=== PATIENT | male | born 1945 | race Caucasian/White ===

== ENCOUNTER 2018-05-31 06:07 | Emergency (ER) | payer OTHER ==
--- OUTSIDE RECORDS SUMMARY | 2018-05-31 06:10 | XMS REPORT | Clinical Summary ---
:1945 Author Organization [facility] Address [address] [place] [phone] Phone Care Team Providers Name Role Phone Unavailable Primary Care Provider Unavailable Allergies Active Allergy Reactions Severity Noted Date Comments Penicillins Shortness Of Breath High 11/04/2017 Current Medications Prescription Sig. Disp. Refills Start Date End Date Status tamsulosin (FLOMAX) Take 0.8 mg by Active 0.4 mg Cp24 24 hr mouth nightly. capsule clindamycin Take 2 capsules 30 capsule 0 11/08/2017 11/13/2017 (CLEOCIN) 300 MG (600 mg total) capsule by mouth every 8 (eight) hours for 5 days. traZODone (DESYREL) Take 1 tablet 30 tablet 0 11/08/2017 12/08/2017 50 MG tablet (50 mg total) by mouth every night as needed for Sleep for up to 30 days. Active Problems Problem Noted Date Syncope, unspecified syncope type 11/04/2017 Severe sepsis (HCC) 11/04/2017 Aspiration pneumonia (HCC) 11/04/2017 Acute respiratory failure with hypoxemia ([facility]) 11/04/2017 Encounters Date Type Specialty Care Team Description 11/04/2017 - Hospital Cardiology Francisco Javier Jefferson Syncope, 11/08/2017 Encounter MD Lindsay unspecified syncope Baudilio Santoro type (Primary MD Kenneth Dx);Unresponsive;Ac Jeffry Wolf respiratory MD Darion failure with hypoxemia ([facility]);Severe sepsis ([facility]);Encephalopath y, toxic;Aspiration pneumonia due to gastric secretions, unspecified laterality, unspecified part of lung (HCC) 11/04/2017 Orders Only General Internal Medicine after 05/30/2017 Social History Tobacco Use Types Packs/Day Years Used Date Former Smoker Comments: quit age 23 yo Alcohol Use Drinks/Week oz/Week Comments No Sex Assigned at Date Recorded Not on file Last Filed Vital Signs Vital Sign Reading Time Taken Blood Pressure 133/71 11/08/2017 11:51 AM CLEATER Pulse 74 11/08/2017 11:51 AM CLEATER Temperature 36.8 C (98.3 F) 11/08/2017 11:51 AM CLEATER Respiratory Rate 20 11/08/2017 11:51 AM CLEATER Oxygen Saturation 96% 11/08/2017 11:51 AM CLEATER Inhaled Oxygen Concentration - - Weight 104.4 kg (230 lb 3.2 oz) 11/08/2017 7:00 AM CLEATER Height 170.2 cm (5' 7") 11/06/2017 3:30 AM CLEATER Body Mass Index 36.05 11/08/2017 7:00 AM CLEATER Plan of Treatment Not on file Procedures Procedure Name Priority Date/Time Associated Diagnosis Comments CRITICAL CARE Routine 11/04/2017 6:37 PM Results for this CLEATER procedure are in the results section. after 05/30/2017 Results RHYTHM STRIP - SCAN (11/09/2017 1:10 PM)CBC with platelet count + automated diff (11/08/2017 5:50 AM)Only the most recent of5 resultswithin the time period is included. Component Value Ref Range WBC 6.7 3.5 - 10.5 K/L RBC 3.81 (L) 4.63 - 6.08 M/L Hemoglobin 12.1 (L) 13.7 - 17.5 GM/DL Hematocrit 36.7 (L) 40.1 - 51.0 % MCV 96.3 (H) 79.0 - 92.2 fL MCH 31.8 25.7 - 32.2 pg MCHC 33.0 32.3 - 36.5 GM/DL RDW 13.1 11.6 - 14.4 % Platelets 226 150 - 450 K/CU MM MPV 11.5 9.4 - 12.4 fL nRBC 0 0 - 0 /100 WBC % Neutros 52 % % Lymphs 33 % % Monos 10 % % Eos 4 % % Baso 1 % # Neutros 3.49 1.78 - 5.38 K/L # Lymphs 2.17 1.32 - 3.57 K/L # Monos 0.68 0.30 - 0.82 K/L # Eos 0.25 0.04 - 0.54 K/L # Baso 0.04 0.01 - 0.08 K/L Immature Granulocytes-Relative 1 0 - 1 % Specimen Performing Laboratory Blood - Arm, [address] [address] CBC with platelet count + automated diff (11/08/2017 5:50 AM)Only the most recent of5 resultswithin the time period is included. Specimen Performing Laboratory Blood Narrative The following orders were created for panel order CBC with platelet count + automated diff. Procedure Abnormality Status --------- ------ CBC with platelet count ...[[id number]]AbnormalFinal result Please view results for these tests on the individual orders. Basic Metabolic Panel (11/08/2017 5:50 AM)Only the most recent of4 resultswithin the time period is included. Component Value Ref Range Sodium 145 136 - 145 meq/L Potassium 4.3 3.5 - 5.1 meq/L Chloride 111 (H) 98 - 107 meq/L CO2 27 22 - 29 meq/L BUN 17 7 - 21 mg/dL Creatinine 0.98 0.57 - 1.25 mg/dL Glucose 87 70 - 105 mg/dL Calcium 9.1 8.4 - 10.2 mg/dL EGFR 75Comment: ESTIMATED GFR IS NOT ACCURATE mL/min/1.73 sq m CREATININE CLEARANCE IN PREDICTING GLOMERULAR FILTRATION RATE. ESTIMATED GFR IS NOT APPLICABLE FOR DIALYSIS PATIENTS. Specimen Performing Laboratory Blood - Arm, [address] [address] Rapid drug screen, urine (11/07/2017 12:59 PM) Component Value Ref Range Barbiturate Screen Negative Negative Benzodiazepine Screen Negative Negative Cocaine (Metab.) Screen Negative Negative Methadone Screen Negative Negative Opiate Screen Negative Negative Cannabinoid Screen Negative Negative Amph/Methamph Screen Negative Negative Phencyclidine Screen Negative Negative Oxycodone Screen Negative Negative Specimen Performing Laboratory Urine - Urine, Voided [address] [address] Narrative DRUGCUTOFF CONC. Cocaine 300 ng/mL Rumoazsroih13 ng/mL Wiudqcdeyjrrqf283 ng/mL Barbiturate 200 ng/mL Lhmjfepfwultv75 ng/mL Jotrwr610 ng/mL Methadone 300 ng/mL Amphetamine/ 1000 ng/mL Methamphetamine Oxycodone 300 ng/mL This assay provides an unconfirmed qualitative test result for the clinical management of patients in emergency situations. Chain of custody not maintained. Some tbsm-mox-ppffzsi medications, as well as adulterants, may cause inaccurate results. Clinical correlation should be applied. A more comprehensive drug screen or confirmation of a detected drug may be performed upon request. EEG AWAKE/ASLEEP (11/07/2017 9:21 AM) Specimen Performing Laboratory GE RIS Narrative EEG REPORT: Nino Mohamud [facility] , DATE: EEG#: ICD Code: #: G93.40 Encephalopathy-unspecified CPT Code: #: 67545: 01. EEG awake and drowsy; 20-40 min PROCEDURE: EEG CONDITIONS OF RECORDING: This is a digital EEG performed using disc electrodes placed according to the International 10-20 system of electrode placement.Scalp to scalp and scalp to ear montages were used.No sedation was given. DESCRIPTION OF RECORD: In the best awake state, a Posterior Dominant Rhythm (PDR) was present at 605-7 cycles/ second. Excessive amounts of bilateral 5-6 cycles/second theta activity was present intermixed with the background rhythm. There was no focal asymmetry in the background. No epileptiform discharges were noted. No clinical or electrographic seizures were noted. Sleep stages were not seen. Hyperventilation was not performed. Photic stimulation was not performed. The heart rate was 72/ min. IMPRESSION: The EEG was abnormal due to mild diffuse slowing of the background rhythm. No seizures or epileptiform discharges were seen. COMMENT: Mild diffuse slowing is a nonspecific finding indicative of mild global cerebral dysfunction of metabolic, toxic, drug-induced or other etiology. Please correlate clinically. Clinical Fellow: Valeri Andrew Neurophysiologist: Nohemy Chang Procedure Note Interface, External Ris In - 11/07/2017 11:31 AM CLEATER EEG REPORT: Nino Mohamud [facility] , DATE: EEG #: ICD Code: #: G93.40 Encephalopathy-unspecified CPT Code: #: 02037: 01. EEG awake and drowsy; 20-40 min PROCEDURE: EEG CONDITIONS OF RECORDING: This is a digital EEG performed using disc electrodes placed according to the International 10-20 system of electrode placement. Scalp to scalp and scalp to ear montages were used. No sedation was given. DESCRIPTION OF RECORD: In the best awake state, a Posterior Dominant Rhythm (PDR) was present at 605-7 cycles/ second. Excessive amounts of bilateral 5-6 cycles/second theta activity was present intermixed with the background rhythm. There was no focal asymmetry in the background. No epileptiform discharges were noted. No clinical or electrographic seizures were noted. Sleep stages were not seen. Hyperventilation was not performed. Photic stimulation was not performed. The heart rate was 72/ min. IMPRESSION: The EEG was abnormal due to mild diffuse slowing of the background rhythm. No seizures or epileptiform discharges were seen. COMMENT: Mild diffuse slowing is a nonspecific finding indicative of mild global cerebral dysfunction of metabolic, toxic, drug-induced or other etiology. Please correlate clinically. Clinical Fellow: Valeri Andrew Neurophysiologist: Nohemy Chang brain without IV contrast (11/06/2017 10:27 PM) Specimen Performing Laboratory Speed Dating by Chantilly Lace Narrative FINAL REPORT EXAMINATIONNONCONTRAST HEAD CT SCAN CLINICAL HISTORY:Altered level of consciousness, confusion and delirium COMPARISON CT: 11/04/2017 TECHNIQUE: Axial tomographic images were obtained through the brain from the vertex to the skull base without intravenous contrast. The exam was performed according to our departmental dose optimization program which includes automated exposure control, adjustment of the mA and/or kV according to patient's size and/or use of iterative reconstructive technique. FINDINGS: Generalized volume loss and mild deep white matter changes are again noted. No evidence of acute intracranial hemorrhage, mass effect, cerebral edema, midline shift, hydrocephalus or abnormal extra-axial fluid collection. The orbits are unremarkable. The visualized paranasal sinuses are associated with mild mucosal thickening without significant fluid. The tympanic and mastoid air cells are well pneumatized. No evidence of an acute skull fracture. IMPRESSION: No specific evidence of an acute intracranial process. If there is persistent clinical concern, consider brain MRI. Signed: Tre Eckert MD Report Verified Date/Time:11/06/2017 23:34:56 Reading Location: [address] Transitional Reading Room Procedure Note Interface, External Ris In - 11/06/2017 11:37 PM CLEATER FINAL REPORT EXAMINATION NONCONTRAST HEAD CT SCAN CLINICAL HISTORY:Altered level of consciousness, confusion and delirium COMPARISON CT: 11/04/2017 TECHNIQUE: Axial tomographic images were obtained through the brain from the vertex to the skull base without intravenous contrast. The exam was performed according to our departmental dose optimization program which includes automated exposure control, adjustment of the mA and/or kV according to patient's size and/or use of iterative reconstructive technique. FINDINGS: Generalized volume loss and mild deep white matter changes are again noted. No evidence of acute intracranial hemorrhage, mass effect, cerebral edema, midline shift, hydrocephalus or abnormal extra-axial fluid collection. The orbits are unremarkable. The visualized paranasal sinuses are associated with mild mucosal thickening without significant fluid. The tympanic and mastoid air cells are well pneumatized. No evidence of an acute skull fracture. IMPRESSION: No specific evidence of an acute intracranial process. If there is persistent clinical concern, consider brain MRI. Signed: Tre Eckert MD Report Verified Date/Time: 11/06/2017 23:34:56 Reading Location: [address] Transitional Reading Room Ammonia (11/06/2017 7:13 PM) Component Value Ref Range Ammonia 35Comment: Specimen moderately hemolyzed 18 - 72 mol/L Specimen Performing Laboratory Blood [address] [address] TSH/Free T4 If Indicated (11/05/2017 6:24 PM) Component Value Ref Range TSH 1.87 0.35 - 4.94 uIU/mL Specimen Performing Laboratory Blood [address] [address] Hemoglobin A1c (11/05/2017 6:24 PM) Component Value Ref Range Hemoglobin A1C 5.4 4.3 - 6.1 % Specimen Performing Laboratory Blood [facility] [address] [address] ECHOCARDIOGRAM REPORT - SCAN (11/05/2017 11:20 AM)2D Echo W/Doppler (Sepsis Protocol) (11/05/2017 7:22 AM) Component Value Ref Range Ejection Fraction Specimen Performing Laboratory [facility] ECHO HEARTLAB MKCKESSON CPACS Narrative Transthoracic Echocardiography Report (TTE) Demographics Patient NINO Lozano Date of Study11/05/2017 GLORIA Male Visit [id number] Unknown Room [id number] Number Date of 4Referring Jeffry Cat MD Age 72 year(s)[employer] [facility] Medical Referral Coordinator Shankar Madison Interpreting Lance Herr MD Physician Procedure Type of Study TTE procedure:2DECHO W DOPPLER(CW/PW/COLOR) (CIARA) Indications:Sepsis protocol. Clinical History BHP HGB 14.3 HCT 43.0 % Contrast Medium: Definity. Amount - 3 ml Height: 67 inches Weight: 99.79 kg (220 lbs) BSA: 2.11 m^2 BMI: 34.46 kg/m^2 HR: 83 bpm BP: 113/76 mmHg Summary LV endocardium is adequately visualized with IV ultrasound enhancing agent. No evidence of LV hypertrophy. All of the LV segments contract normally . Estimated LVEF by qualitative assessment is normal (55-60%) . Grade 1 diastolic dysfunction (impaired relaxation and low-normal LA pressure). Normal right ventricle structure and function. Estimated peak systolic PA pressure is 25-30 mmHg . No evidence of pericardial effusion. Signature Findings Left Ventricle LV endocardium is adequately visualized with IV ultrasound enhancing agent. No evidence of LV hypertrophy. All of the LV segments contract normally . Estimated LVEF by qualitative assessment is normal (55-60%) . Grade 1 diastolic dysfunction (impaired relaxation and low- normal LA pressure). Left AtriumLA size is normal . Right VentricleNormal right ventricle structure and function. Right Atrium Normal right atrium. Aortic Valve Mild AoV cusp thickening. Mitral Valve Mild MV leaflet thickening. Tricuspid ValveA trace of tricuspid regurgitation. Estimated peak systolic PA pressure is 25-30 mmHg . Pulmonic Valve Normal PV structure and function by limited views and Doppler. AortaAortic root size (SInus of Valsalva diameter) is normal . PericardiumNo evidence of pericardial effusion. IVC/SVC/PA/PV/PleuralThe estimated RA pressure by IVC dynamics 5-10mmHg . Chambers/Structures Left Atrium LA Dimension: 3.45 cm Left Ventricle LVIDd: 4.6 cm LV Septum Diastolic: 0.83 cm LV PW Diastolic: 0.95 cm Aorta Ao Root S of Consuelo.: 2.62 cm Doppler/Quantitative Measurements LVOT Peak Velocity: 1.14 m/s Peak Gradient: 5.23 mmHg Mean Velocity: 0.64 m/s Mean Gradient: 2.12 mmHg LVOT VTI: 17.96 cm Procedure Note Interface, External Ris In - 11/05/2017 10:55 AM CLEATER Transthoracic Echocardiography Report (TTE) Demographics Patient Name NINO MOHAMUD Date of Study 11/05/2017 GLORIA Gender Male Visit Number [id number] Race Unknown Room Number 7401 Number Date of 1945 Referring Jeffry Figueroaough Physician MD Luciano Age 72 year(s) [employer] [facility] Medical Referral Coordinator Shankar Madison Interpreting Lance Herr MD Physician Procedure Type of Study TTE procedure:2DECHO W DOPPLER(CW/PW/COLOR) ([facility]) Indications:Sepsis protocol. Clinical History BHP HGB 14.3 HCT 43.0 % Contrast Medium: Definity. Amount - 3 ml Height: 67 inches Weight: 99.79 kg (220 lbs) BSA: 2.11 m^2 BMI: 34.46 kg/m^2 HR: 83 bpm BP: 113/76 mmHg Summary LV endocardium is adequately visualized with IV ultrasound enhancing agent. No evidence of LV hypertrophy. All of the LV segments contract normally . Estimated LVEF by qualitative assessment is normal (55-60%) . Grade 1 diastolic dysfunction (impaired relaxation and low-normal LA pressure). Normal right ventricle structure and function. Estimated peak systolic PA pressure is 25-30 mmHg . No evidence of pericardial effusion. Signature Findings Left Ventricle LV endocardium is adequately visualized with IV ultrasound enhancing agent. No evidence of LV hypertrophy. All of the LV segments contract normally . Estimated LVEF by qualitative assessment is normal (55-60%) . Grade 1 diastolic dysfunction (impaired relaxation and low-normal LA pressure). Left Atrium LA size is normal . Right Ventricle Normal right ventricle structure and function. Right Atrium Normal right atrium. Aortic Valve Mild AoV cusp thickening. Mitral Valve Mild MV leaflet thickening. Tricuspid Valve A trace of tricuspid regurgitation. Estimated peak systolic PA pressure is 25-30 mmHg . Pulmonic Valve Normal PV structure and function by limited views and Doppler. Aorta Aortic root size (SInus of Valsalva diameter) is normal . Pericardium No evidence of pericardial effusion. IVC/SVC/PA/PV/Pleural The estimated RA pressure by IVC dynamics 5-10mmHg . Chambers/Structures Left Atrium LA Dimension: 3.45 cm Left Ventricle LVIDd: 4.6 cm LV Septum Diastolic: 0.83 cm LV PW Diastolic: 0.95 cm Aorta Ao Root S of Consuelo.: 2.62 cm Doppler/Quantitative Measurements LVOT Peak Velocity: 1.14 m/s Peak Gradient: 5.23 mmHg Mean Velocity: 0.64 m/s Mean Gradient: 2.12 mmHg LVOT VTI: 17.96 cm Manual Differential (11/05/2017 3:19 AM) Component Value Ref Range % Neutros (manual) 86 % % Lymphs (manual) 4 % % Monos (manual) 3 % % Eos (manual) 0 % % Baso (manual) 0 % % Bands (manual) 7 0 - 10 % # Neutros (manual) 19.69 (H) 1.80 - 8.00 K/L # Lymphs (manual) 0.92 (L) 1.48 - 4.50 K/L # Monos (manual) 0.69 0.00 - 1.30 K/L # Eos (manual) 0.00 0.00 - 0.50 K/L # Baso (manual) 0.00 0.00 - 0.20 K/L # Bands (manual) 1.6 (H) 0.0 - 0.8 K/L Total Counted 100 Bands plus Segmented Neutrophils 21.30 WBC Morphology Normal Platelet Morphology Normal RBC Morphology Normal Specimen Performing Laboratory Blood [address] [address] Lactic acid, venous, whole blood (11/05/2017 3:19 AM)Only the most recent of2 resultswithin the time period is included. Component Value Ref Range Lactate, Venous 2.2 0.5 - 2.2 mmol/L Specimen Performing Laboratory Blood [address] [address] Narrative Effective 03/01/2016: Units/Reference Range Change New: 0.5-2.2 mmol/LPrevious: 5-20 mg/dL Magnesium (11/05/2017 3:19 AM)Only the most recent of2 resultswithin the time period is included. Component Value Ref Range Magnesium 2.1 1.6 - 2.6 mg/dL Specimen Performing Laboratory Blood [address] [address] Influenza A H1N1 PCR (11/04/2017 8:44 PM) Component Value Ref Range Influenza A RNA Not Detected Not Detected, Inconclusive Novel H1N1 RNA Not Detected Not Detected, Inconclusive Specimen Performing Laboratory Nasal - Nasopharyngeal Swab [place] [id number] Narrative These assays were performed by real-time RT-PCR (wheel braider-PCR) utilizing fluorogenic hydrolysis probe technology for the detection of human Influenza A viruses and the differential detection of novel H1N1 Influenza virus in respiratory specimens. The test is composed of (1) an RNA extraction from patient specimen, and (2) wheel braider- PCR amplification and detection with human Influenza A and novel [id number] primers and probes. A well-conserved region of the Influenza A matrix gene is targeted in one set of reactions to identify both seasonal Influenza A and novel H1N1 Influenza virus in the specimen.In addition, a specific region of the hemagglutinin gene is targeted to differentiate the novel H1N1 virus from the seasonal human influenza. An internal control is used to confirm PCR amplification.Genetic variation and other factors can affect the accuracy of nucleic acid testing; therefore, the results should be interpreted in light of clinical data. This test was developed and its performance characteristics determined by the [facility] Pathology Department, Section of Molecular Pathology.It has not been cleared or approved by the U.S. Food and Drug Administration (FDA).Since FDA approval is not required for clinical use of the test, validation was done as required by The Clinical Laboratory Amendments of 1988. These assays were performed by real-time RT-PCR (wheel braider-PCR) utilizing fluorogenic hydrolysis probe technology for the detection of human Influenza A viruses and the differential detection of novel H1N1 Influenza virus in respiratory specimens. The test is composed of (1) an RNA extraction from patient specimen, and (2) wheel braider- PCR amplification and detection with human Influenza A and novel [id number] primers and probes. A well-conserved region of the Influenza A matrix gene is targeted in one set of reactions to identify both seasonal Influenza A and novel H1N1 Influenza virus in the specimen.In addition, a specific region of the hemagglutinin gene is targeted to differentiate the novel H1N1 virus from the seasonal human influenza. An internal control is used to confirm PCR amplification.Genetic variation and other factors can affect the accuracy of nucleic acid testing; therefore, the results should be interpreted in light of clinical data. This test was developed and its performance characteristics determined by the [facility] Pathology Department, Section of Molecular Pathology.It has not been cleared or approved by the U.S. Food and Drug Administration (FDA).Since FDA approval is not required for clinical use of the test, validation was done as required by The Clinical Laboratory Amendments of 1988. Oxygen saturation, measured (11/04/2017 8:44 PM) Component Value Ref Range O2 Saturation (Measured) 41.4 % Specimen Performing Laboratory Blood - Arm, Right [address] [address] Narrative If patient has internal jugular ( IJ) or subclavian central line or PICC line. Draw from distal port. Label as central venous oxygen. Prothrombin time/INR (11/04/2017 8:44 PM) Component Value Ref Range Protime 15.3 (H) 11.7 - 14.7 seconds INR 1.2 <=5.9 Specimen Performing Laboratory Blood - Arm, Right [address] [address] Narrative RECOMMENDED COUMADIN/WARFARIN INR THERAPY RANGES STANDARD DOSE: 2.0 - 3.0 Includes: PROPHYLAXIS for venous thrombosis, systemic embolization; TREATMENT for venous thrombosis and/or pulmonary embolus. HIGH RISK: Target INR is 2.5-3.5 for patients with mechanical heart valves. Rapid influenza A&B screen (11/04/2017 8:44 PM) Component Value Ref Range Rapid Influenza A Antigen Negative Negative, Inconclusive Rapid influenza B Antigen Negative Negative, Inconclusive Specimen Performing Laboratory Nasal - Nasopharyngeal Swab [address] [address] [address] chest for pulmonary embolus (11/04/2017 7:46 PM) Specimen Performing Laboratory Speed Dating by Chantilly Lace Narrative FINAL REPORT CLINICAL HISTORY: Chest pain. FINDINGS: Multiple axial images of the chest were performed after the uncomplicated administration of IV contrast, utilizing a pulmonary embolism protocol. Post-processing coronal reformats were created and interpreted. This exam was performed according to our departmental dose-optimization program, which includes automated exposure control, adjustment of the mA and/or kV according to patient size and/or use of the iterative reconstruction technique. Study quality:Adequate. Comparison:None. Pulmonary arteries: No pulmonary embolism. Lung parenchyma: Peripheral opacity in the dependent right upper lobe and left lower lobe, probably atelectasis Pleural effusion: None. Pneumothorax: None. Tracheobronchial tree: Endotracheal tube in good position above the niki Pulmonary vasculature: No significant findings. Cardiac contours and great vessels: No significant findings. Specifically, the aorta is normal without dissection, aneurysm or periaortic hematoma. Mediastinum: Small hiatal hernia Lymph Nodes: No adenopathy in the mediastinum or jae. Skeleton: No acute abnormality. Limited images of upper abdomen: No significant findings. IMPRESSION: No pulmonary embolus. The aorta is unremarkable. Bilateral atelectasis versus pneumonitis. Small hiatal hernia. Endotracheal tube in appropriate position. Signed: Chance Nowak MD Report Verified Date/Time:11/04/2017 19:53:50 Reading Location: [address] Reading Room Procedure Note Interface, External Ris In - 11/04/2017 7:55 PM CLEATER FINAL REPORT CLINICAL HISTORY: Chest pain. FINDINGS: Multiple axial images of the chest were performed after the uncomplicated administration of IV contrast, utilizing a pulmonary embolism protocol. Post-processing coronal reformats were created and interpreted. This exam was performed according to our departmental dose-optimization program, which includes automated exposure control, adjustment of the mA and/or kV according to patient size and/or use of the iterative reconstruction technique. Study quality:Adequate. Comparison:None. Pulmonary arteries: No pulmonary embolism. Lung parenchyma: Peripheral opacity in the dependent right upper lobe and left lower lobe, probably atelectasis Pleural effusion: None. Pneumothorax: None. Tracheobronchial tree: Endotracheal tube in good position above the niki Pulmonary vasculature: No significant findings. Cardiac contours and great vessels: No significant findings. Specifically, the aorta is normal without dissection, aneurysm or periaortic hematoma. Mediastinum: Small hiatal hernia Lymph Nodes: No adenopathy in the mediastinum or jae. Skeleton: No acute abnormality. Limited images of upper abdomen: No significant findings. IMPRESSION: No pulmonary embolus. The aorta is unremarkable. Bilateral atelectasis versus pneumonitis. Small hiatal hernia. Endotracheal tube in appropriate position. Signed: Chance Nowak MD Report Verified Date/Time: 11/04/2017 19:53:50 Reading Location: [address] Reading Room Blood gas, arterial (11/04/2017 6:53 PM) Component Value Ref Range pH, Arterial 7.31 (L) 7.35 - 7.45 pCO2, Arterial 40 35 - 45 mmHg pO2, Arterial 220 (H) 80 - 90 mmHg O2 Sat, Arterial 99.4 (H) 96.0 - 97.0 % HCO3, Arterial 20 (L) 21 - 29 mmol/L Base Excess, Arterial -6.2 (L) -2.0 - 3.0 mmol/L Patient Temperature 37.0 C FIO2 60.0 % Specimen Performing Laboratory Blood, Arterial - Arm, [place] [address] ED ECG Interpretation (11/04/2017 6:37 PM) Francisco Javier Khan MD 11/04/20176:37 PM ECG/EKG Interpretation Date/Time: 11/04/2017 5:52 PM Performed by: FRANCISCO JAVIER JEFFERSON Authorized by: FRANCISCO JAVIER JEFFERSON The ECG was interpreted by ED physician. This ECG was not compared with previous ECG(s).The ECG is interpreted as sinus rhythm. Rate is normal rate. Heart rate is 92 BPM. Conduction: conduction normal. ST segments normal. Clinical Impression: non-specific ECGECG reviewed and does not meet STEMI criteria. Patient tolerance: Patient tolerated the procedure well with no immediate complications Critical Care (11/04/2017 6:37 PM) Narrative Francisco Javier Jefferson MD 11/04/20176:37 PM Critical Care Performed by: FRANCISCO JAVIER JEFFERSON Authorized by: FRANCISCO JAVIER JEFFERSON Total critical care time: 45 minutes Critical care time was exclusive of separately billable procedures and treating other patients. Critical care was necessary to treat or prevent imminent or life-threatening deterioration of the following conditions: WATER PUMPER failure or compromise. Critical care was time spent personally by me on the following activities: blood draw for specimens, development of treatment plan with patient or surrogate, discussions with consultants, interpretation of cardiac output measurements, evaluation of patient's response to treatment, examination of patient, obtaining history from patient or surrogate, ordering and performing treatments and interventions, ordering and review of laboratory studies, ordering and review of radiographic studies, pulse oximetry and re-evaluation of patient's condition. XR chest 1 view portable / bedside (11/04/2017 6:31 PM) Specimen Performing Laboratory GE RIS Narrative FINAL REPORT History: Shortness of breath. Comparison: None. Findings: A single view of the chest is submitted. The tip of an endotracheal tube is above the niki at the level of the inferior clavicular heads. Tubing overlying the chest appears reflect a nasogastric tube external to the patient. Please correlate. The cardiomediastinal contours are unremarkable. The lung volumes are low. Curvilinear opacity in the right mid and bilateral lower lung suggests atelectasis or scarring. There is no pneumothorax, large pleural effusion or acute bony abnormality. Signed: Chance Nowak MD Report Verified Date/Time:11/04/2017 19:12:37 Reading Location: [address] Reading Room Procedure Note Interface, External Ris In - 11/04/2017 7:14 PM CLEATER FINAL REPORT History: Shortness of breath. Comparison: None. Findings: A single view of the chest is submitted. The tip of an endotracheal tube is above the niki at the level of the inferior clavicular heads. Tubing overlying the chest appears reflect a nasogastric tube external to the patient. Please correlate. The cardiomediastinal contours are unremarkable. The lung volumes are low. Curvilinear opacity in the right mid and bilateral lower lung suggests atelectasis or scarring. There is no pneumothorax, large pleural effusion or acute bony abnormality. Signed: Chance Nowak MD Report Verified Date/Time: 11/04/2017 19:12:37 Reading Location: [address] Reading Room Blood culture #2 (11/04/2017 6:29 PM)Only the most recent of2 resultswithin the time period is included. Component Value Ref Range Result No growth in 5 days Specimen Performing Laboratory Blood - Arm, Right [address] [address] Urinalysis w/Microscopic (11/04/2017 6:13 PM) Component Value Ref Range Color, UA Yellow Clarity, UA Clear Specific [place], UA 1.016 1.001 - 1.035 pH, UA 5.5 5.0 - 8.0 Protein, UA Negative Negative Glucose, UA 50 mg/dL (A) Negative Ketones, UA Negative Negative Bilirubin, UA Negative Negative Blood, UA Negative Negative Nitrite, UA Negative Negative Leukocytes, UA Negative Negative Urobilinogen, UA 0.2 0.2 - 1.0 mg/dL RBC, UA <1 /HPF WBC, UA 1 /HPF Hyaline Casts, UA 9 /LPF Granular Casts, UA 3 /LPF Specimen Source Urine, [place] Specimen Performing Laboratory Urine - Urine, [address] [address] Urine culture (11/04/2017 6:13 PM) Component Value Ref Range Result No growth Specimen Performing Laboratory Urine - Urine, [address] [address] POC-Lactic Acid, Venous (11/04/2017 6:05 PM) Component Value Ref Range POC-Lactic Acid, Venous 3.1 (H)Comment: TESTED AT [address] 0.9 - 1.7 mmol/L [facility] [address] Specimen Performing Laboratory Blood [address] [address] ECG 12 lead (11/04/2017 5:52 PM) Specimen Performing Laboratory GE MUSE Narrative Ventricular Rate 92 BPM Atrial Rate 92 BPM P-R Interval 158 ms QRS Duration 80 ms Q-T Interval 396 ms QTC Calculation(Bazett) 489 ms P Clay 61 degrees R Clay 8 degrees T Clay 63 degrees Normal sinus rhythm Nonspecific ST and T wave abnormality Prolonged QT Abnormal ECG No previous ECGs available Confirmed by MD NICOLE YOCHAI ([id number]) on 11/06/2017 7:38:32 AM Procedure Note Interface, External Ris In - 11/06/2017 7:38 AM CLEATER Ventricular Rate 92 BPM Atrial Rate 92 BPM P-R Interval 158 ms QRS Duration 80 ms Q-T Interval 396 ms QTC Calculation(Bazett) 489 ms P Clay 61 degrees R Clay 8 degrees T Clay 63 degrees Normal sinus rhythm Nonspecific ST and T wave abnormality Prolonged QT Abnormal ECG No previous ECGs available Confirmed by MD NICOLE YOCHAI ([id number]) on 11/06/2017 7:38:32 AM PT/aPTT (11/04/2017 5:47 PM) Component Value Ref Range Protime 15.1 (H) 11.7 - 14.7 seconds INR 1.2 <=5.9 PTT 25.7 22.5 - 36.0 seconds Specimen Performing Laboratory Blood [address] [address] Narrative RECOMMENDED COUMADIN/WARFARIN INR THERAPY RANGES STANDARD DOSE: 2.0 - 3.0 Includes: PROPHYLAXIS for venous thrombosis, systemic embolization; TREATMENT for venous thrombosis and/or pulmonary embolus. HIGH RISK: Target INR is 2.5-3.5 for patients with mechanical heart valves. Troponin I (11/04/2017 5:47 PM) Component Value Ref Range Troponin I 0.03 0.00 - 0.03 ng/mL Specimen Performing Laboratory Blood [address] [address] Narrative Troponin I (TnI) levels must be interpreted in the context of the presenting symptoms and the clinical findings. Elevated TnI levels indicate myocardial damage, but are not specific for ischemic heart disease. Elevated TnI levels are seen in patients with other cardiac conditions (including myocarditis and congestive heart failure), and slight TnI elevations occur in patients with other conditions, including sepsis, renal failure, acidosis, acute neurological disease, and persistent tachyarrhythmia. Creatine Kinase (CK), Total and MB (11/04/2017 5:47 PM) Component Value Ref Range Total CK 93 29 - 200 U/L CK-MB 1.0 0.0 - 6.6 ng/mL MB Relative Index 1.1 % Specimen Performing Laboratory Blood [address] [address] Narrative CK-MB Reference Range: <6.7Normal 6.7-10.0Borderline >10.0 Abnormal Hepatic function panel (11/04/2017 5:47 PM) Component Value Ref Range Protein, Total 5.9 (L)Comment: Specimen slightly hemolyzed 6.0 - 8.3 gm/dL Albumin 3.1 (L)Comment: Specimen slightly hemolyzed 3.5 - 5.0 g/dL Total Bilirubin 0.5Comment: Specimen slightly hemolyzed 0.2 - 1.2 mg/dL Bilirubin, Direct 0.2Comment: Specimen slightly hemolyzed 0.1 - 0.5 mg/dL Alkaline Phosphatase 74 40 - 150 U/L AST 22Comment: Specimen slightly hemolyzed 5 - 34 U/L ALT 16Comment: Specimen slightly hemolyzed 6 - 55 U/L Specimen Performing Laboratory Blood [address] [address] Comprehensive metabolic panel (11/04/2017 5:47 PM) Component Value Ref Range Protein, Total 6.0Comment: Specimen slightly hemolyzed 6.0 - 8.3 gm/dL Albumin 3.1 (L)Comment: Specimen slightly hemolyzed 3.5 - 5.0 g/dL Alkaline Phosphatase 76 40 - 150 U/L Total Bilirubin 0.5Comment: Specimen slightly hemolyzed 0.2 - 1.2 mg/dL Sodium 140 136 - 145 meq/L Potassium 3.8Comment: Specimen slightly hemolyzed 3.5 - 5.1 meq/L Chloride 109 (H) 98 - 107 meq/L CO2 20 (L) 22 - 29 meq/L BUN 26 (H) 7 - 21 mg/dL Creatinine 1.19Comment: Specimen slightly hemolyzed 0.57 - 1.25 mg/dL Glucose 173 (H) 70 - 105 mg/dL Calcium 8.1 (L) 8.4 - 10.2 mg/dL AST 21Comment: Specimen slightly hemolyzed 5 - 34 U/L ALT 16Comment: Specimen slightly hemolyzed 6 - 55 U/L EGFR Comment: INSUFFICIENT CLINICAL DATA TO mL/min/1.73 sq m CALCULATE ESTIMATED GFR. Specimen Performing Laboratory Blood [address] [address] CTA carotid (11/04/2017 5:32 PM) Specimen Performing Laboratory GE RIS Narrative FINAL REPORT CLINICAL HISTORY: Stroke TECHNIQUE: Contiguous contrast-enhanced axial images through the neck followed by axial images through the head with coronal and sagittal reformations to assess the arterial circulation. 3-D reconstructions to be performed using a volume rendered technique separately on a workstation. This exam was performed according to the departmental dose optimization program which includes automated exposure control, adjustment of the mA and/or kV according to the patient size, and/or use of an iterative reconstruction technique. COMPARISON: Noncontrast head CT 11/04/2017 FINDINGS: The CT angiogram images of the head reveal no evidence of intracranial aneurysm, focal stenosis, or proximal branch vessel occlusion. The major intradural venous sinuses are patent. The carotid arteries in the neck are patent including their bifurcations without focal hemodynamically significant stenosis by NASCET criteria. The vertebral arteries in the neck are patent including their origins. There are dorsal spondylitic changes in the cervical spine. There are scattered subcentimeter lymph nodes in the neck. There is an ETT above the niki. There is consolidation of the visualized right upper and lower lung. IMPRESSION: No evidence of intracranial aneurysm, focal stenosis, or proximal branch vessel occlusion. No evidence of hemodynamically significant stenosis in the cervical carotid or vertebral arteries by NASCET criteria. Signed: John Vick MD Report Verified Date/Time:11/04/2017 17:57:59 Reading Location: [address] Neuro Reading Room Procedure Note Interface, External Ris In - 11/04/2017 6:00 PM CLEATER FINAL REPORT CLINICAL HISTORY: Stroke TECHNIQUE: Contiguous contrast-enhanced axial images through the neck followed by axial images through the head with coronal and sagittal reformations to assess the arterial circulation. 3-D reconstructions to be performed using a volume rendered technique separately on a workstation. This exam was performed according to the departmental dose optimization program which includes automated exposure control, adjustment of the mA and/or kV according to the patient size, and/or use of an iterative reconstruction technique. COMPARISON: Noncontrast head CT 11/04/2017 FINDINGS: The CT angiogram images of the head reveal no evidence of intracranial aneurysm, focal stenosis, or proximal branch vessel occlusion. The major intradural venous sinuses are patent. The carotid arteries in the neck are patent including their bifurcations without focal hemodynamically significant stenosis by NASCET criteria. The vertebral arteries in the neck are patent including their origins. There are dorsal spondylitic changes in the cervical spine. There are scattered subcentimeter lymph nodes in the neck. There is an ETT above the niki. There is consolidation of the visualized right upper and lower lung. IMPRESSION: No evidence of intracranial aneurysm, focal stenosis, or proximal branch vessel occlusion. No evidence of hemodynamically significant stenosis in the cervical carotid or vertebral arteries by NASCET criteria. Signed: John Vick MD Report Verified Date/Time: 11/04/2017 17:57:59 Reading Location: [address] Neuro Reading Room brain (11/04/2017 5:32 PM) Specimen Performing Laboratory GE RIS Narrative FINAL REPORT CLINICAL HISTORY: Stroke TECHNIQUE: Contiguous contrast-enhanced axial images through the neck followed by axial images through the head with coronal and sagittal reformations to assess the arterial circulation. 3-D reconstructions to be performed using a volume rendered technique separately on a workstation. This exam was performed according to the departmental dose optimization program which includes automated exposure control, adjustment of the mA and/or kV according to the patient size, and/or use of an iterative reconstruction technique. COMPARISON: Noncontrast head CT 11/04/2017 FINDINGS: The CT angiogram images of the head reveal no evidence of intracranial aneurysm, focal stenosis, or proximal branch vessel occlusion. The major intradural venous sinuses are patent. The carotid arteries in the neck are patent including their bifurcations without focal hemodynamically significant stenosis by NASCET criteria. The vertebral arteries in the neck are patent including their origins. There are dorsal spondylitic changes in the cervical spine. There are scattered subcentimeter lymph nodes in the neck. There is an ETT above the niki. There is consolidation of the visualized right upper and lower lung. IMPRESSION: No evidence of intracranial aneurysm, focal stenosis, or proximal branch vessel occlusion. No evidence of hemodynamically significant stenosis in the cervical carotid or vertebral arteries by NASCET criteria. Signed: John Vick MD Report Verified Date/Time:11/04/2017 17:57:59 Reading Location: [address] Neuro Reading Room Procedure Note Interface, External Ris In - 11/04/2017 6:00 PM CLEATER FINAL REPORT CLINICAL HISTORY: Stroke TECHNIQUE: Contiguous contrast-enhanced axial images through the neck followed by axial images through the head with coronal and sagittal reformations to assess the arterial circulation. 3-D reconstructions to be performed using a volume rendered technique separately on a workstation. This exam was performed according to the departmental dose optimization program which includes automated exposure control, adjustment of the mA and/or kV according to the patient size, and/or use of an iterative reconstruction technique. COMPARISON: Noncontrast head CT 11/04/2017 FINDINGS: The CT angiogram images of the head reveal no evidence of intracranial aneurysm, focal stenosis, or proximal branch vessel occlusion. The major intradural venous sinuses are patent. The carotid arteries in the neck are patent including their bifurcations without focal hemodynamically significant stenosis by NASCET criteria. The vertebral arteries in the neck are patent including their origins. There are dorsal spondylitic changes in the cervical spine. There are scattered subcentimeter lymph nodes in the neck. There is an ETT above the niki. There is consolidation of the visualized right upper and lower lung. IMPRESSION: No evidence of intracranial aneurysm, focal stenosis, or proximal branch vessel occlusion. No evidence of hemodynamically significant stenosis in the cervical carotid or vertebral arteries by NASCET criteria. Signed: John Vick MD Report Verified Date/Time: 11/04/2017 17:57:59 Reading Location: [address] Neuro Reading Room brain/stroke protocol (11/04/2017 5:04 PM) Specimen Performing Laboratory RIS Narrative FINAL REPORT CT Head without contrast CLINICAL HISTORY: Neuro deficit(s), subacute altered mental status TECHNIQUE: Contiguous axial images through the head without contrast. This exam was performed according to the departmental dose optimization program which includes automated exposure control, adjustment of the mA and/or kV according to the patient size, and/or use of an iterative reconstruction technique. COMPARISON: None FINDINGS: There is no definitive CT evidence of acute infarct. There is no intracranial hemorrhage. There is generalized parenchymal volume loss without hydrocephalus, midline shift, or apparent mass effect. There are no extra-axial fluid collections. The skull is intact. The paranasal sinuses are well-aerated. IMPRESSION: There is no definitive CT evidence of acute infarct. There is no intracranial hemorrhage. The findings were discussed with the stroke neurologist at 5:08 PM. Signed: John Vick MD Report Verified Date/Time:11/04/2017 17:09:06 Reading Location: [address] Neuro Reading Room Procedure Note Interface, External Ris In - 11/04/2017 5:11 PM CLEATER FINAL REPORT CT Head without contrast CLINICAL HISTORY: Neuro deficit(s), subacute altered mental status TECHNIQUE: Contiguous axial images through the head without contrast. This exam was performed according to the departmental dose optimization program which includes automated exposure control, adjustment of the mA and/or kV according to the patient size, and/or use of an iterative reconstruction technique. COMPARISON: None FINDINGS: There is no definitive CT evidence of acute infarct. There is no intracranial hemorrhage. There is generalized parenchymal volume loss without hydrocephalus, midline shift, or apparent mass effect. There are no extra-axial fluid collections. The skull is intact. The paranasal sinuses are well-aerated. IMPRESSION: There is no definitive CT evidence of acute infarct. There is no intracranial hemorrhage. The findings were discussed with the stroke neurologist at 5:08 PM. Signed: John Vick MD Report Verified Date/Time: 11/04/2017 17:09:06 Reading Location: [facility] B1 [id number] Neuro Reading Room after 05/30/2017
--- OUTSIDE RECORDS SUMMARY | 2018-05-31 06:11 | XMS REPORT ---
:1945 Author Organization [facility] Address [address] [place] [address] [address] [place] [address] Care Team Providers Name Role Phone OSMEL DAVALOSMATILDA BAUER Unavailable Unavailable Problems This patient has no known problems. Allergies, Adverse Reactions, Alerts This patient has no known allergies or adverse reactions. Medications This patient has no known medications. Results Test Description Test Time Test Comments Text Results Atomic Results Result Comments BLOOD CULTURE 2017-11-09 23:00:00 Test Item Value Reference Range Comments CULTURE (BEAKER) (test qqtd=6149) No growth in 5 days BLOOD [id number] 23:00:00 Test Item Value Reference Range Comments CULTURE (BEAKER) (test qwht=2582) No growth in 5 days BASIC METABOLIC [id number] 08:26:00 Test Item Value Reference Range Comments SODIUM (BEAKER) (test 145 meq/L 136-145 flsh=230) POTASSIUM (BEAKER) (test 4.3 meq/L 3.5-5.1 bxxo=587) CHLORIDE (BEAKER) (test 111 meq/L 98-107 pinr=273) CO2 (BEAKER) (test 27 meq/L 22-29 gnbk=736) BLOOD UREA NITROGEN 17 mg/dL 7-21 (BEAKER) (test chcg=207) CREATININE (BEAKER) (test 0.98 mg/dL 0.57-1.25 jmmj=130) GLUCOSE RANDOM (BEAKER) 87 mg/dL 70-105 (test byph=040) CALCIUM (BEAKER) (test 9.1 mg/dL 8.4-10.2 kqmt=510) EGFR (BEAKER) (test 75 mL/min/1.73 sq m ESTIMATED GFR IS NOT lbid=4005) ACCURATE CREATININE CLEARANCE IN PREDICTING GLOMERULAR FILTRATION RATE. ESTIMATED GFR IS NOT APPLICABLE FOR DIALYSIS PATIENTS. CBC W/PLT COUNT & AUTO [id number] 06:33:00 Test Item Value Reference Range Comments WHITE BLOOD CELL COUNT (BEAKER) (test sbws=224) 6.7 K/ L 3.5-10.5 RED BLOOD CELL COUNT (BEAKER) (test uzgu=751) 3.81 M/ L 4.63-6.08 HEMOGLOBIN (BEAKER) (test wokg=635) 12.1 GM/DL 13.7-17.5 HEMATOCRIT (BEAKER) (test wflg=959) 36.7 % 40.1-51.0 MEAN CORPUSCULAR VOLUME (BEAKER) (test ryqt=574) 96.3 fL 79.0-92.2 MEAN CORPUSCULAR HEMOGLOBIN (BEAKER) (test 31.8 pg 25.7-32.2 xufh=784) MEAN CORPUSCULAR HEMOGLOBIN CONC (BEAKER) (test 33.0 GM/DL 32.3-36.5 xdsl=312) RED CELL DISTRIBUTION WIDTH (BEAKER) (test 13.1 % 11.6-14.4 npsi=207) PLATELET COUNT (BEAKER) (test yqna=844) 226 K/CU MM 150-450 MEAN PLATELET VOLUME (BEAKER) (test xomf=596) 11.5 fL 9.4-12.4 NUCLEATED RED BLOOD CELLS (BEAKER) (test 0 /100 WBC 0-0 ggvt=276) NEUTROPHILS RELATIVE PERCENT (BEAKER) (test 52 % bzos=582) LYMPHOCYTES RELATIVE PERCENT (BEAKER) (test 33 % ktgc=970) MONOCYTES RELATIVE PERCENT (BEAKER) (test 10 % xwgu=436) EOSINOPHILS RELATIVE PERCENT (BEAKER) (test 4 % nnuy=583) BASOPHILS RELATIVE PERCENT (BEAKER) (test 1 % gasn=380) NEUTROPHILS ABSOLUTE COUNT (BEAKER) (test 3.49 K/ L 1.78-5.38 ltfz=508) LYMPHOCYTES ABSOLUTE COUNT (BEAKER) (test 2.17 K/ L 1.32-3.57 ulkt=610) MONOCYTES ABSOLUTE COUNT (BEAKER) (test 0.68 K/ L 0.30-0.82 aavw=748) EOSINOPHILS ABSOLUTE COUNT (BEAKER) (test 0.25 K/ L 0.04-0.54 uadj=800) BASOPHILS ABSOLUTE COUNT (BEAKER) (test 0.04 K/ L 0.01-0.08 iixp=657) IMMATURE GRANULOCYTES-RELATIVE PERCENT (BEAKER) 1 % 0-1 (test wsyp=7804) RAPID DRUG SCREEN, [id number] 14:01:00 Test Item Value Reference Range Comments BARBITURATE URINE (BEAKER) (test zjly=697) Negative Negative BENZODIAZEPINE SCREEN URINE (BEAKER) (test Negative Negative xglp=210) COCAINE (METAB.) SCREEN (BEAKER) (test scwf=9257) Negative Negative METHADONE SCREEN (BEAKER) (test lutn=4056) Negative Negative OPIATE SCREEN URINE (BEAKER) (test rggj=916) Negative Negative CANNABINOID SCREEN URINE (BEAKER) (test kbuf=115) Negative Negative AMPH/METHAMPH SCREEN (BEAKER) (test mwgm=3931) Negative Negative PHENCYCLIDINE SCREEN URINE (BEAKER) (test bill=751) Negative Negative OXYCODONE SCREEN URINE (BEAKER) (test plst=9453) Negative Negative DRUG CUTOFF CONC.Cocaine 300 ng/mL Cannabinoid 50 ng/mL Benzodiazepine 200 ng/mLBarbiturate 200 ng/ mLPhencyclidine 25 ng/mLOpiate 300 ng/mLMethadone 300 ng/mLAmphetamine/ 1000 ng/mL MethamphetamineOxycodone 300 ng/mLThis assay provides an unconfirmed qualitative test result for the clinical management of patients in emergency situations. Chain of custody not maintained. Some tnlx-fjy-batyxdo medications, as well as adulterants, may cause inaccurate results. Clinical correlation should be applied. A more comprehensive drug screen or confirmation of a detected drug may be performed upon request.EEG AWAKE/ASLEEP AND [id number] 11:31:00Reason for exam:-> encephalopathyEEG REPORT: Aylin Mohamud [facility] , DATE: EEG #: 18-ICD Code: #: G93.40 Encephalopathy-unspecifiedCPT Code: #: 20336: 01. EEG awake and drowsy ; 20-40 minPROCEDURE: EEG CONDITIONS OF RECORDING: This is a digital EEG performed using disc electrodes placed according to the International 10-20 system of electrode placement. Scalp to scalp and scalp to ear montages were used. No sedation was given.DESCRIPTION OF RECORD: In the best awake state, a Posterior Dominant Rhythm (PDR) was present at 605-7 cycles/ second. Excessive amounts of bilateral 5-6 cycles/second theta activity was present intermixed with the background rhythm. There was no focal asymmetry in the background. No epileptiform discharges were noted. No clinical orelectrographic seizures were noted. Sleep stages were not seen. Hyperventilation was not performed. Photic stimulation was not performed. The heart rate was 72/ min.IMPRESSION: The EEG was abnormal dueto mild diffuse slowing of the background rhythm. No seizures or epileptiform discharges were seen. COMMENT: Mild diffuse slowing is a nonspecific finding indicative of mild global cerebral dysfunctionof metabolic, toxic, drug-induced or other etiology. Please correlate clinically.Clinical Fellow: Valeri Catalanurophysiologist: Nohemy Barlow URINE [id number] 09:34:00 Test Item Value Reference Range Comments CULTURE (BEAKER) (test mkfr=3963) No growth CBC W/PLT COUNT & AUTO [id number] 07:03:00 Test Item Value Reference Range Comments WHITE BLOOD CELL COUNT 7.7 K/ L 3.5-10.5 (BEAKER) (test nukk=931) RED BLOOD CELL COUNT (BEAKER) 3.81 M/ L 4.63-6.08 (test tozt=935) HEMOGLOBIN (BEAKER) (test 12.3 GM/DL 13.7-17.5 vswc=721) HEMATOCRIT (BEAKER) (test 36.4 % 40.1-51.0 kgqi=722) MEAN CORPUSCULAR VOLUME 95.5 fL 79.0-92.2 Discordant from previous (BEAKER) (test smdj=075) results. Clinical correlation suggested. MEAN CORPUSCULAR HEMOGLOBIN 32.3 pg 25.7-32.2 (BEAKER) (test jhcl=099) MEAN CORPUSCULAR HEMOGLOBIN 33.8 GM/DL 32.3-36.5 CONC (BEAKER) (test lywp=147) RED CELL DISTRIBUTION WIDTH 12.9 % 11.6-14.4 (BEAKER) (test kyhn=583) PLATELET COUNT (BEAKER) (test 219 K/CU MM 150-450 kuex=741) MEAN PLATELET VOLUME (BEAKER) 11.8 fL 9.4-12.4 (test nskl=750) NUCLEATED RED BLOOD CELLS 0 /100 WBC 0-0 (BEAKER) (test qfzd=986) NEUTROPHILS RELATIVE PERCENT 62 % (BEAKER) (test eeso=648) LYMPHOCYTES RELATIVE PERCENT 23 % (BEAKER) (test eauq=298) MONOCYTES RELATIVE PERCENT 10 % (BEAKER) (test wlwi=901) EOSINOPHILS RELATIVE PERCENT 4 % (BEAKER) (test yaap=836) BASOPHILS RELATIVE PERCENT 1 % (BEAKER) (test irdk=511) NEUTROPHILS ABSOLUTE COUNT 4.80 K/ L 1.78-5.38 (BEAKER) (test xrjh=071) LYMPHOCYTES ABSOLUTE COUNT 1.74 K/ L 1.32-3.57 (BEAKER) (test idbm=727) MONOCYTES ABSOLUTE COUNT 0.77 K/ L 0.30-0.82 (BEAKER) (test zrht=781) EOSINOPHILS ABSOLUTE COUNT 0.29 K/ L 0.04-0.54 (BEAKER) (test izvd=613) BASOPHILS ABSOLUTE COUNT 0.04 K/ L 0.01-0.08 (BEAKER) (test fsjo=952) IMMATURE 1 % 0-1 GRANULOCYTES-RELATIVE PERCENT (BEAKER) (test izkk=8886) BASIC METABOLIC [id number] 07:00:00 Test Item Value Reference Range Comments SODIUM (BEAKER) (test 141 meq/L 136-145 tpcu=243) POTASSIUM (BEAKER) (test 4.0 meq/L 3.5-5.1 bovu=647) CHLORIDE (BEAKER) (test 109 meq/L 98-107 erhm=987) CO2 (BEAKER) (test 22 meq/L 22-29 ufgn=104) BLOOD UREA NITROGEN 21 mg/dL 7-21 (BEAKER) (test nnjb=193) CREATININE (BEAKER) (test 0.80 mg/dL 0.57-1.25 cnda=560) GLUCOSE RANDOM (BEAKER) 82 mg/dL 70-105 (test ggrc=139) CALCIUM (BEAKER) (test 8.8 mg/dL 8.4-10.2 djlq=506) EGFR (BEAKER) (test 95 mL/min/1.73 sq m ESTIMATED GFR IS NOT wguw=4526) ACCURATE CREATININE CLEARANCE IN PREDICTING GLOMERULAR FILTRATION RATE. ESTIMATED GFR IS NOT APPLICABLE FOR DIALYSIS PATIENTS. CT, BRAIN, WITHOUT [id number] 23:34:00FINAL REPORT EXAMINATION NONCONTRAST HEAD CT SCAN CLINICAL [...] clinical concern, consider brain MRI. Signed: [facility] Verified Date/Time: 11/06/2017 23:34:56 Reading Location: [address] Transitional Reading Room 11 :34 [id number] 19:41:00 Test Item Value Reference Range Comments AMMONIA (BEAKER) (test 35 mol/L 18-72 Specimen moderately hemolyzed axah=489) HEMOGLOBIN [id number] 10:32:00 Test Item Value Reference Range Comments HEMOGLOBIN A1C (BEAKER) (test uxpx=305) 5.4 % 4.3-6.1 CBC W/PLT COUNT & AUTO [id number] 07:01:00 Test Item Value Reference Range Comments WHITE BLOOD CELL COUNT (BEAKER) (test qafp=060) 12.6 K/ L 3.5-10.5 RED BLOOD CELL COUNT (BEAKER) (test ikya=121) 4.02 M/ L 4.63-6.08 HEMOGLOBIN (BEAKER) (test paft=576) 12.7 GM/DL 13.7-17.5 HEMATOCRIT (BEAKER) (test ifhp=764) 40.0 % 40.1-51.0 MEAN CORPUSCULAR VOLUME (BEAKER) (test jfhk=795) 99.5 fL 79.0-92.2 MEAN CORPUSCULAR HEMOGLOBIN (BEAKER) (test 31.6 pg 25.7-32.2 hxsm=734) MEAN CORPUSCULAR HEMOGLOBIN CONC (BEAKER) (test 31.8 GM/DL 32.3-36.5 nsfe=893) RED CELL DISTRIBUTION WIDTH (BEAKER) (test 13.0 % 11.6-14.4 olcm=008) PLATELET COUNT (BEAKER) (test xewj=177) 187 K/CU MM 150-450 MEAN PLATELET VOLUME (BEAKER) (test snwi=705) 11.9 fL 9.4-12.4 NUCLEATED RED BLOOD CELLS (BEAKER) (test 0 /100 WBC 0-0 ytbs=898) NEUTROPHILS RELATIVE PERCENT (BEAKER) (test 74 % sgmh=503) LYMPHOCYTES RELATIVE PERCENT (BEAKER) (test 14 % ykhk=831) MONOCYTES RELATIVE PERCENT (BEAKER) (test 7 % wmlx=963) EOSINOPHILS RELATIVE PERCENT (BEAKER) (test 3 % wswd=330) BASOPHILS RELATIVE PERCENT (BEAKER) (test 0 % lwhi=550) NEUTROPHILS ABSOLUTE COUNT (BEAKER) (test 9.39 K/ L 1.78-5.38 kvwj=870) LYMPHOCYTES ABSOLUTE COUNT (BEAKER) (test 1.75 K/ L 1.32-3.57 grnb=591) MONOCYTES ABSOLUTE COUNT (BEAKER) (test 0.91 K/ L 0.30-0.82 rzkk=027) EOSINOPHILS ABSOLUTE COUNT (BEAKER) (test 0.41 K/ L 0.04-0.54 rwuf=631) BASOPHILS ABSOLUTE COUNT (BEAKER) (test 0.04 K/ L 0.01-0.08 ypyn=664) IMMATURE GRANULOCYTES-RELATIVE PERCENT (BEAKER) 1 % 0-1 (test rcwl=5094) BASIC METABOLIC [id number] 06:47:00 Test Item Value Reference Range Comments SODIUM (BEAKER) (test 139 meq/L 136-145 moku=415) POTASSIUM (BEAKER) (test 4.6 meq/L 3.5-5.1 Specimen slightly ahpj=889) hemolyzed CHLORIDE (BEAKER) (test 112 meq/L 98-107 tnhw=135) CO2 (BEAKER) (test 18 meq/L 22-29 lwmp=322) BLOOD UREA NITROGEN 25 mg/dL 7-21 (BEAKER) (test gidl=583) CREATININE (BEAKER) (test 0.91 mg/dL 0.57-1.25 Specimen slightly uuna=798) hemolyzed GLUCOSE RANDOM (BEAKER) 81 mg/dL 70-105 (test zcma=187) CALCIUM (BEAKER) (test 8.6 mg/dL 8.4-10.2 bjsj=639) EGFR (BEAKER) (test 82 mL/min/1.73 sq m ESTIMATED GFR IS NOT ocie=3727) ACCURATE CREATININE CLEARANCE IN PREDICTING GLOMERULAR FILTRATION RATE. ESTIMATED GFR IS NOT APPLICABLE FOR DIALYSIS PATIENTS. INFLUENZA A H1N1 [id number] 21:27:00 Test Item Value Reference Range Comments INFLUENZA A RNA (BEAKER) (test Not Detected Not Detected, Inconclusive dnxd=5718) NOVEL H1N1 RNA (BEAKER) (test Not Detected Not Detected, Inconclusive dduc=5205) These assays were performed by real-time RT-PCR (highway traffic control technician-PCR) utilizing fluorogenic hydrolysis probe technology for the detection of human Influenza A viruses and the differential detection of novel H1N1 Influenza virus in respiratory specimens. The test is composed of (1) an RNA extraction from patient specimen, and (2) highway traffic control technician-PCR amplification and detection with human Influenza A and novel G5E1-hepmlzus primers and probes. A well-conserved region of the Influenza A matrix gene is targeted in one set of reactions to identify both seasonal Influenza A and novel H1N1 Influenza virus in the specimen. In addition, a specific region of the hemagglutinin gene is targeted to differentiate the novel H1N1 virusfrom the seasonal human influenza. An internal control is used to confirm PCR amplification. Genetic variation and other factors can affect the accuracy of nucleic acid testing; therefore, the resultsshould be interpreted in light of clinical data. This test was developed and its performance characteristics determined by the [facility] Pathology Department, Section of Molecular Pathology. It has not been cleared or approved by the U.S. Food and Drug Administration (FDA). SinceFDA approval is not required for clinical use of the test, validation was done as required by The Clinical Laboratory Amendments of 1988.These assays were performed by real-time RT-PCR (highway traffic control technician-PCR) utilizing fluorogenic hydrolysis probe technology for the detection of human Influenza A viruses and the differential detection of novel H1N1 Influenza virus in respiratory specimens. The test is composed of (1) an RNA extraction from patient specimen, and (2) highway traffic control technician-PCR amplification and detection with human Influenza A and novel T4I8-rhooifgz primers and probes. A well-conserved region of the Influenza A matrix gene is targeted in one set of reactions to identify both seasonal Influenza A and novel H1N1 Influenza virus in the specimen. In addition, a specific region of the hemagglutinin gene is targeted to differentiate the novel H1N1 virus from the seasonal human influenza. An internal control is used to confirm PCR amplification. Genetic variation and other factors can affect the accuracy of nucleic acid testing; therefore, the results should be interpreted in light of clinical data. This test was developed and its performance characteristics determined by the [facility] Pathology Department, Section of Molecular Pathology. It has not been cleared or approved by the U.S. Food and Drug Administration ( FDA). Since FDA approval is not required for clinical use of the test, validation was done as required by The Clinical Laboratory Amendments of 1988.TSH/FREE T4 IF [id number] 19:25:00 Test Item Value Reference Range Comments THYROID STIMULATING HORMONE (BEAKER) (test 1.87 uIU/mL 0.35-4.94 sboc=240) CBC W/PLT COUNT & AUTO [id number] 06:46:00 Test Item Value Reference Range Comments WHITE BLOOD CELL COUNT (BEAKER) (test oztr=235) 22.9 K/ L 3.5-10.5 RED BLOOD CELL COUNT (BEAKER) (test mqza=964) 4.47 M/ L 4.63-6.08 HEMOGLOBIN (BEAKER) (test fkdk=927) 14.3 GM/DL 13.7-17.5 HEMATOCRIT (BEAKER) (test ikow=346) 43.0 % 40.1-51.0 MEAN CORPUSCULAR VOLUME (BEAKER) (test gqke=320) 96.2 fL 79.0-92.2 MEAN CORPUSCULAR HEMOGLOBIN (BEAKER) (test 32.0 pg 25.7-32.2 tjie=180) MEAN CORPUSCULAR HEMOGLOBIN CONC (BEAKER) (test 33.3 GM/DL 32.3-36.5 rjyd=161) RED CELL DISTRIBUTION WIDTH (BEAKER) (test 12.7 % 11.6-14.4 cqeb=457) PLATELET COUNT (BEAKER) (test obzc=849) 258 K/CU MM 150-450 MEAN PLATELET VOLUME (BEAKER) (test dgoi=322) 11.0 fL 9.4-12.4 NUCLEATED RED BLOOD CELLS (BEAKER) (test 0 /100 WBC 0-0 cuea=585) IMMATURE GRANULOCYTES-RELATIVE PERCENT (BEAKER) 1 % 0-1 (test kvbb=7632) (MANUAL DIFFERENTIAL)2017-11-05 06:46:00 Test Item Value Reference Range Comments NEUTROPHILS - REL (DIFF) (BEAKER) (test 86 % dbka=9674) LYMPHOCYTES - REL (DIFF) (BEAKER) (test 4 % mnwf=4394) MONOCYTES - REL (DIFF) (BEAKER) (test kpax=7171) 3 % EOSINOPHILS - REL (DIFF) (BEAKER) (test 0 % lkjc=7451) BASOPHILS - REL (DIFF) (BEAKER) (test gmlw=5300) 0 % BANDS - REL (DIFF) (BEAKER) (test vtnm=1855) 7 % 0-10 NEUTROPHILS - ABS (DIFF) (BEAKER) (test 19.69 K/ L 1.80-8.00 btbv=5206) LYMPHOCYTES - ABS (DIFF) (BEAKER) (test 0.92 K/ L 1.48-4.50 uvbv=6498) MONOCYTES - ABS (DIFF) (BEAKER) (test eloa=1833) 0.69 K/ L 0.00-1.30 EOSINOPHILS - ABS (DIFF) (BEAKER) (test 0.00 K/ L 0.00-0.50 ccvb=2767) BASOPHILS - ABS (DIFF) (BEAKER) (test fweu=7430) 0.00 K/ L 0.00-0.20 BANDS-ABS (DIFF) (BEAKER) (test lumu=0277) 1.6 K/ L 0.0-0.8 TOTAL COUNTED (BEAKER) (test twsa=5458) 100 BANDS + SEGMENTED NEUTROPHILS (BEAKER) (test 21.30 awmk=1095) WBC MORPHOLOGY (BEAKER) (test rfvu=772) Normal PLT MORPHOLOGY (BEAKER) (test smvx=892) Normal RBC MORPHOLOGY (BEAKER) (test nlmn=122) Normal [id number] 03:48:00 Test Item Value Reference Range Comments MAGNESIUM (BEAKER) (test tbjd=039) 2.1 mg/dL 1.6-2.6 BASIC METABOLIC [id number] 03:48:00 Test Item Value Reference Range Comments SODIUM (BEAKER) (test 139 meq/L 136-145 hslt=944) POTASSIUM (BEAKER) (test 4.7 meq/L 3.5-5.1 pwpy=988) CHLORIDE (BEAKER) (test 109 meq/L 98-107 zruz=140) CO2 (BEAKER) (test 22 meq/L 22-29 eqna=248) BLOOD UREA NITROGEN 25 mg/dL 7-21 (BEAKER) (test oqtv=291) CREATININE (BEAKER) (test 1.05 mg/dL 0.57-1.25 ghcc=882) GLUCOSE RANDOM (BEAKER) 160 mg/dL 70-105 (test wwum=620) CALCIUM (BEAKER) (test 8.7 mg/dL 8.4-10.2 cfkj=608) EGFR (BEAKER) (test 69 mL/min/1.73 sq m ESTIMATED GFR IS NOT kqbi=5370) ACCURATE CREATININE CLEARANCE IN PREDICTING GLOMERULAR FILTRATION RATE. ESTIMATED GFR IS NOT APPLICABLE FOR DIALYSIS PATIENTS. LACTIC ACID, VENOUS, WHOLE [id number] 03:44:00 Test Item Value Reference Range Comments LACTATE BLOOD VENOUS (2) (BEAKER) (test 2.2 mmol/L 0.5-2.2 azba=0259) Effective 03/01/2016: Units/Reference Range ChangeNew: 0.5-2.2 mmol/L Previous: 5 -20 mg/dLLACTIC ACID, VENOUS, WHOLE [id number] 23:42:00 Test Item Value Reference Range Comments LACTATE BLOOD VENOUS (2) (BEAKER) (test 1.9 mmol/L 0.5-2.2 anwt=1388) Effective 03/01/2016: Units/Reference Range ChangeNew: 0.5-2.2 mmol/L Previous: 5 -20 mg/dLRAPID INFLUENZA A&B [id number] 21:51:00 Test Item Value Reference Range Comments RAPID INFLUENZA A AG (BEAKER) (test Negative Negative, Inconclusive rmbo=8087) RAPID INFLUENZA B AG (BEAKER) (test Negative Negative, Inconclusive rmrv=7720) PROTHROMBIN [id number] 21:02:00 Test Item Value Reference Range Comments PROTIME (BEAKER) (test hqcx=341) 15.3 seconds 11.7-14.7 INR (BEAKER) (test claw=498) 1.2 <=5.9 RECOMMENDED COUMADIN/WARFARIN INR THERAPY RANGESSTANDARD DOSE: 2.0 - 3.0 Includes: PROPHYLAXIS forvenous thrombosis, systemic embolization; TREATMENT for venous thrombosis and/or pulmonary embolus.HIGH RISK: Target INR is 2.5-3.5 for patients with mechanical heart valves.OXYGEN SATURATION, [id number] 21:00:00 Test Item Value Reference Range Comments O2 SATURATION (MEASURED) (BEAKER) (test xkeo=3585) 41.4 % If patient has internal jugular ( IJ) or subclavian central line or PICC line. Draw from distal port. Label as central venous oxygen.URINALYSIS W/ [id number] 20:05:00 Test Item Value Reference Range Comments COLOR (BEAKER) (test kuvb=182) Yellow CLARITY (BEAKER) (test vlnc=478) Clear SPECIFIC GRAVITY UA (BEAKER) (test tnaq=948) 1.016 1.001-1.035 PH UA (BEAKER) (test kryj=481) 5.5 5.0-8.0 PROTEIN UA (BEAKER) (test oudo=063) Negative Negative GLUCOSE UA (BEAKER) (test mjgu=354) 50 mg/dL Negative KETONES UA (BEAKER) (test sstt=319) Negative Negative BILIRUBIN UA (BEAKER) (test yfvr=599) Negative Negative BLOOD UA (BEAKER) (test ssgf=821) Negative Negative NITRITE UA (BEAKER) (test bphe=515) Negative Negative LEUKOCYTE ESTERASE UA (BEAKER) (test talq=833) Negative Negative UROBILINOGEN UA (BEAKER) (test akzs=251) 0.2 mg/dL 0.2-1.0 RBC UA (BEAKER) (test znpb=506) < /HPF WBC UA (BEAKER) (test szch=227) 1 /HPF HYALINE CASTS (BEAKER) (test xyng=619) 9 /LPF GRANULAR CASTS (BEAKER) (test hnbx=623) 3 /LPF SOURCE(BEAKER) (test uynk=0715) Urine, [place] CT, CHEST WITH IV CONTRAST- PE TEST [id number] 19:53:00FINAL REPORT CLINICAL HISTORY: Chest pain. FINDINGS: Multiple axial images of the chest were performed after the uncomplicated administration of IV contrast, utilizing a pulmonary embolism protocol. Post-processing coronal reformats were created and interpreted. This exam wasperformed according to our departmental dose-optimization program, which includes automated exposurecontrol, adjustment of the mA and/or kV according to patient size and/ or use of the iterative reconstruction technique. Study quality:Adequate. Comparison:None. Pulmonary arteries: No pulmonary embolism. Lung parenchyma: Peripheral opacity in the dependent right upper lobe and left lower lobe, probably atelectasis Pleural effusion: None. Pneumothorax: None. Tracheobronchial tree: Endotracheal tube ingood position above the niki Pulmonary vasculature: No [...] hernia. Endotracheal tube in appropriate position. Signed: David Harveyeport Verified Date/Time: 2017 19:53:50 Reading Location: [address] Reading Room [id number] 19:41:00 Test Item Value Reference Range Comments MAGNESIUM (BEAKER) (test 1.4 mg/dL 1.6-2.6 Specimen slightly hemolyzed gdbt=745) HEPATIC FUNCTION [id number] 19:41:00 Test Item Value Reference Range Comments TOTAL PROTEIN (BEAKER) (test 5.9 gm/dL 6.0-8.3 Specimen slightly hemolyzed xzuu=958) ALBUMIN (BEAKER) (test 3.1 g/dL 3.5-5.0 Specimen slightly hemolyzed svnv=0634) BILIRUBIN TOTAL (BEAKER) (test 0.5 mg/dL 0.2-1.2 Specimen slightly hemolyzed ayib=072) BILIRUBIN DIRECT (BEAKER) (test 0.2 mg/dL 0.1-0.5 Specimen slightly hemolyzed nkng=250) ALKALINE PHOSPHATASE (BEAKER) 74 U/L 40-150 (test ugnj=180) AST (SGOT) (BEAKER) (test 22 U/L 5-34 Specimen slightly hemolyzed ephw=119) ALT (SGPT) (BEAKER) (test 16 U/L 6-55 Specimen slightly hemolyzed qqrs=007) TROPONIN [id number] 19:27:00 Test Item Value Reference Range Comments TROPONIN I (BEAKER) (test nqkj=487) 0.03 ng/mL 0.00-0.03 Troponin I (TnI) levels must be interpreted [...] failure, acidosis, acute neurological disease, and persistent tachyarrhythmia.RAD, CHEST, 1 VIEW, NON [id number] 19:12:00Reason for exam:->sobShould this be performed at the bedside?-> NoFINAL REPORT History: Shortness of breath. Comparison : None. Findings: A single view of the [...] pleural effusion or acute bony abnormality. Signed: David Harvey MDReport Verified Date/Time: 11/04/2017 19:12:37 Reading Location: [address] Reading Room BLOOD GAS, [id number] 19:03:00 Test Item Value Reference Range Comments PH ARTERIAL (BEAKER) (test wawf=511) 7.31 7.35-7.45 PCO2 ARTERIAL (BEAKER) (test nkvh=033) 40 mmHg 35-45 PO2 ARTERIAL (BEAKER) (test tvvo=349) 220 mmHg 80-90 O2 SATURATION ARTERIAL (BEAKER) (test soee=754) 99.4 % 96.0-97.0 HCO3 ARTERIAL (BEAKER) (test qbkx=411) 20 mmol/L 21-29 BASE EXCESS ARTERIAL (BEAKER) (test zntu=544) -6.2 mmol/L -2.0-3.0 PATIENT TEMPERATURE (BEAKER) (test vsef=3597) 37.0 C FIO2 (BEAKER) (test duwd=3969) 60.0 % COMPREHENSIVE METABOLIC [id number] 18:25:00 Test Item Value Reference Range Comments TOTAL PROTEIN (BEAKER) 6.0 gm/dL 6.0-8.3 Specimen slightly (test imcf=476) hemolyzed ALBUMIN (BEAKER) (test 3.1 g/dL 3.5-5.0 Specimen slightly ljyu=8119) hemolyzed ALKALINE PHOSPHATASE 76 U/L 40-150 (BEAKER) (test wkco=060) BILIRUBIN TOTAL (BEAKER) 0.5 mg/dL 0.2-1.2 Specimen slightly (test nuvl=619) hemolyzed SODIUM (BEAKER) (test 140 meq/L 136-145 moqg=141) POTASSIUM (BEAKER) (test 3.8 meq/L 3.5-5.1 Specimen slightly ssjd=101) hemolyzed CHLORIDE (BEAKER) (test 109 meq/L 98-107 xxpd=727) CO2 (BEAKER) (test 20 meq/L 22-29 wfpn=699) BLOOD UREA NITROGEN 26 mg/dL 7-21 (BEAKER) (test kqyq=425) CREATININE (BEAKER) (test 1.19 mg/dL 0.57-1.25 Specimen slightly hdhe=448) hemolyzed GLUCOSE RANDOM (BEAKER) 173 mg/dL 70-105 (test ruzw=485) CALCIUM (BEAKER) (test 8.1 mg/dL 8.4-10.2 mfth=779) AST (SGOT) (BEAKER) (test 21 U/L 5-34 Specimen slightly nubp=383) hemolyzed ALT (SGPT) (BEAKER) (test 16 U/L 6-55 Specimen slightly bdlh=556) hemolyzed EGFR (BEAKER) (test mL/min/1.73 sq m INSUFFICIENT CLINICAL DATA dtgz=8811) TO CALCULATE ESTIMATED GFR. CREATINE KINASE (CK), TOTAL AND [id number] 18:25:00 Test Item Value Reference Range Comments CREATINE KINASE TOTAL (BEAKER) (test haea=147) 93 U/L 29-200 CREATINE KINASE-MB (BEAKER) (test jqua=310) 1.0 ng/mL 0.0-6.6 CREATINE KINASE-MB INDEX (BEAKER) (test nquh=937) 1.1 % CK-MB Reference Range:<6.7 Normal6.7-10.0 Borderline>10.0 AbnormalPOCT-LACTIC ACID, [id number] 18:17:00 Test Item Value Reference Range Comments POC-LACTIC ACID, VENOUS 3.1 mmol/L 0.9-1.7 TESTED AT [facility] [address] [facility] (BEAKER) (test rmaq=2973) [facility] [address] CBC W/PLT COUNT & AUTO [id number] 18:14:00 Test Item Value Reference Range Comments WHITE BLOOD CELL COUNT (BEAKER) (test ozsx=456) 16.4 K/ L 3.5-10.5 RED BLOOD CELL COUNT (BEAKER) (test ytch=841) 4.49 M/ L 4.63-6.08 HEMOGLOBIN (BEAKER) (test hjnp=565) 14.3 GM/DL 13.7-17.5 HEMATOCRIT (BEAKER) (test bxvp=580) 43.6 % 40.1-51.0 MEAN CORPUSCULAR VOLUME (BEAKER) (test ofdu=144) 97.1 fL 79.0-92.2 MEAN CORPUSCULAR HEMOGLOBIN (BEAKER) (test 31.8 pg 25.7-32.2 azne=031) MEAN CORPUSCULAR HEMOGLOBIN CONC (BEAKER) (test 32.8 GM/DL 32.3-36.5 gbsb=052) RED CELL DISTRIBUTION WIDTH (BEAKER) (test 12.7 % 11.6-14.4 fcoh=325) PLATELET COUNT (BEAKER) (test vmqp=482) 254 K/CU MM 150-450 MEAN PLATELET VOLUME (BEAKER) (test jzfr=735) 11.8 fL 9.4-12.4 NUCLEATED RED BLOOD CELLS (BEAKER) (test 0 /100 WBC 0-0 ulia=245) NEUTROPHILS RELATIVE PERCENT (BEAKER) (test 88 % jjbh=144) LYMPHOCYTES RELATIVE PERCENT (BEAKER) (test 8 % gklx=079) MONOCYTES RELATIVE PERCENT (BEAKER) (test 3 % cwzq=415) EOSINOPHILS RELATIVE PERCENT (BEAKER) (test 0 % gxsg=484) BASOPHILS RELATIVE PERCENT (BEAKER) (test 0 % scmg=325) NEUTROPHILS ABSOLUTE COUNT (BEAKER) (test 14.43 K/ L 1.78-5.38 ytmi=596) LYMPHOCYTES ABSOLUTE COUNT (BEAKER) (test 1.35 K/ L 1.32-3.57 fmrz=648) MONOCYTES ABSOLUTE COUNT (BEAKER) (test 0.44 K/ L 0.30-0.82 pqib=932) EOSINOPHILS ABSOLUTE COUNT (BEAKER) (test 0.05 K/ L 0.04-0.54 rkpz=691) BASOPHILS ABSOLUTE COUNT (BEAKER) (test 0.01 K/ L 0.01-0.08 jpxd=639) IMMATURE GRANULOCYTES-RELATIVE PERCENT (BEAKER) 1 % 0-1 (test nilf=4853) [id number] 18:05:00 Test Item Value Reference Range Comments PROTIME (BEAKER) (test yxio=532) 15.1 seconds 11.7-14.7 INR (BEAKER) (test jrpw=987) 1.2 <=5.9 PARTIAL THROMBOPLASTIN TIME (BEAKER) (test 25.7 seconds 22.5-36.0 fami=617) RECOMMENDED COUMADIN/WARFARIN INR THERAPY RANGESSTANDARD DOSE: 2.0 - 3.0 Includes: PROPHYLAXIS forvenous thrombosis, systemic embolization; TREATMENT for venous thrombosis and/or pulmonary embolus.HIGH RISK: Target INR is 2.5-3.5 for patients with mechanical heart valves.CT, [facility] [id number] 17:57: 00FINAL REPORT CLINICAL HISTORY: Stroke TECHNIQUE: Contiguous contrast-enhancedaxial images through the neck followed by axial [...] of the head reveal no evidence of intracranialaneurysm, focal stenosis, or proximal branch vessel occlusion. [...] vertebral arteries by NASCET criteria. Signed: John Chavarria MDReport Verified Date/Time: 11/04/2017 17:57:59 Reading Location: [address] Neuro Reading Room CT, CAROTID, [id number] 17:57:00FINAL REPORT CLINICAL HISTORY: Stroke TECHNIQUE: Contiguous contrast- enhancedaxial images through the neck followed by axial [...] of the head reveal no evidence of intracranialaneurysm, focal stenosis, or proximal branch vessel occlusion. [...] vertebral arteries by NASCET criteria. Signed: John Chavarria Verified Date/Time: 11/04/2017 17:57: 59 Reading Location: [address] Neuro Reading Room CT, BRAIN/STROKE [id number] 17:09:00Reason for exam:->altered mental statusWhat is the patient's sedation requirement?->No SedationFINAL REPORT CT Head without contrast CLINICAL HISTORY: Neuro deficit(s), subacutealtered mental status TECHNIQUE: Contiguous axial images through the head without contrast. Thisexam was performed according to the departmental dose [...] stroke neurologist at 5:08 PM. Signed: John Chavarria Verified Date/Time: 11/04/2017 17:09:06 Reading Location : [address] Neuro Reading Room
--- NOTE | 2018-05-31 07:51 | RAD REPORT ---
EXAM DESCRIPTION: CT - Head Brain Wo Cont - 05/31/2018 7:35 am CLINICAL HISTORY: Confusion COMPARISON: None. TECHNIQUE: Computed axial tomography of the head was obtained. IV contrast was not requested. All CT scans are performed using dose optimization technique as appropriate and may include automated exposure control or mA/KV adjustment according to patient size. FINDINGS: An intracranial bleed is not seen . The ventricles are normal in caliber. No extra-axial fluid collection is noted. Mild mucoperiosteal thickening involves the ethmoid sinuses. Fluid within the mastoids is not seen IMPRESSION: No acute intracranial abnormality is seen. If patient's symptoms persist MRI of the bra in would be recommended.
[2018-05-31 07:58] LABS: Absolute Lymphocytes (CBC) 1.3 K/uL (0.7-4.9); Absolute Monocytes 0.7 K/uL (0.1-1.3); Absolute Neutrophil 5.5 K/uL (1.8-8.0); Basophils % 0.5 % (0-1.3); Eosinophils % 1.1 % (0-4.4); Hematocrit 41.7 % (39.6-49.0); Lymphocytes % 17.4 % (15.3-44.8); MCH 32.2 pg (27.0-35.0); MCV 94.4 fL (80-100); MPV 9.9 fL (7.6-11.3); Monocytes % 9.3 % (3.3-12.3); RBC Red Blood Cell Count 4.42 M/uL (4.33-5.43)
[2018-05-31 08:27] LABS: Protime INR 1.06
[2018-05-31 08:43] LABS: Albumin 3.3 g/dL (3.4-5.0); Bilirubin Direct 0.2 mg/dL (0-0.2); Bilirubin Total 0.6 mg/dL (0.2-1.0); Magnesium 2.2 mg/dL (1.8-2.4); Potassium 4.3 mmol/L (3.5-5.1); Protein, Total 6.4 g/dL (6.4-8.2)
[2018-05-31 08:52] LABS: Urine Blood NEGATIVE (NEG); Urine Glucose NEGATIVE (NEG); Urine Protein NEGATIVE (NEG)
[2018-05-31 09:02] LABS: Urine Bacteria NONE SEEN /HPF (NONE SEEN); Urine Culture Reflex Order REFLEXED; Urine Mucus LIGHT /HPF (NONE SEEN); Urine RBC <5 /HPF (NONE SEEN)
--- NOTE | 2018-05-31 09:30 | RAD REPORT ---
EXAM DESCRIPTION: Alonso Single View05/31/2018 7:43 am CLINICAL HISTORY: Chest pain COMPARISON: none FINDINGS: The lungs appear clear of acute infiltrate. The heart is normal size IMPRESSION: No acute abnormalities displayed
--- NOTE | 2018-05-31 09:42 | ER ---
Nurse's Notes [facility] Name: Edgardo Marie Age: 73 yrs Sex: Male : 1945 Arrival Date: 05/31/2018 Time: 06:13 Bed 7 Private MD: Diagnosis: Confusion, agitation, altered mental status Presentation: 05/31 06:24 Presenting complaint: states: pt started acting very different last night, got in bb his car and left was aggressive towards her she said pt was paranoid and this is very unusual for him. Transition of care: patient was not received from another setting of care. Onset of symptoms was May 30, 2018. Risk Assessment: Do you want to hurt yourself or someone else? Patient reports no desire to harm self or others. Initial Sepsis Screen: Does the patient meet any 2 criteria? No. Patient's initial sepsis screen is negative. Does the patient have a suspected source of infection? No. Patient's initial sepsis screen is negative. Care prior to arrival: None. 06:24 Method Of Arrival: Ambulatory bb 06:24 Acuity: JEFF 2 bb Historical: - Allergies: 06:30 PENICILLINS; bb 06:30 Nexium; bb - Home Meds: 06:30 finasteride oral oral [Active]; bb - PMHx: 06:30 BPH; bb - PSHx: 06:30 Left shoulder; Right heel; back surgery; bb - Immunization history:: Adult Immunizations unknown. - Social history:: Smoking status: Patient/guardian denies using tobacco, Patient uses alcohol, occasionally. Patient/guardian denies using street drugs. - Ebola Screening: : No symptoms or risks identified at this time. Screenin:31 Fall Risk None identified. bb 06:32 The patient has not been NPO before screening. The patient is alert, able to follow bb commands. The patient does not exhibit slurred or garbled speech The patient is not exhibiting difficulty speaking. The patient does not exhibit difficulty understanding words. The patient is able to swallow own secretions with no drooling or need for suction. Patient tolerated one teaspoon of water. No drooling, immediate coughing, gurgling, or clearing of the throat was noted. The patient tolerated 90mL of water. No drooling, immediate coughing, gurgling, or clearing of the throat was noted. The patient passed the bedside swallow screening. Oral medications may be given as ordered. Contact Physician for further diet orders. 08:00 Abuse screen: Denies threats or abuse. Denies injuries from another. Nutritional jl7 screening: No deficits noted. Tuberculosis screening: No symptoms or risk factors identified. Assessment: 07:00 General: Appears in no apparent distress. comfortable, Behavior is calm, cooperative, jl7 appropriate for age. Pain: Denies pain. Neuro: Level of Consciousness is awake, alert, obeys commands, Oriented to person, place, time, situation, Worm Raiser are equal bilaterally Moves all extremities. Speech is normal, Facial symmetry appears normal. Cardiovascular: Patient's skin is warm and dry. Respiratory: Airway is patent Respiratory effort is even, unlabored, Respiratory pattern is regular, symmetrical. GI: No signs and/or symptoms were reported involving the gastrointestinal system. : No signs and/or symptoms were reported regarding the genitourinary system. EENT: No signs and/or symptoms were reported regarding the EENT system. Derm: Skin is pink, warm \T\ dry. Musculoskeletal: No signs and/or symptoms reported regarding the musculoskeletal system. 08:00 Reassessment: Patient and/or family updated on plan of care and expected duration. Pain jl7 level reassessed. Patient is alert, oriented x 3, equal unlabored respirations, skin warm/dry/pink. 09:00 Reassessment: No changes from previously documented assessment. Patient and/or family jl7 updated on plan of care and expected duration. Pain level reassessed. Patient is alert, oriented x 3, equal unlabored respirations, skin warm/dry/pink. Vital Signs: 06:30 BP 144 / 81; Pulse 67; Resp 14 S; Temp 98.0(O); Pulse Ox 97% on R/A; Weight 94.35 kg bb (R); Height 5 ft. 8 in. (172.72 cm) (R); Pain 0/10; 07:00 BP 134 / 66; Pulse 64; Resp 16 S; Pulse Ox 100% on R/A; Pain 0/10; jl7 08:00 BP 134 / 62; Pulse 61; Resp 16 S; Pulse Ox 100% on R/A; Pain 0/10; jl7 09:00 BP 131 / 71; Pulse 70; Resp 16; Pulse Ox 100% on R/A; jl7 09:58 BP 122 / 81; Pulse 65; Resp 16; Pulse Ox 100% ; Pain 0/10; jl7 06:30 Body Mass Index 31.63 (94.35 kg, 172.72 cm) bb NIH Stroke Scale Scores: 06:31 NIHSS Score: 0 bb ED Course: 06:13 Patient arrived in ED. es 06:17 Riki Pitt MD is Attending Physician. kdr 06:27 Triage completed. bb 06:28 EKG done, by ED staff, reviewed by Riki Pitt MD. bb 06:29 Inserted saline lock: 20 gauge in right antecubital area, using aseptic technique. tl2 Blood collected. 06:30 Arm band placed on Patient placed in an exam room, on a stretcher, on pulse oximetry. bb Family accompanied patient. 06:31 Patient has correct armband on for positive identification. Bed in low position. Call bb light in reach. Side rails up X2. Adult w/ patient. Pulse ox on. NIBP on. 07:00 Antonietta Sneed RN is Primary Nurse. jl7 07:25 X-ray completed. Portable x-ray completed in exam room. Patient tolerated procedure jb2 well. 07:[address] via stretcher. em2 07:31 XRAY Chest (1 view) In Process Unspecified. EDMS 07:35 CT Head Brain wo Cont In Process Unspecified. EDMS 07:35 CT completed. Patient tolerated procedure well. Patient moved back from CT. em2 09:58 No provider procedures requiring assistance completed. IV discontinued, intact, jl7 bleeding controlled, No redness/swelling at site. Pressure dressing applied. Administered Medications: No medications were administered Outcome: 09:42 Discharge ordered by . kdr 09:58 Discharged to home ambulatory, with family. jl7 09:58 Condition: stable 09:58 Discharge instructions given to patient, family, Instructed on discharge instructions, follow up and referral plans. Demonstrated understanding of instructions, follow-up care. 09:59 Patient left the ED. jl7 NIH Stroke Scale - NIH Stroke Score Date: 05/31/2018 Time: 06:31 Total Score = 0 1a. Level of Consciousness (LOC) - 0(Alert) 1b. Level of Consciousness (LOC) (Year \T\ Age) - 0(Both) 1c. LOC Commands (Open \T\ Closes Eyes/Art Instructor) - 0(Both) 2. Best Gaze (Lateral Gaze Paresis) - 0(Normal) 3. Visual Field Loss - 0(No visual loss) 4. Facial Palsy - 0(Normal) 5a. Left Arm: Motor (10-second hold) - 0(No drift) 5b. Right Arm: Motor (10-second hold) - 0(No drift) 6a. Left Leg: Motor (5-second hold - always test supine) - 0(No drift) 6b. Right Leg: Motor (5-second hold - always test supine) - 0(No drift) 7. Limb Ataxia (finger/nose \T\ heel/denise - test with eyes open) - 0(Absent) 8. Sensory Loss (pinprick arms/legs/face) - 0(Normal) 9. Best Language: Aphasia (description/naming/reading) - 0(No aphasia) 10. Dysarthria (speech clarity - read or repeat words) - 0(Normal) 11. Extinction and Inattention (visual/tactile/auditory/spatial/personal) - 0(No abnormality) Initials: bb Signatures: Dispatcher [employer] EDRiki Manning MD MD kdr Salyer, Edna es Buechter, Jesse jb2 Candie Masters RN RN Clemente Chappell Taylor, RN RN tl2 Antonietta Sneed, LALA RN jl7 Corrections: (The following items were deleted from the chart) 08:11 08:10 Antonietta Sneed RN is Primary Nurse. jl7 jl7
--- NOTE | 2018-05-31 09:42 | EDPHYS ---
Physician Documentation [facility] Name: Edgardo Marie Age: 73 yrs Sex: Male : 1945 Arrival Date: 05/31/2018 Time: 06:13 Bed 7 Private MD: ED Physician Riik Pitt HPI: 05/31 07:19 This 73 yrs old Male presents to ER via Ambulatory with complaints of Check kdr for stroke. 07:19 The patient presents with agitation, confusion, disorientation. Onset: The kdr symptoms/episode began/occurred gradually. Possible causes: CVA or TIA, unknown. Associated signs and symptoms: The patient has no apparent associated signs or symptoms. Current symptoms: In the emergency department the patient's symptoms have improved, markedly. Patient's baseline: Neuro: alert and fully oriented, Motor: no deficits, Ambulation: walks without assistance, Speech: normal, normal for age, The patient has a previous history of Medication reactions and confusion. The patient has experienced similar episodes in the past, a few times. The patient has not recently seen a physician. Since the first of the year, the patient has had various health issues ranging from acute anaphylaxis to paranoia. He has not had any auditory or visual hallucinations but has been paranoid from time to time and as recently as this morning. The pattern seems to be that when he is stressed in terms of exhaustion or some other upset to his routine, he becomes confused, disoriented and at times, mildly agitated and combative. He has not been violent or threatening with his though he has been forceful and very assertive with her on occasion from a sexual perspective. He has been at times paranoid that his is not the same person and that she has been tasked with watching or monitoring him. He is concerned that she may have been replaced by another person. In describing his concerns about his , he has the perception that his thoughts do not generally make sense however, he can not escape his internal beliefs and paranoid perceptions. Historical: - Allergies: 06:30 PENICILLINS; bb 06:30 Nexium; bb - Home Meds: 06:30 finasteride oral oral [Active]; bb - PMHx: 06:30 BPH; bb - PSHx: 06:30 Left shoulder; Right heel; back surgery; bb - Immunization history:: Adult Immunizations unknown. - Social history:: Smoking status: Patient/guardian denies using tobacco, Patient uses alcohol, occasionally. Patient/guardian denies using street drugs. - Ebola Screening: : No symptoms or risks identified at this time. ROS: 07:19 Constitutional: Negative for fever, chills, and weight loss, Eyes: Negative for injury, kdr pain, redness, and discharge, ENT: Negative for injury, pain, and discharge, Neck: Negative for injury, pain, and swelling, Cardiovascular: Negative for chest pain, palpitations, and edema, Respiratory: Negative for shortness of breath, cough, wheezing, and pleuritic chest pain, Abdomen/GI: Negative for abdominal pain, nausea, vomiting, diarrhea, and constipation, Back: Negative for injury and pain, : Negative for injury, bleeding, discharge, and swelling, MS/Extremity: Negative for injury and deformity, Skin: Negative for injury, rash, and discoloration, Neuro: Negative for headache, weakness, numbness, tingling, and seizure activity. Allergy/Immunology: Negative for hives, rash, and allergies, Endocrine: Negative for neck swelling, polydipsia, polyuria, polyphagia, and marked weight changes, Hematologic/Lymphatic: Negative for swollen nodes, abnormal bleeding, and unusual bruising. 07:19 Psych: Positive for Negative for anxiety, depression, drug dependence, alcohol dependence, auditory hallucinations, visual hallucinations, homicidal ideation, insomnia, suicide gesture, suicidal ideation. Exam: 07:19 Constitutional: This is a well developed, well nourished patient who is awake, alert, kdr and in no acute distress. Head/Face: Normocephalic, atraumatic. Eyes: Pupils equal round and reactive to light, extra-ocular motions intact. Lids and lashes normal. Conjunctiva and sclera are non-icteric and not injected. Cornea within normal limits. Periorbital areas with no swelling, redness, or edema. Neck: Trachea midline, no thyromegaly or masses palpated, and no cervical lymphadenopathy. Supple, full range of motion without nuchal rigidity, or vertebral point tenderness. No Meningismus. Chest/axilla: Normal chest wall appearance and motion. Nontender with no deformity. No lesions are appreciated. Cardiovascular: Regular rate and rhythm with a normal S1 and S2. No gallops, murmurs, or rubs. Normal PMI, no JVD. No pulse deficits. Respiratory: Lungs have equal breath sounds bilaterally, clear to auscultation and percussion. No rales, rhonchi or wheezes noted. No increased work of breathing, no retractions or nasal flaring. Abdomen/GI: Soft, non-tender, with normal bowel sounds. No distension or tympany. No guarding or rebound. No evidence of tenderness throughout. Back: No spinal tenderness. No costovertebral tenderness. Full range of motion. Skin: Warm, dry with normal turgor. Normal color with no rashes, no lesions, and no evidence of cellulitis. MS/ Extremity: Pulses equal, no cyanosis. Neurovascular intact. Full, normal range of motion. Neuro: Awake and alert, GCS 15, oriented to person, place, time, and situation. Cranial nerves II-XII grossly intact. Motor strength 5/5 in all extremities. Sensory grossly intact. Cerebellar exam normal. Normal gait. 07:19 Psych: Behavior/mood is pleasant, cooperative, Affect is calm, Oriented to person, place, time, Patient has no thoughts/intents to harm self or others. Judgement / Insight is normal. Delusions/hallucinations are not present. Vital Signs: 06:30 BP 144 / 81; Pulse 67; Resp 14 S; Temp 98.0(O); Pulse Ox 97% on R/A; Weight 94.35 kg bb (R); Height 5 ft. 8 in. (172.72 cm) (R); Pain 0/10; 07:00 BP 134 / 66; Pulse 64; Resp 16 S; Pulse Ox 100% on R/A; Pain 0/10; jl7 08:00 BP 134 / 62; Pulse 61; Resp 16 S; Pulse Ox 100% on R/A; Pain 0/10; jl7 09:00 BP 131 / 71; Pulse 70; Resp 16; Pulse Ox 100% on R/A; jl7 09:58 BP 122 / 81; Pulse 65; Resp 16; Pulse Ox 100% ; Pain 0/10; jl7 06:30 Body Mass Index 31.63 (94.35 kg, 172.72 cm) bb NIH Stroke Scale Scores: 06:31 NIHSS Score: 0 bb MDM: 07:19 Data reviewed: vital signs, nurses notes. kdr 09:42 Patient medically screened. kdr 05/31 07:14 Order name: Basic Metabolic Panel; Complete Time: 08:52 kdr 05/31 07:14 Order name: CBC with Diff; Complete Time: 08:22 kdr 08 07:14 Order name: LFT's; Complete Time: 08:52 kdr 08 07:14 Order name: Magnesium; Complete Time: 08:52 kdr 08 07:14 Order name: NT PRO-BNP; Complete Time: 08:52 kdr 05/31 07:14 Order name: PT-INR; Complete Time: 08:52 kdr 05/31 07:14 Order name: Ptt, Activated; Complete Time: 08:52 kdr 08 07:14 Order name: Troponin (emerg Dept Use Only); Complete Time: 08:22 kdr 05/31 07:14 Order name: XRAY Chest (1 view) kdr 05/31 07:14 Order name: EKG; Complete Time: 07:14 kdr 08 07:14 Order name: CT Head Brain wo Cont; Complete Time: 08:22 kdr 05/31 08:25 Order name: Urine Microscopic Only iw 05/31 08:43 Order name: Urine Dipstick--Ancillary (enter results) ag 05/31 09:03 Order name: Urine Culture EDMS 05/31 07:14 Order name: Cardiac monitoring; Complete Time: 07:46 kdr 05/31 07:14 Order name: EKG - Nurse/Tech; Complete Time: 07:46 kdr 05/31 07:14 Order name: IV Saline Lock; Complete Time: 07:46 kdr 05/31 07:14 Order name: Labs collected and sent; Complete Time: 07:46 kdr 05/31 07:14 Order name: O2 Per Protocol; Complete Time: 07:46 kdr 05/31 07:14 Order name: O2 Sat Monitoring; Complete Time: 07:46 kdr 08 07:14 Order name: Urine Dipstick-Ancillary (obtain specimen); Complete Time: 09:06 kdr Administered Medications: No medications were administered Disposition: 05/31/18 09:42 Discharged to Home. Impression: Confusion, agitation, altered mental status. - Condition is Stable. - Discharge Instructions: Confusion. - Medication Reconciliation Form, Thank You Letter form. - Follow up: Private Physician; When: 2 - 3 days; Reason: If symptoms return, Further diagnostic work-up, Recheck today's complaints, Continuance of care, Re-evaluation by your physician. - Problem is an ongoing problem. - Symptoms have improved. NIH Stroke Scale - NIH Stroke Score Date: 05/31/2018 Time: 06:31 Total Score = 0 1a. Level of Consciousness (LOC) - 0(Alert) 1b. Level of Consciousness (LOC) (Year \T\ Age) - 0(Both) 1c. LOC Commands (Open \T\ Closes Eyes/Hydro Station Operator) - 0(Both) 2. Best Gaze (Lateral Gaze Paresis) - 0(Normal) 3. Visual Field Loss - 0(No visual loss) 4. Facial Palsy - 0(Normal) 5a. Left Arm: Motor (10-second hold) - 0(No drift) 5b. Right Arm: Motor (10-second hold) - 0(No drift) 6a. Left Leg: Motor (5-second hold - always test supine) - 0(No drift) 6b. Right Leg: Motor (5-second hold - always test supine) - 0(No drift) 7. Limb Ataxia (finger/nose \T\ heel/denise - test with eyes open) - 0(Absent) 8. Sensory Loss (pinprick arms/legs/face) - 0(Normal) 9. Best Language: Aphasia (description/naming/reading) - 0(No aphasia) 10. Dysarthria (speech clarity - read or repeat words) - 0(Normal) 11. Extinction and Inattention (visual/tactile/auditory/spatial/personal) - 0(No abnormality) Initials: bb Signatures: Dispatcher [employer] EDMS Riki Pitt MD MD [facility] Candie Masters RN RN Antonietta Fowler RN RN jl7 Corrections: (The following items were deleted from the chart) 09:59 09:42 05/31/2018 09:42 Discharged to Home. Impression: Confusion, agitation, jl7 altered mental status. Condition is Stable. Forms are Medication Reconciliation Form, Thank You Letter, Antibiotic Education, Prescription Opioid Use. Follow up: Private Physician; When: 2 - 3 days; Reason: If symptoms return, Further diagnostic work-up, Recheck today's complaints, Continuance of care, Re-evaluation by your physician. Problem is an ongoing problem. Symptoms have improved. kdr
--- NOTE | 2018-05-31 11:40 | EKG ---
Test Date: 2018-05-31 Test Time: 06:28:47 Automobile Upholstery Trim Installer: DYAN MEASUREMENT RESULTS: Intervals: Rate: 65 MO: 144 QRSD: 80 QT: 384 QTc: 399 [place]: P: 32 MO: 144 QRS: -7 T: -15 INTERPRETIVE STATEMENTS: Normal sinus rhythm Normal ECG No previous ECG available for comparison Electronically Signed On 05-31-18 11:39:39 CDT by Patrice Bowman
== END 2018-05-31 09:59 | disposition home or self-care (01) ==
LOC: ER 06:07
DX: R41.82 Altered mental status, unspecified (principal); R45.1 Restlessness and agitation; Z88.0 Allergy status to penicillin; Z88.8 Allergy status to other drugs, medicaments and biological substances
CPT/HCPCS: 36415; 70450; 71045; 80048; 80076; 81003; 81015; 83735; 83880; 84484; 85025; 85610; 85730; 87086; 87088; 93005; 99284

== ENCOUNTER 2020-04-11 15:36 | Observation (INO) | payer OTHER, MEDICARE ==
--- OUTSIDE RECORDS SUMMARY | 2020-04-11 15:55 | XMS REPORT | Clinical Summary ---
:1945 Author Organization [facility] Address [address] [place] [id number] Care Team Providers Name Role Phone Asked, Pcp Primary Care Provider Unavailable Allergies Not on File Medications Not on file Active Problems Not on file Social History Tobacco Use Types Packs/Day Years Used Date Never Assessed Sex Assigned at Date Recorded Not on file Job Start Date Occupation Industry Not on file Not on file Not on file Travel History Travel Start Travel End No recent travel history available. 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
--- OUTSIDE RECORDS SUMMARY | 2020-04-11 15:55 | XMS REPORT | Clinical Summary ---
:1945 Author Organization [facility] Address [address] [place] [address] Care Team Providers Name Role Phone Marilyn Vasquez Primary Care Provider Allergies Active Allergy Reactions Severity Noted Date Comments Penicillins Shortness Of Breath High 11/04/2017 Medications Medication Sig Dispensed Refills Start Date End Date Status tamsulosin (FLOMAX) 0.4 Take 0.8 mg by 0 Active mg Cp24 24 hr capsule mouth nightly. Active Problems Problem Noted Date Syncope, unspecified syncope type 11/04/2017 Severe sepsis 11/04/2017 Aspiration pneumonia 11/04/2017 Acute respiratory failure with hypoxemia 11/04/2017 Social History Tobacco Use Types Packs/Day Years [...] Signs Not on file Plan of Treatment Not on file Results Not on fileafter 04/11/2019 Insurance Payer Benefit Plan / Group Subscriber ID Type Phone A ddress MEDICARE MEDICARE A B xxxxxxxxxx Medicare MCR SUPPLEMENT/INDIVIDUAL [employer]/[facility] xxxxxxxxxxx Medigap Advance Directives For more information, please contact:[address] [phone] Code Status Date Activated Date Inactivated Comments Full Code 11/04/2017 6:22 PM 11/08/2017 2:21 PM This code status was determined by: Patient
--- OUTSIDE RECORDS SUMMARY | 2020-04-11 15:56 | XMS REPORT | Continuity of Care Document ---
:1945 Author Organization [facility] t Address [address] [place] [address] Care Team Providers Name Role Phone Asked, Pcp Primary Care Physician Unavailable LIZETTE DAVALOS Attending Clinician Unavailable MARIN RITCHIE Admitting Clinician Unavailable Payers Payer Name Policy Type Policy Number Effective Date Expiration Date S ource Problems Condition Condition Condition Status Onset Resolution Last Treating Co mments Source Name Details Category Date Date Treatment Clinician Date Syncope, Syncope, Disease [facility] Sarah kes - d syncope d syncope 00:00: Medi joanie type type 00 Center Severe Severe Disease Active [facility] Aspiration Aspiration Disease Active [facility] pneumonia pneumonia 11-04 [facility] Acute Acute Disease Active [facility] respirator respirator - Sarah kes - y failure y failure 00:00: Medi joanie with with 00 Center hypoxemia hypoxemia Allergies, Adverse Reactions, Alerts Allergy Allergy Status Severity Reaction(s) Onset Inactive Treating Comm ents Source Name Type Date Date Clinician esomepra DA Active [facility]16 [place] [facility] [place] DA [facility]12 [place] [facility] [place] Propensi Active [facility]ness [facility] to Breath 1-07 [facility] - adverse 00:00: Medical reaction 00 Center s Social History Social Habit Start Date Stop Date Quantity Comments Source Sex Assigned At [facility] Tobacco Comment 2017-11-04 2017-11-04 quit age 23 yo ABELINO gutierrez [facility]00 [facility] Smoking Status Start Date Stop Date Source Former smoker 2017-11-04 00:00:00 2017-11-04 00:00:[address] [facility] Medications Ordered Filled Start Stop Current Ordering Indication Dosage Frequency Signature Comments Components Source Medication Medication Date Date Medication? Clinician (SIG) Name Name tamsulosin Yes .8mg QD Take 0.[address] (FLOMAX) 1-07 mg by [facility] - 0.4 mg Cp24 19:21: mouth Medic al 24 hr 36 nightly. [place] capsule Procedures This patient has no known procedures. Plan of Care Planned Activity Planned Date Details Comments Source Future Scheduled 2020-05-29 INFLUENZA VACCINE [place] 00:00:00 [code = INFLUENZA VACCINE] Future Scheduled 2009 65+ PNEUMOCOCCAL [place] [facility] 00:00:00 VACCINE (1 of 2 - PCV13) [code = 65+ PNEUMOCOCCAL VACCINE (1 of 2 - PCV13)] Future Scheduled 1994 COLONOSCOPY SCREENING [facility] 00:00:00 [code = COLONOSCOPY SCREENING] Future Scheduled 1994 SHINGLES VACCINES (#1) [facility] 00:00:00 [code = SHINGLES VACCINES (#1)] Results Test Description Test Time Test Comments Results Result Sour e Comments SURGICAL 2020-03-23 SPECIMENS 10:27:00 RUN DATE: 03/23/20 [place] [facility] - LAB PAGE 1 RUN TIME: 1028 Specimen Inquiry RUN USER: INTERFACE PATIENT: NINO MOHAMUD LOC: [address] U #: [id number] AGE/SX: 74/M ROOM: [facility] RE03/17/20REG DR: Teodoro Sung MD : 43 BED: 1 DIS: STATUS: ADM IN TLOC: SPEC #: [id number] RECD: 03/16/20 STATUS: [place] RE #: [id number] RODDY: 03/16/[address] [facility] [address]: Teodoro Sung MD ENTERED: 03/16/201292 SP TYPE: SURG OTHR DR: Marleen Vasquez MD, Alvin MDORDERED: PATHGM3, PATH SPEC, DECAL/2, H E STAIN/2 HISTOLOGY: TISSUE ID BLK PCS DA LEV / PROCEDURE DISPOSITION ____ ___ ___ ___ ___ INVERTEBRAL DIS TISSUES: A. INVERTEBRAL DISC - Cervical three-four; cervical four-five; cervical five-six CLINICAL HISTORY Cervical disc disorder with myeloplasty; cervical stenosis. COMMENT Under polarized light, the focus of chondrocalcinosis show rhomboidal crystals compatible with calcium pyrophosphate dihydrate (CPPD) deposition. Clinical correlation is advised. FINAL DIAGNOSIS SPINE, CERVICAL 3-4, CERVICAL 4-5 AND CERVICAL 5-6, LAMINECTOMY: - Fragments of fibroconnective tissue with focal chondrocalcinosis, fatty tissue, muscle, bone and bone marrow elements. - Negative for malignancy. GROSS DESCRIPTION The specimen is received in a formalin-filled container labeled with at least two patient identifiers and "cervical 3-4, 4-5, 5-6, bone and tendon". It consists of multiple irregular pieces of soft tissue, fibroconnective tissue and bone ranging from 0.4 up to 5 cm. No discrete lesions are identified. Jewelry Repairer sections are submitted in a single cassette after decalcification. CRANE RIGGER/th MICROSCOPIC DESCRIPTION Microscopic examination is performed. Signed SIGNATURE ON FILE LionelJeane 03/23/20 1027 END OF REPORT GLUBED 2020-03-22 11:33:00 Test Item Value Reference Range Interpretation Comme nts GLUBED (test code = GLUBED) 102 MG/DL 70-105 N BASIC METABOLIC [id number] 06:52:00 Test Item Value Reference Range Interpretation Comments SODIUM (test code 136 MMOL/L 136-143 N = NA) POTASSIUM (test 4.2 MMOL/L 3.5-5.1 N code = K) CHLORIDE (test 100 MMOL/L 98-107 N code = CL) CARBON DIOXIDE 25 mmol/L 24-31 N (test code = CO2) GLUCOSE (test code 117 mg/dL 70-104 H = GLU) BLOOD UREA 15.6 MG/DL 7.0-21.0 N NITROGEN (test code = BUN) GLOMERULAR >=60 max >60 The estimated FILTRATION RATE estimate glomerular (test code = GFR) filtration rate is computed usingpatient ra ce, age (>18), sex, and serum creatinin e. If anyof the neede d data elements a re missing the Laboratory rosa ot compute an estimation of t he glomerular filtration rate . CREATININE (test 0.6 mg/dL 0.8-1.5 L code = CREAT) CALCIUM (test code 8.3 mg/dL 8.8-10.2 L = CA) [id number] 06:52:00 Test Item Value Reference Range Interpretation Comments MAGNESIUM (test code = MAG) 2.0 mg/dL 1.4-2.6 N CBC W/AUTO [id number] 06:50:00 Test Item Value Reference Range Interpretation Comments WHITE BLOOD CELL (test code = 12.1 x10 3/uL 4.8-10.8 H WBC) RED BLOOD CELL (test code = 4.01 x10 6/uL 4.70-6.10 L RBC) HEMOGLOBIN (test code = HGB) 12.7 g/dL 14.5-20 L HEMATOCRIT (test code = HCT) 38.4 % 42.0-52.0 L MEAN CELL VOLUME (test code = 95.8 fL 80.0-94.0 H MCV) MEAN CELL HGB (test code = MCH) 31.7 pg 27-31 H MEAN CELL HGB CONCENTRATION 33.1 G/DL 33-36.5 N (test code = MCHC) RED CELL DISTRIBUTION WIDTH 12.9 % 12.9-16.9 N (test code = RDW) PLATELET COUNT (test code = 248 150-440 N PLT) MEAN PLATELET VOLUME (test code 11.2 fL 8.9-12.4 N = MPV) NEUTROPHIL % (test code = NT%) 79.4 % 42.2-75.2 H LYMPHOCYTE % (test code = LY%) 10.0 % 20.5-51.1 L MONOCYTE % (test code = MO%) 9.7 % 1.7-9.3 H EOSINOPHIL % (test code = EO%) 0.1 % 0.0-7.0 N BASOPHIL % (test code = BA%) 0.1 % 0-2.5 N NEUTROPHIL # (test code = NT#) 9.65 x10 3/uL 1.80-7.70 H LYMPHOCYTE # (test code = LY#) 1.21 x10 3/uL 1.00-4.80 N MONOCYTE # (test code = MO#) 1.18 x10 3/uL 0.00-0.80 H EOSINOPHIL # (test code = EO#) 0.01 x10 3/uL 0.00-0.45 N BASOPHIL # (test code = BA#) 0.01 x10 3/uL 0.0-0.20 N [id number] 16:27:00 Test Item Value Reference Range Interpretation Comments GLUBED (test code = GLUBED) 107 MG/DL 70-105 H [id number] 12:01:00 Test Item Value Reference Range Interpretation Comments GLUBED (test code = GLUBED) 108 MG/DL 70-105 H BASIC METABOLIC [id number] 07:20:00 Test Item Value Reference Range Interpretation Comments SODIUM (test code 133 MMOL/L 136-143 L = NA) POTASSIUM (test 4.0 MMOL/L 3.5-5.1 N code = K) CHLORIDE (test 96 MMOL/L 98-107 L code = CL) CARBON DIOXIDE 26 mmol/L 24-31 N (test code = CO2) GLUCOSE (test code 125 mg/dL 70-104 H = GLU) BLOOD UREA 14.0 MG/DL 7.0-21.0 N NITROGEN (test code = BUN) GLOMERULAR >=60 max >60 The estimated FILTRATION RATE estimate glomerular (test code = GFR) filtration rate is computed usingpatient ra ce, age (>18), sex, and serum creatinin e. If anyof the neede d data elements a re missing the Laboratory rosa ot compute an estimation of t he glomerular filtration rate . CREATININE (test 0.7 mg/dL 0.8-1.5 L code = CREAT) CALCIUM (test code 9.0 mg/dL 8.8-10.2 N = CA) CBC W/AUTO [id number] 06:38:00 Test Item Value Reference Range Interpretation Comments WHITE BLOOD CELL (test code = 14.1 x10 3/uL 4.8-10.8 H WBC) RED BLOOD CELL (test code = 4.20 x10 6/uL 4.70-6.10 L RBC) HEMOGLOBIN (test code = HGB) 13.7 g/dL 14.5-20 L HEMATOCRIT (test code = HCT) 40.1 % 42.0-52.0 L MEAN CELL VOLUME (test code = 95.5 fL 80.0-94.0 H MCV) MEAN CELL HGB (test code = 32.6 pg 27-31 H MCH) MEAN CELL HGB CONCENTRATION 34.2 G/DL 33-36.5 N (test code = MCHC) RED CELL DISTRIBUTION WIDTH 13.1 % 12.9-16.9 N (test code = RDW) PLATELET COUNT (test code = 243 150-440 N PLT) MEAN PLATELET VOLUME (test 11.1 fL 8.9-12.4 N code = MPV) NEUTROPHIL % (test code = NT%) 82.4 % 42.2-75.2 H LYMPHOCYTE % (test code = LY%) 7.2 % 20.5-51.1 L MONOCYTE % (test code = MO%) 9.7 % 1.7-9.3 H EOSINOPHIL % (test code = EO%) 0.1 % 0.0-7.0 N BASOPHIL % (test code = BA%) 0.1 % 0-2.5 N NEUTROPHIL # (test code = NT#) 11.63 x10 3/uL 1.80-7.70 H LYMPHOCYTE # (test code = LY#) 1.02 x10 3/uL 1.00-4.80 N MONOCYTE # (test code = MO#) 1.37 x10 3/uL 0.00-0.80 H EOSINOPHIL # (test code = EO#) 0.01 x10 3/uL 0.00-0.45 N BASOPHIL # (test code = BA#) 0.02 x10 3/uL 0.0-0.20 N [id number] 06:05:00 Test Item Value Reference Range Interpretation Comments GLUBED (test code = GLUBED) 119 MG/DL 70-105 H [id number] 20:51:00 Test Item Value Reference Range Interpretation Comments GLUBED (test code = GLUBED) 125 MG/DL 70-105 H [id number] 17:40:00 Test Item Value Reference Range Interpretation Comments GLUBED (test code = GLUBED) 87 MG/DL 70-105 N [id number] 17:16:00 Test Item Value Reference Range Interpretation Comments GLUBED (test code = GLUBED) 59 MG/DL 70-105 L [id number] 11:15:00 Test Item Value Reference Range Interpretation Comments GLUBED (test code = GLUBED) 76 MG/DL 70-105 N BASIC METABOLIC [id number] 05:20:00 Test Item Value Reference Range Interpretation Comments SODIUM (test code 137 MMOL/L 136-143 N = NA) POTASSIUM (test 4.2 MMOL/L 3.5-5.1 N code = K) CHLORIDE (test 100 MMOL/L 98-107 N code = CL) CARBON DIOXIDE 25 mmol/L 24-31 N (test code = CO2) GLUCOSE (test code 115 mg/dL 70-104 H = GLU) BLOOD UREA 9.1 MG/DL 7.0-21.0 N NITROGEN (test code = BUN) GLOMERULAR >=60 max >60 The estimated FILTRATION RATE estimate glomerular (test code = GFR) filtration rate is computed usingpatient ra ce, age (>18), sex, and serum creatinin e. If anyof the neede d data elements a re missing the Laboratory rosa ot compute an estimation of t he glomerular filtration rate . CREATININE (test 0.6 mg/dL 0.8-1.5 L code = CREAT) CALCIUM (test code 8.6 mg/dL 8.8-10.2 L = CA) CBC W/AUTO [id number] 05:10:00 Test Item Value Reference Range Interpretation Comments WHITE BLOOD CELL (test code = 14.1 x10 3/uL 4.8-10.8 H WBC) RED BLOOD CELL (test code = 4.31 x10 6/uL 4.70-6.10 L RBC) HEMOGLOBIN (test code = HGB) 13.7 g/dL 14.5-20 L HEMATOCRIT (test code = HCT) 41.2 % 42.0-52.0 L MEAN CELL VOLUME (test code = 95.6 fL 80.0-94.0 H MCV) MEAN CELL HGB (test code = 31.8 pg 27-31 H MCH) MEAN CELL HGB CONCENTRATION 33.3 G/DL 33-36.5 N (test code = MCHC) RED CELL DISTRIBUTION WIDTH 13.0 % 12.9-16.9 N (test code = RDW) PLATELET COUNT (test code = 216 150-440 N PLT) MEAN PLATELET VOLUME (test 10.9 fL 8.9-12.4 N code = MPV) NEUTROPHIL % (test code = NT%) 80.6 % 42.2-75.2 H LYMPHOCYTE % (test code = LY%) 8.9 % 20.5-51.1 L MONOCYTE % (test code = MO%) 9.9 % 1.7-9.3 H EOSINOPHIL % (test code = EO%) 0.1 % 0.0-7.0 N BASOPHIL % (test code = BA%) 0.1 % 0-2.5 N NEUTROPHIL # (test code = NT#) 11.35 x10 3/uL 1.80-7.70 H LYMPHOCYTE # (test code = LY#) 1.26 x10 3/uL 1.00-4.80 N MONOCYTE # (test code = MO#) 1.39 x10 3/uL 0.00-0.80 H EOSINOPHIL # (test code = EO#) 0.01 x10 3/uL 0.00-0.45 N BASOPHIL # (test code = BA#) 0.02 x10 3/uL 0.0-0.20 N [id number] 02:21:00 Test Item Value Reference Range Interpretation Comments GLUBED (test code = GLUBED) 91 MG/DL 70-105 N [id number] 20:34:00 Test Item Value Reference Range Interpretation Comments GLUBED (test code = GLUBED) 100 MG/DL 70-105 N [id number] 12:10:00 Test Item Value Reference Range Interpretation Comments GLUBED (test code = GLUBED) 104 MG/DL 70-105 N [id number] 06:01:00 Test Item Value Reference Range Interpretation Comments GLUBED (test code = GLUBED) 118 MG/DL 70-105 H BASIC METABOLIC [id number] 04:40:00 Test Item Value Reference Range Interpretation Comments SODIUM (test code 136 MMOL/L 136-143 N = NA) POTASSIUM (test 4.5 MMOL/L 3.5-5.1 N code = K) CHLORIDE (test 102 MMOL/L 98-107 N code = CL) CARBON DIOXIDE 23 mmol/L 24-31 L (test code = CO2) GLUCOSE (test code 138 mg/dL 70-104 H = GLU) BLOOD UREA 9.0 MG/DL 7.0-21.0 N NITROGEN (test code = BUN) GLOMERULAR >=60 max >60 The estimated FILTRATION RATE estimate glomerular (test code = GFR) filtration rate is computed usingpatient ra ce, age (>18), sex, and serum creatinin e. If anyof the neede d data elements a re missing the Laboratory rosa ot compute an estimation of t he glomerular filtration rate . CREATININE (test 0.7 mg/dL 0.8-1.5 L code = CREAT) CALCIUM (test code 8.7 mg/dL 8.8-10.2 L = CA) CBC W/AUTO [id number] 04:33:00 Test Item Value Reference Range Interpretation Comments WHITE BLOOD CELL (test code = 14.5 x10 3/uL 4.8-10.8 H WBC) RED BLOOD CELL (test code = 4.09 x10 6/uL 4.70-6.10 L RBC) HEMOGLOBIN (test code = HGB) 13.2 g/dL 14.5-20 L HEMATOCRIT (test code = HCT) 39.1 % 42.0-52.0 L MEAN CELL VOLUME (test code = 95.6 fL 80.0-94.0 H MCV) MEAN CELL HGB (test code = 32.3 pg 27-31 H MCH) MEAN CELL HGB CONCENTRATION 33.8 G/DL 33-36.5 N (test code = MCHC) RED CELL DISTRIBUTION WIDTH 13.0 % 12.9-16.9 N (test code = RDW) PLATELET COUNT (test code = 215 150-440 N PLT) MEAN PLATELET VOLUME (test 10.5 fL 8.9-12.4 N code = MPV) NEUTROPHIL % (test code = NT%) 89.5 % 42.2-75.2 H LYMPHOCYTE % (test code = LY%) 5.2 % 20.5-51.1 L MONOCYTE % (test code = MO%) 4.6 % 1.7-9.3 N EOSINOPHIL % (test code = EO%) 0.0 % 0.0-7.0 N BASOPHIL % (test code = BA%) 0.1 % 0-2.5 N NEUTROPHIL # (test code = NT#) 12.97 x10 3/uL 1.80-7.70 H LYMPHOCYTE # (test code = LY#) 0.76 x10 3/uL 1.00-4.80 L MONOCYTE # (test code = MO#) 0.66 x10 3/uL 0.00-0.80 N EOSINOPHIL # (test code = EO#) 0.00 x10 3/uL 0.00-0.45 N BASOPHIL # (test code = BA#) 0.01 x10 3/uL 0.0-0.20 N [id number] 01:36:00 Test Item Value Reference Range Interpretation Comments GLUBED (test code = GLUBED) 144 MG/DL 70-105 H [id number] 18:25:00 Test Item Value Reference Range Interpretation Comments GLUBED (test code = GLUBED) 136 MG/DL 70-105 H - XR SPINE 1 V SPEC [id number] 14:15:00Patient Name: NINO MOHAMUD Unit No: [id number] EXAMS: CPT CODE: [id number] XR SPINE 1 V SPEC LEVEL [id number] Cervical spine 2 views intraoperative 03/16/2020 2:14 PM CLINICAL HISTORY: Instrument localization COMPARISON: None available LOCATION: W1 IMPRESSION: On the second submitted image, a spinous process clamp projects posterior to C2-3. Confirmation of probe location was not requested by the operating surgeon. at 1415 Reported and signed by: TAIWO PUCKETT M.D. CC: Marleen Vasquez MD; Teodoro Sung MD Technologist: ANGELIA EDOUARD RT(R) Fluoro Time: DAP (Gy m2): Air Kerma (mGy): Trscr Dt/Tm: 03/16/2020 (1417) by:[email or web address] Printed Date/Time: 03/16/2020 (9030) Name: NINO MOHAMUD [facility] Phys: Teodoro Quinones MD [address] : 1945 Age: 74 Sex: [place] [address] Loc: P.0212 1 Exam Date: 03/16/2020 Status: ADM IN PH: FAX: PAGE 1 Signed Report Coronavirus 2019 nCoV [id number] 06:12:00 Test Item Value Reference Range Interpretation Comments Coronavirus 2019 nCoV Bedside (test Negative NEGATIVE code = [id number]) UA RFLX MICR CULT IF [id number] 15:57:00 Test Item Value Reference Range Interpretation Comments UA COLOR (test code = DARK YELLOW DISCRIPT YELLOW A COLU) UA APPEARANCE (test code CLEAR DISCRIPT CLEAR = APPU) UA GLUCOSE DIPSTICK NEGATIVE mg/dL NEGATIVE (test code = DGLUU) UA BILIRUBIN DIPSTICK NEGATIVE NEGATIVE (test code = BILU) UA KETONE DIPSTICK (test NEGATIVE mg/dL NEGATIVE code = KETU) UA SPECIFIC GRAVITY >=1.030 1.005-1.030 (test code = SGU) UA BLOOD DIPSTICK (test NEGATIVE NEGATIVE code = ETTA) UA PH DIPSTICK (test 6.0 5.0-9.0 code = ESTEFANI) UA PROTEIN DIPSTICK NEGATIVE mg/dL NEGATIVE (test code = PROU) UA UROBILINOGEN DIPSTICK 1.0 mg/dL 0.2-1.0 (test code = URO) UA NITRITE DIPSTICK NEGATIVE NEGATIVE (test code = KATHI) UA LEUKOCYTE ESTERASE NEGATIVE NEGATIVE DIPSTICK (test code = LEUU) UA WBC (test code = 0-2 #WBC/HPF 0-2 WBCU) UA RBC (test code = 0-2 #RBC/HPF 0-2 RBCU) UA BACTERIA (test code = OCCASIONAL /HPF NONE-TRACE A BACU) UA SQUAMOUS CELLS (test OCCASIONAL /LPF NONE-TRACE code = SQU) Indication for culture: Dysuria/FrequencyCOMPREHENSIVE METABOLIC PANEL 2020-03-12 15:16:00 Test Item Value Reference Range Interpretation Comments SODIUM (test code = 139 MMOL/L 136-143 N NA) POTASSIUM (test 4.6 MMOL/L 3.5-5.1 N code = K) CHLORIDE (test code 102 MMOL/L 98-107 N = CL) CARBON DIOXIDE 25 mmol/L 24-31 N (test code = CO2) GLUCOSE (test code 94 mg/dL 70-104 N = GLU) BLOOD UREA NITROGEN 18.2 MG/DL 7.0-21.0 N (test code = BUN) GLOMERULAR >=60 max >60 The estimated FILTRATION RATE estimate glomerular (test code = GFR) filtration rate is computed usingpatient ra ce, age (>18), sex, and serum creatinin e. If anyof the ne eded data elements a re missing the Laboratory rosa ot compute an estimation of t he glomerular filtration rate . CREATININE (test 0.9 mg/dL 0.8-1.5 N code = CREAT) TOTAL PROTEIN (test 6.5 g/dL 6.3-8.3 N code = PROT) ALBUMIN (test code 3.9 G/DL 3.5-5.0 N = ALB) CALCIUM (test code 9.2 mg/dL 8.8-10.2 N = CA) BILIRUBIN TOTAL 0.4 mg/dL 0.2-1.0 N (test code = BILT) SGOT/AST (test code 15 IU/L 10-34 N = AST) SGPT/ALT (test code 6 U/L 10-44 L = ALT) ALKALINE 69 U/L 45-120 N PHOSPHATASE (test code = ALKP) LIPID PROFILE (CORONARY RISK)2020-03-12 15:16:00 Test Item Value Reference Range Interpretation Comments TRIGLYCERIDES (test 59 mg/dL 35-160 N code = TRIG) CHOLESTEROL (test code 187 mg/dL 0-200 N = CHOL) HDL CHOLESTEROL (test 60 mg/dL 35-55 H code = HDL) LIPOPROTEIN LDL (test 116 MG/DL 0-99 H INTERP RETATIVE code = LDLC) DATA:LDL Choles terol: Reference RangesOptimal: <100 mg/dLNear Optim al: 100 -129 mg/dLBorde rline High: 130 - 15 9 mg/dLHigh: 160 - 189 mg/dLVery High: = or > 190 mg/dL CORONARY RISK FACTOR 3.12 (test code = RISK) CHOL/HDL RISK MALE: 1/2 AVG 3.43 FEMALE: 1/2 AV G 3.27 AVG 4.97 AVG 4.44 2X AVG 9.55 2X AVG 7.05 3X AVG 23.39 3X AVG 11.04~~~~~~~~~~ ~~~~~~~ ~~~~~~~~~~~~~~~ ~~~~~~~ ~~~~~~~~~~~~~~~ ~~~~~~N [facility] mary Education (OREP ) Guidelines:~~~~ ~~~~~~~ ~~~~~~~~~~~~~~~ ~~~~~~~ ~~~~~~~~~~~~~~~ ~~~~~~~ ~~~~~ HDL Cholesterol<4 0mg/dL: HDL Cholesterol (Major risk factor for CHD)>60mg/dL: H DL Cholesterol (Ne gative risk factor for CHD)40-59mg/dL: Borderline Risk L DL Cholesterol<1 00mg/dL : Desirable LDL -C [id number] 0-159mg /dL: Borderline High Risk LDL-C [id number] 0-189mg /dL: High risk LDL-C concentration H DL-LDL Cholesterol is affected by a n umber of factors such as smoking, age an d sex.~~~~~~~~~~~ ~~~~~~~ ~~~~~~~~~~~~~~~ ~~~~~~~ ~~~~~~~~~~~~~~~ ~~~~~ PROTHROMBIN [id number] 14:46:00 Test Item Value Reference Range Interpretation Comments PROTHROMBIN TIME 11.6 SECONDS 10.3-12.9 N PATIENT (test code = PTP) INTERNATIONAL 1.03 INR UNIT 0.9-1.11 N The INR is us eful only NORMAL RATIO (test for monit oring code = INR) anticoagulant therapy.It may be unreliable in t he initial phase o f antigoagulation and in unstable patien ts. Indication for Anticoagulation Recommend ed INR 1. Prevention o f venous thomboembolism 2.0-3.0in high -risk patients; treat ment of venousthrombosi s and pulmonary embol ism aftera course o f heparin; preven tion of systemicembolis m in a variety of cond itions, including atria l fibrillation an d prothetic tissu e heart valves, 2. Pros thetic mechanical hear t valves; 2.5-3.5recurren t systemic emboli sm. THROMBOPLASTIN TIME [id number] 14:46:00 Test Item Value Reference Range Interpretation Comments THROMBOPLASTIN TIME 31.1 SECONDS 26.0-35.9 N INTERPRE TATIVE PARTIAL (test code = DATA:Th erapeutic PTT) range: Unfractionated heparin:47 - 71 seconds Argatroban:1.5 to 3 times the basel ine PTT UA RFLX MICR CULT IF [id number] 14:40:00 Test Item Value Reference Range Interpretation Comments UA COLOR (test code = DARK YELLOW DISCRIPT YELLOW A COLU) UA APPEARANCE (test code CLEAR DISCRIPT CLEAR = APPU) UA GLUCOSE DIPSTICK (test NEGATIVE mg/dL NEGATIVE code = DGLUU) UA BILIRUBIN DIPSTICK NEGATIVE NEGATIVE (test code = BILU) UA KETONE DIPSTICK (test NEGATIVE mg/dL NEGATIVE code = KETU) UA SPECIFIC GRAVITY (test >=1.030 1.005-1.030 code = SGU) UA BLOOD DIPSTICK (test NEGATIVE NEGATIVE code = ETTA) UA PH DIPSTICK (test code 6.0 5.0-9.0 = ESTEFANI) UA PROTEIN DIPSTICK (test NEGATIVE mg/dL NEGATIVE code = PROU) UA UROBILINOGEN DIPSTICK 1.0 mg/dL 0.2-1.0 (test code = URO) UA NITRITE DIPSTICK (test NEGATIVE NEGATIVE code = KATHI) UA LEUKOCYTE ESTERASE NEGATIVE NEGATIVE DIPSTICK (test code = LEUU) UA WBC (test code = WBCU) #WBC/HPF 0-2 UA RBC (test code = RBCU) #RBC/HPF 0-2 UA BACTERIA (test code = /HPF NONE-TRACE BACU) UA SQUAMOUS CELLS (test /LPF NONE-TRACE code = SQU) Indication for culture: Dysuria/FrequencyCBC W/AUTO [id number] 14:37:00 Test Item Value Reference Range Interpretation Comments WHITE BLOOD CELL (test code = 7.3 x10 3/uL 4.8-10.8 N WBC) RED BLOOD CELL (test code = 4.34 x10 6/uL 4.70-6.10 L RBC) HEMOGLOBIN (test code = HGB) 14.1 g/dL 14.5-20 L HEMATOCRIT (test code = HCT) 41.9 % 42.0-52.0 L MEAN CELL VOLUME (test code = 96.5 fL 80.0-94.0 H MCV) MEAN CELL HGB (test code = MCH) 32.5 pg 27-31 H MEAN CELL HGB CONCENTRATION 33.7 G/DL 33-36.5 N (test code = MCHC) RED CELL DISTRIBUTION WIDTH 13.2 % 12.9-16.9 N (test code = RDW) PLATELET COUNT (test code = 240 150-440 N PLT) MEAN PLATELET VOLUME (test code 10.7 fL 8.9-12.4 N = MPV) NEUTROPHIL % (test code = NT%) 57.8 % 42.2-75.2 N LYMPHOCYTE % (test code = LY%) 30.2 % 20.5-51.1 N MONOCYTE % (test code = MO%) 8.8 % 1.7-9.3 N EOSINOPHIL % (test code = EO%) 2.2 % 0.0-7.0 N BASOPHIL % (test code = BA%) 0.5 % 0-2.5 N NEUTROPHIL # (test code = NT#) 4.20 x10 3/uL 1.80-7.70 N LYMPHOCYTE # (test code = LY#) 2.20 x10 3/uL 1.00-4.80 N MONOCYTE # (test code = MO#) 0.64 x10 3/uL 0.00-0.80 N EOSINOPHIL # (test code = EO#) 0.16 x10 3/uL 0.00-0.45 N BASOPHIL # (test code = BA#) 0.04 x10 3/uL 0.0-0.20 N BLOOD [id number] 23:00:00 Test Item Value Reference Range Interpretation Comments CULTURE (BEAKER) (test No growth in 5 days code = 1095) BLOOD [id number] 23:00:00 Test Item Value Reference Range Interpretation Comments CULTURE (BEAKER) (test No growth in 5 days code = 1095) BASIC METABOLIC [id number] 08:26:00 Test Item Value Reference Range Interpretation Comments SODIUM (BEAKER) 145 meq/L 136-145 (test code = 381) POTASSIUM (BEAKER) 4.3 meq/L 3.5-5.1 (test code = 379) CHLORIDE (BEAKER) 111 meq/L 98-107 H (test code = 382) CO2 (BEAKER) (test 27 meq/L 22-29 code = 355) BLOOD UREA NITROGEN 17 mg/dL 7-21 (BEAKER) (test code = 354) CREATININE (BEAKER) 0.98 mg/dL 0.57-1.25 (test code = 358) GLUCOSE RANDOM 87 mg/dL 70-105 (BEAKER) (test code = 652) CALCIUM (BEAKER) 9.1 mg/dL 8.4-10.2 (test code = 697) EGFR (BEAKER) (test 75 mL/min/1.73 ESTIMA ATTLIA GFR IS code = 1092) sq m NOT ACCURATE CREATININE CLEARANCE IN PREDICTING GLOMERULAR FILTRATION RATE . ESTIMATED GFR I S NOT APPLICABLE FOR DIALYSIS PATIEN TS. CBC W/PLT COUNT & AUTO [id number] 06:33:00 Test Item Value Reference Range Interpretation Comments WHITE BLOOD CELL COUNT (BEAKER) 6.7 K/ L 3.5-10.5 (test code = 775) RED BLOOD CELL COUNT (BEAKER) 3.81 M/ L 4.63-6.08 L (test code = 761) HEMOGLOBIN (BEAKER) (test code = 12.1 GM/DL 13.7-17.5 L 410) HEMATOCRIT (BEAKER) (test code = 36.7 % 40.1-51.0 L 411) MEAN CORPUSCULAR VOLUME (BEAKER) 96.3 fL 79.0-92.2 H (test code = 753) MEAN CORPUSCULAR HEMOGLOBIN 31.8 pg 25.7-32.2 (BEAKER) (test code = 751) MEAN CORPUSCULAR HEMOGLOBIN CONC 33.0 GM/DL 32.3-36.5 (BEAKER) (test code = 752) RED CELL DISTRIBUTION WIDTH 13.1 % 11.6-14.4 (BEAKER) (test code = 412) PLATELET COUNT (BEAKER) (test 226 K/CU MM 150-450 code = 756) MEAN PLATELET VOLUME (BEAKER) 11.5 fL 9.4-12.4 (test code = 754) NUCLEATED RED BLOOD CELLS 0 /100 WBC 0-0 (BEAKER) (test code = 413) NEUTROPHILS RELATIVE PERCENT 52 % (BEAKER) (test code = 429) LYMPHOCYTES RELATIVE PERCENT 33 % (BEAKER) (test code = 430) MONOCYTES RELATIVE PERCENT 10 % (BEAKER) (test code = 431) EOSINOPHILS RELATIVE PERCENT 4 % (BEAKER) (test code = 432) BASOPHILS RELATIVE PERCENT 1 % (BEAKER) (test code = 437) NEUTROPHILS ABSOLUTE COUNT 3.49 K/ L 1.78-5.38 (BEAKER) (test code = 670) LYMPHOCYTES ABSOLUTE COUNT 2.17 K/ L 1.32-3.57 (BEAKER) (test code = 414) MONOCYTES ABSOLUTE COUNT (BEAKER) 0.68 K/ L 0.30-0.82 (test code = 415) EOSINOPHILS ABSOLUTE COUNT 0.25 K/ L 0.04-0.54 (BEAKER) (test code = 416) BASOPHILS ABSOLUTE COUNT (BEAKER) 0.04 K/ L 0.01-0.08 (test code = 417) IMMATURE GRANULOCYTES-RELATIVE 1 % 0-1 PERCENT (BEAKER) (test code = 2801) RAPID DRUG SCREEN, [id number] 14:01:00 Test Item Value Reference Range Interpretation Comments BARBITURATE URINE (BEAKER) (test Negative Negative code = 725) BENZODIAZEPINE SCREEN URINE (BEAKER) Negative Negative (test code = 726) COCAINE (METAB.) SCREEN (BEAKER) Negative Negative (test code = 1164) METHADONE SCREEN (BEAKER) (test code Negative Negative = 1436) OPIATE SCREEN URINE (BEAKER) (test Negative Negative code = 734) CANNABINOID SCREEN URINE (BEAKER) Negative Negative (test code = 727) AMPH/METHAMPH SCREEN (BEAKER) (test Negative Negative code = 1438) PHENCYCLIDINE SCREEN URINE (BEAKER) Negative Negative (test code = 608) OXYCODONE SCREEN URINE (BEAKER) Negative Negative (test code = 2761) DRUG CUTOFF CONC.Cocaine 300 ng/mL Cannabinoid 50 ng/mL Benzodiazepine 200 ng/mLBarbiturate 200 ng/mLPhencyclidine 25 ng/mLOpiate 300 ng/mLMethadone 300 ng/mLAmphetamine/ 1000 ng/mL MethamphetamineOxycodone 300 ng/mLThis assay provides an unconfirmed qualitative test result for the clinical management of patients in emergency situations. Chain of custody not maintained. Some lnto-toc-drjuqpf medications, as well as adulterants, may cause inaccurate results. Clinical correlation should be applied. A more comprehensive drug screen or confirmation of a detected drug may be performed upon request.EEG AWAKE/ASLEEP AND [id number] 11:31:00Reason for exam:->encephalopathyEEG REPORT: [facility] , DATE: #: [id number] Code: #: G93.40 Encephalopathy- unspecifiedCPT Code: #: 38928: 01. EEG awake and drowsy; 20-40 minPROCEDURE: EEG CONDITIONS OF RECORDING: This [...] Please correlate clinically.Clinical Fellow: Valeri Catalanurophysiologist: Nohemy Chang URINE [id number] 09:34:00 Test Item Value Reference Range Interpretation Comments CULTURE (BEAKER) (test code = 1095) No growth CBC W/PLT COUNT & AUTO [id number] 07:03:00 Test Item Value Reference Range Interpretation Comments WHITE BLOOD CELL COUNT 7.7 K/ L 3.5-10.5 (BEAKER) (test code = 775) RED BLOOD CELL COUNT 3.81 M/ L 4.63-6.08 L (BEAKER) (test code = 761) HEMOGLOBIN (BEAKER) 12.3 GM/DL 13.7-17.5 L (test code = 410) HEMATOCRIT (BEAKER) 36.4 % 40.1-51.0 L (test code = 411) MEAN CORPUSCULAR 95.5 fL 79.0-92.2 H Discordant from VOLUME (BEAKER) (test previo us results. code = 753) Clinical correl ation suggested. MEAN CORPUSCULAR 32.3 pg 25.7-32.2 H HEMOGLOBIN (BEAKER) (test code = 751) MEAN CORPUSCULAR 33.8 GM/DL 32.3-36.5 HEMOGLOBIN CONC (BEAKER) (test code = 752) RED CELL DISTRIBUTION 12.9 % 11.6-14.4 WIDTH (BEAKER) (test code = 412) PLATELET COUNT 219 K/CU MM 150-450 (BEAKER) (test code = 756) MEAN PLATELET VOLUME 11.8 fL 9.4-12.4 (BEAKER) (test code = 754) NUCLEATED RED BLOOD 0 /100 WBC 0-0 CELLS (BEAKER) (test code = 413) NEUTROPHILS RELATIVE 62 % PERCENT (BEAKER) (test code = 429) LYMPHOCYTES RELATIVE 23 % PERCENT (BEAKER) (test code = 430) MONOCYTES RELATIVE 10 % PERCENT (BEAKER) (test code = 431) EOSINOPHILS RELATIVE 4 % PERCENT (BEAKER) (test code = 432) BASOPHILS RELATIVE 1 % PERCENT (BEAKER) (test code = 437) NEUTROPHILS ABSOLUTE 4.80 K/ L 1.78-5.38 COUNT (BEAKER) (test code = 670) LYMPHOCYTES ABSOLUTE 1.74 K/ L 1.32-3.57 COUNT (BEAKER) (test code = 414) MONOCYTES ABSOLUTE 0.77 K/ L 0.30-0.82 COUNT (BEAKER) (test code = 415) EOSINOPHILS ABSOLUTE 0.29 K/ L 0.04-0.54 COUNT (BEAKER) (test code = 416) BASOPHILS ABSOLUTE 0.04 K/ L 0.01-0.08 COUNT (BEAKER) (test code = 417) IMMATURE 1 % 0-1 GRANULOCYTES-RELATIVE PERCENT (BEAKER) (test code = 2801) BASIC METABOLIC [id number] 07:00:00 Test Item Value Reference Range Interpretation Comments SODIUM (BEAKER) 141 meq/L 136-145 (test code = 381) POTASSIUM (BEAKER) 4.0 meq/L 3.5-5.1 (test code = 379) CHLORIDE (BEAKER) 109 meq/L 98-107 H (test code = 382) CO2 (BEAKER) (test 22 meq/L 22-29 code = 355) BLOOD UREA NITROGEN 21 mg/dL 7-21 (BEAKER) (test code = 354) CREATININE (BEAKER) 0.80 mg/dL 0.57-1.25 (test code = 358) GLUCOSE RANDOM 82 mg/dL 70-105 (BEAKER) (test code = 652) CALCIUM (BEAKER) 8.8 mg/dL 8.4-10.2 (test code = 697) EGFR (BEAKER) (test 95 mL/min/1.73 ESTIMA ATTILA GFR IS code = 1092) sq m NOT ACCURATE CREATININE CLEARANCE IN PREDICTING GLOMERULAR FILTRATION RATE . ESTIMATED GFR I S NOT APPLICABLE FOR DIALYSIS PATIEN TS. CT, BRAIN, WITHOUT [id number] 23:34:00FINAL REPORT EXAMINATION NONCONTRAST HEAD CT SCAN [...] clinical concern, consider brain MRI. Signed: Tre Eckerteport Verified Date/Time: 11/06/2017 23:34:56 Reading Location: [address] Transitional Reading Room [id number] 19:41:00 Test Item Value Reference Range Interpretation Comments AMMONIA (BEAKER) 35 mol/L 18-72 Specimen mo derately (test code = 348) hemolyzed HEMOGLOBIN [id number] 10:32:00 Test Item Value Reference Range Interpretation Comments HEMOGLOBIN A1C (BEAKER) (test code = 5.4 % 4.3-6.1 368) CBC W/PLT COUNT & AUTO [id number] 07:01:00 Test Item Value Reference Range Interpretation Comments WHITE BLOOD CELL COUNT (BEAKER) 12.6 K/ L 3.5-10.5 H (test code = 775) RED BLOOD CELL COUNT (BEAKER) 4.02 M/ L 4.63-6.08 L (test code = 761) HEMOGLOBIN (BEAKER) (test code = 12.7 GM/DL 13.7-17.5 L 410) HEMATOCRIT (BEAKER) (test code = 40.0 % 40.1-51.0 L 411) MEAN CORPUSCULAR VOLUME (BEAKER) 99.5 fL 79.0-92.2 H (test code = 753) MEAN CORPUSCULAR HEMOGLOBIN 31.6 pg 25.7-32.2 (BEAKER) (test code = 751) MEAN CORPUSCULAR HEMOGLOBIN CONC 31.8 GM/DL 32.3-36.5 L (BEAKER) (test code = 752) RED CELL DISTRIBUTION WIDTH 13.0 % 11.6-14.4 (BEAKER) (test code = 412) PLATELET COUNT (BEAKER) (test 187 K/CU MM 150-450 code = 756) MEAN PLATELET VOLUME (BEAKER) 11.9 fL 9.4-12.4 (test code = 754) NUCLEATED RED BLOOD CELLS 0 /100 WBC 0-0 (BEAKER) (test code = 413) NEUTROPHILS RELATIVE PERCENT 74 % (BEAKER) (test code = 429) LYMPHOCYTES RELATIVE PERCENT 14 % (BEAKER) (test code = 430) MONOCYTES RELATIVE PERCENT 7 % (BEAKER) (test code = 431) EOSINOPHILS RELATIVE PERCENT 3 % (BEAKER) (test code = 432) BASOPHILS RELATIVE PERCENT 0 % (BEAKER) (test code = 437) NEUTROPHILS ABSOLUTE COUNT 9.39 K/ L 1.78-5.38 H (BEAKER) (test code = 670) LYMPHOCYTES ABSOLUTE COUNT 1.75 K/ L 1.32-3.57 (BEAKER) (test code = 414) MONOCYTES ABSOLUTE COUNT (BEAKER) 0.91 K/ L 0.30-0.82 H (test code = 415) EOSINOPHILS ABSOLUTE COUNT 0.41 K/ L 0.04-0.54 (BEAKER) (test code = 416) BASOPHILS ABSOLUTE COUNT (BEAKER) 0.04 K/ L 0.01-0.08 (test code = 417) IMMATURE GRANULOCYTES-RELATIVE 1 % 0-1 PERCENT (BEAKER) (test code = 2801) BASIC METABOLIC [id number] 06:47:00 Test Item Value Reference Range Interpretation Comments SODIUM (BEAKER) 139 meq/L 136-145 (test code = 381) POTASSIUM (BEAKER) 4.6 meq/L 3.5-5.1 Specimen slightly (test code = 379) hemolyzed CHLORIDE (BEAKER) 112 meq/L 98-107 H (test code = 382) CO2 (BEAKER) (test 18 meq/L 22-29 L code = 355) BLOOD UREA NITROGEN 25 mg/dL 7-21 H (BEAKER) (test code = 354) CREATININE (BEAKER) 0.91 mg/dL 0.57-1.25 Specimen slightly (test code = 358) hemolyzed GLUCOSE RANDOM 81 mg/dL 70-105 (BEAKER) (test code = 652) CALCIUM (BEAKER) 8.6 mg/dL 8.4-10.2 (test code = 697) EGFR (BEAKER) (test 82 mL/min/1.73 ESTIMA ATTILA GFR IS code = 1092) sq m NOT ACCURATE CREATININE CLEARANCE IN PREDICTING GLOMERULAR FILTRATION RATE . ESTIMATED GFR I S NOT APPLICABLE FOR DIALYSIS PATIEN TS. INFLUENZA A H1N1 [id number] 21:27:00 Test Item Value Reference Range Interpretation Comments INFLUENZA A RNA Not Detected Not Detected, (BEAKER) (test code = Inconclusive 1545) NOVEL H1N1 RNA (BEAKER) Not Detected Not Detected, (test code = 1546) Inconclusive These assays were performed by real-time RT-PCR (post office manager-PCR) utilizing fluorogenic hydrolysis probe technology for the detection of human Influenza A viruses and the differential detection of novel H1N1 Influenza virus in respiratory specimens. The test is composed of (1) an RNA extraction from patient specimen, and (2) post office manager-PCR amplification and detection with human Influenza A and novel B5J2-mrrntgag primers and probes. A well-conserved region of [...] This test was developed and its performance characte ristics determined by the [facility] Pathology Department, Section of Molecular Pathology. It has not been cleared or approved by the U.S. Food and Drug Administration (FDA). SinceFDA approval is not required for clinical use of the test, validation was done as required by The Clinical Laboratory Amendments of 1988.These assays were performed by real-time RT-PCR (post office manager-PCR) utilizing fluorogenic hydrolysis probe technology for the detection of human Influenza A viruses and the differential detection of novel H1N1 Influenza virus in respiratory specimens. The test is composed of (1) an RNA extraction from patient specimen, and (2) post office manager-PCR amplification and detection with human In fluenza A and novel O9K5-ofkcgjvl primers and probes. A well-conserved region of [...] and its performance characteristics determined by the [facility] Pathology Department, Section of Molecular Pathology. It has not been cleared or approved by the U.S. Food and Drug Administration (FDA). Since FDA approval is not required for clinical use of the test, validation was done as required by The Clinical Laboratory Amendments of 1988.TSH/FREE T4 IF INDICATED 2017-11-05 19:25:00 Test Item Value Reference Range Interpretation Comments THYROID STIMULATING HORMONE 1.87 uIU/mL 0.35-4.94 (BEAKER) (test code = 772) CBC W/PLT COUNT & AUTO [id number] 06:46:00 Test Item Value Reference Range Interpretation Comments WHITE BLOOD CELL COUNT (BEAKER) 22.9 K/ L 3.5-10.5 H (test code = 775) RED BLOOD CELL COUNT (BEAKER) 4.47 M/ L 4.63-6.08 L (test code = 761) HEMOGLOBIN (BEAKER) (test code = 14.3 GM/DL 13.7-17.5 410) HEMATOCRIT (BEAKER) (test code = 43.0 % 40.1-51.0 411) MEAN CORPUSCULAR VOLUME (BEAKER) 96.2 fL 79.0-92.2 H (test code = 753) MEAN CORPUSCULAR HEMOGLOBIN 32.0 pg 25.7-32.2 (BEAKER) (test code = 751) MEAN CORPUSCULAR HEMOGLOBIN CONC 33.3 GM/DL 32.3-36.5 (BEAKER) (test code = 752) RED CELL DISTRIBUTION WIDTH 12.7 % 11.6-14.4 (BEAKER) (test code = 412) PLATELET COUNT (BEAKER) (test 258 K/CU MM 150-450 code = 756) MEAN PLATELET VOLUME (BEAKER) 11.0 fL 9.4-12.4 (test code = 754) NUCLEATED RED BLOOD CELLS 0 /100 WBC 0-0 (BEAKER) (test code = 413) IMMATURE GRANULOCYTES-RELATIVE 1 % 0-1 PERCENT (BEAKER) (test code = 2801) (MANUAL DIFFERENTIAL)2017-11-05 06:46:00 Test Item Value Reference Range Interpretation Comments NEUTROPHILS - REL (DIFF) (BEAKER) 86 % (test code = 1359) LYMPHOCYTES - REL (DIFF) (BEAKER) 4 % (test code = 1360) MONOCYTES - REL (DIFF) (BEAKER) 3 % (test code = 1361) EOSINOPHILS - REL (DIFF) (BEAKER) 0 % (test code = 1362) BASOPHILS - REL (DIFF) (BEAKER) 0 % (test code = 1363) BANDS - REL (DIFF) (BEAKER) (test 7 % 0-10 code = 1348) NEUTROPHILS - ABS (DIFF) (BEAKER) 19.69 K/ L 1.80-8.00 H (test code = 1365) LYMPHOCYTES - ABS (DIFF) (BEAKER) 0.92 K/ L 1.48-4.50 L (test code = 1366) MONOCYTES - ABS (DIFF) (BEAKER) 0.69 K/ L 0.00-1.30 (test code = 1367) EOSINOPHILS - ABS (DIFF) (BEAKER) 0.00 K/ L 0.00-0.50 (test code = 1368) BASOPHILS - ABS (DIFF) (BEAKER) 0.00 K/ L 0.00-0.20 (test code = 1369) BANDS-ABS (DIFF) (BEAKER) (test 1.6 K/ L 0.0-0.8 H code = 1349) TOTAL COUNTED (BEAKER) (test code 100 = 1351) BANDS + SEGMENTED NEUTROPHILS 21.30 (BEAKER) (test code = 1352) WBC MORPHOLOGY (BEAKER) (test code Normal = 487) PLT MORPHOLOGY (BEAKER) (test code Normal = 486) RBC MORPHOLOGY (BEAKER) (test code Normal = 762) [id number] 03:48:00 Test Item Value Reference Range Interpretation Comments MAGNESIUM (BEAKER) (test code = 2.1 mg/dL 1.6-2.6 627) BASIC METABOLIC [id number] 03:48:00 Test Item Value Reference Range Interpretation Comments SODIUM (BEAKER) 139 meq/L 136-145 (test code = 381) POTASSIUM (BEAKER) 4.7 meq/L 3.5-5.1 (test code = 379) CHLORIDE (BEAKER) 109 meq/L 98-107 H (test code = 382) CO2 (BEAKER) (test 22 meq/L 22-29 code = 355) BLOOD UREA NITROGEN 25 mg/dL 7-21 H (BEAKER) (test code = 354) CREATININE (BEAKER) 1.05 mg/dL 0.57-1.25 (test code = 358) GLUCOSE RANDOM 160 mg/dL 70-105 H (BEAKER) (test code = 652) CALCIUM (BEAKER) 8.7 mg/dL 8.4-10.2 (test code = 697) EGFR (BEAKER) (test 69 mL/min/1.73 ESTIMA ATTILA GFR IS code = 1092) sq m NOT ACCURATE CREATININE CLEARANCE IN PREDICTING GLOMERULAR FILTRATION RATE . ESTIMATED GFR I S NOT APPLICABLE FOR DIALYSIS PATIEN TS. LACTIC ACID, VENOUS, WHOLE [id number] 03:44:00 Test Item Value Reference Range Interpretation Comments LACTATE BLOOD VENOUS (2) (BEAKER) 2.2 mmol/L 0.5-2.2 (test code = 2872) Effective 03/01/2016: Units/Reference Range ChangeNew: 0.5-2.2 mmol/L Previous: 5-20 mg/dLLACTIC ACID, VENOUS, WHOLE [id number] 23:42:00 Test Item Value Reference Range Interpretation Comments LACTATE BLOOD VENOUS (2) (BEAKER) 1.9 mmol/L 0.5-2.2 (test code = 2872) Effective 03/01/2016: Units/Reference Range ChangeNew: 0.5-2.2 mmol/L Previous: 5-20 mg/dLRAPID INFLUENZA A&B [id number] 21:51:00 Test Item Value Reference Range Interpretation Comments RAPID INFLUENZA A AG (BEAKER) Negative Negative, Inconclusive (test code = 1622) RAPID INFLUENZA B AG (BEAKER) Negative Negative, Inconclusive (test code = 1623) PROTHROMBIN [id number] 21:02:00 Test Item Value Reference Range Interpretation Comments PROTIME (BEAKER) (test code = 15.3 seconds 11.7-14.7 H 759) INR (BEAKER) (test code = 370) 1.2 <=5.9 RECOMMENDED COUMADIN/WARFARIN INR THERAPY RANGESSTANDARD DOSE: 2.0 - 3.0 Includes: PROPHYLAXIS forvenous thrombosis, systemic embolization; TREATMENT for venous thrombosis and/or pulmonary embolus.HIGH RISK: Target INR is 2.5-3.5 for patients with mechanical heart valves.OXYGEN SATURATION, [id number] 21:00:00 Test Item Value Reference Range Interpretation Comments O2 SATURATION (MEASURED) (BEAKER) 41.4 % (test code = 1455) If patient has internal jugular ( IJ) or subclavian central line or PICC line. Draw from distal port. Label as central venous oxygen.URINALYSIS W/ MICROSCOPIC 2017-11-04 20:05:00 Test Item Value Reference Range Interpretation Comments COLOR (BEAKER) (test code = 470) Yellow CLARITY (BEAKER) (test code = Clear 469) SPECIFIC GRAVITY UA (BEAKER) 1.016 1.001-1.035 (test code = 468) PH UA (BEAKER) (test code = 467) 5.5 5.0-8.0 PROTEIN UA (BEAKER) (test code = Negative Negative 464) GLUCOSE UA (BEAKER) (test code = 50 mg/dL Negative A 365) KETONES UA (BEAKER) (test code = Negative Negative 371) BILIRUBIN UA (BEAKER) (test code Negative Negative = 462) BLOOD UA (BEAKER) (test code = Negative Negative 461) NITRITE UA (BEAKER) (test code = Negative Negative 465) LEUKOCYTE ESTERASE UA (BEAKER) Negative Negative (test code = 466) UROBILINOGEN UA (BEAKER) (test 0.2 mg/dL 0.2-1.0 code = 463) RBC UA (BEAKER) (test code = < /HPF 519) WBC UA (BEAKER) (test code = 1 /HPF 520) HYALINE CASTS (BEAKER) (test 9 /LPF code = 514) GRANULAR CASTS (BEAKER) (test 3 /LPF code = 515) SOURCE(BEAKER) (test code = Urine, [place] 2641) CT, CHEST WITH IV CONTRAST- PE TEST [id number] 19:53:00FINAL REPORT CLINICAL HISTORY: Chest pain. FINDINGS: [...] tube in appropriate position. Signed: Chance Nowak MDReport Ve rified Date/Time: 11/04/2017 19:53:50 Reading Location: [address] Reading Room [id number] 19:41:00 Test Item Value Reference Range Interpretation Comments MAGNESIUM (BEAKER) 1.4 mg/dL 1.6-2.6 L Specimen slightly (test code = 627) hemolyzed HEPATIC FUNCTION [id number] 19:41:00 Test Item Value Reference Range Interpretation Comments TOTAL PROTEIN (BEAKER) 5.9 gm/dL 6.0-8.3 L Speci men slightly (test code = 770) hemolyzed ALBUMIN (BEAKER) (test 3.1 g/dL 3.5-5.0 L Speci men slightly code = 1145) hemolyzed BILIRUBIN TOTAL 0.5 mg/dL 0.2-1.2 Specimen sli ghtly (BEAKER) (test code = hemoly zed 377) BILIRUBIN DIRECT 0.2 mg/dL 0.1-0.5 Specimen sl ightly (BEAKER) (test code = hemoly zed 706) ALKALINE PHOSPHATASE 74 U/L 40-150 (BEAKER) (test code = 346) AST (SGOT) (BEAKER) 22 U/L 5-34 Specimen slightly (test code = 353) hemolyzed ALT (SGPT) (BEAKER) 16 U/L 6-55 Specimen slightly (test code = 347) hemolyzed TROPONIN [id number] 19:27:00 Test Item Value Reference Range Interpretation Comments TROPONIN I (BEAKER) (test code = 0.03 ng/mL 0.00-0.03 397) Troponin I (TnI) levels must be interpreted [...] and persistent tachyarrhythmia.RAD, CHEST, 1 VIEW, NON [id number] 19:12:00Reason for exam:->sobShould this be performed at the bedside?->No FINAL REPORT History: Shortness of breath. Comparison: [...] or acute bony abnormality. Signed: Chance Nowak MDReport Verified Date/Time: 11/04/2017 19:12:37 Reading Location: [address] Reading Room BLOOD GAS, [id number] 19:03:00 Test Item Value Reference Range Interpretation Comments PH ARTERIAL (BEAKER) (test code = 7.31 7.35-7.45 L 383) PCO2 ARTERIAL (BEAKER) (test code 40 mmHg 35-45 = 384) PO2 ARTERIAL (BEAKER) (test code 220 mmHg 80-90 H = 385) O2 SATURATION ARTERIAL (BEAKER) 99.4 % 96.0-97.0 H (test code = 386) HCO3 ARTERIAL (BEAKER) (test code 20 mmol/L 21-29 L = 388) BASE EXCESS ARTERIAL (BEAKER) -6.2 mmol/L -2.0-3.0 L (test code = 387) PATIENT TEMPERATURE (BEAKER) 37.0 C (test code = 1818) FIO2 (BEAKER) (test code = 1819) 60.0 % COMPREHENSIVE METABOLIC [id number] 18:25:00 Test Item Value Reference Range Interpretation Comments TOTAL PROTEIN 6.0 gm/dL 6.0-8.3 Specimen sligh tly (BEAKER) (test code hemolyze d = 770) ALBUMIN (BEAKER) 3.1 g/dL 3.5-5.0 L Specimen sl ightly (test code = 1145) hemolyzed ALKALINE PHOSPHATASE 76 U/L 40-150 (BEAKER) (test code = 346) BILIRUBIN TOTAL 0.5 mg/dL 0.2-1.2 Specimen sli ghtly (BEAKER) (test code hemolyze d = 377) SODIUM (BEAKER) 140 meq/L 136-145 (test code = 381) POTASSIUM (BEAKER) 3.8 meq/L 3.5-5.1 Specimen slightly (test code = 379) hemolyzed CHLORIDE (BEAKER) 109 meq/L 98-107 H (test code = 382) CO2 (BEAKER) (test 20 meq/L 22-29 L code = 355) BLOOD UREA NITROGEN 26 mg/dL 7-21 H (BEAKER) (test code = 354) CREATININE (BEAKER) 1.19 mg/dL 0.57-1.25 Specimen slightly (test code = 358) hemolyzed GLUCOSE RANDOM 173 mg/dL 70-105 H (BEAKER) (test code = 652) CALCIUM (BEAKER) 8.1 mg/dL 8.4-10.2 L (test code = 697) AST (SGOT) (BEAKER) 21 U/L 5-34 Specimen slightly (test code = 353) hemolyzed ALT (SGPT) (BEAKER) 16 U/L 6-55 Specimen slightly (test code = 347) hemolyzed EGFR (BEAKER) (test mL/min/1.73 INSUFFIC IENT code = 1092) sq m CLINICAL DATA T O CALCULATE ESTIM ATED GFR. CREATINE KINASE (CK), TOTAL AND [id number] 18:25:00 Test Item Value Reference Range Interpretation Comments CREATINE KINASE TOTAL (BEAKER) 93 U/L 29-200 (test code = 380) CREATINE KINASE-MB (BEAKER) (test 1.0 ng/mL 0.0-6.6 code = 750) CREATINE KINASE-MB INDEX (BEAKER) 1.1 % (test code = 395) CK-MB Reference Range:<6.7 Normal6.7-10.0 Borderline>10.0 AbnormalPOCT-LACTIC ACID, [id number] 18:17:00 Test Item Value Reference Range Interpretation Comments POC-LACTIC ACID, 3.1 mmol/L 0.9-1.7 H TESTED AT [facility] [address] V[address] (BEAKER) (test [place] code = 2805) [address] CBC W/PLT COUNT & AUTO [id number] 18:14:00 Test Item Value Reference Range Interpretation Comments WHITE BLOOD CELL COUNT (BEAKER) 16.4 K/ L 3.5-10.5 H (test code = 775) RED BLOOD CELL COUNT (BEAKER) 4.49 M/ L 4.63-6.08 L (test code = 761) HEMOGLOBIN (BEAKER) (test code = 14.3 GM/DL 13.7-17.5 410) HEMATOCRIT (BEAKER) (test code = 43.6 % 40.1-51.0 411) MEAN CORPUSCULAR VOLUME (BEAKER) 97.1 fL 79.0-92.2 H (test code = 753) MEAN CORPUSCULAR HEMOGLOBIN 31.8 pg 25.7-32.2 (BEAKER) (test code = 751) MEAN CORPUSCULAR HEMOGLOBIN CONC 32.8 GM/DL 32.3-36.5 (BEAKER) (test code = 752) RED CELL DISTRIBUTION WIDTH 12.7 % 11.6-14.4 (BEAKER) (test code = 412) PLATELET COUNT (BEAKER) (test 254 K/CU MM 150-450 code = 756) MEAN PLATELET VOLUME (BEAKER) 11.8 fL 9.4-12.4 (test code = 754) NUCLEATED RED BLOOD CELLS 0 /100 WBC 0-0 (BEAKER) (test code = 413) NEUTROPHILS RELATIVE PERCENT 88 % (BEAKER) (test code = 429) LYMPHOCYTES RELATIVE PERCENT 8 % (BEAKER) (test code = 430) MONOCYTES RELATIVE PERCENT 3 % (BEAKER) (test code = 431) EOSINOPHILS RELATIVE PERCENT 0 % (BEAKER) (test code = 432) BASOPHILS RELATIVE PERCENT 0 % (BEAKER) (test code = 437) NEUTROPHILS ABSOLUTE COUNT 14.43 K/ L 1.78-5.38 H (BEAKER) (test code = 670) LYMPHOCYTES ABSOLUTE COUNT 1.35 K/ L 1.32-3.57 (BEAKER) (test code = 414) MONOCYTES ABSOLUTE COUNT (BEAKER) 0.44 K/ L 0.30-0.82 (test code = 415) EOSINOPHILS ABSOLUTE COUNT 0.05 K/ L 0.04-0.54 (BEAKER) (test code = 416) BASOPHILS ABSOLUTE COUNT (BEAKER) 0.01 K/ L 0.01-0.08 (test code = 417) IMMATURE GRANULOCYTES-RELATIVE 1 % 0-1 PERCENT (BEAKER) (test code = 2801) [id number] 18:05:00 Test Item Value Reference Range Interpretation Comments PROTIME (BEAKER) (test code = 15.1 seconds 11.7-14.7 H 759) INR (BEAKER) (test code = 370) 1.2 <=5.9 PARTIAL THROMBOPLASTIN TIME 25.7 seconds 22.5-36.0 (BEAKER) (test code = 760) RECOMMENDED COUMADIN/WARFARIN INR THERAPY RANGESSTANDARD DOSE: 2.0 - 3.0 Includes: PROPHYLAXIS forvenous thrombosis, systemic embolization; TREATMENT for venous thrombosis and/or pulmonary embolus.HIGH RISK: Target INR is 2.5-3.5 for patients with mechanical heart valves.CT, [facility] [id number] 17:57:00FINAL REPORT CLINICAL HISTORY: Stroke TECHNIQUE: Contiguous contrast-enhancedaxial [...] arteries by NASCET criteria. Signed: John Vick Verified Date/Time: 11/04/2017 17:57:59 Reading Location: [address] Neuro Reading Room CT, CAROTID, [id number] 17:57:00FINAL REPORT CLINICAL HISTORY: Stroke TECHNIQUE: Contiguous contrast-enhancedaxial [...] arteries by NASCET criteria. Signed: John Vick Verified Date/Time: 11/04/2017 17:57:59 Reading Location: [address] Neuro Reading Room CT, BRAIN/STROKE [id number] 17:09:00 Reason for exam:->altered mental statusWhat is the patient's [...] neurologist at 5:08 PM. Signed: John Vick MDReport Verified Date/Time: 11/04/2017 17:09:06 Reading Location: [facility] B1 C013V Neuro Reading Room
[2020-04-11 16:35] LABS: Urine Blood NEGATIVE (NEG); Urine Glucose NEGATIVE (NEG); Urine Protein NEGATIVE (NEG); Urine pH 5.5 (5.0-7.0)
[2020-04-11 16:59] LABS: Absolute Lymphocytes (CBC) 1.2 K/uL (0.7-4.9); Basophils % 0.5 % (0-1.3); Hematocrit 37.4 % (39.6-49.0); Lymphocytes % 12.7 % (15.3-44.8); MPV 9.2 fL (7.6-11.3)
[2020-04-11 17:03] LABS: Urine Amorphous Sediment TRACE /HPF (NONE SEEN); Urine Bacteria <20 /HPF (NONE SEEN); Urine Culture Reflex Order NOT NEEDED; Urine Mucus 4+ /HPF (NONE SEEN); Urine RBC <5 /HPF (NONE SEEN)
--- NOTE | 2020-04-11 17:13 | RAD REPORT ---
EXAM DESCRIPTION: RAD - Chest Single View - 04/11/2020 4:27 pm CLINICAL HISTORY: ams, shortness of breath COMPARISON: Single-view chest May 2018 TECHNIQUE: AP portable chest image was obtained 04/11/2020 4:27 pm . FINDINGS: Lungs are clear. Heart and vasculature are normal. No measurable pleural effusion and no p neumothorax. No acute bony abnormality seen. No acute aortic findings suspected. IMPRESSION: No acute cardiopulmonary process. No significant change from comparison.
--- NOTE | 2020-04-11 17:13 | RAD REPORT ---
EXAM DESCRIPTION: CT - Head Brain Wo Cont - 04/11/2020 4:34 pm CLINICAL HISTORY: MENTAL STATUS CHANGE COMPARISON: Head Brain Wo Cont dated 05/31/2018 TECHNIQUE: Axial 5 mm thick images of the head were obtained without IV contrast. All CT scans are performed using dose optimization technique as appropriate and may include automated exposure control or mA/KV adjustment according to patient size. FINDINGS: No intracranial hemorrhage, mass, edema or shift of mid-line structures. No acute infarcti on changes seen. No abnormal extra-axial fluid collections. Atrophy and chronic ischemic changes are present. Ventricles are in proportion to volume loss. Intracranial findings are similar to the compar saul study. Mastoid air cells and visualized portions of the paranasal sinuses are clear. No acute bony findings. IMPRESSION: Negative noncontrast CT head examination for acute finding. Atrophy and chronic ischemic changes match the 2018 comparison.
[2020-04-11 17:19] LABS: Protime INR 0.96
[2020-04-11 17:30] LABS: RPR (Rapid Plasma Reagin) NON-REACT (NON-REACT)
[2020-04-11 17:42] LABS: ALT/SGPT 22 U/L (12-78); AST/SGOT 24 U/L (15-37); Albumin 3.1 g/dL (3.4-5.0); Alkaline Phosphatase 61 U/L (45-117); BUN Blood Urea Nitrogen 12 mg/dL (7-18); Bicarbonate 27 mmol/L (21-32); Bilirubin Direct 0.2 mg/dL (0-0.2); Bilirubin Total 0.3 mg/dL (0.2-1.0); Glucose Level 109 mg/dL (74-106); Magnesium 1.8 mg/dL (1.8-2.4); NT PRO-BNP 482 pg/mL (<450); Potassium 3.4 mmol/L (3.5-5.1); Protein, Total 6.4 g/dL (6.4-8.2); Sodium Level 142 mmol/L (136-145); Troponin (Emerg Dept Use Only) < 0.02 ng/mL (0.0-0.045)
--- NOTE | 2020-04-11 17:54 | ER ---
Nurse's Notes [facility] Name: Edgardo Marie Age: 74 yrs Sex: Male : 1945 Arrival Date: 04/11/2020 Time: 15:48 Bed 6 Private MD: Diagnosis: Acute Delirium Presentation: 04/11 15:51 Chief complaint: Patient's son or daughter states: Pt's mentation has been slowly been jl7 declining x 2 years and has moderately worsened in the past 2 weeks, pt has become extremely paranoid and attempted to force himself on his , the got scared and had to physically stop him. Pt c/o right shoulder pain on palpation, pt's family reports he is not safe to return home. Coronavirus screen: Proceed with normal triage. Patient denies a cough. Patient denies shortness of breath or difficulty breathing. Patient denies measured and/or subjective temperature greater than 100.4F prior to today's visit. Patient denies travel on a cruise ship or to a country the [facility] currently lists as an affected area. Patient denies contact with known and/or suspected case of COVID-19. Ebola Screen: No symptoms or risks identified at this time. Initial Sepsis Screen: Does the patient meet any 2 criteria? No. Patient's initial sepsis screen is negative. Does the patient have a suspected source of infection? No. Patient's initial sepsis screen is negative. Risk Assessment: Do you want to hurt yourself or someone else? Patient reports no desire to harm self or others. Onset of symptoms is unknown. Care prior to arrival: None. 15:51 Method Of Arrival: Ambulatory [facility] 15:51 Acuity: JEFF 3 jl7 Triage Assessment: 16:16 General: Appears in no apparent distress. uncomfortable, Behavior is cooperative, jl7 anxious. Pain: Complains of pain in right shoulder. Neuro: Level of Consciousness is awake, alert, obeys commands, confused, Oriented to person, place, time, situation. Cardiovascular: Patient's skin is warm and dry. Respiratory: Airway is patent Respiratory effort is even, unlabored, Respiratory pattern is regular, symmetrical. Derm: Skin is pink, warm \T\ dry. Musculoskeletal: Range of motion: intact in all extremities, Tenderness present in right shoulder. Historical: - Allergies: 16:16 Nexium; jl7 16:16 PENICILLINS; jl7 - Home Meds: 16:16 finasteride Oral [Active]; Aricept Oral [Active]; B-12 DOTS oral oral [Active]; jl7 - PMHx: 16:16 BPH; jl7 - PSHx: 16:16 laminectomy; jl7 - Immunization history:: Adult Immunizations up to date. - Social history:: Smoking status: Patient denies any tobacco usage or history of. Screenin:38 Abuse screen: Denies threats or abuse. Denies injuries from another. Nutritional jl7 screening: No deficits noted. Tuberculosis screening: No symptoms or risk factors identified. Fall Risk IV access (20 points). Total Barrera Fall Scale indicates No Risk (0-24 pts). Assessment: 17:38 Reassessment: Pt denies discomfort, respirations even and unlabored, at bedside, jl7 no signs of distress noted at this time. 17:55 Reassessment: Dr. Lauren at bedside. jl7 19:10 Reassessment: Patient appears in no apparent distress at this time. Patient and/or rr5 family updated on plan of care and expected duration. Pain level reassessed. awake alert breathing spontaneously at room, with C -collar in placed, IV cannula G20 at right AC noted and intact. for transfer to room 232. bed linen and clothes changed. Vital Signs: 15:51 BP 149 / 85; Pulse 70; Resp 17; Pulse Ox 99% ; jl7 17:38 BP 156 / 104; Pulse 73; Resp 16; Pulse Ox 100% ; jl7 18:17 BP 159 / 95; Pulse 79; Resp 15; Temp 98.8; Pulse Ox 100% ; jl7 19:25 BP 141 / 85; Pulse 72; Resp 19; Temp 98.7; Pulse Ox 100% ; rr5 ED Course: 15:48 Patient arrived in ED. iw 15:51 Antonietta Sneed RN is Primary Nurse. jl7 15:52 Holger Peña PA is PHCP. jr8 15:52 Holland Bernard MD is Attending Physician. jr8 16:15 Triage completed. jl7 16:16 Arm band placed on right wrist. jl7 16:21 Patient has correct armband on for positive identification. Bed in low position. Call 5 light in reach. Warm blanket given. Pulse ox on. NIBP on. 16:28 XRAY Chest (1 view) In Process Unspecified. EDMS 16:34 CT Head Brain wo Cont In Process Unspecified. EDMS 16:52 Urine Dipstick--Ancillary (enter results) Sent. [facility] 16:52 B12 Sent. 5 16:53 Urine Microscopic Only Sent. 5 16:53 Rpr Sent. 5 16:53 Basic Metabolic Panel Sent. 5 16:53 CBC with Diff Sent. 5 16:53 LFT's Sent. 5 16:54 Magnesium Sent. 5 16:54 NT PRO-BNP Sent. 5 16:54 PT-INR Sent. [facility] 16:54 Troponin (emerg Dept Use Only) Sent. 5 16:54 Initial lab(s) drawn, by md, sent to lab. Inserted saline lock: 20 gauge in right [facility] antecubital area, using aseptic technique. Blood collected. 17:28 Urine collected: clean catch specimen, clear, EKG done, by ED staff, reviewed by Holger Maggi YAN. 17:51 Shahzad Lauren MD is Hospitalizing Provider. jr8 19:33 No provider procedures requiring assistance completed. Patient admitted, IV remains in rr5 place. intact, No redness/swelling at site. Administered Medications: 18:11 Drug: Potassium Chloride 40 mEq Route: PO; jl7 18:18 Follow up: Response: No adverse reaction jl7 Outcome: 17:53 Decision to Hospitalize by Provider. jr8 19:30 Admitted to Med/surg accompanied by tech, via wheelchair, room 232, with chart, Report rr5 called to jeanmarie 19:30 Condition: stable 19:30 Instructed on the need for admit. 19:46 Patient left the ED. mg2 Signatures: Dispatcher [employer] EDMS Kia Zapata, RN LALA Holger Peña PA PA jr8 Jaymie Fairbanks 5 Antonietta Sneed RN RN jl7 Fabián Fallon RN RN mg2 Francisco Javier Baez, RN RN rr5 Corrections: (The following items were deleted from the chart) 19:33 19:25 BP 141 / 85; Pulse 72bpm; Resp 19bpm; Pulse Ox 100%; rr5 rr5
--- NOTE | 2020-04-11 17:54 | EDPHYS ---
Physician Documentation [facility] Name: Edgardo Marie Age: 74 yrs Sex: Male : 1945 Arrival Date: 04/11/2020 Time: 15:48 Bed 6 Private MD: ED Physician Holland Bernard HPI: 04/11 17:48 This 74 yrs old Male presents to ER via Ambulatory with complaints of jr8 Delusional . 17:48 Onset: The symptoms/episode began/occurred gradually, 2 week(s) ago, and became worse. jr8 Possible causes: unknown. Associated signs and symptoms: The patient has no apparent associated signs or symptoms. Current symptoms: In the emergency department the patient's symptoms are unchanged from the initial presentation. Patient's baseline: Neuro: alert and fully oriented, Motor: no deficits, Ambulation: walks without assistance, Speech: normal. The patient has not experienced similar symptoms in the past. The patient has been recently seen by a physician: with different complaint(s). Family reports that patient had mild anoxic brain injury a couple of years ago. Since then has had some repetitive thoughts and questioning but overall had recovered very well. Is on Aricept daily though. Stated that two weeks ago had neck surgery. Since then has had abrupt decline in mental status. Seeing individuals that are not present and not recognizing . Disoriented at night time and today sexually aggressive to . called son and daughter in law at that time. After diffusing situation brought patient to ED for further evaluation . Historical: - Allergies: 16:16 Nexium; jl7 16:16 PENICILLINS; jl7 - Home Meds: 16:16 finasteride Oral [Active]; Aricept Oral [Active]; B-12 DOTS oral oral [Active]; jl7 - PMHx: 16:16 BPH; jl7 - PSHx: 16:16 laminectomy; jl7 - Immunization history:: Adult Immunizations up to date. - Social history:: Smoking status: Patient denies any tobacco usage or history of. ROS: 17:26 Eyes: Negative for injury, pain, redness, and discharge, ENT: Negative for injury, jr8 pain, and discharge, Neck: Negative for injury, pain, and swelling, Cardiovascular: Negative for chest pain, palpitations, and edema, Respiratory: Negative for shortness of breath, cough, wheezing, and pleuritic chest pain, Abdomen/GI: Negative for abdominal pain, nausea, vomiting, diarrhea, and constipation, Back: Negative for injury and pain, MS/Extremity: Negative for injury and deformity, Skin: Negative for injury, rash, and discoloration, Neuro: Negative for headache, weakness, numbness, tingling, and seizure. 17:26 Psych: Positive for visual hallucinations. Exam: 17:26 Eyes: Pupils equal round and reactive to light, extra-ocular motions intact. Lids and jr8 lashes normal. Conjunctiva and sclera are non-icteric and not injected. Cornea within normal limits. Periorbital areas with no swelling, redness, or edema. ENT: Nares patent. No nasal discharge, no septal abnormalities noted. Tympanic membranes are normal and external auditory canals are clear. Oropharynx with no redness, swelling, or masses, exudates, or evidence of obstruction, uvula midline. Mucous membranes moist. Cardiovascular: Regular rate and rhythm with a normal S1 and S2. No gallops, murmurs, or rubs. Normal PMI, no JVD. No pulse deficits. Respiratory: Lungs have equal breath sounds bilaterally, clear to auscultation and percussion. No rales, rhonchi or wheezes noted. No increased work of breathing, no retractions or nasal flaring. Abdomen/GI: Soft, non-tender, with normal bowel sounds. No distension or tympany. No guarding or rebound. No evidence of tenderness throughout. Back: No spinal tenderness. No costovertebral tenderness. Full range of motion. Skin: Warm, dry with normal turgor. Normal color with no rashes, no lesions, and no evidence of cellulitis. MS/ Extremity: Pulses equal, no cyanosis. Neurovascular intact. Full, normal range of motion. Neuro: Awake and alert, GCS 15, oriented to person, place, time, and situation. Cranial nerves II-XII grossly intact. Motor strength 5/5 in all extremities. Sensory grossly intact. Cerebellar exam normal. 17:26 ECG was reviewed by the Attending Physician. 17:26 Psych: Behavior/mood is cooperative, inappropriate for age, Affect is calm, Oriented to person, place, time, Patient has no thoughts/intents to harm self or others. Judgement / Insight is impaired. Recent memory is impaired. Remote memory is intact. Delusions/hallucinations are present and described as Patient will not understand that his is who she really is. Has been seeing other people that are not truly present . Vital Signs: 15:51 BP 149 / 85; Pulse 70; Resp 17; Pulse Ox 99% ; jl7 17:38 BP 156 / 104; Pulse 73; Resp 16; Pulse Ox 100% ; jl7 18:17 BP 159 / 95; Pulse 79; Resp 15; Temp 98.8; Pulse Ox 100% ; jl7 19:25 BP 141 / 85; Pulse 72; Resp 19; Temp 98.7; Pulse Ox 100% ; rr5 MDM: 15:53 Patient medically screened. liam 17:48 Data reviewed: vital signs, nurses notes, lab test result(s), EKG, radiologic studies, [facility] CT scan, plain films. Data interpreted: Pulse oximetry: on room air is 100 %. Interpretation: normal. Counseling: I had a detailed discussion with the patient and/or guardian regarding: the historical points, exam findings, and any diagnostic results supporting the discharge/admit diagnosis, lab results, radiology results, the need for further work-up and treatment in the hospital. Physician consultation: Shahzad Lauren MD was called at 17:51, was contacted at 17:51, regarding admission, consult, patient's condition, and will see patient in ED. 04/11 16:15 Order name: Basic Metabolic Panel; Complete Time: 17:53 04/11 16:15 Order name: CBC with Diff; Complete Time: 17:21 04/11 16:15 Order name: LFT's; Complete Time: 17:53 04/11 16:15 Order name: Magnesium; Complete Time: 17:53 04/11 16:15 Order name: NT PRO-BNP; Complete Time: 17:53 04/11 16:15 Order name: PT-INR; Complete Time: 17:32 04/11 16:15 Order name: Troponin (emerg Dept Use Only); Complete Time: 17:53 04/11 16:15 Order name: XRAY Chest (1 view); Complete Time: 17:21 04/11 16:15 Order name: CT Head Brain wo Cont; Complete Time: 17:21 04/11 16:15 Order name: Rpr; Complete Time: 17:32 [facility] 04/11 16:16 Order name: Urine Microscopic Only; Complete Time: 17:21 [facility] 04/11 16:16 Order name: B12; Complete Time: 17:53 [facility] 04/11 16:34 Order name: Urine Dipstick--Ancillary (enter results) 04/11 16:35 Order name: Urine Dipstick-Ancillary; Complete Time: 16:36 [facility] 04/11 16:15 Order name: EKG; Complete Time: 16:16 [facility] 04/11 16:15 Order name: Cardiac monitoring; Complete Time: 16:53 [facility] 04/11 16:15 Order name: EKG - Nurse/Tech; Complete Time: 16:53 [facility] 04/11 16:15 Order name: IV Saline Lock; Complete Time: 16:53 [facility] 04/11 16:15 Order name: Labs collected and sent; Complete Time: 16:54 [facility] 04/11 16:15 Order name: O2 Per Protocol; Complete Time: 17:05 [facility] 04/11 16:15 Order name: O2 Sat Monitoring; Complete Time: 17:05 [facility] 04/11 16:16 Order name: Urine Dipstick-Ancillary (obtain specimen); Complete Time: 16:53 jr8 EC:26 Rate is 70 beats/min. Rhythm is regular, Normal Sinus Rhythm. QRS [place] is Normal. DE jr8 interval is normal at 132 msec. QRS interval is normal at 80 msec. QT interval is normal at 427 msec. No Q waves. T waves are Flattened. No ST changes noted. Clinical impression: NSR w/ Non-specific ST/T Changes. Interpreted by me. Reviewed by me. Administered Medications: 18:11 Drug: Potassium Chloride 40 mEq Route: PO; jl7 18:18 Follow up: Response: No adverse reaction jl7 Disposition: 04/12 11:30 Co-signature as Attending Physician, Holland Bernard MD I agree with the assessment and [facility] plan of care. Disposition: 04/11/20 17:53 Hospitalization ordered by Shahzad Lauren for Observation. Preliminary diagnosis is Acute Delirium . - Bed requested for Telemetry/MedSurg (observation). - Status is Observation. mg2 - Condition is Stable. - Problem is new. - Symptoms have improved. Signatures: Dispatcher [employer] Holland Hand MD MD cha Roszak Holger, PA PA jr8 Antonietta Sneed, RN RN jl7 Tita Santamaria Michele, RN RN mg2 Corrections: (The following items were deleted from the chart) 04/11 18:06 17:53 Hospitalization Ordered by Shahzad Lauren MD for Observation. Preliminary diagnosis eb is Acute Delirium . Bed requested for Telemetry/MedSurg (observation). Status is Observation. Condition is Stable. Problem is new. Symptoms have improved. jr8 19:46 18:06 04/11/2020 17:53 Hospitalization Ordered by Shahzad Lauren MD for Observation. mg2 Preliminary diagnosis is Acute Delirium . Bed requested for Telemetry/MedSurg (observation). Status is Observation. Condition is Stable. Problem is new. Symptoms have improved. eb
[2020-04-11] MEDS ORDERED: POTASSIUM CL SA 10 MEQ TAB PO ONE (18:20)
[2020-04-11 19:59] VITALS: BMI 29.7
[2020-04-11] MEDS ORDERED: ONDANSETRON 4 MG/2 ML VIAL IV PRN (20:27)
[2020-04-11] MEDS ORDERED: ACETAMINOPHEN 500 MG TAB PO PRN (20:27)
[2020-04-11] MEDS: NA CHLORIDE 0.9% 1,000 ML IV SCH (21:47)
--- NOTE | 2020-04-11 21:57 | HP ---
Date of Admission: 04/11/2020 Chief Complaint: Hallucination. Code Status: Full. Primary Care Physician: Dr. Burrows. History Of Present Illness: Patient is a 74-year-old male with past medical history of degenerative disk disease of the cervical spine with recent surgery on March [address] 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 Patient has been hallucinating, has had some hypersexuality behavior at the house, has been more agitated and yelling at the . Otherwise, no fevers, chills. No neck stiffness. No photophobia or phonophobia. No change in his concentration or orientation. There was no facial droop, seizure- type activity or syncopal episode. No cough, shortness of breath, chest pain. Patient is followed u p with his neurosurgeon and is still on a neck brace until May, but otherwise denies any headache or neck stiffness. Patient came into the ER due to his acute change in behavior. Patient's vital si gns in the ER were stable. He was afebrile. His workup revealed a potassium of 3.4. Blood glucose level was 109. UA was negative. Chest x-ray was clear. White blood cell count was normal. RPR was negative. Head CT scan did not show any acute findings. Does show some chronic ischemic changes. Patient was then referred for admission. When seen in the ER, he was awake, alert, oriented x3, did get the year wrong, said it was 2019, however, able to answer questions appropriately and was coopera tive during the exam. 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 Allergies: TO NEXIUM CAUSES ANAPHYLAXIS, PENICILLIN. Past Surgical History: Recent cervical laminectomy on 03/16/2020. Social History: Patient denies any tobacco use, alcohol use, or illicit drug use. Lives with his wi fe. Have good social support. Review of Systems: 11-point system reviewed, negative except as per HPI. Family History: Denies any premature coronary artery disease in the family. Physical Examination: Vital Signs: Blood pressure 149/85, pulse 73, respirations 17, O2 of 99% on room air. General: Awake, alert, oriented x3, not in any acute distress, elderly male. HEENT: Normocephalic, atraumatic. PERRLA. EOMI. Moist mucous membranes. Poor dentition. Conjunc tiva is anicteric. Neck: Supple. Neck collar in place which was removed. Trachea midline. CV: S1, S2. Regular rate and rhythm. Peripheral pulses present. Respiratory: Moving air well bilaterally. No wheezing or stridor. No use of accessory muscles. Gastrointestinal: Abdomen is soft, nontender, nondistended. Positive bowel sounds. No guarding or rigidity. Extremities: No clubbing, cyanosis, or edema. No calf tenderness. Skin: Incision site on the posterior neck is clean, dry, intact. No erythema. No drainage. Psych: Mood is okay. Affect is full. Insight and judgment are fair. Laboratory Data: RPR not detected. UA is negative. Sodium 142, potassium 3.4, chloride 109, CO2 of 27, BUN 12, creatinine 0.92, glucose 109, calcium 8.5, magnesium 1.8. Troponin less than 0.02, albu min 3.1, vitamin B12 greater than 2000, INR 0.96, WBC 9.2, H and H of 12.6 and 37.4, platelets 261, n eutrophils 78%. Imaging Studies: Chest x-ray personally reviewed shows no acute cardiopulmonary process. Head CT sc an shows negative noncontrast head CT examination for acute finding atrophy and chronic ischemic bates ges match comparison. Assessment: 74-year-old male with: 1.Acute change in mental status and personality, unclear etiology, may be related to his previous hi story of anoxic brain injury with worsening delirium or dementia. We will need to obtain MRI to rule out cerebrovascular accident. Consider psych versus neuro consultation. RPR is negative. UA is ne gative. No acute source of infection found. Chest x-ray is negative. Head CT scan does not show an y acute bleed or acute infarction. Recent neck surgery incision site is clean, dry, intact. Has fol lowed up with his surgeon previously as well. No signs of meningitis. We will need close observatio n overnight. We will place on fall precautions and avoid benzodiazepines. May use Haldol if agitati on is not amenable to redirection. 2.Hypokalemia. We will replace and monitor. 3.Benign prostatic hyperplasia. We will continue finasteride. 4.Recent cervical laminectomy. No signs of incision site infection. This is secondary to his chron ic degenerative disk disease. Patient does report some burning pain in his shoulders since the surge ry. 5.Deep vein thrombosis prophylaxis with Lovenox. Plan: Admit patient to Med-Surg, place as observation. May be discharged in a.m. if MRI is negative and back to baseline. /MODL Voice ID: [id number]
[2020-04-12 04:12] LABS: Absolute Lymphocytes (CBC) 2.2 K/uL (0.7-4.9); Basophils % 0.4 % (0-1.3); Hematocrit 34.3 % (39.6-49.0); Lymphocytes % 30.4 % (15.3-44.8); MPV 9.2 fL (7.6-11.3); RBC Red Blood Cell Count 3.58 M/uL (4.33-5.43)
[2020-04-12 04:31] LABS: ALT/SGPT 22 U/L (12-78); AST/SGOT 19 U/L (15-37); Albumin 2.7 g/dL (3.4-5.0); Alkaline Phosphatase 53 U/L (45-117); BUN Blood Urea Nitrogen 10 mg/dL (7-18); Bicarbonate 28 mmol/L (21-32); Bilirubin Total 0.3 mg/dL (0.2-1.0); Glucose Level 94 mg/dL (74-106); Potassium 3.6 mmol/L (3.5-5.1); Protein, Total 5.6 g/dL (6.4-8.2); Sodium Level 145 mmol/L (136-145)
[2020-04-12 05:38] LABS: Magnesium 1.8 mg/dL (1.8-2.4)
[2020-04-12] MEDS: NA CHLORIDE 0.9% 1,000 ML IV SCH ×2 (07:10→16:27)
[2020-04-12 08:37] VITALS: O2SAT 99
[2020-04-12] MEDS ORDERED: MAGNESIUM SULFATE 1 gm IVPB 1 GM/100 ML BAG IV ONE (09:00)
[2020-04-12] MEDS ORDERED: POTASSIUM CL SA 10 MEQ TAB PO ONE (09:00)
[2020-04-12] MEDS ORDERED: ENOXAPARIN 40 MG/0.4 ML SQ SCH (09:00)
--- NOTE | 2020-04-12 10:27 | RAD REPORT ---
EXAM DESCRIPTION: MRI - Brain Wo Cont - 04/12/2020 9:10 am CLINICAL HISTORY: Alteration of consciousness/confusion COMPARISON: April 11, 2020 cat scan TECHNIQUE: Axial, sagittal, and coronal magnetic images of the brain were obtained. Contrast was not requested FINDINGS: Mild signal is present within periventricular, deep subcortical white matter likely second kathy to mild ischemic changes secondary small vessel disease Diffusion-weighted/ADC mapping does not reveal evidence of acute infarction. The ventricles are normal caliber. An extra-axial fluid collection is not present Fluid within the sinuses/mastoids is not noted IMPRESSION: No acute abnormality is displayed
[2020-04-12 13:01] VITALS: TEMP 97.3
--- NOTE | 2020-04-12 17:44 | P.DS ---
Admission Date: 04/11/20 Discharge Date: 04/12/20 Primary Care Provider: Dr. Michaels Disposition: ROUTINE DISCHARGE Discharge Condition: GOOD Reason for Admission: Agitation Consultations: Neurology Procedures: MRI Brain: No acute CVA Medical Problem List: Acute agitation likely related to his Dementia with history of anoxic brain injury due to medication BPH Recent Cervical neck surgery with chronic pain Brief History of Present Illness: 74 yo CM presented to the ER with acute agitation as reported by the . Patient with history of dementia. Hospital Course: Patient was evaluated for acute agitation. MRI was unremarkable. He has history of dementia and small vessel disease related to prior anoxic brain injury related to medication. Patient appears back to baseline. He does not appear agitated or a danger to self or family. Case and options for care discussed with who feels it is hard to take care of him. Family already is making arrangement to send patient to [facility] for patients with dementia. Will recommend to continue with ASA 81 mg daily and Folic acid 1 mg daily. He may continue with his Dementia medication-Aricept. Recommend follow up with Neurology in 1-2 weeks to follow up hospitalization. No need for Geripysc transfer as he is not a danger to himself or family at this time. Vital Signs/Physical Exam: Temp Pulse Resp BP Pulse Ox 97.3 F 73 17 141/67 H 99 04/12/20 12:00 04/12/20 12:00 04/12/20 12:00 04/12/20 12:00 04/12/20 12:00 General: Alert, Oriented x2, Demented (mild) HEENT: Atraumatic Neck: Supple Respiratory: Clear to auscultation bilaterally, Normal air movement Cardiovascular: Normal pulses, Regular rate/rhythm Gastrointestinal: Normal bowel sounds Integumentary: No tenderness/swelling Neurological: Normal speech, Normal strength at 5/5 x4 extr, Normal tone, Dementia Laboratory Data at Discharge: WBC 7.3 K/uL (4.3-10.9) D 04/12/20 03:39 Hgb 11.6 g/dL (13.6-17.9) L 04/12/20 03:39 Hct 34.3 % (39.6-49.0) L 04/12/20 03:39 Plt Count 237 K/uL (152-406) 04/12/20 03:39 PT 11.3 SECONDS (9.5-12.5) 04/11/20 16:48 INR 0.96 04/11/20 16:48 Sodium 145 mmol/L (136-145) 04/12/20 03:39 Potassium 3.6 mmol/L (3.5-5.1) 04/12/20 03:39 BUN 10 mg/dL (7-18) 04/12/20 03:39 Creatinine 0.80 mg/dL (0.55-1.3) 04/12/20 03:39 Glucose 94 mg/dL (74-106) 04/12/20 03:39 Magnesium 1.8 mg/dL (1.8-2.4) 04/12/20 03:39 Total Bilirubin 0.3 mg/dL (0.2-1.0) 04/12/20 03:39 AST 19 U/L (15-37) 04/12/20 03:39 ALT 22 U/L (12-78) 04/12/20 03:39 Alkaline Phosphatase 53 U/L (45-117) 04/12/20 03:39 Home Medications: Donepezil HCl [Aricept] 10 mg PO BEDTIME 04/11/20 Finasteride [Proscar*] 5 mg PO BEDTIME 04/11/20 Ibuprofen [Advil] 200 mg PO Q6HP PRN 04/11/20 Aspirin [Pierre Chewable Aspirin] 81 mg PO DAILY #30 tab.chew 04/12/20 Folic Acid 1 mg PO DAILY #30 tablet 04/12/20 New Medications: Aspirin [Pierre Chewable Aspirin] 81 mg PO DAILY #30 tab.chew Folic Acid 1 mg PO DAILY #30 tablet Patient Discharge Instructions: Patient will continue with ASA 81 mg daily and Folic acid 1 mg daily. He may continue with his dementia medication and medication for BPH. Patient to enter [facility] for rn long term care care. Patient will need to follow up with Neurosurgery for recent cervical neck surgery. Diet: AHA Activity: Fall precautions Followup: Marleen Vasquez MD [Primary Care Provider] - (call to schedule appointment) Time spent managing pt's care (in minutes): 55
[2020-04-12 17:57] VITALS: BP 128/59
== END 2020-04-12 17:29 | disposition home or self-care (01) ==
LOC: ER 15:36 → ERHOLD 17:46 → 2ND 19:31
PROVIDERS: ADMIT Family Medicine; ATTEND Family Medicine
DX: R45.1 Restlessness and agitation (principal); F03.90 Unspecified dementia, unspecified severity, without behavioral disturbance, psychotic disturbance, mood disturbance, and anxiety; Z87.820 Personal history of traumatic brain injury; E87.6 Hypokalemia; N40.0 Benign prostatic hyperplasia without lower urinary tract symptoms; M50.30 Other cervical disc degeneration, unspecified cervical region; G89.29 Other chronic pain; I67.89 Other cerebrovascular disease; R94.31 Abnormal electrocardiogram [ECG] [EKG]; Z79.82 Long term (current) use of aspirin; Z79.899 Other long term (current) drug therapy
CPT/HCPCS: 93005; 85025 ×2; 80048; 36415; 83735 ×2; 85610; 80076; 86592; 84484; 82607; 80053; 83880; 70450; 71045; 70551; 97112; 97116; 97161; 94760 ×2; 99285; J1650; J3475; J7030 ×2; G0378 ×3; 81003; 81015

== ENCOUNTER 2021-09-27 11:55 | Emergency (ER) | payer OTHER, MEDICARE ==
--- OUTSIDE RECORDS SUMMARY | 2021-09-27 12:01 | XMS REPORT | Continuity of Care Document ---
:1945 Author Organization [facility] t Address [address]. [address] [place] [address] Care Team Providers Name Role Phone SIM_Bria Attending Clinician Unavailable Bria DUBOIS Attending Clinician Unavailable Jeaneth Sung Attending Clinician Unavailable Marilyn Vasquez Attending Clinician [phone] Bria Dubois MD Attending Clinician Doctor Unassigned, Name Attending Clinician Unavailable Only, Test Attending Clinician Unavailable Pob, Lab Main Attending Clinician Unavailable jalyn Attending Clinician Unavailable Evans Attending Clinician Unavailable LIZETTE DAVALOS Attending Clinician Unavailable SIM_Bria Admitting Clinician Unavailable Bria DUBOIS Admitting Clinician Unavailable Nathan Admitting Clinician Unavailable Silvino MARTIN, Bria Admitting Clinician jalyn Admitting Clinician Unavailable Nena Vasquez Admitting Clinician Unavailable MARIN RITCHIE Admitting Clinician Unavailable Payers Payer Name Policy Type Policy Number Effective Date Expiration Date S qian MEDICARE [place]: [id number] 2009 [email or web address] 00:00:00 [facility] [id number] 2017 OPTIONS (MEDICARE 00:00:00 SUPPLEMENT) MEDICARE PART A \\T\\ [id number] 2009 B 00:00:00 [facility] [id number] 2017 MEDICARE SUPPLEMENT 00:00:00 Problems This patient has no known problems. Allergies, Adverse Reactions, Alerts Allergy Allergy Status Severity Reaction(s) Onset Inactive Treating Comm ents Source Name Type Date Date Clinician esomepra DA Active U 2019-0 [facility] [place] [facility] esomepra DA Active U UNKNOWN 0 [facility]ole [facility] [place] [facility] [place] DA Active U RASH, HIVES 0 [facility] ins 5-15 [place] 00:00: Health [address] [place] DA Active U 0 [facility] ins 5-15 [place] 00:[facility]: Health [facility] ESOMEPRA DRUG Active High Anaphylaxis Uni vers ZOLE INGREDI 4-11 ity of [place] 00:00: [facility] 00 Medical Branch Esomepra Drug Active Other - See Pt states Univers zole Allergy comments 411 he passed ity of [place] 00:00: out - [facility] 00 drop in Medical BP Branch PENICILL Drug Active Hives Univers INS Class 2-21 ity of 00:00: [place] 00 Medical Branch Penic[place] Propensi Active Hives Univer s ins ty to 2-21 ity of adverse 00:00: [place] reaction 00 Medical s Branch PENICILL Allergy Active High Sob [facility] Social History Social Habit Start Date Stop Date Quantity Comments Source Exposure to Not sure [facility] SARS-CoV-2 [facility] (event) Branch Sex Assigned At [facility] Tobacco use and 2020-11-16 2020-11-16 Never used Universit y of exposure 00:00:00 00:00:00 [facility] Alcohol intake 2020-11-16 2020-11-16 Current drinker of Un iversity of 00:00:00 00:00:00 alcohol (finding) [facility] edical [place] Tobacco Comment 2020-11-01 2020-11-01 quit on Univers ity of 00:00:00 00:00:00 birthday [facility] Alcohol Comment 2018-02-04 2018-02-04 Occasional Drinker U niversity of 00:00:00 00:00:00 [facility] Smoking Status Start Date Stop Date Source Never smoker [facility] Medications Ordered Filled Start Stop Current Ordering Indication Dosage Frequency Signature Comments Components Source Medication Medication Date Date Medication? Clinician (SIG) Name Name finasteride Yes 5mg Take 5 mg U nivers 5 mg tablet 1-20 by mouth ity of 18:39: daily. [place] [address] Medical Branch FLUoxetine Yes 20mg Take 20 mg U nivers (PROZAC) 20 1-20 by mouth ity of mg capsule 18:39: daily. [place] [address] Medical Branch donepeziL 5 Yes 10mg Take 10 mg Univers mg tablet 1-20 by mouth ity of 18:39: at [place] [address] bedtime. Medical Branch gabapentin Yes 300mg Take 300 Un suzanne 300 mg 1-20 mg by ity of capsule 18:39: mouth as [place] [address] needed for Medical Pain Branch (scale 4-6). ARIPiprazol Yes 2mg Take 2 mg U nivers e 2 mg 1-20 by mouth ity of tablet 18:39: daily. [place] [address] Medical Branch trazodone Yes 75mg Take 75 mg Un suzanne HCl 1-20 by mouth. ity of (TRAZODONE 18:39: [address] water for Yes PRN, Univers irrigation 1-20 Starting ity o f irrigation 17:15: Wed [place] solution 11/17/20 at Medic al [address] [place] [address] Until Discontinu ed, Routine, Intra-op sodium Yes PRN, Univers chloride -20 Starting ity of (NS) 17:15: Wed [place] injection 11/17/20 at [facility] joanie [address] [place] [address] Until Discontinu ed, Routine, Intra-op neomycin-po Yes PRN, Univer s lymyxin-dex -20 Starting ity of amethasone 17:15: Wed [place] (MAXITROL) 00 11/17/20 at Med ical 3.[address] [place] [address] mg/g-10,000 Until unit/g-0.1 Discontinu % ed, ophthalmic Routine, ointment Intra-op Hyaluronida Yes PRN, Univer s se, Human 1-20 Starting ity of Recomb. 17:15: Wed [place] (HYLENEX) 00 11/17/20 at [facility] injection [address] [place] [address] Until Discontinu ed, Routine, Intra-op gentamicin 0 Yes PRN, Univers injection 1-20 Starting ity of 17:15: Wed [place] 00 11/17/20 at [facility] 1115, [place] Until Discontinu ed, CIARA, Intra-op DUOVISC Yes PRN, Univers (DUOVISC 1-20 Starting ity of VISCO 17:14: Sun [place] ELASTIC) 3 00 11/17/20 at [facility] %-4 %(0.5 1114, Branch mL) 1 % Until (0.55 mL) Discontinu intraocular ed, injection Routine, Intra-op dexamethaso Yes PRN, Univer s ne -20 Starting ity of (DECADRON 17:14: Sun [place] PHOSPHATE) 00 11/17/20 at [facility] ical injection 1114, [place] Until Discontinu ed, Routine, Intra-op carbachoL Yes PRN, Univers (MIOSTAT) 1-20 Starting ity of 0.01 % 17:14: Sun [place] intraocular 00 11/17/20 at Wi dical injection 1114, [place] Until Discontinu ed, Routine, Intra-op balanced Yes PRN, Univers salt irrig 1-20 Starting ity o f soln comb1 17:14: Sun [place] (BSS PLUS) 00 11/17/20 at [facility] ical ophthalmic 1114, [place] solution Until 500 mL bag Discontinu ed, Routine, Intra-op eye block Yes PRN, Univers syringe 11 -20 Starting ity o f mL 17:14: [facility] 00 11/17/20 at [place] [id number], [place] Until Discontinu ed, Intra-op EPINEPHrine Yes PRN, Univer s 1:1,000 (1 1-20 Starting ity o f mg/mL) 17:14: Sun [place] (ADRENALIN) 00 11/17/20 at Wi dical injection 1114, [place] Until Discontinu ed, Routine, Intra-op mydriatic 2020- No .5mL 0.5 mL, Univ ers #5 11-17 Right Eye, ity of ophthalmic 15:15: 16:42 ONCE, 1 Arjun as solution 00 :00 dose, Wed Medica l 0.5 mL 11/17/20 at [place] syringe 0915, Routine, DSU Pre-op lactated 2020- No 1000mL at 42 Univ rs ringers IV 20 01-20 mL/hr, ity of infusion 15:15: 15:12 1,000 mL, Arjun as 1,000 mL 00 :00 IV Medical Infusion, [place] ONCE, 1 dose, 11/17/20 at 0915, Routine, DSU Pre-op finasteride Yes 5mg Take 5 mg U nivers 5 mg tablet 1-06 by mouth ity of 15:11: daily. [address] FLUoxetine Yes 20mg Take 20 mg U nivers (PROZAC) 20 1-06 by mouth ity of mg capsule 15:11: daily. [address] donepeziL 5 Yes 10mg Take 10 mg Univers mg tablet 1-06 by mouth ity of 15:11: at [place] [address] bedtime. Medical Branch gabapentin Yes 300mg Take 300 Un suzanne 300 mg 1-06 mg by ity of capsule 15:11: mouth as [place] [address] needed for Medical Pain Branch (scale 4-6). ARIPiprazol Yes 2mg Take 2 mg U nivers e 2 mg 1-06 by mouth ity of tablet 15:11: daily. [address] trazodone Yes 75mg Take 75 mg Un suzanne HCl 1-06 by mouth. ity of (TRAZODONE 15:11: [place] ORAL) [address] [place] [address] mydriatic 2020- No .5mL 0.5 mL, [facility] ers #5 11-03 01-06 Left Eye, ity of ophthalmic 15:00: 12:26 ONCE, 1 Arjun as solution 00 :00 dose, Sun Medica l 0.5 mL 11/03/20 at [place] syringe 0900, Routine, DSU Pre-op water for 0 Yes PRN, Univers irrigation 1-06 Starting ity o f irrigation 13:24: 11/03/20 [place] solution 00 at 0724, Medical Until [place] Discontinu ed, Routine, Intra-op sodium 0 Yes PRN, Univers chloride -06 Starting ity of (NS) 13:23: 11/03/20 [place] injection 00 at 0723, Medica l Until [place] Discontinu ed, Routine, Intra-op neomycin-po 2021-0 Yes PRN, Univer s lymyxin-dex 11-03 Starting ity of amethasone 13:23: 11/03/20 [place] (MAXITROL) 00 at 07, Medic al 3.5 Until Branch mg/g-10,000 Discontinu unit/g-0.1 ed, % Routine, ophthalmic Intra-op ointment Hyaluronida Yes PRN, Univer s se, Human 11-03 Starting ity of Recomb. 13:23: 11/03/20 [place] (HYLENEX) 00 at 07, Medica l injection Until Branch Discontinu ed, Routine, Intra-op eye block Yes PRN, Univers syringe 11 11-03 Starting ity o f mL 13:23: Sun11/03/20 [place] 00 at 0723, Medical Until Branch Discontinu ed, Intra-op EPINEPHrine Yes PRN, Univer s 1:1,000 (1 11-03 Starting ity o f mg/mL) 13:22: Sun11/03/20 [place] (ADRENALIN) 00 at 0722, Medi joanie injection Until Branch Discontinu ed, Routine, Intra-op DUOVISC Yes PRN, Univers (DUOVISC 11-03 Starting ity of VISCO 13:22: Sun11/03/20 [place] ELASTIC) 3 00 at 0722, Medic al %-4 %(0.5 Until Branch mL) 1 % Discontinu (0.55 mL) ed, intraocular Routine, injection Intra-op dexamethaso Yes PRN, Univer s ne 11-03 Starting ity of (DECADRON 13:22: Sun11/03/20 [place] PHOSPHATE) 00 at 0722, Medic al injection Until Branch Discontinu ed, Routine, Intra-op carbachoL Yes PRN, Univers (MIOSTAT) 11-03 Starting ity of 0.01 % 13:22: Sun11/03/20 [place] intraocular 00 at 0722, Medi joanie injection Until Branch Discontinu ed, Routine, Intra-op balanced Yes PRN, Univers salt irrig 11-03 Starting ity o f soln comb1 13:21: 11/03/20 [place] (BSS PLUS) 00 at 0721, Medic al ophthalmic Until Branch solution Discontinu 500 mL bag ed, Routine, Intra-op lactated 0 2020- No 1000mL at 42 Unive rs ringers IV 1-06 01-06 mL/hr, ity of infusion 12:30: 12:26 1,000 mL, Arjun as 1,000 mL 00 :00 IV Medical Infusion, Branch ONCE, 1 dose, 11/03/20 at 0630, Routine, DSU Pre-op donepeziL 5 Yes 10mg Take 10 mg Univers mg tablet 1-04 by mouth ity of 19:45: at [place] [address] bedtime. Medical Branch ARIPiprazol Yes 2mg Take 2 mg U nivers e 2 mg 1-04 by mouth ity of tablet 19:45: daily. [place] [address] Medical Branch trazodone Yes 75mg Take 75 mg Un suzanne HCl 1-04 by mouth. ity of (TRAZODONE 19:45: [place] ORAL) Medical Branch donepeziL 5 2019-10 Yes 5mg Take 5 mg U nivers mg tablet 2-14 by mouth ity of 18:48: at [place] [address] bedtime. Medical Branch gabapentin 2019-10 Yes 300mg Take 300 Un suzanne 300 mg 2-14 mg by ity of capsule 18:48: mouth as [place] [address] needed for Medical Pain Branch (scale 4-6). donepeziL 5 2019-10 Yes 5mg Take 5 mg U nivers mg tablet 2-14 by mouth ity of 18:48: at [place] [address] bedtime. Medical Branch gabapentin 2019-10 Yes 300mg Take 300 Un suzanne 300 mg 2-14 mg by ity of capsule 18:48: mouth as [place] needed for Medical Pain Branch (scale 4-6). gabapentin 2019-10 Yes 300mg Take 300 Un suzanne 300 mg 2-14 mg by ity of capsule 18:48: mouth as [place] needed for Medical Pain Branch (scale 4-6). FLUoxetine 2019-10 Yes 20mg Take 20 mg U nivers (PROZAC) 20 2-14 by mouth ity of mg capsule 18:48: daily. [address] FLUoxetine 2019-10 Yes 20mg Take 20 mg U nivers (PROZAC) 20 2-14 by mouth ity of mg capsule 18:48: daily. [address] FLUoxetine 2020-1 Yes 20mg Take 20 mg U nivers (PROZAC) 20 2-14 by mouth ity of mg capsule 18:48: daily. [address] finasteride 2018-0 Yes 5mg Take 5 mg U nivers 5 mg tablet 4-11 by mouth ity of 16:38: daily. [address] finasteride 2018-0 Yes 5mg Take 5 mg U nivers 5 mg tablet 4-11 by mouth ity of 16:38: daily. [address] finasteride 2018-0 Yes 5mg Take 5 mg U nivers 5 mg tablet 4-11 by mouth ity of 16:38: daily. [address] finasteride 2018-0 Yes 5mg Take 5 mg U nivers 5 mg tablet 4-11 by mouth ity of 16:38: daily. [address] diphenhydrA 2018-0 Yes 25mg Take 1 Univ ers MINE 2-21 capsule by ity of (BENADRYL) 00:00: mouth [place] 25 mg 00 every 6 Medical capsule (six) Branch hours as needed for Itching or Allergies. methylPREDN 2018-0 Yes Take by Un suzanne ISolone 2-21 mouth ity of (MEDROL, 00:00: SEE-INSTRU Arjun as SYLVIA,) 4 mg 00 CTIONS. Medica l tablets follow Branch package directions EPINEPHrine 2018-0 Yes 1mg Inject 1 Un suzanne (EPINEPHRIN 2-21 mg as ity of ESNAP-V) 1 00:00: directed Arjun as mg/mL Kit 00 SEE-INSTRU Medi joanie CTIONS. [place] diphenhydrA 2018-0 Yes 25mg Take 1 Univ ers MINE 2-21 capsule by ity of (BENADRYL) 00:00: mouth [place] 25 mg 00 every 6 Medical capsule (six) Branch hours as needed for Itching or Allergies. methylPREDN 2018-0 Yes Take by Un suzanne ISolone 2-21 mouth ity of (MEDROL, 00:00: SEE-INSTRU Arjun as SYLVIA,) 4 mg 00 CTIONS. Medica l tablets follow Branch package directions EPINEPHrine 2018-0 Yes 1mg Inject 1 Un suzanne (EPINEPHRIN 2-21 mg as ity of ESNAP-V) 1 00:00: directed Arjun as mg/mL Kit 00 SEE-INSTRU Medi joanie CTIONS. Branch diphenhydrA 2018-0 Yes 25mg Take 1 Univ ers MINE 2-21 capsule by ity of (BENADRYL) 00:00: mouth [place] 25 mg 00 every 6 Medical capsule (six) Branch hours as needed for Itching or Allergies. methylPREDN 2018-0 Yes Take by Un suzanne ISolone 2-21 mouth ity of (MEDROL, 00:00: SEE-INSTRU Arjun as SYLVIA,) 4 mg 00 CTIONS. Medica l tablets follow Branch package directions EPINEPHrine 2018-0 Yes 1mg Inject 1 Un suzanne (EPINEPHRIN 2-21 mg as ity of ESNAP-V) 1 00:00: directed Arjun as mg/mL Kit 00 SEE-INSTRU Medi joanie CTIONS. Branch diphenhydrA 2018-0 Yes 25mg Take 1 Univ ers MINE 2-21 capsule by ity of (BENADRYL) 00:00: mouth [place] 25 mg 00 every 6 Medical capsule (six) Branch hours as needed for Itching or Allergies. methylPREDN 2018-0 Yes Take by Un suzanne ISolone 2-21 mouth ity of (MEDROL, 00:00: SEE-INSTRU Arjun as SYLVIA,) 4 mg 00 CTIONS. Medica l tablets follow Branch package directions EPINEPHrine 2018-0 Yes 1mg Inject 1 Un suzanne (EPINEPHRIN 2-21 mg as ity of ESNAP-V) 1 00:00: directed Arjun as mg/mL Kit 00 SEE-INSTRU Medi joanie CTIONS. Branch diphenhydrA 2018-0 Yes 25mg Take 1 Univ ers MINE 2-21 capsule by ity of (BENADRYL) 00:00: mouth [place] 25 mg 00 every 6 Medical capsule (six) Branch hours as needed for Itching or Allergies. methylPREDN 2018-0 Yes Take by Un suzanne ISolone 2-21 mouth ity of (MEDROL, 00:00: SEE-INSTRU Arjun as SYLVIA,) 4 mg 00 CTIONS. Medica l tablets follow Branch package directions EPINEPHrine 2018-0 Yes 1mg Inject 1 Un suzanne (EPINEPHRIN 2-21 mg as ity of ESNAP-V) 1 00:00: directed Arjun as mg/mL Kit 00 SEE-INSTRU Medi joanie CTIONS. Branch diphenhydrA 2018-0 Yes 25mg Take 1 Univ ers MINE 2-21 capsule by ity of (BENADRYL) 00:00: mouth [place] 25 mg 00 every 6 Medical capsule (six) Branch hours as needed for Itching or Allergies. methylPREDN 2017-0 Yes Take by Un suzanne ISolone 2-21 mouth ity of (MEDROL, 00:00: SEE-INSTRU Arjun as SYLVIA,) 4 mg 00 CTIONS. Medica l tablets follow Branch package directions EPINEPHrine 2017-0 Yes 1mg Inject 1 Un suzanne (EPINEPHRIN 2-21 mg as ity of ESNAP-V) 1 00:00: directed Arjun as mg/mL Kit 00 SEE-INSTRU Medi joanie CTIONS. [place] Vital Signs Vital Name Observation Time Observation Value Comments Source Systolic blood 2020-11-17 17:48:00 136 mm[Hg] Univer sity [facility] Diastolic blood 2020-11-17 17:48:00 75 mm[Hg] Unive [facility] Respiratory rate 2020-11-17 17:48:00 18 /min [facility] Body temperature 2020-11-17 17:34:00 36.56 Carole [facility] Oxygen saturation in 2020-11-17 17:34:00 100 /min [facility] Arterial blood by [facility] Pulse oximetry [place] Heart rate 2020-11-17 15:07:00 67 /min [facility] Body height 2020-11-16 18:03:00 170.2 cm [facility] Body weight 2020-11-16 18:03:00 87.998 kg [facility] BMI 2020-11-16 18:03:00 30.38 kg/m2 [facility] Systolic blood 2020-11-03 14:55:00 132 mm[facility]Hg[facility] 2020-11-03 14:55:00 61 [facility]Hg[facility] 2020-11-03 14:55:00 65 /min [facility] Body temperature 2020-11-03 14:55:00 36.94 Carole [facility] Respiratory rate 2020-11-03 14:55:00 15 /min [facility] Oxygen saturation in 2020-11-03 14:55:00 99 /min [facility] Arterial blood by [facility] Pulse oximetry Branch Body height 2020-11-01 19:45:00 170.2 cm [facility] Body weight 2020-11-01 19:45:00 86.637 kg [facility] BMI 2020-11-01 19:45:00 29.91 kg/m2 [facility] Procedures Procedure Date / Time Performed Performing Clinician [facility] e CONSENT/REFUSAL FOR 2020-11-16 17:22:15 Doctor Unassigned, No [facility] DIAGNOSIS AND Name Medical Branch TREATMENT ASSIGNMENT OF BENEFITS 2020-11-16 17:21:27 Doctor Unassigned, No [facility] ASSIGNMENT OF BENEFITS 2020-11-02 15:47:57 Doctor Unassigned, No [facility] ASSIGNMENT OF BENEFITS 2020-10-12 16:45:27 Doctor Unassigned, No [facility] Branch [id number] 2020-03-16 00:00:00 MURED [facility] Encounters Start End Encounter Admission Attending Care Care Encounter Source Date/Time Date/Time Type Type Clinicians Facility Department ID 2021-09-17 Outpatient [facility] [id number] [place] 21:06:38 [facility] 2021-09-14 Outpatient [facility] [id number] [place] 14:05:22 229 [facility] 2021-09-10 Outpatient [facility] [id number] [place] 00:58:37 329 [facility] 2021-09-09 Outpatient [facility] [id number] [place] 20:49:57 302 [facility] 2021-09-09 Outpatient [facility] [id number] [place] 17:26:43 126 [facility] 2021-09-09 Outpatient [facility] [id number] [place] 17:24:28 125 [facility] 2021-08-27 Outpatient R [facility] JATIN [id number] Univers 17:04:57 SARWAT richelle [facility] [place] [facility] 2021-08-27 [facility] [id number] Univers 13:37:54 SARWAT [place] [facility] [place] [facility] 2021-08-27 [facility] [id number] Univers 09:12:27 SARWAT west [facility] [place] [facility] 2020-03-17 Inpatient TAMI Sung [facility] [id number] [facility] 09:33:00 Edward [facility] 2020-03-16 Inpatient Pineda [facility] DA[facility] [id number] [facility] 07:30:00 Edward [id number] [facility] 2021-07-20 2021-07-20 Outpatient Marleen Vasquez [facility] [id number] 00:00:00 00:00:00 Marilyn [id number] 2020-11-17 2020-11-17 [facility] [id number] Univers 08:59:00 12:35:00 Encounter Sarwat Rose [id number] ity [place] 4[place].2.686 [place] [id number] [address] 2020-11-03 2020-11-03 [facility] [id number] Univers 06:15:00 09:11:00 Encounter Sarwat Rose [id number] it[place] 4[place]2.686 [place] [id number] [address] 2020-11-02 2020-11-02 Outpatient R [facility] [id number] Univers 10:30:00 10:30:00 [id number] ity [facility] [place] [facility] 2020-11-02 2020-11-02 Orders Doctor ROBBINS [id number] Univers 00:00:00 00:00:00 Only Unassigned, ELLY [id number] ity of [place] [facility] 4.2.7.2.686 Arjun as [id number] [address] 2020-10-12 2020-10-12 Laboratory Only, Adc Test [facility] [id number] Univers 10:47:24 11:02:24 Only Sarwat Dubois [id number] 0 [place] 4[place].2.686 [place] [id number] [facility] 353 [place] 2020-10-12 2020-10-12 Outpatient R [facility] [id number] Univers 10:30:00 10:30:00 [id number] ity of [facility] 2020-10-12 2020-10-12 Outpatient R SILVINO [facility] [id number] Univers 10:30:00 10:30:00 SARWAT ity [facility] [place] [facility] 2020-10-12 2020-10-12 Orders Doctor ROSENDO [id number] Univers 00:00:00 00:00:00 Only Unassigned, ELLY [id number] ity of [place] [facility] 4.2.7.2.686 Arjun as [id number] [address] 2020-10-06 2020-10-06 Supervisor Contact And Service Clerks Lokesh, Adc Lab Main [facility] [id number] Univers 17:11:43 17:26:43 Visit Sarwat Dubois [id number] 0 ity of [place] 4.2.7.2.686 [facility] [id number] Wi dical [address] 2020-10-06 2020-10-06 Outpatient [facility] [id number] Univers 16:30:00 16:30:00 [id number] ity [facility] 2020-10-06 2020-10-06 Outpatient R SILVINO [facility] [id number] Univers 16:30:00 16:30:00 SARWAT itrichelle [facility] 2020-09-15 2020-09-15 Outpatient sim_bria CRAIG [facility] [id number] [place] 02:47:00 02:47:00 [id number] [facility] 2020-03-12 2020-03-12 Outpatient AIDEN Sung REF [id number] [facility] 15:18:00 15:18:00 Teodoro [id number] [facility] 2020-03-12 2020-03-12 Outpatient Jorge Cook [facility] 3DAY [id number] [facility] 09:00:00 09:00:00 [id number] Jeanette jimenez [facility] 2018-09-24 2018-09-24 Outpatient jalyn [facility] [id number] [place] 10:35:00 10:35:00 [id number] Medical Group Results Test Description Test Time Test Comments Results Result Sour e Comments SURGICAL 2020-03-23 SPECIMENS 10:27:00 RUN DATE: 03/23/20 [place] [facility] - LAB PAGE 1 RUN TIME: 1028 Specimen Inquiry RUN USER: INTERFACE PATIENT: NINO MOHAMUD LOC: PRachele POD B U #: [id number] AGE/SX: 74/M ROOM: [facility] RE03/17/20[facility] DR: Teodoro Sung MD : 44 BED: 1 DIS: STATUS: ADM IN TLOC: SPEC #: [id number] RECD: 03/16/20135 STATUS: COLETTE MORENO #: [id number] RODDY: 03/16/20-[address] [facility] [address]: Teodoro Sung MD ENTERED: 03/16/206311 SP TYPE: SURG OTHR DR: Marleen Vasquez [...] 5 cm. No discrete lesions are identified. Rubber Belt Splicer sections are submitted in a single cassette after decalcification. 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 Signed SIGNATURE ON FILE Jeane Flowers 03/23/20 1027 END OF REPORT GLUBED 2020-03-22 11:33:00 Test Item Value Reference Range Interpretation Comme nts GLUBED (test code = GLUBED) 102 MG/DL 70-105 N BASIC METABOLIC [id number] 06:52:00 Test Item Value Reference Range Interpretation [...] code 8.3 mg/dL 8.8-10.2 L = CA) [id number] 06:52:00 Test Item Value Reference Range Interpretation Comments MAGNESIUM (test code = MAG) 2.0 mg/dL 1.4-2.6 N CBC W/AUTO [id number] 06:50:00 Test Item Value Reference Range Interpretation [...] = BA#) 0.01 x10 3/uL 0.0-0.20 N [id number] 16:27:00 Test Item Value Reference Range Interpretation Comments GLUBED (test code = GLUBED) 107 MG/DL 70-105 H [id number] 12:01:00 Test Item Value Reference Range Interpretation Comments GLUBED (test code = GLUBED) 108 MG/DL 70-105 H BASIC METABOLIC [id number] 07:20:00 Test Item Value Reference Range Interpretation [...] mg/dL 8.8-10.2 N = CA) CBC W/AUTO [id number] 06:38:00 Test Item Value Reference Range Interpretation [...] = BA#) 0.02 x10 3/uL 0.0-0.20 N [id number] 06:05:00 Test Item Value Reference Range Interpretation Comments GLUBED (test code = GLUBED) 119 MG/DL 70-105 H [id number] 20:51:00 Test Item Value Reference Range Interpretation Comments GLUBED (test code = GLUBED) 125 MG/DL 70-105 H [id number] 17:40:00 Test Item Value Reference Range Interpretation Comments GLUBED (test code = GLUBED) 87 MG/DL 70-105 N [id number] 17:16:00 Test Item Value Reference Range Interpretation Comments GLUBED (test code = GLUBED) 59 MG/DL 70-105 L [id number] 11:15:00 Test Item Value Reference Range Interpretation Comments GLUBED (test code = GLUBED) 76 MG/DL 70-105 N BASIC METABOLIC [id number] 05:20:00 Test Item Value Reference Range Interpretation [...] mg/dL 8.8-10.2 L = CA) CBC W/AUTO [id number] 05:10:00 Test Item Value Reference Range Interpretation [...] = BA#) 0.02 x10 3/uL 0.0-0.20 N [id number] 02:21:00 Test Item Value Reference Range Interpretation Comments GLUBED (test code = GLUBED) 91 MG/DL 70-105 N [id number] 20:34:00 Test Item Value Reference Range Interpretation Comments GLUBED (test code = GLUBED) 100 MG/DL 70-105 N [id number] 12:10:00 Test Item Value Reference Range Interpretation Comments GLUBED (test code = GLUBED) 104 MG/DL 70-105 N [id number] 06:01:00 Test Item Value Reference Range Interpretation Comments GLUBED (test code = GLUBED) 118 MG/DL 70-105 H BASIC METABOLIC [id number] 04:40:00 Test Item Value Reference Range Interpretation [...] mg/dL 8.8-10.2 L = CA) CBC W/AUTO [id number] 04:33:00 Test Item Value Reference Range Interpretation [...] = BA#) 0.01 x10 3/uL 0.0-0.20 N [id number] 01:36:00 Test Item Value Reference Range Interpretation Comments GLUBED (test code = GLUBED) 144 MG/DL 70-105 H [id number] 18:25:00 Test Item Value Reference Range Interpretation Comments GLUBED (test code = GLUBED) 136 MG/DL 70-105 H - XR SPINE 1 V SPEC [id number] 14:15:00Patient Name: NINO MOHAMUD Unit No: [id number] EXAMS: CPT CODE: [id number] XR SPINE 1 V SPEC LEVEL [id number] Cervical spine 2 views intraoperative 03/16/2020 2:14 [...] m2): Air Kerma (mGy): Trscr Dt/Tm: 03/16/2020 (1415) by:[email or web address] Printed Date/Time: 03/16/2020 (0128) Name: NINO MOHAMUD [facility] Phys: Teodoro Quinones MD [address] : 1945 Age: 74 Sex: M [id number] Loc: P.[id number] 1 Exam Date: 03/16/2020 Status: ADM IN PH: FAX: PAGE 1 Signed ReportCoronavirus 2018 nCoV [id number] 06:12:00 Test Item Value Reference Range Interpretation Comments Coronavirus 2018 nCoV Bedside (test Negative NEGATIVE code = [id number]) UA RFLX MICR CULT IF [id number] 15:57:00 Test Item Value Reference Range Interpretation [...] AVG 11.04~~~~~~~~~~ ~~~~~~~ ~~~~~~~~~~~~~~~ ~~~~~~~ ~~~~~~~~~~~~~~~ ~~~~~~[facility] Cholest mary Education (NCEP ) Guidelines:~~~~ ~~~~~~~ ~~~~~~~~~~~~~~~ ~~~~~~~ ~~~~~~~~~~~~~~~ ~~~~~~~ ~~~~~ HDL Cholesterol<4 0mg/dL: HDL Cholesterol (Major risk factor for CHD)>60mg/dL: H DL Cholesterol (Ne gative risk factor for CHD)40-59mg/dL: Borderline Risk L DL Cholesterol<1 00mg/dL : Desirable LDL -C iyjgztgotuabs18 0-159mg /dL: Borderline High Risk LDL-C txrvhyzkqnchd93 0-189mg /dL: High risk LDL-C concentration H DL-LDL Cholesterol is affected by a n umber of factors such as smoking, age an d sex.~~~~~~~~~~~ ~~~~~~~ ~~~~~~~~~~~~~~~ ~~~~~~~ ~~~~~~~~~~~~~~~ ~~~~~ PROTHROMBIN [id number] 14:46:00 Test Item Value Reference Range Interpretation [...] 2.5-3.5recurren t systemic emboli sm. THROMBOPLASTIN TIME [id number] 14:46:00 Test Item Value Reference Range Interpretation Comments THROMBOPLASTIN TIME 31.1 SECONDS 26.0-35.9 N INTERPRE TATIVE PARTIAL (test code = DATA:Th erapeutic PTT) range: Unfractionated heparin:47 - 71 seconds Argatroban:1.5 to 3 times the basel ine PTT UA RFLX MICR CULT IF [id number] 14:40:00 Test Item Value Reference Range Interpretation [...] = SQU) Indication for culture: Dysuria/FrequencyCBC W/AUTO [id number] 14:37:00 Test Item Value Reference Range Interpretation [...] BA#) 0.04 x10 3/uL 0.0-0.20 N BLOOD [id number] 23:00:00 Test Item Value Reference Range Interpretation Comments CULTURE (BEAKER) (test No growth in 5 days code = 1095) BLOOD [id number] 23:00:00 Test Item Value Reference Range Interpretation Comments CULTURE (BEAKER) (test No growth in 5 days code = 1095) BASIC METABOLIC [id number] 08:26:00 Test Item Value Reference Range Interpretation [...] 697) EGFR (BEAKER) (test 75 mL/min/1.73 ESTIMA ATTILA GFR IS code = 1092) sq m NOT ACCURATE CREATININE CLEARANCE IN PREDICTING GLOMERULAR FILTRATION RATE . ESTIMATED GFR I S NOT APPLICABLE FOR DIALYSIS PATIEN TS. CBC W/PLT COUNT & AUTO [id number] 06:33:00 Test Item Value Reference Range Interpretation [...] (test code = 2801) RAPID DRUG SCREEN, [id number] 14:01:00 Test Item Value Reference Range Interpretation [...] situations. Chain of custody not maintained. Some uzvq-rdx-pilexwk medications, as well as adulterants, may cause inaccurate results. Clinical correlation should be applied. A more comprehensive drug screen or confirmation of a detected drug may be performed upon request.EEG AWAKE/ASLEEP AND [id number] 11:31:00Reason for exam:->encephalopathyEEG REPORT: Aylin Mohamud [facility] , DATE: EEG #: [id number] Code: #: G93.40 Encephalopathy-unspecifiedCPT Code: #: 05023: 01. EEG awake and drowsy; 20-40 minPROCEDURE: [...] clinically.Clinical Fellow: Valeri Catalanurophysiologist: Nohemy Chang URINE [id number] 09:34:00 Test Item Value Reference Range Interpretation Comments CULTURE (BEAKER) (test code = 1095) No growth CBC W/PLT COUNT & AUTO [id number] 07:03:00 Test Item Value Reference Range Interpretation [...] (BEAKER) (test code = 2801) BASIC METABOLIC [id number] 07:00:00 Test Item Value Reference Range Interpretation [...] FOR DIALYSIS PATIEN TS. CT, BRAIN, WITHOUT [id number] 23:34:00FINAL REPORT EXAMINATION NONCONTRAST HEAD CT SCAN [...] concern, consider brain MRI. Signed: Tre Eckert MDReport Verified Date/Time: 11/06/2017 23:34:56 Reading Location: [address] Transitional Reading Room [id number] 19:41:00 Test Item Value Reference Range Interpretation Comments AMMONIA (BEAKER) 35 mol/L 18-72 Specimen mo derately (test code = 348) hemolyzed HEMOGLOBIN [id number] 10:32:00 Test Item Value Reference Range Interpretation Comments HEMOGLOBIN A1C (BEAKER) (test code = 5.4 % 4.3-6.1 368) CBC W/PLT COUNT & AUTO [id number] 07:01:00 Test Item Value Reference Range Interpretation [...] (BEAKER) (test code = 2801) BASIC METABOLIC [id number] 06:47:00 Test Item Value Reference Range Interpretation [...] FOR DIALYSIS PATIEN TS. INFLUENZA A H1N1 [id number] 21:27:00 Test Item Value Reference Range Interpretation Comments INFLUENZA A RNA Not Detected Not Detected, (BEAKER) (test code = Inconclusive 1545) NOVEL H1N1 RNA (BEAKER) Not Detected Not Detected, (test code = 1546) Inconclusive These assays were performed by real-time RT-PCR (bank consultant-PCR) utilizing fluorogenic hydrolysis probe technology for the detection of human Influenza A viruses and the differential detection of novel H1N1 Influenza virus in respiratory specimens. The test is composed of (1) an RNA extraction from patient specimen, and (2) bank consultant-PCR amplification and detection with human Influenza A and novel I6R9-qkskvcoi primers and probes. A well-conserved region of [...] its performance characte ristics determined by the [facility] Pathology Department, Section of Molecular Pathology. It has not been cleared or approved by the U.S. Food and Drug Administration (FDA). SinceFDA approval is not required for clinical use of the test, validation was done as required by The Clinical Laboratory Amendments of 1988.These assays were performed by real-time RT-PCR (bank consultant-PCR) utilizing fluorogenic hydrolysis probe technology for the detection of human Influenza A viruses and the differential detection of novel H1N1 Influenza virus in respiratory specimens. The test is composed of (1) an RNA extraction from patient specimen, and (2) bank consultant-PCR amplification and detection with human Influenza A and novel B3C1-jsmhijqu primers and probes. A well- conserved region of the Influenza A matrix gene [...] and its performance characteristics determined by the [facility] Pathology Department, Section of Molecular Pathology. It has not been cleared or approved by the U.S. Food and Drug Administration (FDA). Since FDA approval is not required for clinical use of the test, valida tion was done as required by The Clinical Laboratory Amendments of 1988.TSH/FREE T4 IF [id number] 19:25:00 Test Item Value Reference Range Interpretation Comments THYROID STIMULATING HORMONE 1.87 uIU/mL 0.35-4.94 (BEAKER) (test code = 772) CBC W/PLT COUNT & AUTO [id number] 06:46:00 Test Item Value Reference Range Interpretation [...] MORPHOLOGY (BEAKER) (test code Normal = 762) [id number] 03:48:00 Test Item Value Reference Range Interpretation Comments MAGNESIUM (BEAKER) (test code = 2.1 mg/dL 1.6-2.6 627) BASIC METABOLIC [id number] 03:48:00 Test Item Value Reference Range Interpretation [...] DIALYSIS PATIEN TS. LACTIC ACID, VENOUS, WHOLE [id number] 03:44:00 Test Item Value Reference Range Interpretation Comments LACTATE BLOOD VENOUS (2) (BEAKER) 2.2 mmol/L 0.5-2.2 (test code = 2872) Effective 03/01/2016: Units/Reference Range ChangeNew: 0.5-2.2 mmol/L Previous: 5-20 mg/dLLACTIC ACID, VENOUS, WHOLE [id number] 23:42:00 Test Item Value Reference Range Interpretation Comments LACTATE BLOOD VENOUS (2) (BEAKER) 1.9 mmol/L 0.5-2.2 (test code = 2872) Effective 03/01/2016: Units/Reference Range ChangeNew: 0.5-2.2 mmol/L Previous: 5-20 mg/dLRAPID INFLUENZA A&B [id number] 21:51:00 Test Item Value Reference Range Interpretation Comments RAPID INFLUENZA A AG (BEAKER) Negative Negative, Inconclusive (test code = 1622) RAPID INFLUENZA B AG (BEAKER) Negative Negative, Inconclusive (test code = 1623) PROTHROMBIN [id number] 21:02:00 Test Item Value Reference Range Interpretation Comments PROTIME (BEAKER) (test code = 15.3 seconds 11.7-14.7 H 759) INR (BEAKER) (test code = 370) 1.2 <=5.9 RECOMMENDED COUMADIN/WARFARIN INR THERAPY RANGESSTANDARD DOSE: 2.0 - 3.0 Includes: PROPHYLAXIS forvenous thrombosis, systemic embolization; TREATMENT for venous thrombosis and/or pulmonary embolus.HIGH RISK: Target INR is 2.5-3.5 for patients with mechanical heart valves.OXYGEN SATURATION, [id number] 21:00:00 Test Item Value Reference Range Interpretation [...] 515) SOURCE(BEAKER) (test code = Urine, [place] 7871) CT, CHEST WITH IV CONTRAST- PE TEST [id number] 19:53:00FINAL REPORT CLINICAL HISTORY: Chest pain. FINDINGS: [...] Ve rified Date/Time: 11/04/2017 19:53:50 Reading Location: [address] Reading Room [id number] 19:41:00 Test Item Value Reference Range Interpretation Comments MAGNESIUM (BEAKER) 1.4 mg/dL 1.6-2.6 L Specimen slightly (test code = 627) hemolyzed HEPATIC FUNCTION [id number] 19:41:00 Test Item Value Reference Range Interpretation [...] slightly (test code = 347) hemolyzed TROPONIN [id number] 19:27:00 Test Item Value Reference Range Interpretation [...] and persistent tachyarrhythmia.RAD, CHEST, 1 VIEW, NON [id number] 19:12:00Reason for exam:->sobShould this be performed at [...] MDReport Verified Date/Time: 11/04/2017 19:12:37 Reading Location: [address] Reading Room BLOOD GAS, [id number] 19:03:00 Test Item Value Reference Range Interpretation [...] code = 1819) 60.0 % COMPREHENSIVE METABOLIC [id number] 18:25:00 Test Item Value Reference Range Interpretation [...] ATED GFR. CREATINE KINASE (CK), TOTAL AND [id number] 18:25:00 Test Item Value Reference Range Interpretation Comments CREATINE KINASE TOTAL (BEAKER) 93 U/L 29-200 (test code = 380) CREATINE KINASE-MB (BEAKER) (test 1.0 ng/mL 0.0-6.6 code = 750) CREATINE KINASE-MB INDEX (BEAKER) 1.1 % (test code = 395) CK-MB Reference Range:<6.7 Normal6.7-10.0 Borderline>10.0 AbnormalPOCT-LACTIC ACID, [id number] 18:17:00 Test Item Value Reference Range Interpretation Comments POC-LACTIC ACID, 3.1 mmol/L 0.9-1.7 H TESTED AT [facility] [address] (BEAKER) (test [facility] [place] code = 2805) [address] CBC W/PLT COUNT & AUTO [id number] 18:14:00 Test Item Value Reference Range Interpretation [...] 0-1 PERCENT (BEAKER) (test code = 2801) [id number] 18:05:00 Test Item Value Reference Range Interpretation [...] 2.5-3.5 for patients with mechanical heart valves.CT, CTANGIO [id number] 17:57:00 FINAL REPORT CLINICAL HISTORY: Stroke TECHNIQUE: Contiguous contrast-enhancedaxial images through the neck followed by axial images through the head with coronal and sagittal reformations to assess the arterial circulation. 3-D reconstructions to be performed using a volume rend ered technique separately on a workstation. This exam [...] arteries by NASCET criteria. Signed: John Vick MDReport Verified Date/Time: 11/04/2017 17:57:59 Reading Location: [address] Neuro Reading Room CT, CAROTID, [id number] 17:57:00FINAL REPORT CLINICAL HISTORY: Stroke TECHNIQUE: Contiguous [...] Vick Verified Date/Time: 11/04/2017 17:57:59 Reading Location: [address] Neuro Reading Room CT, BRAIN/STROKE [id number] 17:09:00 Reason for exam:->altered mental statusWhat is [...] neurologist at 5:08 PM. Signed: John Vick Verified Date/Time: 11/04/2017 17:09:06 Reading Location: [address] Neuro Reading Room
[2021-09-27] MEDS ORDERED: NA CHLORIDE 0.9% 1,000 ML ONE (13:20)
[2021-09-27] MEDS ORDERED: TETANUS & DIPHTHERIA TOX,ADULT 0.5 ML VIAL ONE (13:55)
--- NOTE | 2021-09-27 14:03 | RAD REPORT ---
EXAM DESCRIPTION: RAD - Tib Fib Left - 09/27/2021 1:29 pm CLINICAL HISTORY: Fall, leg pain COMPARISON: None. FINDINGS: No fracture is identified. There is no dislocation or periosteal reaction noted. No acute bony finding identified. Degenerative changes are present at the knee joint with medial compartment n arrowing. Minimal spurring seen along the articular margins of the patella. Chondrocalcinosis is pres ent. Patient may have small calcified loose bodies along the posterior knee joint capsule. Degenerati ve changes are present at the ankle joint as well. No foreign body or other soft tissue abnormality. IMPRESSION: Knee and ankle degenerative changes are present as detailed. No acute tib-fib finding le ft leg.
--- NOTE | 2021-09-27 14:04 | RAD REPORT ---
EXAM DESCRIPTION: RAD - Foot Left 3 View - 09/27/2021 1:29 pm CLINICAL HISTORY: PAIN, trip and fall COMPARISON: No comparisons FINDINGS: No fracture, dislocation or periosteal reaction. No acute or destructive bony process. Fi rst MTP joint degenerative changes are present with medial marginal spurs and joint space narrowing. Mild degenerative change at the tibiotalar joint space. No plantar spur. Minimal spurring at the Achi lles attachment. No air or foreign body in the soft tissues. IMPRESSION: Negative left foot examination for acute finding.
[2021-09-27 14:09] LABS: ALT/SGPT 24 U/L (12-78); AST/SGOT 28 U/L (15-37); Albumin 3.1 g/dL (3.4-5.0); Alkaline Phosphatase 86 U/L (45-117); BUN Blood Urea Nitrogen 16 mg/dL (7-18); Bicarbonate 27 mmol/L (21-32); Bilirubin Direct < 0.1 mg/dL (0-0.2); Bilirubin Total 0.4 mg/dL (0.2-1.0); Glucose Level 101 mg/dL (74-106); Lipase 179 U/L (73-393); Potassium 4.5 mmol/L (3.5-5.1); Protein, Total 7.3 g/dL (6.4-8.2); Sodium Level 136 mmol/L (136-145)
[2021-09-27 14:19] LABS: Absolute Lymphocytes (CBC) 1.2 K/uL (0.7-4.9); Basophils % 0.3 % (0-1.3); Hematocrit 41.2 % (39.6-49.0); Lymphocytes % 12.9 % (15.3-44.8); MPV 8.9 fL (7.6-11.3); RBC Red Blood Cell Count 4.31 M/uL (4.33-5.43)
--- NOTE | 2021-09-27 14:21 | RAD REPORT ---
EXAM DESCRIPTION: CT - Head C Spine Cap Sanju Naqvi - 09/27/2021 1:57 pm CLINICAL HISTORY: PAIN, trip and fall, head, neck, chest and abdomen pain, pain primarily left upper chest and left axillary region, history of dementia COMPARISON: No comparisons TECHNIQUE: Axial [address] head images were obtained. Axial [address] cervical spine images were obtaine d with sagittal and coronal reconstruction images reviewed. During dynamic enhancement of 100mL non-i onic contrast, axial 5 mm images of the chest, abdomen and pelvis were obtained. Biphasic technique p erformed of the abdomen and pelvis. All CT scans are performed using dose optimization technique as appropriate and may include automated exposure control or mA/KV adjustment according to patient size. FINDINGS: No intracranial hemorrhage, mass or edema. No midline shift or abnormal fluid collection. Atrophy and chronic ischemic changes are present mild to moderate in severity. Ventricles are in prop ortion to volume loss. Arterial tree calcifications are present. Mastoid air cells are clear. Patchy sinus mucosal thickening present. No skull fracture. CT cervical spine imaging shows normal height. Normal alignment of the vertebrae. Mild C3-4 and moder ate C4-5 disc space narrowing. Advanced C5-6 disc space narrowing with endplate spurring. Posterior c ervical decompression changes are present C3-C6. Mild posterior endplate spurring at C3-4 with more p rominent endplate spurring projecting into the central canal at C4-5 and C5-6. Mild foraminal encroac hment bilaterally at C3-4 with more moderately advanced bilateral foraminal stenosis C4-5. Advanced b ilateral bony foraminal stenosis C5-6. No paraspinal mass or hematoma seen. Central canal detail is i nherently limited. Concerns for traumatic disc herniation or traumatic cord injury can be further add ressed with MR imaging. CT chest shows no pneumothorax, pulmonary contusion or pleural fluid collection. A 3.8 centimeter sub pleural metaphyseal present posterolateral right lower lobe. No mediastinal hematoma and the aorta an d pulmonary arteries are unremarkable. No chest wall mass. No displaced rib fractures are present and no nondisplaced rib fractures suspected. Medial aspect of each clavicle intact. Lateral aspect and A C joints only partially imaged. No dislocation of either humeral head. No scapula fracture present. R otator cuff fixation screws are present left humeral head. No axillary hematoma or mass identified. CT abdomen and pelvis show no injury to solid abdominal viscera. Gallbladder and biliary tree are unr emarkable. No acute bowel finding. Patient has prominent left-sided diverticulosis without diverticul itis. Appendix is normal. No free air, free fluid or abnormal stranding. Partially filled urinary lisa dder shows no acute finding. Lobulated prostate gland is present projecting into the bladder base. Co rrelation can be made with PSA values if not performed by PCP. Bony degenerative changes are present. Central spinal stenosis evident C2-3 and C3-4. Significant for aminal stenosis present C3-4 and C4-5. No significant vascular finding. IMPRESSION: Atrophy and chronic ischemic changes are present with no acute intracranial finding. Postsurgical and degenerative changes are present to the cervical spine as detailed. No acute finding s seen. As detailed above, no traumatic injury to the chest identified. No significant CT Abdomen and Pelvis finding. Prostate gland is lobulated and projects into the bladd er base. Correlation be made with PSA values if the patient not followed by PCP. No acute bone finding confirmed. Patient has prominent lumbar spine degenerative change with multilev el spinal stenosis and foraminal stenosis.
--- NOTE | 2021-09-27 14:28 | ER ---
Nurse's Notes [facility] Name: Edgardo Marie Age: 76 yrs Sex: Male : 1945 Arrival Date: 09/27/2021 Time: 12:13 Bed 16 Private MD: Diagnosis: Fall on same level, unspecified;Abrasion, left lesser toe(s);Contusion of left back wall of thorax;Contusion of left lower leg;Unspecified injury of head, initial encounter Presentation: 09/27 12:13 Chief complaint: EMS states: Pt was taking trash out when tripped and fell onto 1 concrete from standing position. Denies hitting head, denies LOC, pt has abrasion to Left upper ribs, left lower leg and left toes. Pt denies taking blood thinners. Coronavirus screen: Vaccine status: Patient reports receiving the 2nd dose of the covid vaccine. Ebola Screen: Patient negative for fever greater than or equal to 101.5 degrees Fahrenheit, and additional compatible Ebola Virus Disease symptoms. Initial Sepsis Screen: Does the patient meet any 2 criteria? No. Patient's initial sepsis screen is negative. Does the patient have a suspected source of infection? No. Patient's initial sepsis screen is negative. Risk Assessment: Do you want to hurt yourself or someone else? Patient reports no desire to harm self or others. Onset of symptoms was September 27, 2021. 12:13 Method Of Arrival: EMS: [facility] 1 12:13 Acuity: JEFF 4 vg1 12:20 Care prior to arrival: None. Mechanism of Injury: Fall from standing position. Trauma vg1 event details: Injury occurred in the [facility]. Triage Assessment: 12:16 General: Appears in no apparent distress. comfortable, Behavior is calm, cooperative. vg1 Pain: Denies pain. EENT: No signs and/or symptoms were reported regarding the EENT system. Neuro: Level of Consciousness is awake, alert, obeys commands, Oriented to person, place, time, situation. Cardiovascular: Patient's skin is warm and dry. Respiratory: Airway is patent Respiratory effort is even, unlabored. GI: No signs and/or symptoms were reported involving the gastrointestinal system. : No signs and/or symptoms were reported regarding the genitourinary system. Derm: Skin is pink, warm \T\ dry. abrasions noted on Left upper ribs, left lower extremity and left toes. Musculoskeletal: Circulation, motion, and sensation intact. Trauma Activation: Physician: ED Physician; Name: ; Notified At: ; Arrived At: Physician: General Surgeon; Name: ; Notified At: ; Arrived At: Physician: Radiology; Name: ; Notified At: ; Arrived At: Physician: Respiratory; Name: ; Notified At: ; Arrived At: Physician: Lab; Name: ; Notified At: ; Arrived At: 15:31 not called overhead vg1 Historical: - Allergies: 12:16 Nexium; vg1 12:16 PENICILLINS; vg1 - Home Meds: 12:16 Aricept Oral [Active]; B-12 DOTS Oral [Active]; finasteride Oral [Active]; gabapentin vg1 oral [Active]; - PMHx: 12:16 BPH; Dementia; Tremors; Anaphylactic shock; vg1 - Immunization history:: Client reports receiving the 2nd dose of the Covid vaccine. - Social history:: Smoking status: Patient/guardian denies using tobacco, the patient reports quitting approximately 25 years ago. - Immunization history: Last tetanus immunization: unknown. Screenin:20 Abuse screen: Denies threats or abuse. Nutritional screening: No deficits noted. vg1 Tuberculosis screening: No symptoms or risk factors identified. 12:20 Fall Risk Fall in past 12 months (25 points). No secondary diagnosis (0 pts). IV access vg1 (20 points). Ambulatory Aid- None/Bed Rest/Nurse Assist (0 pts). Gait- Normal/Bed Rest/Wheelchair (0 pts) Mental Status- Oriented to own ability (0 pts). Total Barrera Fall Scale indicates High Risk Score (45 or more points). Fall prevention measures have been instituted. Side Rails Up X 2 Placed Close to Nursing Station Family Present and informed to notify staff if the need to leave the bedside. Primary Survey: 12:20 NO uncontrolled hemorrhage observed. Breathing/Chest: Respiratory pattern: regular, vg1 Respiratory effort: spontaneous, Breath sounds: clear, bilaterally. Chest inspection: symmetrical rise and fall of the chest. Circulation: Skin temperature: warm. Disability Alert. Exposure/Environment: A warming method has been applied: A warm blanket has been provided to the patient. 13:20 Reassessment Airway Airway Patent Breathing/Chest Respiratory pattern Regular vg1 Respiratory effort Spontaneous Breath sounds Clear Chest inspection Symmetrical Circulation Color [place] Disability Alert. Secondary Survey: 12:20 HEENT: No deficits noted. Gastrointestinal: No deficits noted. : No deficits noted. vg1 Musculoskeletal: Circulation, motion, and sensation intact. Assessment: 12:20 Reassessment: see triage. vg1 13:20 Reassessment: Patient appears in no apparent distress at this time. No changes from vg1 previously documented assessment. Patient and/or family updated on plan of care and expected duration. Pain level reassessed. Patient is alert, oriented x 3, equal unlabored respirations, skin warm/dry/pink. Vital Signs: 12:13 BP 132 / 81; Pulse 71; Resp 18; Temp 97.6; Pulse Ox 100% ; Weight 87.54 kg; Height 5 vg1 ft. 7 in. (170.18 cm); Pain 0/10; 13:00 BP 119 / 60; Pulse 65; Resp 17; Pulse Ox 100% ; vg1 14:00 BP 124 / 68; Pulse 68; Resp 18; Pulse Ox 100% ; vg1 12:13 Body Mass Index 30.23 (87.54 kg, 170.18 cm) vg1 Ga Coma Score: 12:20 Eye Response: spontaneous(4). Verbal Response: oriented(5). Motor Response: obeys vg1 commands(6). Total: 15. Trauma Score (Adult): 12:20 Eye Response: spontaneous(1); Verbal Response: oriented(1); Motor Response: obeys vg1 commands(2); Systolic BP: > 89 mm Hg(4); Respiratory Rate: 10 to 29 per min(4); Ga Score: 15; Trauma Score: 12 ED Course: 12:13 Patient arrived in ED. vg1 12:16 Triage completed. vg1 12:17 Holland Bernard MD is Attending Physician. [facility] 12:19 Arm band placed on. vg1 12:20 Patient has correct armband on for positive identification. Bed in low position. Call vg1 light in reach. Side rails up X2. Adult w/ patient. 12:20 Patient maintains SpO2 saturation greater than 95% on room air. vg1 12:20 Thermoregulation: warm blanket given to patient. vg1 12:23 Kadie Avendano, RN is Primary Nurse. vg1 12:23 Maintain EMS IV. Dressing intact. Site clean \T\ dry. Gauge \T\ site: 20 g Right wrist. vg 1 13:29 Tib Fib Left XRAY In Process Unspecified. EDMS 13:29 Foot Left 3 View XRAY In Process Unspecified. EDMS 13:43 Initial lab(s) drawn, by me, sent to lab. Inserted saline lock: 20 gauge in right vg1 antecubital area, using aseptic technique. Blood collected. 13:57 CT Traumagram (Head C Spine CAP W Con) In Process Unspecified. EDMS 15:29 No provider procedures requiring assistance completed. IV discontinued, intact, vg1 bleeding controlled, No redness/swelling at site. Pressure dressing applied. Administered Medications: 14:08 Drug: NS 0.9% 500 ml Route: IV; Rate: bolus; Site: right wrist; vg1 15:17 Follow up: IV Status: Completed infusion; IV Intake: 500ml vg1 14:08 Drug: Tetanus-Diphtheria Toxoid Adult 0.5 ml {Glass Handler: [employer]. Exp: vg1 03/11/2023. Lot #: [id number]. } Route: IM; Site: left deltoid; 14:49 Follow up: Response: No adverse reaction vg1 15:17 Drug: Neosporin ([id number]-[id number]) Ointment 1 application Route: Topical; vg1 Site: affected area; Intake: 15:17 IV: 500ml; Total: 500ml. vg1 Output: 15:30 Urine: 300ml (Voided); Total: 300ml. vg1 Outcome: 14:28 Discharge ordered by MD. wheeler 15:29 Discharged to home via wheelchair, with family. vg1 15:29 Condition: stable 15:29 Discharge instructions given to patient, family, Instructed on discharge instructions, follow up and referral plans. medication usage, Demonstrated understanding of instructions, follow-up care, medications, Prescriptions given X 2. 15:31 Patient's length of stay in the Emergency Department was greater than 2 hours. vg1 15:31 Patient left the ED. vg1 Signatures: Dispatcher [employer] EDHolland Sutton MD MD cha Garcia, Victoria, RN RN vg1
--- NOTE | 2021-09-27 14:28 | EDPHYS ---
Physician Documentation [facility] Name: Edgardo Marie Age: 76 yrs Sex: Male : 1945 Arrival Date: 09/27/2021 Time: 12:13 Bed 16 Private MD: ED Physician Holland Bernard HPI: 09/27 13:58 This 76 yrs old Male presents to ER via EMS with complaints of Fall Injury. liam 13:58 Details of fall: The patient fell from an upright position, while walking. Onset: The liam symptoms/episode began/occurred just prior to arrival. Associated injuries: The patient sustained injury to the head, injury to the chest, specifically the left lateral posterior chest, contusion, lateral aspect of left foot, left knee, left denise and dorsum of left foot, painful injury, swelling. Severity of symptoms: At their worst the symptoms were mild, in the emergency department the symptoms are unchanged. Historical: - Allergies: 12:16 Nexium; vg1 12:16 PENICILLINS; vg1 - Home Meds: 12:16 Aricept Oral [Active]; B-12 DOTS Oral [Active]; finasteride Oral [Active]; gabapentin vg1 oral [Active]; - PMHx: 12:16 BPH; Dementia; Tremors; Anaphylactic shock; vg1 - Immunization history:: Client reports receiving the 2nd dose of the Covid vaccine. - Social history:: Smoking status: Patient/guardian denies using tobacco, the patient reports quitting approximately 25 years ago. - Immunization history: Last tetanus immunization: unknown. ROS: 14:01 Constitutional: Negative for fever, chills, and weight loss, Eyes: Negative for injury, liam pain, redness, and discharge, ENT: Negative for injury, pain, and discharge, Neck: Negative for injury, pain, and swelling, Cardiovascular: Negative for chest pain, palpitations, and edema, Respiratory: Negative for shortness of breath, cough, wheezing, and pleuritic chest pain, Abdomen/GI: Negative for abdominal pain, nausea, vomiting, diarrhea, and constipation, : Negative for injury, bleeding, discharge, and swelling, Neuro: Negative for headache, weakness, numbness, tingling, and seizure, Psych: Negative for depression, anxiety, suicide ideation, homicidal ideation, and hallucinations, Allergy/Immunology: Negative for hives, rash, and allergies, Endocrine: Negative for neck swelling, polydipsia, polyuria, polyphagia, and marked weight changes. 14:01 Back: Positive for injury or acute deformity, of the left subscapular area. Exam: 14:01 Constitutional: This is a well developed, well nourished patient who is awake, alert, liam and in no acute distress. Head/Face: Normocephalic, atraumatic. Eyes: Pupils equal round and reactive to light, extra-ocular motions intact. Lids and lashes normal. Conjunctiva and sclera are non-icteric and not injected. Cornea within normal limits. Periorbital areas with no swelling, redness, or edema. ENT: Nares patent. No nasal discharge, no septal abnormalities noted. Tympanic membranes are normal and external auditory canals are clear. Oropharynx with no redness, swelling, or masses, exudates, or evidence of obstruction, uvula midline. Mucous membranes moist. Neck: Trachea midline, no thyromegaly or masses palpated, and no cervical lymphadenopathy. Supple, full range of motion without nuchal rigidity, or vertebral point tenderness. No Meningismus. Cardiovascular: Regular rate and rhythm with a normal S1 and S2. No gallops, murmurs, or rubs. Normal PMI, no JVD. No pulse deficits. Respiratory: Lungs have equal breath sounds bilaterally, clear to auscultation and percussion. No rales, rhonchi or wheezes noted. No increased work of breathing, no retractions or nasal flaring. Abdomen/GI: Soft, non-tender, with normal bowel sounds. No distension or tympany. No guarding or rebound. No evidence of tenderness throughout. Back: No spinal tenderness. No costovertebral tenderness. Full range of motion. Male : Normal genitalia with no discharge or lesions. Skin: Warm, dry with normal turgor. Normal color with no rashes, no lesions, and no evidence of cellulitis. Neuro: Awake and alert, GCS 15, oriented to person, place, time, and situation. Cranial nerves II-XII grossly intact. Motor strength 5/5 in all extremities. Sensory grossly intact. Cerebellar exam normal. Normal gait. Psych: Awake, alert, with orientation to person, place and time. Behavior, mood, and affect are within normal limits. 14:01 Chest/axilla: Inspection: normal, Palpation: tenderness, that is mild, of the left lateral posterior chest, Axilla: are normal, Lymph nodes: lymphadenopathy is not appreciated. 14:01 Musculoskeletal/extremity: Circulation is intact in all extremities. Sensation intact. Compartment Syndrome exam of affected extremity: is normal. 14:01 Musculoskeletal/extremity: ROM: intact in all extremities, full active range of motion, full passive range of motion, in all extremities. 14:01 Skin: injury, abrasion(s), small abrasion noted, of the left second toe, left third toe and left fourth toe. 14:13 ECG was reviewed by the Attending Physician. [facility] Vital Signs: 12:13 BP 132 / 81; Pulse 71; Resp 18; Temp 97.6; Pulse Ox 100% ; Weight 87.54 kg; Height 5 vg1 ft. 7 in. (170.18 cm); Pain 0/10; 13:00 BP 119 / 60; Pulse 65; Resp 17; Pulse Ox 100% ; vg1 14:00 BP 124 / 68; Pulse 68; Resp 18; Pulse Ox 100% ; vg1 12:13 Body Mass Index 30.23 (87.54 kg, 170.18 cm) vg1 [place] Coma Score: 12:20 Eye Response: spontaneous(4). Verbal Response: oriented(5). Motor Response: obeys vg1 commands(6). Total: 15. Trauma Score (Adult): 12:20 Eye Response: spontaneous(1); Verbal Response: oriented(1); Motor Response: obeys vg1 commands(2); Systolic BP: > 89 mm Hg(4); Respiratory Rate: 10 to 29 per min(4); Ga Score: 15; Trauma Score: 12 MDM: 12:17 Patient medically screened. [facility] 14:04 Differential diagnosis: abrasion, closed head injury, contusion, laceration, multiple liam trauma, sprain, strain. Data reviewed: vital signs, nurses notes, lab test result(s), EKG, radiologic studies, CT scan, plain films. Data interpreted: nuclear monitoring technician: rate is 65 beats/min, rhythm is regular, Pulse oximetry: on room air is 100 %. Test interpretation: by ED physician or midlevel provider: ECG, plain radiologic studies. Counseling: I had a detailed discussion with the patient and/or guardian regarding: the historical points, exam findings, and any diagnostic results supporting the discharge/admit diagnosis, lab results, radiology results, the need for outpatient follow up, for definitive care, a family practitioner. 09/27 12:47 Order name: Basic Metabolic Panel; Complete Time: 14:12 [facility] 09/27 12:47 Order name: CBC with Diff; Complete Time: 14:52 [facility] 09/27 12:47 Order name: Type And Screen; Complete Time: 14:52 [facility] 09/27 12:48 Order name: LFT's; Complete Time: 14:12 [facility] 09/27 12:48 Order name: Lipase; Complete Time: 14:12 [facility] 09/27 14:36 Order name: CREATININE WHOLE BLOOD; Complete Time: 14:52 [facility] 09/27 12:47 Order name: CT Traumagram (Head C Spine CAP W Con); Complete Time: 14:52 [facility] 09/27 12:47 Order name: Tib Fib Left XRAY; Complete Time: 14:12 [facility] 09/27 12:47 Order name: Foot Left 3 View XRAY; Complete Time: 14:12 [facility] 09/27 15:14 Order name: Urine Dipstick-Ancillary [facility] 09/27 12:47 Order name: Labs collected and sent; Complete Time: 13:46 [facility] 09/27 12:47 Order name: Urine Dipstick-Ancillary (obtain specimen); Complete Time: 15:17 [facility] 09/27 14:12 Order name: EKG; Complete Time: 14:12 [facility] 09/27 14:12 Order name: EKG - Nurse/Tech; Complete Time: 14:24 [facility] EC:13 Rate is 61 beats/min. Rhythm is regular. QRS [place] is Normal. NM interval is normal. QRS liam interval is normal. QT interval is normal. No Q waves. T waves are Normal. No ST changes noted. Clinical impression: No evidence of ischemia. Interpreted by me. Reviewed by me. 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 Exp: vg1 03/11/2023. Lot #: [id number]. } Route: IM; Site: left deltoid; 14:49 Follow up: Response: No adverse reaction vg1 15:17 Drug: Neosporin ([id number]-kqvumefqya-lbhbigmnw) Ointment 1 application Route: Topical; vg1 Site: affected area; Disposition Summary: 09/27/21 14:28 Discharge Ordered Location: Home liam Problem: new liam Symptoms: have improved liam Condition: Stable liam Diagnosis - Fall on same level, unspecified liam - Abrasion, left lesser toe(s) liam - Contusion of left back wall of thorax liam - Contusion of left lower leg liam - Unspecified injury of head, initial encounter ilam Followup: liam - With: Private Physician - When: 2 - 3 days - Reason: Recheck today's complaints, Continuance of care, Re-evaluation by your physician Discharge Instructions: - Discharge Summary Sheet liam - Abrasion liam - Contusion liam - Head Injury, Adult liam - Fall Prevention in the Home, Adult liam - Contusion, Zbnt-[id number] liam - Abrasion, Ytoc-dc-Tfid liam - Fall Prevention in the Home, Adult, Ixyt-tn-Pswt liam - Head Injury, Adult, Stin-sj-Poqo liam Forms: - Medication Reconciliation Form liam - Thank You Letter liam - Antibiotic Education liam - Prescription Opioid Use liam Prescriptions: - Centany 2 % Topical ointment - apply 1 application by TOPICAL route 3 times per day; 30 gram; Refills: 0, liam Product Selection Permitted - Ibuprofen 600 mg Oral Tablet - take 1 tablet by ORAL route every 6 hours As needed take with food; 20 tablet; liam Refills: 0, Product Selection Permitted Signatures: Dispatcher [employer] Holland Hand MD MD cha Garcia, Victoria, RN RN vg1
[2021-09-27 15:14] LABS: Urine Blood Negative (Negative); Urine Glucose Negative (Negative); Urine Protein Negative (Negative); Urine pH 6.5 (5.0-7.0)
[2021-09-27 15:39] VITALS: TEMP 97.6; O2SAT 100
[2021-09-27 15:42] VITALS: BP 124/68
--- NOTE | 2021-09-28 16:23 | EKG ---
Test Date: 2021-09-27 Test Time: 14:11:25 Car Supervisor: LOI MEASUREMENT RESULTS: Intervals: Rate: 69 NV: 154 QRSD: 72 QT: 392 QTc: 420 [place]: P: 44 NV: 154 QRS: 26 T: -5 INTERPRETIVE STATEMENTS: normal rhythm Low voltage QRS Cannot rule out Anterior infarct, age undetermined Abnormal ECG Compared to ECG 04/11/2020 17:17:31 [facility] Electronically Signed On 09-28-21 16:22:05 STUDY LEAD by Kirill Talbot
== END 2021-09-27 15:31 | disposition home or self-care (01) ==
LOC: ER 11:55
DX: S20.222A Contusion of left back wall of thorax, initial encounter (principal); S80.12XA Contusion of left lower leg, initial encounter; S90.415A Abrasion, left lesser toe(s), initial encounter; S09.90XA Unspecified injury of head, initial encounter; W01.0XXA Fall on same level from slipping, tripping and stumbling without subsequent striking against object, initial encounter; Y92.009 Unspecified place in unspecified non-institutional (private) residence as the place of occurrence of the external cause; Z23 Encounter for immunization
CPT/HCPCS: 93005; 85025; 80048; 36415; 86900; 86850; 82565; 86901; 80076; 81003; 83690; 70450; 72125; 71260; 74177; 73630; 73590; 90471; 90714; 96360; 99284; Q9967; J7030

== ENCOUNTER 2021-12-31 16:53 | Observation (INO) | payer OTHER, MEDICARE ==
--- OUTSIDE RECORDS SUMMARY | 2021-12-31 16:58 | XMS REPORT | Continuity of Care Document ---
:1945 Author Organization [facility] t Address [facility] [place] [address] Care Team Providers Name Role Phone Nena MONTEMAYOR Primary Care Physician Unavailable Tan DUBOIS Attending Clinician Unavailable Jeaneth Sung Attending Clinician Unavailable SIM_Tan Attending Clinician Unavailable Urban WILSON Attending Clinician Unavailable Urban Thompson Attending Clinician Marilyn Montemayor Attending Clinician [phone] Tan Dubois MD Attending Clinician Doctor Unassigned, Name Attending Clinician Unavailable Only, Test Attending Clinician Unavailable Pob, Lab Main Attending Clinician Unavailable keisha Attending Clinician Unavailable Evans Attending Clinician Unavailable LIZETTE DAVALOS Attending Clinician Unavailable Tan DUBOIS Admitting Clinician Unavailable Nathan Admitting Clinician Unavailable KEISHA Admitting Clinician Unavailable Urban WILSON Admitting Clinician Unavailable Tan Dubois MD Admitting Clinician keisha Admitting Clinician Unavailable Nena Montemayor Admitting Clinician Unavailable MARIN RITCHIE Admitting Clinician Unavailable Payers Payer Name Policy Type Policy Number Effective Date Expiration Date S our MEDICARE PART A \\T\\ [id number] 2009 B 00:00:00 [facility] [id number] 2017 MEDICARE SUPPLEMENT 00:00:00 [place]: [id number] 2009 NOVNeumitra 00:00:00 [facility] [id number] 2017 OPTIONS (MEDICARE 00:00:00 SUPPLEMENT) Problems Condition Condition Condition Status Onset Resolution Last Treating Co mments Source Name Details Category Date Date Treatment Clinician Date No known No known Disease Unive rs active active ity of problems problems [place] [facility] Allergies, Adverse Reactions, Alerts Allergy Allergy Status Severity Reaction(s) Onset Inactive Treating Comm ents Source Name Type Date Date Clinician esomepra DA Active U 2019-0 [facility] 03[facility]16 [place] 00:[facility]: [facility] 00 are [facility] Center esomepra DA Active U UNKNOWN 0 [facility] zole 19 [place] 00:00: [facility] 00 are [facility] Penicill DA Active U 0 [facility] ins 15 [place] 00:00: [facility] 00 are [facility] Penicill DA Active U RASH, HIVES 0 [facility] ins 15 [place] 00:00: Health 00 are [facility] st ESOMEPRA DRUG Active High Anaphylaxis Uni vers ZOLE INGREDI 4-11 ity of MAGNESIU 00:00: [place] M 00 Medical Branch Esomepra Drug Active Other - See Pt states Univers zole Allergy comments 4-11 he passed ity of Magnesiu 00:00: out - [place] m 00 drop in Medical BP Branch PENICILL Drug Active Hives Univers INS Class 2-21 ity of 00:00: [place] 00 Medical Branch Penicill Propensi Active Hives Univer s ins ty to 2-21 ity of adverse 00:00: [place] reaction 00 Medical s Branch PENICILL Allergy Active High Sob 2017-[address] [facility] Social History Social Habit Start Date Stop Date Quantity Comments Source Exposure to Not sure University of SARS-CoV-2 [place] [facility] (event) Branch History SDOH University o f Alcohol Frequency [place] [facility] History SDOH University o f Alcohol Std [place] [facility] Drinks Branch History SDOH University o f Alcohol Binge [place] [facility] al [facility] Alcohol intake 2021-11-22 2021-11-22 Current drinker Unive rsity of 00:00:00 00:00:00 of alcohol [place] [facility] (finding) Branch Tobacco Comment 2020-11-01 2020-11-01 quit on Univers ity of 00:00:00 00:00:00 birthday [facility] Tobacco use and 2018-02-04 2018-02-04 Never used Universit y of exposure 00:00:00 00:00:00 [facility] Alcohol Comment 2018-02-04 2018-02-04 Occasional Universit y of 00:00:00 00:00:00 Drinker [facility] Sex Ass[birth year] Universit y of 00:00:00 00:00:00 [facility] Smoking Status Start Date Stop Date Source Never smoker [facility] Branch Medications Ordered Filled Start Stop Current Ordering Indication Dosage Frequency Signature Comments Components Source Medication Medication Date Date Medication? Clinician (SIG) Name Name NaCl 0.9% No 1000mL at 999 Uni vers (NS) bolus 1-25 01-25 mL/hr, ity of infusion 23:15: 23:58 1,000 mL, Arjun as 1,000 mL 00 :00 IV Medical Infusion, Branch ONCE, 1 dose, On Sun11/22/21 at 1715, CIARA finasteride Yes 5mg Take 5 mg U nivers 5 mg tablet 1-20 by mouth ity of 18:39: daily. [place] [address] Medical Branch FLUoxetine Yes 20mg Take 20 mg U nivers (PROZAC) 20 1-20 by mouth ity of mg capsule 18:39: daily. [place] [address] Medical Branch donepeziL 5 Yes 10mg Take 10 mg Univers mg tablet 1-20 by mouth ity of 18:39: at [place] [address] bedtime. Medical Branch gabapentin Yes 300mg Take 300 Un suzanne 300 mg 1-20 mg by ity of capsule 18:39: mouth as [place] [address] needed for Medical Pain Branch (scale 4-6). ARIPiprazol 0 Yes 2mg Take 2 mg U nivers e 2 mg 1-20 by mouth ity of tablet 18:39: daily. [place] [address] Medical Branch trazodone Yes 75mg Take 75 mg Un suzanne HCl 1-20 by mouth. ity of (TRAZODONE 18:39: [place] ORAL) [facility] water for 0 Yes PRN, Univers irrigation -20 Starting ity o f irrigation 17:15: Sun [place] solution 00 11/17/20 at Medic al [facility] [place] Until Discontinu ed, Routine, Intra-op sodium 0 Yes PRN, Univers chloride -20 Starting ity of (NS) 17:15: Sun [place] injection 11/17/[address] Until Discontinu ed, Routine, Intra-op neomycin-po 0 Yes PRN, Univer s lymyxin-dex -20 Starting ity of amethasone 17:15: Sun (MAXITROL) 11/17/20 at [facility] ical 3.5 [facility] [place] mg/g-10,000 Until unit/g-0.1 Discontinu % ed, ophthalmic Routine, ointment Intra-op Hyaluronida Yes PRN, Univer s se, Human -20 Starting ity of Recomb. 17:15: Sun (HYLENEX) 11/17/20 at [facility] injection [facility] Until Discontinu ed, Routine, Intra-op gentamicin Yes PRN, Univers injection -20 Starting ity of 17:15: Sun [place] 11/17/[address] Until Discontinu ed, CIARA, Intra-op DUOVISC 0 Yes PRN, Univers (DUOVISC -20 Starting ity of VISCO 17:14: Sun ELASTIC) 3 11/17/20 at [facility] ica %-4 %(0.5 1114, Branch mL) 1 % Until (0.55 mL) Discontinu intraocular ed, injection Routine, Intra-op dexamethaso Yes PRN, Univer s ne -20 Starting ity of (DECADRON 17:14: Sun PHOSPHATE) 11/17/20 at [facility] ical injection [facility], [place] Until Discontinu ed, Routine, Intra-op carbachoL 0 Yes PRN, Univers (MIOSTAT) -20 Starting ity of 0.01 % 17:14: Sun [place] intraocular 00 11/17/20 at Md dical injection [facility] Until Discontinu ed, Routine, Intra-op balanced 2021-0 Yes PRN, Univers salt irrig -20 Starting ity o f soln comb1 17:14: Sun [place] (BSS PLUS) 11/17/20 at [facility] ical ophthalmic 1114, [place] solution Until 500 mL bag Discontinu ed, Routine, Intra-op eye block Yes PRN, Univers syringe 11 -20 Starting ity o f mL 17:14: Wed [place] 11/17/20 at [facility] 1114, [place] Until Discontinu ed, Intra-op EPINEPHrine Yes PRN, Univer s 1:1,000 (1 11-17 Starting ity o f mg/mL) 17:14: Sun [place] (ADRENALIN) 11/17/20 at Md dical injection 1114, [place] Until Discontinu ed, Routine, Intra-op mydriatic 2020- No .5mL 0.5 mL, Univ ers #5 11-17 Right Eye, ity of ophthalmic 15:15: 16:42 ONCE, 1 Arjun as solution 00 :00 dose, Sun Medica l 0.5 mL 11/17/20 at [place] syringe 0915, Routine, DSU Pre-op lactated 2020- No 1000mL at 42 Unive rs ringers IV 1-20 01-20 mL/hr, ity of infusion 15:15: 15:12 1,000 mL, Arjun as 1,000 mL 00 :00 IV Medical Infusion, [place] ONCE, 1 dose, 11/17/20 at 0915, Routine, DSU Pre-op finasteride Yes 5mg Take 5 mg U nivers 5 mg tablet 1-20 by mouth ity of 12:39: daily. [address] Branch FLUoxetine Yes 20mg Take 20 mg U nivers (PROZAC) 20 1-20 by mouth ity of mg capsule 12:39: daily. [address] donepeziL 5 Yes 10mg Take 10 mg Univers mg tablet 1-20 by mouth ity of 12:39: at [place] [address] bedtime. Medical Branch gabapentin Yes 300mg Take 300 Un suzanne 300 mg 1-20 mg by ity of capsule 12:39: mouth as [place] [address] needed for Medical Pain Branch (scale 4-6). ARIPiprazol Yes 2mg Take 2 mg U nivers e 2 mg 1-20 by mouth ity of tablet 12:39: daily. [place] [address] Medical Branch trazodone 0 Yes 75mg Take 75 mg Un suzanne HCl 1-20 by mouth. ity of (TRAZODONE 12:39: [place] ORAL) Medical Branch finasteride Yes 5mg Take 5 mg U nivers 5 mg tablet 1-06 by mouth ity of 15:11: daily. [place] [address] Medical Branch FLUoxetine Yes 20mg Take 20 mg U nivers (PROZAC) 20 1-06 by mouth ity of mg capsule 15:11: daily. [place] [address] Medical Branch donepeziL 5 Yes 10mg Take 10 mg Univers mg tablet 1-06 by mouth ity of 15:11: at [place] [address] bedtime. Medical Branch gabapentin Yes 300mg Take 300 Un suzanne 300 mg 1-06 mg by ity of capsule 15:11: mouth as [place] [address] needed for Medical Pain Branch (scale 4-6). ARIPiprazol Yes 2mg Take 2 mg U nivers e 2 mg 1-06 by mouth ity of tablet 15:11: daily. [address] Branch trazodone Yes 75mg Take 75 mg Un suzanne HCl 1-06 by mouth. ity of (TRAZODONE 15:11: [place] ORAL) Medical Branch mydriatic No .5mL 0.5 mL, [facility] ers #5 11-03 01-06 Left Eye, ity of ophthalmic 15:00: 12:26 ONCE, 1 Arjun as solution 00 :00 dose, Wed Medica l 0.5 mL 11/03/20 at [place] syringe 0900, Routine, DSU Pre-op water for Yes PRN, Univers irrigation -06 Starting ity o f irrigation 13:24: 11/03/20 [place] solution 00 at 0724, Medical Until [place] Discontinu ed, Routine, Intra-op sodium Yes PRN, Univers chloride 1-06 Starting ity of (NS) 13:23: 11/03/20 [place] injection 00 at 0723, Medica l Until Branch Discontinu ed, Routine, Intra-op neomycin-po Yes PRN, Univer s lymyxin-dex 11-03 Starting [...] Starting ity o f soln comb1 13:21: Sun11/03/20 [place] (BSS PLUS) 00 at 0721, Medic al ophthalmic Until Branch solution Discontinu 500 mL bag ed, Routine, Intra-op lactated 2020- No 1000mL at 42 Unive rs ringers IV 1-06 01-06 mL/hr, ity of infusion 12:30: 12:26 1,000 mL, Arjun as 1,000 mL 00 :00 IV Medical Infusion, Branch ONCE, 1 dose, 11/03/20 at 0630, Routine, DSU Pre-op donepeziL 5 Yes 10mg Take 10 mg Univers mg tablet 1-04 by mouth ity of 19:45: at [place] [address] bedtime. Medical Branch ARIPiprazol Yes 2mg Take 2 mg U nivers e 2 mg 1-04 by mouth ity of tablet 19:45: daily. [place] [address] Medical Branch trazodone Yes 75mg Take 75 mg Un suzanne HCl 1-04 by mouth. ity of (TRAZODONE 19:45: [place] [address] Medical Branch donepeziL 5 2019-10 Yes 5mg Take 5 mg U nivers mg tablet 2-14 by mouth ity of 18:48: at [place] [address] bedtime. Medical Branch gabapentin 2019-10 Yes 300mg Take 300 Un suzanne 300 mg 2-14 mg by ity of capsule 18:48: mouth as [place] [address] needed for Medical Pain Branch (scale 4-6). donepeziL 5 2019-10 Yes 5mg Take 5 mg U nivers mg tablet 2-14 by mouth ity of 18:48: at [place] [address] bedtime. Medical Branch gabapentin 2019-10 Yes 300mg Take 300 Un suzanne 300 mg 2-14 mg by ity of capsule 18:48: mouth as [place] [address] needed for Medical Pain Branch (scale 4-6). gabapentin 2019-10 Yes 300mg Take 300 Un suzanne 300 mg 2-14 mg by ity of capsule 18:48: mouth as [place] [address] needed for Medical Pain Branch (scale 4-6). FLUoxetine 2019-10 Yes 20mg Take 20 mg U nivers (PROZAC) 20 2-14 by mouth ity of mg capsule 18:48: daily. [address] FLUoxetine 2019-10 Yes 20mg Take 20 mg U nivers (PROZAC) 20 2-14 by mouth ity of mg capsule 18:48: daily. [address] FLUoxetine 2020-1 Yes 20mg Take 20 mg U nivers (PROZAC) 20 2-14 by mouth ity of mg capsule 18:48: daily. [address] finasteride 2018-0 Yes 5mg Take 5 mg U nivers 5 mg tablet 4-11 by mouth ity of 16:38: daily. [address] finasteride 2018-0 Yes 5mg Take 5 mg U nivers 5 mg tablet 4-11 by mouth ity of 16:38: daily. [address] finasteride 2018-0 Yes 5mg Take 5 mg U nivers 5 mg tablet 4-11 by mouth ity of 16:38: daily. [address] finasteride 2018-0 Yes 5mg Take 5 mg U nivers 5 mg tablet 4-11 by mouth ity of 16:38: daily. [address] diphenhydrA 2018-0 Yes 25mg Take 1 [...] mg/mL Kit 00 SEE-INSTRU Medi joanie CTIONS. [place] diphenhydrA 2018-0 Yes 25mg Take 1 Univ ers MINE 2-21 capsule by ity of (BENADRYL) 00:00: mouth [place] 25 mg 00 every 6 Medical capsule (six) Branch hours as needed for Itching or Allergies. diphenhydrA 2018-0 Yes 25mg Take 1 Univ [...] Kit 00 SEE-INSTRU Medi joanie CTIONS. Branch methylPREDN 2018-0 Yes Take by Un suzanne [...] 00:00: directed Arjun as mg/mL [facility] diphenhydrA 0 Yes 25mg Take 1 Univ ers MINE [...] 00:00: directed Arjun as mg/mL Kit 00 [facility]. [place] Vital Signs Vital Name Observation Time Observation Value Comments Source Systolic blood 2021-11-22 23:33:00 113 mm[Hg] [facility] Diastolic blood 2021-11-22 23:33:00 92 mm[Hg] [facility] Heart rate 2021-11-22 23:33:00 65 /min [facility] Respiratory rate 2021-11-22 23:33:00 16 /min [facility] Oxygen saturation in 2021-11-22 23:33:00 99 /min [facility] Arterial blood by [facility] Pulse oximetry [place] Body temperature 2021-11-22 21:58:00 36 Carole [facility] Body height 2021-11-22 21:58:00 170.2 cm [facility] Body weight 2021-11-22 21:58:00 83.915 kg [facility] [place] [facility] BMI 2021-11-22 21:58:00 28.98 kg/m2 [facility] [place] [facility] Systolic blood 2020-11-17 17:48:00 136 mm[Hg] Univer sity of pressure [place] [facility] Diastolic blood 2020-11-17 17:48:00 75 mm[Hg] Unive rsity of pressure [place] [facility] Respiratory rate 2020-11-17 17:48:00 18 /min Univ ersity of [place] [facility] Body temperature 2020-11-17 17:34:00 36.56 Carole Univ ersity of [place] [facility] Oxygen saturation in 2020-11-17 17:34:00 100 /min University of Arterial blood by [address] Pulse oximetry Branch Heart rate 2020-11-17 15:07:00 67 /min [facility] [place] [facility] Body height 2020-11-16 18:03:00 170.2 cm [facility] [place] [facility] Body weight 2020-11-16 18:03:00 87.998 kg [facility] [place] [facility] BMI 2020-11-16 18:03:00 30.38 kg/m2 [facility] [place] [facility] Systolic blood 2020-11-03 14:55:00 132 mm[Hg] Univer sity of pressure [place] [facility] Diastolic blood 2020-11-03 14:55:00 61 mm[Hg] Unive rsity of pressure [place] [facility] Heart rate 2020-11-03 14:55:00 65 /min [facility] [place] [facility] Body temperature 2020-11-03 14:55:00 36.94 Carole Univ ersity of [place] [facility] Respiratory rate 2020-11-03 14:55:00 15 /min Univ ersity of [place] [facility] Oxygen saturation in 2020-11-03 14:55:00 99 /min University of Arterial blood by [address] Pulse oximetry Branch Body height 2020-11-01 19:45:00 170.2 cm [facility] [place] [facility] Body weight 2020-11-01 19:45:00 86.637 kg [facility] [place] [facility] BMI 2020-11-01 19:45:00 29.91 kg/m2 [facility] [place] [facility] Procedures Procedure Date / Time Performed Performing Clinician Sour e URINALYSIS 2021-11-22 22:37:00 Salvatore Wilson [facility] XR CHEST 1 VW 2021-11-22 22:26:33 Salvatore Wilson [facility] TROPONIN I 2021-11-22 22:16:00 Salvatore Wilson [facility] COMP. METABOLIC PANEL 2021-11-22 22:16:00 Salvatore Wilson [facility] ([id number]) Medical Branch N-TERMINAL PRO-BNP 2021-11-22 22:16:00 Salvatore Wilson [facility] y [facility] CBC WITH DIFF 2021-11-22 22:15:00 Salvatore Wilson [facility] COVID-19 (ID NOW RAPID 2021-11-22 22:15:00 Salvatore Wilson [facility] TESTING) Medical Branch NOTICE OF PRIVACY 2021-11-22 21:52:55 Doctor Unassigned, No [facility] PRACTICES Name Medical Branch CONSENT/REFUSAL FOR 2021-11-22 21:52:30 Doctor Unassigned, No [facility] DIAGNOSIS AND Name Medical Branch TREATMENT CONSENT/REFUSAL FOR 2020-11-16 17:22:15 Doctor Unassigned, No Un [facility] DIAGNOSIS AND Name Medical Branch TREATMENT ASSIGNMENT OF BENEFITS 2020-11-16 17:21:27 Doctor Unassigned, No [facility] Medical Branch ASSIGNMENT OF BENEFITS 2020-11-02 15:47:57 Doctor Unassigned, No [facility] Medical Branch ASSIGNMENT OF BENEFITS 2020-10-12 16:45:27 Doctor Unassigned, No [facility] Medical Branch [id number] 2020-03-16 00:00:00 MURED [facility] Encounters Start End Encounter Admission Attending Care Care Encounter Source Date/Time Date/Time Type Type Clinicians Facility Department ID 2021-08-27 Outpatient Urban DUBOIS [facility] JATIN [id number] Univers 17:04:[address] [facility] 2021-08-27 Outpatient Urban DUBOIS [facility] JATIN [id number] Univers 13:37:[address] [facility] 2021-08-27 [facility] [id number] Univers 09:12:[address] [facility] 2020-03-17 Inpatient TAMI Sung [facility] [id number] [facility] 09:33:00 Edward [facility] 2020-03-16 Inpatient Pineda [facility] [id number] [facility] 07:30:00 Edward [id number] [facility] 2021-11-28 2021-11-28 Outpatient SIM_Tan [facility] [id number] [place] 12:03:00 12:03:00 [address] [facility] 2021-11-22 2021-11-22 Emergency X [facility] ERT [id number] Univers 15:47:00 18:04:[address] [facility] 2021-11-22 2021-11-22 Emergency [facility] [id number] Univers 15:47:00 18:04:00 Salvatore OROURKE [id number] i ty of [place] [id number] [facility] [id number] [facility] 084 Branch 2021-07-20 2021-07-20 Outpatient SIM_Tan [facility] [id number] [place] 03:38:00 03:38:00 922 Commun i ty [facility] 2021-07-20 2021-07-20 Outpatient Marleen Montemayor [facility] [id number] 00:00:00 00:00:00 Marilyn [id number] 2021-01-24 2021-01-24 Outpatient KEFFER_Tan [facility] [id number] [place] 02:20:00 02:20:00 329 Commun i [facility] 2020-12-28 2020-12-28 Outpatient KEWILLAM_Tan [facility] [id number] 0210 [place] 01:01:00 01:01:00 302 Commun i [facility] 2020-11-23 2020-11-23 Outpatient KEFFER_Tan [facility] [id number] 0210 [place] 01:02:00 01:02:00 126 Commun i ty [facility]osp[facility] Clinics 2020-11-22 2020-11-22 Outpatient SIM_Tan [facility] [id number] 0210 [place] 03:29:00 03:29:00 125 Commun i ty Hospita [facility] Clinics 2020-11-17 2020-11-17 [facility] [id number] Univers 08:59:00 12:35:00 Encounter Sarwat Orourke [id number] ity [place] 4[place]2.686 [place] [id number] [address] 2020-11-03 2020-11-03 [facility] [id number] Univers 06:15:00 09:11:00 Encounter Sarwat Orourke [id number] it[place] 4[place]2.[place] [id number] [address] 2020-11-02 2020-11-[address] [facility] [id number] Univers 10:30:00 10:30:00 [id number] ity of [facility] 2020-11-02 2020-11-02 Orders Doctor ROSENDO [id number] Univers 00:00:00 00:00:00 Only Unassigned, ELLY [id number] ity of [place] [facility] 4.2.7.2.686 Arjun as [id number] [facility] 009 Branch 2020-10-26 2020-10-26 Outpatient SIM_Tan [facility] [id number] [place] 06:13:00 06:13:00 229 Commun i ty Hospita [facility] Clinics 2020-10-12 2020-10-12 Laboratory Only, Adc Test [facility] [id number] Univers 10:47:24 11:02:24 Only SilvinoSarwat Tan [place] 350.1.13.1 0 ity [place] 4[place]2.[place].2.686 [place] [id number] [facility] 353 Branch 2020-10-12 2020-10-[address] [facility] [id number] Univers 10:30:00 10:30:00 [id number] [facility] 2020-10-12 2020-10-[address] [facility] [id number] Univers 10:30:00 10:30:00 SARWAT [facility] 2020-10-12 2020-10-12 Orders Doctor ROSENDO [id number] Univers 00:00:00 00:00:00 Only Unassigned, ELLY [id number] ity of [place] [facility] 4.2.7.2.686 Arjun as [id number] [address] 2020-10-06 2020-10-06 [employer], Adc Lab Main [facility] [id number] Univers 17:11:43 17:26:43 Visit Sarwat Dubois 350.1.13.1 0 ity [place] 4[place]2.[place].2.686 [place] Profess[place] [id number] Md dical [address] 2020-10-06 2020-10-[address] [facility] [id number] Univers 16:30:00 16:30:00 [facility] 2020-10-06 2020-10-06 Outpatient Urban [facility] [id number] Univers 16:30:00 16:30:00 SARWAT [facility] 2020-09-15 2020-09-15 Outpatient marlenaffer_a [facility] MMG 2019 [place] 02:47:00 02:47:00 1118 Medical [facility] 2020-03-12 2020-03-12 Outpatient AIDEN Sung REF [id number] [facility] 15:18:00 15:18:[id number] [facility] 2020-03-12 2020-03-12 Outpatient Jorge Cook [facility] [id number] [facility] 09:00:00 09:00:00 [id number] [facility] 2018-09-24 2018-09-24 Outpatient sim_a MMG MMG [id number] [place] 10:35:00 10:35:00 0331 Medical [facility] Results Test Description Test Time Test Comments Results Result Comments Source TROPONIN I 2021-11-22 22:56:09 Test Item Value Reference Range Interpretation Comme nts TROPONIN I (test code = 0.001 ng/mL See_Comment [Au tomated message] The [id number]) system which ge nerated this result tra nsmitted reference range : <=0.034. The reference r octaviano was not used to int erpret this result as normal/abnormal . JACK (test code = JACK) Reference (Normal) Range (defined by the 99th percentile reference limit): <= 0.034 ng/mL Note: Cardiac troponin begins to rise 3-4 hours after the onset of ischemia. Repeat in 4-6 hours if the sample was drawn within 3-4 hours of the onset of the symptom and found normal. Diagnosis of myocardial injury is made with acute changes in cTn concentrations with at least one serial sample above the 99th percentile upper reference limit (URL), taken together with the patient's clinical presentation. Biotin has been reported to cause a negative bias, interpret results relative to patient's use of biotin. Lab Interpretation Normal (test code = 59825-6) [facility] [id number] 22:52:51 Test Item Value Reference Range Interpretation Comments NT-proBNP (test code 56 pg/mL See_Comment [Autom ated = [id number]) message] The system which generated this result transmitted reference range : <=450. The reference range was not used to interpret this result as normal/abnormal . JACK (test code = JACK) Biotin has been reported to cause a negative bias, interpret results relative to patient's use of biotin. Lab Interpretation Normal (test code = 64906-9) [facility] METABOLIC PANEL (10122)2021-11-22 22:44:07 Test Item Value Reference Range Interpretation Comments NA (test code = 133 mmol/L 135-145 L 8387223117) K (test code = 5.0 mmol/L 3.5-5.0 4006291752) CL (test code = 100 mmol/L 98-108 7628603244) CO2 TOTAL (test code = 29 mmol/L 23-31 7983032418) AGAP (test code = 2-16 8584227938) BUN (test code = 21 mg/dL 7-23 5511751185) GLUCOSE (test code = 142 mg/dL 70-110 H 6765505126) CREATININE (test code = 0.93 mg/dL 0.60-1.25 3998604297) TOTAL BILI (test code = 0.3 mg/dL 0.1-1.2 6948342550) CALCIUM (test code = 8.5 mg/dL 8.6-10.6 L 5058380088) T PROTEIN (test code = 5.9 g/dL 6.3-8.2 L 5752538825) ALBUMIN (test code = 3.4 g/dL 3.5-5.0 L 5861342584) ALK PHOS (test code = 73 U/L 34-122 3461869329) ALTv (test code = 16 U/L 5-50 1742-6) AST(SGOT) (test code = 27 U/L 13-40 5966001383) eGFR (test code = mL/min/1.73m2 1257260349) JACK (test code = JACK) Association of Glomerular Filtration Rate (GFR) and Staging of Kidney Disease* + --+ --+ ------+| GFR (mL/min/1.73 m2) ?| With Kidney Damage ?| ?Without Kidney Damage+ --------+ --------+ +| ?>90 ?| ?Stage one ?| ? Normal ?+ ---+ ---+ -------+| ?60-89 ?| ?Stage two ?| ? Decreased GFR ? + --+ --+ ------+| ?30-59 ?| ?Stage three ?| ? Stage three ? + --+ --+ ------+| ?15-29 ?| ?Stage four ? | ? Stage four ?+ ---+ ---+ -------+| ?<15 (or dialysis) ? ?| ?Stage five ? | ? Stage five ?+ ---+ ---+ -------+ *Each stage assumes the associated GFR level has been in effect for at least three months. ?Stages 1 to 5, with or without kidney disease, indicate chronic kidney disease. Notes: Determination of stages one and two (with eGFR >59mL/min/1.73 m2) requires estimation of kidney damage for at least three months as defined by structural or functional abnormalities of the kidney, manifested by either:Pathological abnormalities or Markers of kidney damage (including abnormalities in the composition of the blood or urine or abnormalities in imaging tests). Lab Interpretation Abnormal (test code = 81914-1) [facility] WITH [id number] 22:33:46 Test Item Value Reference Range Interpretation Comments WBC (test code = See_Comment [Automated 6690-2) message] The sy stem which generated this result transmitted reference range : 4.20 - 10.70 10*3/?L. The reference range was not used to interpret this result as normal/abnormal . RBC (test code = See_Comment L [Automated 789-8) message] The sy stem which generated this result transmitted reference range : 4.26 - 5.52 10*6/?L. The reference range was not used to interpret this result as normal/abnormal . HGB (test code = 13.3 g/dL 12.2-16.4 718-7) HCT (test code = 40.3 % 38.4-49.3 4544-3) MCV (test code = 97.8 fL 81.7-95.6 H 787-2) MCH (test code = 32.3 pg 26.1-32.7 785-6) MCHC (test code = 33.0 g/dL 31.2-35.0 786-4) RDW-SD (test code = 43.8 fL 38.5-51.6 73866-8) RDW-CV (test code = 12.1 % 12.1-15.4 788-0) PLT (test code = See_Comment [Automated 777-3) message] The sy stem which generated this result transmitted reference range : 150 - 328 10*3/ ?L. The reference r octaviano was not used to interpret this result as normal/abnormal . MPV (test code = 10.6 fL 9.8-13.0 51953-8) NRBC/100 WBC (test See_Comment [Automat ed code = 6546201368) message] The system which generated this result transmitted reference range : 0.0 - 10.0 /100 WBCs. The refer ence range was not u sed to interpret th is result as normal/abnormal . NRBC x10^3 (test code <0.01 See_Comment [Auto mated = 7748002088) message] The s ystem which generated this result transmitted reference range : 10*3/?L. The reference range was not used to interpret this result as normal/abnormal . GRAN MAT (NEUT) % 71.8 % (test code = 770-8) IMM GRAN % (test code 0.40 % = 3996070958) LYMPH % (test code = 16.4 % 736-9) MONO % (test code = 7.9 % 5905-5) EOS % (test code = 2.8 % 713-8) BASO % (test code = 0.7 % 706-2) GRAN MAT x10^3(ANC) 5.80 10*3/uL 1.99-6.95 (test code = 1317130213) IMM GRAN x10^3 (test 0.03 10*3/uL 0.00-0.06 code = 3653907914) LYMPH x10^3 (test code 1.33 10*3/uL 1.09-3.23 = 731-0) MONO x10^3 (test code 0.64 10*3/uL 0.36-1.02 = 742-7) EOS x10^3 (test code = 0.23 10*3/uL 0.06-0.53 711-2) BASO x10^3 (test code 0.06 10*3/uL 0.01-0.09 = 704-7) Lab Interpretation Abnormal (test code = 84989-0) [facility] [id number] 10:27:00 RUN DATE: 03/23/20 [facility] - LAB PAGE 1 RUN TIME: 1028 Specimen Inquiry RUN USER: INTERFACE PATIENT: NINO MOHAMUD LOC: Yi MUHAMMAD B U #: [id number] AGE/SX: 74/M ROOM: [facility] RE03/17/20[facility] DR: Teodoro Sung MD : 44 BED: 1 DIS: STATUS: ADM IN TLOC: SPEC #: [id number] RECD: 03/16/20 STATUS: COLETTE RE #: [id number] RODDY: 03/16/20-1128 [facility] DR: Teodoro Sung MD ENTERED: 03/16/20 SP TYPE: SURG OTHR DR: Marleen Montemayor MD, Alvin MDORDERED: PATHGM3, PATH SPEC, SEPAL/, H E STAIN/2 HISTOLOGY: TISSUE ID BLK [...] DESCRIPTION The specimen is received in a formalin- filled container labeled with at least two patient identifiers and "cervical 3-4, 4-5, 5-6, bone and tendon". It consists of multiple irregular pieces of soft tissue, fibroconnective tissue and bone ranging from 0.4 up to 5 cm. No discrete lesions are identified. Representativesections are submitted in a single cassette after decalcification. RECREATION LEADER/th MICROSCOPIC DESCRIPTION Microscopic examination is performed. Signed SIGNATURE ON FILE Jeane Flowers 03/23/20 1027 END OF REPORT GLUBED 2020-03-22 11:33:00 Test Item Value Reference Range Interpretation Comments GLUBED (test code = GLUBED) 102 MG/DL 70-105 N BASIC METABOLIC [id number] 06:52:00 Test Item Value Reference Range Interpretation [...] data elements a re missing the Laboratory orsa ot compute an estimation of t he glomerular filtration rate . CREATININE (test 0.6 mg/dL 0.8-1.5 L code = CREAT) CALCIUM (test code 8.3 mg/dL 8.8-10.2 L = CA) [id number] 06:52:00 Test Item Value Reference Range Interpretation Comments MAGNESIUM (test code = MAG) 2.0 mg/dL 1.4-2.6 N CBC W/AUTO [id number] 06:50:00 Test Item Value Reference Range Interpretation [...] = BA#) 0.01 x10 3/uL 0.0-0.20 N [id number] 16:27:00 Test Item Value Reference Range Interpretation Comments GLUBED (test code = GLUBED) 107 MG/DL 70-105 H [id number] 12:01:00 Test Item Value Reference Range Interpretation Comments GLUBED (test code = GLUBED) 108 MG/DL 70-105 H BASIC METABOLIC [id number] 07:20:00 Test Item Value Reference Range Interpretation [...] mg/dL 8.8-10.2 N = CA) CBC W/AUTO [id number] 06:38:00 Test Item Value Reference Range Interpretation [...] = BA#) 0.02 x10 3/uL 0.0-0.20 N [id number] 06:05:00 Test Item Value Reference Range Interpretation Comments GLUBED (test code = GLUBED) 119 MG/DL 70-105 H [id number] 20:51:00 Test Item Value Reference Range Interpretation Comments GLUBED (test code = GLUBED) 125 MG/DL 70-105 H [id number] 17:40:00 Test Item Value Reference Range Interpretation Comments GLUBED (test code = GLUBED) 87 MG/DL 70-105 N [id number] 17:16:00 Test Item Value Reference Range Interpretation Comments GLUBED (test code = GLUBED) 59 MG/DL 70-105 L [id number] 11:15:00 Test Item Value Reference Range Interpretation Comments GLUBED (test code = GLUBED) 76 MG/DL 70-105 N BASIC METABOLIC [id number] 05:20:00 Test Item Value Reference Range Interpretation [...] mg/dL 8.8-10.2 L = CA) CBC W/AUTO [id number] 05:10:00 Test Item Value Reference Range Interpretation [...] = BA#) 0.02 x10 3/uL 0.0-0.20 N [id number] 02:21:00 Test Item Value Reference Range Interpretation Comments GLUBED (test code = GLUBED) 91 MG/DL 70-105 N [id number] 20:34:00 Test Item Value Reference Range Interpretation Comments GLUBED (test code = GLUBED) 100 MG/DL 70-105 N [id number] 12:10:00 Test Item Value Reference Range Interpretation Comments GLUBED (test code = GLUBED) 104 MG/DL 70-105 N [id number] 06:01:00 Test Item Value Reference Range Interpretation Comments GLUBED (test code = GLUBED) 118 MG/DL 70-105 H BASIC METABOLIC [id number] 04:40:00 Test Item Value Reference Range Interpretation [...] mg/dL 8.8-10.2 L = CA) CBC W/AUTO [id number] 04:33:00 Test Item Value Reference Range Interpretation [...] = BA#) 0.01 x10 3/uL 0.0-0.20 N [id number] 01:36:00 Test Item Value Reference Range Interpretation Comments GLUBED (test code = GLUBED) 144 MG/DL 70-105 H [id number] 18:25:00 Test Item Value Reference Range Interpretation Comments GLUBED (test code = GLUBED) 136 MG/DL 70-105 H - XR SPINE 1 V SPEC [id number] 14:15:00Patient Name: NINO MOHAMUD Unit No: [id number] EXAMS: CPT CODE: [id number] XR SPINE 1 V SPEC LEVEL 06694 Cervical spine 2 views intraoperative 03/16/2020 2:14 PM CLINICAL HISTORY: Instrument localization COMPARISON: None available LOCATION: W1 IMPRESSION: On the second submitted image, a spinous process clamp projects posterior to C2-3. Confirmation of probe location was not requested by the operating surgeon. at 1415 Reported and signed by: TAIWO PUCKETT M.D. CC: Marleen Montemayor MD; Teodoro Sung MD Technologist: ANGELIA EDOUARD RT(R) Fluoro Time: DAP (Gy m2): Air Kerma (mGy): Trscr Dt/Tm: 03/16/2020 (1415) by:[email or web address] Printed Date/Time: 03/16/2020 (1418) Name: NINO MOHAMUD [facility] Phys: Teodoro Quinones MD [address] : 1945 Age: 74 Sex: [place] [address] Loc: P.0212 1 Exam Date: 03/16/2020 Status: ADM IN PH: FAX: PAGE 1 Signed Report Coronavirus 2019 nCoV [id number] 06:12:00 Test Item Value Reference Range Interpretation Comments Coronavirus 2019 nCoV Bedside (test Negative NEGATIVE code = [id number]) UA RFLX MICR CULT IF [id number] 15:57:00 Test Item Value Reference Range Interpretation [...] AVG 11.04~~~~~~~~~~ ~~~~~~~ ~~~~~~~~~~~~~~~ ~~~~~~~ ~~~~~~~~~~~~~~~ ~~~~~~N [facility] mary Education (MNEP ) Guidelines:~~~~ ~~~~~~~ ~~~~~~~~~~~~~~~ ~~~~~~~ ~~~~~~~~~~~~~~~ ~~~~~~~ ~~~~~ HDL Cholesterol<4 0mg/dL: HDL Cholesterol (Major risk factor for CHD)>60mg/dL: H DL Cholesterol (Ne gative risk factor for CHD)40-59mg/dL: Borderline Risk L DL Cholesterol<1 00mg/dL : Desirable LDL -C niwkrjknwzpni69 0-159mg /dL: Borderline High Risk LDL-C jcbbithxxrqsh17 0-189mg /dL: High risk LDL-C concentration H DL-LDL Cholesterol is affected by a n umber of factors such as smoking, age an d sex.~~~~~~~~~~~ ~~~~~~~ ~~~~~~~~~~~~~~~ ~~~~~~~ ~~~~~~~~~~~~~~~ ~~~~~ PROTHROMBIN [id number] 14:46:00 Test Item Value Reference Range Interpretation [...] 2.5-3.5recurren t systemic emboli sm. THROMBOPLASTIN TIME [id number] 14:46:00 Test Item Value Reference Range Interpretation Comments THROMBOPLASTIN TIME 31.1 SECONDS 26.0-35.9 N INTERPRE TATIVE PARTIAL (test code = DATA: erapeutic PTT) range: Unfractionated heparin:47 - 71 seconds Argatroban:1.5 to 3 times the basel ine PTT UA RFLX MICR CULT IF [id number] 14:40:00 Test Item Value Reference Range Interpretation [...] = SQU) Indication for culture: Dysuria/FrequencyCBC W/AUTO [id number] 14:37:00 Test Item Value Reference Range Interpretation [...] BA#) 0.04 x10 3/uL 0.0-0.20 N BLOOD [id number] 23:00:00 Test Item Value Reference Range Interpretation Comments CULTURE (BEAKER) (test No growth in 5 days code = 1095) BLOOD [id number] 23:00:00 Test Item Value Reference Range Interpretation Comments CULTURE (BEAKER) (test No growth in 5 days code = 1095) BASIC METABOLIC [id number] 08:26:00 Test Item Value Reference Range Interpretation [...] PATIEN TS. CBC W/PLT COUNT & AUTO [id number] 06:33:00 Test Item Value Reference Range Interpretation [...] (test code = 2801) RAPID DRUG SCREEN, [id number] 14:01:00 Test Item Value Reference Range Interpretation [...] situations. Chain of custody not maintained. Some priq-pjz-soeebkn medications, as well as adulterants, may cause inaccurate results. Clinical correlation should be applied. A more comprehensive drug screen or confirmation of a detected drug may be performed upon request.EEG AWAKE/ASLEEP AND [id number] 11:31:00Reason for exam:->encephalopathyEEG REPORT: Aylin Mohamud [facility] , DATE: EEG #: [id number] Code: #: G93.40 Encephalopathy- unspecifiedCPT Code: #: 18532: 01. EEG awake and drowsy; 20-40 minPROCEDURE: [...] clinically.Clinical Fellow: Valeri Catalanurophysiologist: Nohemy Chang URINE [id number] 09:34:00 Test Item Value Reference Range Interpretation Comments CULTURE (BEAKER) (test code = 1095) No growth CBC W/PLT COUNT & AUTO [id number] 07:03:00 Test Item Value Reference Range Interpretation [...] (BEAKER) (test code = 2801) BASIC METABOLIC [id number] 07:00:00 Test Item Value Reference Range Interpretation [...] FOR DIALYSIS PATIEN TS. CT, BRAIN, WITHOUT [id number] 23:34:00FINAL REPORT EXAMINATION NONCONTRAST HEAD CT SCAN [...] clinical concern, consider brain MRI. Signed: Tre Eckertort Verified Date/Time: 11/06/2017 23:34:56 Reading Location: [address] Transitional Reading Room [id number] 19:41:00 Test Item Value Reference Range Interpretation Comments AMMONIA (BEAKER) 35 mol/L 18-72 Specimen mo derately (test code = 348) hemolyzed HEMOGLOBIN [id number] 10:32:00 Test Item Value Reference Range Interpretation Comments HEMOGLOBIN A1C (BEAKER) (test code = 5.4 % 4.3-6.1 368) CBC W/PLT COUNT & AUTO [id number] 07:01:00 Test Item Value Reference Range Interpretation [...] (BEAKER) (test code = 2801) BASIC METABOLIC [id number] 06:47:00 Test Item Value Reference Range Interpretation [...] FOR DIALYSIS PATIEN TS. INFLUENZA A H1N1 [id number] 21:27:00 Test Item Value Reference Range Interpretation Comments INFLUENZA A RNA Not Detected Not Detected, (BEAKER) (test code = Inconclusive 1545) NOVEL H1N1 RNA (BEAKER) Not Detected Not Detected, (test code = 1546) Inconclusive These assays were performed by real-time RT-PCR (self sealing fuel tank repairer-PCR) utilizing fluorogenic hydrolysis probe technology for the detection of human Influenza A viruses and the differential detection of novel H1N1 Influenza virus in respiratory specimens. The test is composed of (1) an RNA extraction from patient specimen, and (2) self sealing fuel tank repairer-PCR amplification and detection with human Influenza A and novel C1J4-umvxspgo primers and probes. A well-conserved region of [...] performance characte ristics determined by the [facility] Pathology Department, Section of Molecular Pathology. It has not been cleared or approved by the U.S. Food and Drug Administration (FDA). SinceFDA approval is not required for clinical use of the test, validation was done as required by The Clinical Laboratory Amendments of 1988.These assays were performed by real-time RT-PCR (self sealing fuel tank repairer-PCR) utilizing fluorogenic hydrolysis probe technology for the detection of human Influenza A viruses and the differential detection of novel H1N1 Influenza virus in respiratory specimens. The test is composed of (1) an RNA extraction from patient specimen, and (2) self sealing fuel tank repairer-PCR amplification and detection with human In fluenza A and novel M6S1-wetaimeu primers and probes. A well-conserved region of [...] its performance characteristics determined by the [facility] Pathology Department, Section of Molecular Pathology. It has not been cleared or approved by the U.S. Food and Drug Administration (FDA). Since FDA approval is not required for clinical use of the test, validation was done as required by The Clinical Laboratory Amendments of 1987.TSH/FREE T4 IF INDICATED 2017-11-05 19:25:00 Test Item Value Reference Range Interpretation Comments THYROID STIMULATING HORMONE 1.87 uIU/mL 0.35-4.94 (BEAKER) (test code = 772) CBC W/PLT COUNT & AUTO [id number] 06:46:00 Test Item Value Reference Range Interpretation [...] MORPHOLOGY (BEAKER) (test code Normal = 762) [id number] 03:48:00 Test Item Value Reference Range Interpretation Comments MAGNESIUM (BEAKER) (test code = 2.1 mg/dL 1.6-2.6 627) BASIC METABOLIC [id number] 03:48:00 Test Item Value Reference Range Interpretation [...] DIALYSIS PATIEN TS. LACTIC ACID, VENOUS, WHOLE [id number] 03:44:00 Test Item Value Reference Range Interpretation Comments LACTATE BLOOD VENOUS (2) (BEAKER) 2.2 mmol/L 0.5-2.2 (test code = 2872) Effective 03/01/2016: Units/Reference Range ChangeNew: 0.5-2.2 mmol/L Previous: 5-20 mg/dLLACTIC ACID, VENOUS, WHOLE [id number] 23:42:00 Test Item Value Reference Range Interpretation Comments LACTATE BLOOD VENOUS (2) (BEAKER) 1.9 mmol/L 0.5-2.2 (test code = 2872) Effective 03/01/2016: Units/Reference Range ChangeNew: 0.5-2.2 mmol/L Previous: 5-20 mg/dLRAPID INFLUENZA A&B [id number] 21:51:00 Test Item Value Reference Range Interpretation Comments RAPID INFLUENZA A AG (BEAKER) Negative Negative, Inconclusive (test code = 1622) RAPID INFLUENZA B AG (BEAKER) Negative Negative, Inconclusive (test code = 1623) PROTHROMBIN [id number] 21:02:00 Test Item Value Reference Range Interpretation Comments PROTIME (BEAKER) (test code = 15.3 seconds 11.7-14.7 H 759) INR (BEAKER) (test code = 370) 1.2 <=5.9 RECOMMENDED COUMADIN/WARFARIN INR THERAPY RANGESSTANDARD DOSE: 2.0 - 3.0 Includes: PROPHYLAXIS forvenous thrombosis, systemic embolization; TREATMENT for venous thrombosis and/or pulmonary embolus.HIGH RISK: Target INR is 2.5-3.5 for patients with mechanical heart valves.OXYGEN SATURATION, [id number] 21:00:00 Test Item Value Reference Range Interpretation [...] 515) SOURCE(BEAKER) (test code = Urine, [place] 2203) CT, CHEST WITH IV CONTRAST- PE TEST [id number] 19:53:00FINAL REPORT CLINICAL HISTORY: Chest pain. FINDINGS: [...] tube in appropriate position. Signed: Chance Nowak Date/Time: 11/04/2017 19:53:50 Reading Location: [address] Reading Room [id number] 19:41:00 Test Item Value Reference Range Interpretation Comments MAGNESIUM (BEAKER) 1.4 mg/dL 1.6-2.6 L Specimen slightly (test code = 627) hemolyzed HEPATIC FUNCTION [id number] 19:41:00 Test Item Value Reference Range Interpretation [...] slightly (test code = 347) hemolyzed TROPONIN [id number] 19:27:00 Test Item Value Reference Range Interpretation [...] and persistent tachyarrhythmia.RAD, CHEST, 1 VIEW, NON [id number] 19:12:00Reason for exam:->sobShould this be performed at [...] MDReport Verified Date/Time: 11/04/2017 19:12:37 Reading Location: [address] Reading Room BLOOD GAS, [id number] 19:03:00 Test Item Value Reference Range Interpretation [...] code = 1819) 60.0 % COMPREHENSIVE METABOLIC [id number] 18:25:00 Test Item Value Reference Range Interpretation [...] ATED GFR. CREATINE KINASE (CK), TOTAL AND [id number] 18:25:00 Test Item Value Reference Range Interpretation Comments CREATINE KINASE TOTAL (BEAKER) 93 U/L 29-200 (test code = 380) CREATINE KINASE-MB (BEAKER) (test 1.0 ng/mL 0.0-6.6 code = 750) CREATINE KINASE-MB INDEX (BEAKER) 1.1 % (test code = 395) CK-MB Reference Range:<6.7 Normal6.7-10.0 Borderline>10.0 AbnormalPOCT-LACTIC ACID, [id number] 18:17:00 Test Item Value Reference Range Interpretation Comments POC-LACTIC ACID, 3.1 mmol/L 0.9-1.7 H TESTED AT [facility] [address] (BEAKER) (test APRIL Dug[place] code = 2805) [address] CBC W/PLT COUNT & AUTO [id number] 18:14:00 Test Item Value Reference Range Interpretation [...] 417) IMMATURE GRANULOCYTES-RELATIVE 1 % 0-1 PERCENT (JENNIFER) (test code = 2801) [id number] 18:05:00 Test Item Value Reference Range Interpretation Comments PROTIME (JNENIFER) (test code = 15.1 seconds 11.7-14.7 H 759) INR (JENNIFER) (test code = 370) 1.2 <=5.9 PARTIAL THROMBOPLASTIN TIME 25.7 seconds 22.5-36.0 (JENNIFER) (test code = 760) RECOMMENDED COUMADIN/WARFARIN INR THERAPY RANGESSTANDARD DOSE: 2.0 - 3.0 Includes: PROPHYLAXIS forvenous thrombosis, systemic embolization; TREATMENT for venous thrombosis and/or pulmonary embolus.HIGH RISK: Target INR is 2.5-3.5 for patients with mechanical heart valves.CT, [facility] [id number] 17:57:00FINAL REPORT CLINICAL HISTORY: Stroke TECHNIQUE: Contiguous [...] MDReport Verified Date/Time: 11/04/2017 17:57:59 Reading Location: [facility] C0[facility] Neuro Reading Room CT, CAROTID, [id number] 17:57:00FINAL REPORT CLINICAL HISTORY: Stroke TECHNIQUE: Contiguous [...] MDReport Verified Date/Time: 11/04/2017 17:57:59 Reading Location: [address] Neuro Reading Room CT, BRAIN/STROKE [id number] 17:09:00 Reason for exam:->altered mental statusWhat is [...] MDReport Verified Date/Time: 11/04/2017 17:09:06 Reading Location: [facility] B1 C013V Neuro Reading Room
[2021-12-31] MEDS ORDERED: NA CHLORIDE 0.9% 500 ML ONE (17:36)
[2021-12-31 18:06] LABS: Absolute Lymphocytes (CBC) 1.8 K/uL (0.7-4.9); Hematocrit 37.9 % (39.6-49.0); Lymphocytes % 10.2 % (15.3-44.8); RBC Red Blood Cell Count 3.92 M/uL (4.33-5.43)
[2021-12-31 18:17] LABS: Potassium 4.6 mmol/L (3.5-5.1); Troponin High Sensitivity 5.4 pg/mL (<58.9)
--- NOTE | 2021-12-31 18:49 | RAD REPORT ---
EXAM DESCRIPTION: CT - Head Brain Wo Cont - 12/31/2021 5:52 pm CLINICAL HISTORY: Dizziness;Weakness COMPARISON: Head Brain Wo Cont dated 04/11/2020; Head Brain Wo Cont dated 05/31/2018 TECHNIQUE: All CT scans are performed using dose optimization technique as appropriate and may inclu de automated exposure control or mA/KV adjustment according to patient size. FINDINGS: No intracranial hemorrhage, hydrocephalus or extra-axial fluid collection.No areas of brai n edema or evidence of midline shift. The paranasal sinuses and mastoids are clear. The calvarium is intact. IMPRESSION: No acute intracranial abnormality.
--- NOTE | 2021-12-31 19:08 | RAD REPORT ---
EXAM DESCRIPTION: RAD - Chest Single View - 12/31/2021 6:47 pm CLINICAL HISTORY: FEVER COMPARISON: Chest Single View dated 04/11/2020; Chest Single View dated 05/31/2018 FINDINGS: Lines: None. Lungs: Ill-defined opacities in the right mid lung and right lung base. Pleural: No significant pleural effusions or pneumothorax. Cardiac: The heart size is within normal limits. Bones: No acute fractures. Other: IMPRESSION: Ill-defined airspace disease in the right mid lung and right lung base could reflect pne umonia.
[2021-12-31 19:13] LABS: SARS-COV-2 RT PCR NEGATIVE (NEGATIVE)
[2021-12-31 19:25] LABS: Urine Blood Negative (Negative); Urine Glucose Negative (Negative); Urine Protein Negative (Negative); Urine Specific Gravity >=1.030 (1.005-1.030)
--- NOTE | 2021-12-31 19:41 | ER ---
Nurse's Notes [facility] Name: Edgardo Marie Age: 76 yrs Sex: Male : 1945 Arrival Date: 12/31/2021 Time: 16:54 Bed 13 Private MD: Diagnosis: Altered mental status, unspecified;Muscle weakness (generalized);Other pneumonia, unspecified organism Presentation: 12/31 17:11 Chief complaint: Spouse and/or significant other states: "the pt woke up today having jd3 some increased weakness all over and with a low grade fever at 99.7. the fever has gone away, but his increased weakness is still here. he does have vascular dementia, so it might just be related to that, but our daughter in law who is an ER nurse said we should probably come in to get checked out just in case.". Coronavirus screen: At this time, the client does not indicate any symptoms associated with coronavirus-19. Ebola Screen: No symptoms or risks identified at this time. Initial Sepsis Screen: Does the patient meet any 2 criteria? No. Patient's initial sepsis screen is negative. Does the patient have a suspected source of infection? No. Patient's initial sepsis screen is negative. Risk Assessment: Do you want to hurt yourself or someone else? Patient reports no desire to harm self or others. Onset of symptoms was December 31, 2021. 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 - Social history:: Smoking status: Patient/guardian denies using tobacco, but has a distant history of tobacco abuse. - Family history:: not pertinent. - Hospitalizations: : No recent hospitalization is reported. Screenin:12 Abuse screen: Denies threats or abuse. Denies injuries from another. Nutritional cb5 screening: No deficits noted. Tuberculosis screening: No symptoms or risk factors identified. Assessment: 17:30 General: Appears comfortable, Behavior is calm, cooperative, appropriate for age. Pain: cb5 Complains of pain in abdomen Pain currently is 3 out of 10 on a pain scale. Neuro: Reports weakness forgetfulness. Cardiovascular: No deficits noted. Respiratory: No deficits noted. GI: No deficits noted. : No deficits noted. EENT: No deficits noted. Derm: No deficits noted. Musculoskeletal: No deficits noted. 21:40 Reassessment: Report called to Nichole REEVES. sv1 Vital Signs: 17:17 BP 122 / 90; Pulse 82; Resp 17 S; Temp 98.0(TE); Pulse Ox 99% on R/A; Weight 95.25 kg jd3 (R); Height 5 ft. 7 in. (170.18 cm) (R); Pain 8/10; 17:17 Body Mass Index 32.89 (95.25 kg, 170.18 cm) jd3 ED Course: 16:54 Patient arrived in ED. as 17:11 Delroy Vanegas MD is Attending Physician. rn 17:13 Triage completed. jd3 17:17 Arm band placed on. jd3 17:29 Snow Lisa, RN is Primary Nurse. cb5 17:29 BNP Sent. cb5 17:29 Troponin High Sensitivity Sent. cb5 17:30 Procalcitonin Sent. cb5 17:30 Basic Metabolic Panel Sent. cb5 17:30 CBC with Diff Sent. cb5 17:30 COVID-19/FLU A+B (Document "Date of Onset" if Symptomatic) Sent. cb5 17:37 Blood Culture Adult (2) Sent. cb5 17:52 CT Head Brain wo Cont In Process Unspecified. EDMS 18:47 XRAY Chest (1 view) In Process Unspecified. EDMS 19:02 Attending Physician role handed off by Delroy Vanegas MD 7 19:02 Krunal Allen MD is Attending Physician. 7 19:02 Primary Nurse role handed off by Snwo Lisa, RN 9 19:15 Snow Lisa, RN is Primary Nurse. cb5 19:15 Report given to Romel, R.N. cb5 19:30 Urine Culture Sent. tw5 19:30 Urine Microscopic Only Sent. tw5 19:40 Francisco Javier Vanegas MD is Hospitalizing Provider. mh7 Administered Medications: 17:37 Drug: NS 0.9% 500 ml Route: IV; Rate: bolus; Site: right antecubital; cb5 19:45 Follow up: IV Status: Completed infusion; IV converted to saline lock tw5 20:41 Drug: LevaQUIN (levofloxacin) 500 mg Volume: 100 ml; Route: IVPB; Infused Over: 60 tw5 mins; Site: right antecubital; 21:34 Follow up: Response: No adverse reaction sv1 21:34 Follow up: IV Status: Completed infusion; IV Intake: 100ml sv1 Intake: 21:34 IV: 100ml; Total: 100ml. sv1 Outcome: 19:41 Decision to Hospitalize by Provider. mh7 22:07 Patient left the ED. sv1 Signatures: Dispatcher [employer] EDMS Alma Fairbanks Roman, MD MD rn Davies, Jonathon, RN RN jd3 Holmes, Maurice, MD MD Joann Ignacio tw5 Irlanda Villafana 9 Julio Cesar Harris RN RN sv1 Snow Lisa, RN RN cb5
--- NOTE | 2021-12-31 19:42 | EDPHYS ---
Physician Documentation [facility] Name: Edgardo Marie Age: 76 yrs Sex: Male : 1945 Arrival Date: 12/31/2021 Time: 16:54 Bed 13 Private MD: ED Physician Krunal Allen HPI: 12/31 17:38 This 76 yrs old Male presents to ER via Wheelchair with complaints of chills, rn generalized weakness, fever. 17:39 Family reports fever earlier today, generalized weakness, chills. Fever gone but rn weakness persistent. No headache/focal neuro complaint/chest pain/sob/abd pain/vomiting/diarrhea. Reports dribbling urination but not new. No fall or head trauma. . Onset: The symptoms/episode began/occurred this morning. Severity of symptoms: At their worst the symptoms were mild in the emergency department the symptoms are unchanged. The patient has experienced similar episodes in the past. The patient has not recently seen a physician. Historical: - Allergies: 17:13 Nexium; jd3 17:13 PENICILLINS; jd3 - Home Meds: 17:13 gabapentin Oral [Active]; Trazodone Oral [Active]; fluoxetine Oral [Active]; jd3 finasteride oral [Active]; Abilify oral [Active]; - PMHx: 17:13 Anaphylactic shock; BPH; Dementia; tremors; jd3 - PSHx: 17:13 eye; ankle; jd3 - Immunization history:: Adult Immunizations up to date, Client reports receiving the 2nd dose of the Covid vaccine, Flu vaccine is up to date. - Social history:: Smoking status: Patient/guardian denies using tobacco, but has a distant history of tobacco abuse. - Family history:: not pertinent. - Hospitalizations: : No recent hospitalization is reported. ROS: 17:39 Constitutional: + fever and chills Eyes: Negative for injury, pain, redness, and journalists and other writers, Neck: Negative for injury, pain, and swelling, Cardiovascular: Negative for chest pain, palpitations, and edema, Respiratory: Negative for shortness of breath, cough, wheezing, and pleuritic chest pain, Abdomen/GI: Negative for abdominal pain, nausea, vomiting, diarrhea, and constipation, Back: Negative for injury and pain, MS/Extremity: Negative for injury and deformity, Skin: Negative for injury, rash, and discoloration, Neuro: Negative for headache, numbness, tingling, and seizure. Exam: 17:39 Constitutional: This is a well developed, well nourished patient who is awake, alert, rn and in no acute distress. Head/Face: Normocephalic, atraumatic. Eyes: Periorbital areas with no swelling, redness, or edema. ENT: MMM Neck: Trachea midline, no thyromegaly or masses palpated, and no cervical lymphadenopathy. Supple, full range of motion without nuchal rigidity, or vertebral point tenderness. No Meningismus. Cardiovascular: Regular rate and rhythm. No pulse deficits. Respiratory: Speaking full sentences. No increased work of breathing, no retractions or nasal flaring. Abdomen/GI: Soft, non-tender Skin: Warm, dry MS/ Extremity: Pulses equal, no cyanosis. Neuro: Awake and alert, GCS 15, oriented to person, place, time, and situation. Cranial nerves II-XII grossly intact. Motor strength 5/5 in all extremities. Sensory grossly intact. Cerebellar exam normal. 17:39 ECG was reviewed by the Attending Physician. [facility] Vital Signs: 17:17 BP 122 / 90; Pulse 82; Resp 17 S; Temp 98.0(TE); Pulse Ox 99% on R/A; Weight 95.25 kg jd3 (R); Height 5 ft. 7 in. (170.18 cm) (R); Pain 8/10; 17:17 Body Mass Index 32.89 (95.25 kg, 170.18 cm) jd3 MDM: 17:11 Patient medically screened. rn 19:39 Differential Diagnosis altered mental status, sepsis, flu. Data reviewed: vital signs, [facility] nurses notes, lab test result(s), CBC, electrolytes, Flu: negative urinalysis, radiologic studies, CT scan, plain films. Data interpreted: Pulse oximetry: on room air is 99 %. Interpretation: normal. Counseling: I had a detailed discussion with the patient and/or guardian regarding: the historical points, exam findings, and any diagnostic results supporting the discharge/admit diagnosis, lab results, radiology results, the need for further work-up and treatment in the hospital. Response to treatment: the patient's symptoms have mildly improved after treatment. 12/31 17:22 Order name: CBC with Diff; Complete Time: 18:17 rn 12/31 17:22 Order name: Basic Metabolic Panel; Complete Time: 18:26 rn 12/31 17:22 Order name: Urine Culture rn 12/31 17:22 Order name: Urine Microscopic Only; Complete Time: 20:00 rn 12/31 17:22 Order name: Blood Culture Adult (2) rn 12/31 17:22 Order name: Procalcitonin; Complete Time: 19:31 rn 12/31 17:22 Order name: CT Head Brain wo Cont; Complete Time: 18:52 rn 12/31 17:22 Order name: COVID-19/FLU A+B (Document "Date of Onset" if Symptomatic); Complete Time: rn 19:31 12/31 17:25 Order name: Troponin High Sensitivity; Complete Time: 18:26 rn 12/31 17:25 Order name: BNP; Complete Time: 18:26 rn 12/31 17:25 Order name: XRAY Chest (1 view); Complete Time: 19:31 rn 12/31 19:25 Order name: Urine Dipstick-Ancillary; Complete Time: 19:31 EDMS 12/31 17:22 Order name: IV Start; Complete Time: 17:30 rn 12/31 17:22 Order name: Urine Dipstick-Ancillary (obtain specimen); Complete Time: 19:30 rn 12/31 17:24 Order name: Cardiac monitoring; Complete Time: 17:30 rn 12/31 17:24 Order name: O2 Sat Monitoring; Complete Time: 17:29 rn EC:39 Rate is 77 beats/min. Rhythm is regular, Normal Sinus Rhythm with No ectopy. QRS [place] mh7 is Normal. OK interval is normal. QRS interval is normal. QT interval is normal. No Q waves. T waves are Flattened in leads I, II, III, aVL, aVF, aVR. No ST changes noted. Clinical impression: NSR w/ Non-specific ST/T Changes. Administered Medications: 17:37 Drug: NS 0.9% 500 ml Route: IV; Rate: bolus; Site: right antecubital; cb5 19:45 Follow up: IV Status: Completed infusion; IV converted to saline lock tw5 20:41 Drug: LevaQUIN (levofloxacin) 500 mg Volume: 100 ml; Route: IVPB; Infused Over: 60 tw5 mins; Site: right antecubital; 21:34 Follow up: Response: No adverse reaction sv1 21:34 Follow up: IV Status: Completed infusion; IV Intake: 100ml sv1 Disposition Summary: 12/31/21 19:41 Hospitalization Ordered Hospitalization Status: Inpatient Admission [facility] Provider: Francisco Javier Vanegas Location: Telemetry/MedSurg (Inpatient) [facility] Condition: Stable [facility] Problem: new [facility] Symptoms: have improved [facility] Bed/Room Type: Standard [facility] Room Assignment: 221(12/31/21 20:48) cg Diagnosis - Altered mental status, unspecified [facility] - Muscle weakness (generalized) [facility] - Other pneumonia, unspecified organism [facility] Forms: - Medication Reconciliation Form [facility] - SBAR form [facility] Signatures: Dispatcher [employer] EDMS Delroy Vanegas MD MD rn Garcia, Cindy, RN RN cg Davies, Jonathon, RN RN jd3 Holmes, Maurice, MD MD [facility] Joann Farley 5 Snow Lisa RN RN 5 Julio Cesar Harris RN sv1 Corrections: (The following items were deleted from the chart) 20:48 19:41 [facility] cg
[2021-12-31 19:56] LABS: Urine Bacteria <20 /HPF (NONE SEEN); Urine Mucus 1+ /HPF (NONE SEEN); Urine RBC <5 /HPF (NONE SEEN)
--- NOTE | 2021-12-31 20:05 | P.HP ---
Certification for Inpatient Patient admitted to: Inpatient With expected LOS: >2 Midnights Patient will require the following post-hospital care: None Practitioner: I am a practitioner with admitting privileges, knowledge of patient current condition, hospital course, and medical plan of care. Services: Services provided to patient in accordance with Admission requirements found in Title 42 Section 412.3 of the Code of Federal Regulations Patient History Date of Service: 12/31/21 Primary Care Provider: Marleen Michaels Reason for admission: Pneumonia History of Present Illness: 76-year-old male with history of vascular dementia presents emergency department for 1 day of chills, confusion and generalized weakness. Patient was evaluated the emergency department where he was found to have significant leukocytosis mildly elevated procalcitonin urinalysis negative his CT head without contrast was negative for acute findings chest x-ray demonstrated right- sided pneumonia. Patient was given Levaquin in the emergency department ED provider wishes to admit for further evaluation and management. Allergies esomeprazole [From Nexium] Allergy (Severe, Verified 04/11/20 22:32) Anaphylaxis Penicillins Allergy (Severe, Verified 04/11/20 22:32) Itching/Hives/Rash Home Medications: Donepezil HCl [Aricept] 10 mg PO BEDTIME 04/11/20 Finasteride [Proscar*] 5 mg PO BEDTIME 04/11/20 Ibuprofen [Advil] 200 mg PO Q6HP PRN 04/11/20 Aspirin [Pierre Chewable Aspirin] 81 mg PO DAILY #30 tab.chew 04/12/20 Folic Acid 1 mg PO DAILY #30 tablet 04/12/20 - Past Medical/Surgical History Diabetic: No -: BPH -: Stenosis lower back -: Vascular dementia -: Dental implants -: Laminectomy Mar 16 2020 -: Left biceps repair Psychosocial/ Personal History: Lives at home with his - Family History Father -: Cancer Notes: lung Mother Notes: no medical hx - Social History Smoking Status: Never smoker CD- Drugs: No Caffeine use: Yes Place of Residence: Home Review of Systems 10-point ROS is otherwise unremarkable General: Chills, Weakness, Malaise, As per HPI Physical Examination - Physical Exam General: Alert, In no apparent distress, Oriented x3 HEENT: Atraumatic, PERRLA, Mucous membr. moist/pink, EOMI, Sclerae nonicteric Neck: Supple, 2+ carotid pulse no bruit, No LAD, Without JVD or thyroid abnormality Respiratory: Clear to auscultation bilaterally, Normal air movement Cardiovascular: Regular rate/rhythm, Normal S1 S2 Gastrointestinal: Normal bowel sounds, No tenderness Musculoskeletal: No tenderness Integumentary: No rashes Neurological: Normal speech, Normal strength at 5/5 x4 extr, Normal tone, Normal affect - Studies Laboratory Data (last 24 hrs) 12/31/21 17:10: Sodium 139, Potassium 4.6, BUN 24 H, Creatinine 1.15, Glucose 98 12/31/21 17:10: WBC 17.60 H, Hgb 13.0 L, Hct 37.9 L, Plt Count 249 Assessment and Plan - Plan Assessment: Right-sided pneumonia Leukocytosis Generalized weakness Vascular dementia complicated with delirium/metabolic encephalopathy related to pneumonia Plan: Right-sided pneumonia: Continue IV antibioticsLevaquin patient with significant penicillin allergy. Blood cultures were obtained in the emergency department. Incentive spirometry. Encourage ambulation. Leukocytosis: Continue as above Generalized weakness: Physical therapy consult in place, continue with other treatment as above. Vascular dementia complicated with delirium/metabolic encephalopathy related to pneumonia: Per patient's mental status has improved he is currently back at his baseline. Continue with care for pneumonia as above. Continue medications when verified. DVT PPX: Lovenox Code status: Full Discharge Plan: Home Plan to discharge in: 48 Hours - Advance Directives Does patient have a Living Will: Yes Does patient have a Durable POA for Healthcare: Yes - Code Status/Comfort Care Code Status Assessed: Yes (Full) Critical Care: No Time Spent Managing Pts Care (In Minutes): 55
[2021-12-31] MEDS ORDERED: Levofloxacin500mg IV 500 MG/100 ML BAG IV ONE (20:32)
[2021-12-31 22:08] VITALS: BMI 35.0
[2021-12-31 22:27] VITALS: O2SAT 99
[2021-12-31] MEDS ORDERED: Levofloxacin500mg IV 500 MG/100 ML BAG IV SCH (22:53)
[2021-12-31] MEDS ORDERED: MELATONIN 5 MG TABLET PO PRN (22:53)
[2021-12-31] MEDS ORDERED: ONDANSETRON 4 MG/2 ML VIAL IV PRN (22:53)
--- NOTE | 2022-01-01 06:21 | P.PN ---
Date of Service: 01/01/22
[2022-01-01 06:26] LABS: Absolute Lymphocytes (CBC) 1.7 K/uL (0.7-4.9); Lymphocytes % 14.6 % (15.3-44.8); RBC Red Blood Cell Count 3.71 M/uL (4.33-5.43)
[2022-01-01 06:40] LABS: Albumin 2.7 g/dL (3.4-5.0); Bilirubin Total 0.6 mg/dL (0.2-1.0); Potassium 4.1 mmol/L (3.5-5.1); Protein, Total 6.2 g/dL (6.4-8.2)
[2022-01-01] MEDS ORDERED: ENOXAPARIN 40 MG/0.4 ML SQ SCH (09:00)
[2022-01-01 09:37] VITALS: BP 137/76; TEMP 96.9
[2022-01-01] MEDS ORDERED: PNEUMOCOCCAL VACCINE 0.5 ML IMVAC ONE (12:00)
[2022-01-01] MEDS ORDERED: INFLUENZA VACCINE (for 6+ mo) 0.5 ML DOSE IMVAC ONE (12:00)
--- NOTE | 2022-01-01 14:23 | P.DS ---
Admission Date: 12/31/21 Discharge Date: 01/01/22 Primary Care Provider: Marleen Michaels Disposition: ROUTINE DISCHARGE Discharge Condition: GOOD Reason for Admission: Pneumonia Procedures: Problem list Community acquired pneumonia Vascular dementia Brief History of Present Illness: 76yo M, PMH: vascular dementia Presented to ED with 1 day of chills, confusion, Tmax: 99.6, and generalized weakness. Patient was found to have a leukocytosis, mildly elevated procalcitonin, and chest x-ray on consistent with a right-sided pneumonia. Patient was started on IV Levaquin and admitted for further management. CT head was negative. Hospital Course: Patient was found to have chest x-ray findings consistent with pneumonia and a leukocytosis. He was treated with IV Levaquin and some gentle IV fluid hydration. He had significant improvement in his symptoms. His leukocytosis significantly improved. He remained afebrile. The following day he was ambulating well with a walker with physical therapy, breathing comfortably on room air, and tolerating regular diet. He was deemed stable for discharge home. To complete a 7-day course of antibiotics. Follow-up with PCP within 3-5 days. Vital Signs/Physical Exam: Temp Pulse Resp BP Pulse Ox 96.9 F 74 18 137/76 92 01/01/22 08:00 01/01/22 08:00 01/01/22 08:00 01/01/22 08:00 01/01/22 08:00 General: Alert, In no apparent distress HEENT: Sclerae nonicteric Neck: Supple, No LAD Respiratory: Clear to auscultation bilaterally, Normal air movement Cardiovascular: No edema, Regular rate/rhythm Gastrointestinal: Soft and benign, Non-distended, No tenderness Integumentary: No breakdown, No significant lesion Neurological: Normal speech, Normal strength at 5/5 x4 extr, Normal affect Laboratory Data at Discharge: WBC 11.90 K/uL (4.3-10.9) H D 01/01/22 05:39 Hgb 12.3 g/dL (13.6-17.9) L 01/01/22 05:39 Hct 36.0 % (39.6-49.0) L 01/01/22 05:39 Plt Count 221 K/uL (152-406) 01/01/22 05:39 Sodium 139 mmol/L (136-145) 01/01/22 05:39 Potassium 4.1 mmol/L (3.5-5.1) 01/01/22 05:39 BUN 20 mg/dL (7-18) H 01/01/22 05:39 Creatinine 0.86 mg/dL (0.55-1.3) 01/01/22 05:39 Glucose 86 mg/dL (74-106) 01/01/22 05:39 Total Bilirubin 0.6 mg/dL (0.2-1.0) 01/01/22 05:39 AST 26 U/L (15-37) 01/01/22 05:39 ALT 25 U/L (12-78) 01/01/22 05:39 Alkaline Phosphatase 67 U/L (45-117) 01/01/22 05:39 Home Medications: Donepezil HCl [Aricept] 10 mg PO DAILY 04/11/20 Finasteride [Proscar*] 5 mg PO BEDTIME 04/11/20 Aripiprazole [Abilify] 2 mg PO DAILY 12/31/21 Fluoxetine HCl 30 mg PO BEDTIME 12/31/21 Gabapentin 100 mg PO BID 12/31/21 Trazodone [Desyrel*] 75 mg PO BEDTIME 12/31/21 levoFLOXacin [Levaquin] 750 mg PO DAILY 7 Days #7 tab 01/01/22 New Medications: levoFLOXacin [Levaquin] 750 mg PO DAILY 7 Days #7 tab Diet: Regular Activity: Ad cesar (walker) Followup: Marleen Vasquez MD [Primary Care Provider] - Time spent managing pt's care (in minutes): 45
== END 2022-01-01 12:11 | disposition home or self-care (01) ==
LOC: ER 16:53 → ERHOLD 20:08 → 2ND 21:46
PROVIDERS: ADMIT Hospitalist; ATTEND Hospitalist
DX: J18.9 Pneumonia, unspecified organism (principal); F01.50 Vascular dementia, unspecified severity, without behavioral disturbance, psychotic disturbance, mood disturbance, and anxiety; G93.41 Metabolic encephalopathy; R53.1 Weakness; R25.1 Tremor, unspecified; N40.0 Benign prostatic hyperplasia without lower urinary tract symptoms; M48.061 Spinal stenosis, lumbar region without neurogenic claudication; Z20.822 Contact with and (suspected) exposure to COVID-19; Z79.82 Long term (current) use of aspirin; Z88.0 Allergy status to penicillin; Z88.8 Allergy status to other drugs, medicaments and biological substances; Z87.891 Personal history of nicotine dependence; Z80.1 Family history of malignant neoplasm of trachea, bronchus and lung
CPT/HCPCS: 96365; 96361; 93005; 87040 ×2; 87088; 85025 ×2; 87086; 80048; 36415; 84484; 80053; 84145; 83880; 0240U; 70450; 71045; 97116; 97161; 97530 ×2; 94010; 99283; J1650; J7040; G0378 ×3; 81003; 81015

== ENCOUNTER 2022-02-07 10:08 | Observation (INO) | payer OTHER, MEDICARE ==
--- OUTSIDE RECORDS SUMMARY | 2022-02-07 10:14 | XMS REPORT | Continuity of Care Document ---
:1945 Author Organization [facility] t Address [address]. [address] [place] [address] Care Team Providers Name Role Phone Nena MONTEMAYOR Primary Care Physician Unavailable Bria DUBOIS Attending Clinician Unavailable Jeaneth Sung Attending Clinician Unavailable Raman LOWE Attending Clinician Unavailable Raman Lowe DO Attending Clinician KEISHA Attending Clinician Unavailable Urban WILSON Attending Clinician Unavailable Urban Thompson Attending Clinician Marilyn Montemayor Attending Clinician [phone] Bria Dubois MD Attending Clinician Doctor Unassigned, Name Attending Clinician Unavailable Only, Test Attending Clinician Unavailable Pob, Lab Main Attending Clinician Unavailable keisha Attending Clinician Unavailable Nathan Attending Clinician Unavailable LIZETTE DAVALOS Attending Clinician Unavailable Bria DUBOIS Admitting Clinician Unavailable Nathan Admitting Clinician Unavailable Raman LOWE Admitting Clinician Unavailable KEISHA Admitting Clinician Unavailable Urban WILSON Admitting Clinician Unavailable Bria Dubois MD Admitting Clinician keisha Admitting Clinician Unavailable Nena Montemayor Admitting Clinician Unavailable MARIN RITCHIE Admitting Clinician Unavailable Payers Payer Name Policy Type Policy Number Effective Date Expiration Date S qian MEDICARE PART A \\T\\ [id number] 2009 B 00:00:00 [facility] [id number] 2017 MEDICARE SUPPLEMENT 00:00:00 [place]: [id number] 2009 [place] SOLUTIONS 00:00:00 [facility] [id number] 2017 OPTIONS (MEDICARE 00:00:00 SUPPLEMENT) Problems Condition Condition Condition Status Onset Resolution Last Treating Co mments Source Name Details Category Date Date Treatment Clinician Date No known No known Disease Unive rs active active ity of problems problems [place] [facility] Allergies, Adverse Reactions, Alerts Allergy Allergy Status Severity Reaction(s) Onset Inactive Treating Comm ents Source Name Type Date Date Clinician esomepra DA Active U 2020-0 [facility] [place] [facility] esomepra DA Active U UNKNOWN 2019-0 [facility] 19 [place] 00:00: [facility] [place] DA Active U 2020-0 [facility] ins 515 [place] 00:[facility]: [facility] 00 are [facility] [place] DA Active U RASH, HIVES 2019-0 [facility] ins 15 [place] 00:00: Health 00 are [facility] ESOMEPRA DRUG Active High Anaphylaxis 2017- Uni vers ZOLE INGREDI 4-11 ity of MAGNESIU 00:00: [place] M 00 Medical Branch Esomepra Drug Active Other - See 0 Pt states Univers zole Allergy comments 4-11 he passed ity of Magnesiu 00:00: out - [place] m 00 drop in Medical BP Branch PENICILL Drug Active Hives 2017-0 Univers INS Class 2-21 ity of 00:00: [place] 00 Medical Branch Penicill Propensi Active Hives 2017-0 Univer s ins ty to 2-21 ity of adverse 00:00: [place] reaction 00 Medical s Branch PENICILL Allergy Active High Sob 2018-[address] [facility] 1-07 [facility] Medical [address] [place] [address] Social History Social Habit Start Date Stop Date Quantity Comments Source Exposure to Not sure University of SARS-CoV-2 [place] [facility] (event) Branch History SDOH University o f Alcohol Frequency [place] [facility] History SDNV University o f Alcohol Std [place] [facility] Drinks Branch History SDNV University o f Alcohol Binge [place] [facility] Alcohol intake 2022-01-15 2022-01-15 Current drinker Unive rsity of 00:00:00 00:00:00 of alcohol [place] [facility] (finding) Branch Tobacco Comment 2020-11-01 2020-11-01 quit on ity of 00:00:00 00:00:00 birthday [facility] Tobacco use and 2018-02-04 2018-02-04 Never used Universit y of exposure 00:00:00 00:00:00 [facility] Alcohol Comment 2018-02-04 2018-02-04 Occasional Universit y of 00:00:00 00:00:00 Drinker [facility] Sex Ass[birth year] Universit y of 00:00:00 00:00:00 [facility] Smoking Status Start Date Stop Date Source Never smoker [facility] Branch Medications Ordered Filled Start Stop Current Ordering Indication Dosage Frequency Signature Comments Components Source Medication Medication Date Date Medication? Clinician (SIG) Name Name NaCl 0.9% 2021- No 1000mL at 999 Uni vers (NS) bolus 3-20 03-20 mL/hr, ity of infusion 22:00: 22:39 1,000 mL, Arjun as 1,000 mL 00 :00 IV Medical Infusion, Branch ONCE, 1 dose, On 01/15/22 at 1700, CIARA NaCl 0.9% 2021- No 1000mL at 999 Uni vers (NS) bolus 1-25 01-25 mL/hr, ity of infusion 23:15: 23:58 1,000 mL, Arjun as 1,000 mL 00 :00 IV Medical Infusion, Branch ONCE, 1 dose, On 11/22/21 at 1715, CIARA finasteride Yes 5mg Take 5 mg U nivers 5 mg tablet 1-20 by mouth ity of 18:39: daily. [address] FLUoxetine Yes 20mg Take 20 mg U nivers (PROZAC) 20 1-20 by mouth ity of mg capsule 18:39: daily. [address] donepeziL 5 Yes 10mg Take 10 mg Univers mg tablet 1-20 by mouth ity of 18:39: at [place] [address] bedtime. Medical Branch gabapentin Yes 300mg Take 300 Un suzanne 300 mg 1-20 mg by ity of capsule 18:39: mouth as [place] [address] needed for Medical Pain Branch (scale 4-6). ARIPiprazol Yes 2mg Take 2 mg U nivers e 2 mg 1-20 by mouth ity of tablet 18:39: daily. [address] trazodone Yes 75mg Take 75 mg Un suzanne HCl 1-20 by mouth. ity of (TRAZODONE 18:39: [place] ORAL) 55 [facility] water for Yes PRN, Univers irrigation 1-20 Starting ity o f irrigation 17:15: Sun [place] solution 00 11/17/20 at [facility] al [address] [place] [address] Until Discontinu ed, Routine, Intra-op sodium Yes PRN, Univers chloride -20 Starting ity of (NS) 17:15: Sun [place] injection 11/17/[address] Until Discontinu ed, Routine, Intra-op neomycin-po Yes PRN, Univer s lymyxin-dex -20 Starting ity of amethasone 17:15: Sun [place] (MAXITROL) 11/17/20 at Med ical 3.5 [facility], [place] mg/g-10,000 Until unit/g-0.1 Discontinu % ed, ophthalmic Routine, ointment Intra-op Hyaluronida Yes PRN, Univer s se, Human 1-20 Starting ity of Recomb. 17:15: Sun [place] (HYLENEX) 11/17/20 at [facility] injection [address] [place] [address] Until Discontinu ed, Routine, Intra-op gentamicin 0 Yes PRN, Univers injection 1-20 Starting ity of 17:15: Sun [place] 00 11/17/[address] Until Discontinu ed, CIARA, Intra-op DUOVISC 0 Yes PRN, Univers (DUOVISC -20 Starting ity of VISCO 17:14: Wed [place] ELASTIC) 3 00 11/17/20 at Med ical %-4 %(0.5 1114, [place] mL) 1 % Until (0.55 mL) Discontinu intraocular ed, injection Routine, Intra-op dexamethaso Yes PRN, Univer s ne -20 Starting ity of (DECADRON 17:14: Wed [place] PHOSPHATE) 11/17/20 at [facility] ical injection 1114, [place] Until Discontinu ed, Routine, Intra-op carbachoL Yes PRN, Univers (MIOSTAT) -20 Starting ity of 0.01 % 17:14: Wed [place] intraocular 11/17/20 at Pr dical injection 1114, [place] Until Discontinu ed, Routine, Intra-op balanced Yes PRN, Univers salt irrig 20 Starting ity o f soln comb1 17:14: Sun [place] (BSS PLUS) 00 11/17/20 at [facility] ica ophthalmic 1114, [place] solution Until 500 mL bag Discontinu ed, Routine, Intra-op eye block Yes PRN, Univers syringe 11 20 Starting ity o f mL 17:14: Sun [place] 11/17/20 at [place] [address], [place] Until Discontinu ed, Intra-op EPINEPHrine Yes PRN, Univer s 1:1,000 (1 - Starting ity o f mg/mL) 17:14: Sun [place] (ADRENALIN) 11/17/20 at Pr dical injection 111, [place] Until Discontinu ed, Routine, Intra-op mydriatic 2020- No .5mL 0.5 mL, Univ ers #5 11-17 Right Eye, ity of ophthalmic 15:15: 16:42 ONCE, 1 Arjun as solution 00 :00 dose, Sun Medica l 0.5 mL 11/17/20 at [place] syringe 0915, Routine, DSU Pre-op lactated 2020- No 1000mL at 42 Unive rs ringers IV -20 01-20 mL/hr, ity of infusion 15:15: 15:12 1,000 mL, Arjun as 1,000 mL 00 :00 IV Medical Infusion, [place] ONCE, 1 dose, 11/17/20 at 0915, Routine, DSU Pre-op finasteride Yes 5mg Take 5 mg U nivers 5 mg tablet -20 by mouth ity of 12:39: daily. [address] FLUoxetine Yes 20mg Take 20 mg U nivers (PROZAC) 20 1-20 by mouth ity of mg capsule 12:39: daily. [place] [address] Medical Branch donepeziL 5 Yes 10mg Take 10 mg Univers mg tablet 1-20 by mouth ity of 12:39: at [place] [address] bedtime. Medical Branch gabapentin 0 Yes 300mg Take 300 Un suzanne 300 mg 1-20 mg by ity of capsule 12:39: mouth as [place] [address] needed for Medical Pain Branch (scale 4-6). ARIPiprazol 0 Yes 2mg Take 2 mg U nivers e 2 mg 1-20 by mouth ity of tablet 12:39: daily. [place] [address] Medical Branch trazodone 0 Yes 75mg Take 75 mg Un suzanne HCl 1-20 by mouth. ity of (TRAZODONE 12:39: [place] [facility] finasteride 0 Yes 5mg Take 5 mg U nivers 5 mg tablet 1-20 by mouth ity of 12:39: daily. [place] [address] Medical Branch FLUoxetine 0 Yes 20mg Take 20 mg U nivers (PROZAC) 20 1-20 by mouth ity of mg capsule 12:39: daily. [place] [address] Medical Branch donepeziL 5 Yes 10mg Take 10 mg Univers mg tablet 1-20 by mouth ity of 12:39: at [place] [address] bedtime. Medical Branch gabapentin Yes 300mg Take 300 Un suzanne 300 mg 1-20 mg by ity of capsule 12:39: mouth as [place] [address] needed for Medical Pain Branch (scale 4-6). ARIPiprazol Yes 2mg Take 2 mg U nivers e 2 mg 1-20 by mouth ity of tablet 12:39: daily. [place] [address] Medical Branch trazodone 0 Yes 75mg Take 75 mg Un suzanne HCl 1-20 by mouth. ity of (TRAZODONE 12:39: [place] ORAL) Medical Branch finasteride 0 Yes 5mg Take 5 mg U nivers 5 mg tablet 1-06 by mouth ity of 15:11: daily. [place] [address] Medical Branch FLUoxetine 0 Yes 20mg Take 20 mg U nivers (PROZAC) 20 1-06 by mouth ity of mg capsule 15:11: daily. [place] [address] Medical Branch donepeziL 5 Yes 10mg Take 10 mg Univers mg tablet 1-06 by mouth ity of 15:11: at [place] [address] bedtime. Medical Branch gabapentin Yes 300mg Take 300 Un suzanne 300 mg 1-06 mg by ity of capsule 15:11: mouth as [place] [address] needed for Medical Pain Branch (scale 4-6). ARIPiprazol Yes 2mg Take 2 mg U nivers e 2 mg 1-06 by mouth ity of tablet 15:11: daily. [address] Branch trazodone Yes 75mg Take 75 mg Un suzanne HCl 1-06 by mouth. ity of (TRAZODONE 15:11: [place] ORAL) Medical [place] mydriatic 2020- No .5mL 0.5 mL, Univ ers #5 11-03 01 Left Eye, ity of ophthalmic 15:00: 12:26 ONCE, 1 Arjun as solution 00 :00 dose, Wed Medica l 0.5 mL 11/03/20 at [place] syringe 0900, Routine, DSU Pre-op water for Yes PRN, Univers irrigation 06 Starting ity o f irrigation 13:24: Sun11/03/20 [place] solution 00 at 0724, Medical Until [place] Discontinu ed, Routine, Intra-op sodium Yes PRN, Univers chloride 11-03 Starting ity of (NS) 13:23: 11/03/20 [place] injection 00 at 0723, Medica l Until [place] Discontinu ed, Routine, Intra-op neomycin-po Yes PRN, Univer s lymyxin-dex 11-03 Starting ity of amethasone 13:23: 11/03/20 [place] (MAXITROL) 00 at 0723, Medic al 3.5 Until [place] mg/g-10,000 Discontinu unit/g-0.1 ed, % Routine, ophthalmic Intra-op ointment Hyaluronida Yes PRN, Univer s se, Human 1- Starting ity of Recomb. 13:23: 11/03/20 [place] (HYLENEX) 00 at 0723, Medica l injection Until Branch Discontinu ed, Routine, Intra-op eye block Yes PRN, Univers syringe 11 06 Starting ity o f mL 13:23: 11/03/20 [place] 00 at 0723, Medical Until Branch Discontinu ed, Intra-op EPINEPHrine Yes PRN, Univer s 1:1,000 (1 -06 Starting ity o f mg/mL) 13:22: 11/03/20 [place] (ADRENALIN) 00 at 0722, Medi joanie injection Until Branch Discontinu ed, Routine, Intra-op DUOVISC Yes PRN, Univers (DUOVISC 06 Starting ity of VISCO 13:22: Sun11/03/20 [place] ELASTIC) 3 00 at 0722, Medic al %-4 %(0.5 Until Branch mL) 1 % Discontinu (0.55 mL) ed, intraocular Routine, injection Intra-op dexamethaso Yes PRN, Univer s ne 11-03 Starting ity of (DECADRON 13:22: Sun11/03/20 [place] PHOSPHATE) 00 at 0722, Medic al injection Until Branch Discontinu ed, Routine, Intra-op carbachoL Yes PRN, Univers (MIOSTAT) 06 Starting ity of 0.01 % 13:22: Sun11/03/20 [place] intraocular 00 at 0722, Medi joanie injection Until Branch Discontinu ed, Routine, Intra-op balanced Yes PRN, Univers salt irrig 06 Starting ity o f soln comb1 13:21: [...] 1-04 by mouth ity of 19:45: at [place] 31 bedtime. Medical Branch ARIPiprazol Yes 2mg Take 2 mg U nivers e 2 mg 1-04 by mouth ity of tablet 19:45: daily. [place] [address] Medical Branch trazodone Yes 75mg Take 75 mg Un suzanne HCl 1-04 by mouth. ity of (TRAZODONE 19:45: [place] ORAL) 31 Medical Branch donepeziL 5 2019-10 Yes 5mg Take 5 mg U nivers mg tablet 2-14 by mouth ity of 18:48: at [place] 12 bedtime. Medical Branch gabapentin 2019-10 Yes 300mg Take 300 Un suzanne 300 mg 2-14 mg by ity of capsule 18:48: mouth as [place] 12 needed for Medical Pain Branch (scale 4-6). donepeziL 5 2019-10 Yes 5mg Take 5 mg U nivers mg tablet 2-14 by mouth ity of 18:48: at [place] 12 bedtime. Medical Branch gabapentin 2019-10 Yes 300mg Take 300 Un suzanne 300 mg 2-14 mg by ity of capsule 18:48: mouth as [place] 12 needed for Medical Pain Branch (scale 4-6). gabapentin 2019-10 Yes 300mg Take 300 Un suzanne 300 mg 2-14 mg by ity of capsule 18:48: mouth as [place] 12 needed for Medical Pain Branch (scale 4-6). FLUoxetine 2019-10 Yes 20mg Take 20 mg U nivers (PROZAC) 20 2-14 by mouth ity of mg capsule 18:48: daily. [address] FLUoxetine 2019-10 Yes 20mg Take 20 mg U nivers (PROZAC) 20 2-14 by mouth ity of mg capsule 18:48: daily. [address] FLUoxetine 2019-10 Yes 20mg Take 20 mg U nivers (PROZAC) 20 2-14 by mouth ity of mg capsule 18:48: daily. [address] Branch finasteride Yes 5mg Take 5 mg U nivers 5 mg tablet 4-11 by mouth ity of 16:38: daily. [address] finasteride 2017-0 Yes 5mg Take 5 mg U nivers 5 mg tablet 4-11 by mouth ity of 16:38: daily. [address] finasteride 2017-0 Yes 5mg Take 5 mg U nivers 5 mg tablet 4-11 by mouth ity of 16:38: daily. [place] [address] Medical Branch finasteride 2018-0 Yes 5mg Take 5 mg U nivers 5 mg tablet 4-11 by mouth ity of 16:38: daily. [place] [address] Medical Branch diphenhydrA 2018-0 Yes 25mg Take 1 [...] 00:00: directed Arjun as mg[facility] diphenhydrA 0 Yes [...] 00:00: directed [facility]jun as [facility] [place] Vital Signs Vital Name Observation Time Observation Value Comments Source Systolic blood 2022-01-15 23:40:00 130 mm[Hg] [facility] Diastolic blood 2022-01-15 23:40:00 88 mm[Hg] [facility] Heart rate 2022-01-15 23:40:00 70 /min [facility] Body temperature 2022-01-15 23:40:00 36.39 Carole [facility] Respiratory rate 2022-01-15 23:40:00 16 /min [facility] Oxygen saturation in 2022-01-15 23:40:00 96 /min [facility] Arterial blood by [facility] Pulse oximetry Branch Body height 2022-01-15 20:34:00 170.2 cm Universi ty of [place] [facility] Body weight 2022-01-15 20:34:00 97.523 kg Universi ty of [place] [facility] BMI 2022-01-15 20:34:00 33.67 kg/m2 Universi ty of [place] [facility] Systolic blood 2021-11-22 23:33:00 113 mm[Hg] Univer sity of pressure [place] [facility] Diastolic blood 2021-11-22 23:33:00 92 mm[Hg] Unive rsity of pressure [place] [facility] Heart rate 2021-11-22 23:33:00 65 /min Universi ty of [place] [facility] Respiratory rate 2021-11-22 23:33:00 16 /min Univ ersity of [place] [facility] Oxygen saturation in 2021-11-22 23:33:00 99 /min University of Arterial blood by [place] [employer] joanie Pulse oximetry Branch Body temperature 2021-11-22 21:58:00 36 Carole Univ ersity of [place] [facility] Body height 2021-11-22 21:58:00 170.2 cm Universi ty of [place] [facility] Body weight 2021-11-22 21:58:00 83.915 kg Universi ty [facility] [place] [facility] BMI 2021-11-22 21:58:00 28.98 kg/m2 Universi ty of [place] [facility] Systolic blood 2020-11-17 17:48:00 136 mm[Hg] Univer sity of pressure [place] [facility] Diastolic blood 2020-11-17 17:48:00 75 mm[Hg] Unive rsity of pressure [place] [facility] Respiratory rate 2020-11-17 17:48:00 18 /min Univ ersity of [place] [facility] Body temperature 2020-11-17 17:34:00 36.56 Carole Univ ersity of [place] [facility] Oxygen saturation in 2020-11-17 17:34:00 100 /min University of Arterial blood by [place] [employer] joanie Pulse oximetry Branch Heart rate 2020-11-17 15:07:00 67 /min Universi ty [facility] [place] [facility] Body height 2020-11-16 18:03:00 170.2 cm Universi ty [facility] [place] [facility] Body weight 2020-11-16 18:03:00 87.998 kg Universi ty of [place] [facility] BMI 2020-11-16 18:03:00 30.38 kg[facility]m2 [facility] Systolic blood 2020-11-03 14:55:00 132 mm[Hg] Univer sity of pressure [facility] Diastolic blood 2020-11-03 14:55:00 61 mm[Hg] [facility] Heart rate 2020-11-03 14:55:00 65 /min [facility] Body temperature 2020-11-03 14:55:[address] [facility] Respiratory rate 2020-11-03 14:55:00 15 /min [facility] Oxygen saturation in 2020-11-03 14:55:00 99 /min [facility] Arterial blood by [facility] Pulse oximetry [place] Body height 2020-11-01 19:45:00 170.2 cm [facility] Body weight 2020-11-01 19:45:00 86.637 kg [facility] BMI 2020-11-01 19:45:00 29.91 kg/m2 [facility] Procedures Procedure Date / Time Performed Performing Clinician Sour e URINALYSIS 2022-01-15 22:39:00 Meli Lowe [facility] CT HEAD WO CONTRAST 2022-01-15 21:55:02 Meli Lowe [facility] CREATINE KINASE 2022-01-15 21:01:00 Meli Lowe [facility] MAGNESIUM 2022-01-15 21:01:00 Meli Lowe [facility] TROPONIN I 2022-01-15 21:01:00 Meli Lowe [facility] COMP. METABOLIC PANEL 2022-01-15 21:01:00 Meli Lowe [facility] ([id number]) [facility] CBC WITH DIFF 2022-01-15 21:01:00 Meli Lowe [facility] N-TERMINAL PRO-BNP 2022-01-15 21:01:00 Meli Lowe [facility] LACTIC ACID WHOLE 2022-01-15 21:00:00 Meli Lowe [facility] URINALYSIS 2021-11-22 22:37:[address] [facility] XR CHEST 1 VW 2021-11-22 22:26:[address] [facility] TROPONIN I 2021-11-22 22:16:[address] [facility] COMP. METABOLIC PANEL 2021-11-22 22:16:[address] [facility] ([id number]) Medical Branch N-TERMINAL PRO-BNP 2021-11-22 22:16:00 [facility] CBC WITH DIFF 2021-11-22 22:15:[address] [facility] COVID-19 (ID NOW RAPID 2021-11-22 22:15:00 Salvatore Wilson [facility] TESTING) Medical Branch NOTICE OF PRIVACY 2021-11-22 21:52:55 Doctor Unassigned, No [facility] Name Medical Branch CONSENT/REFUSAL FOR 2021-11-22 21:52:30 Doctor Unassigned, No [facility] DIAGNOSIS AND [facility] Medical Branch TREATMENT CONSENT/REFUSAL FOR 2020-11-16 17:22:15 Doctor Unassigned, No Un [facility] DIAGNOSIS AND [facility] Medical Branch TREATMENT ASSIGNMENT OF BENEFITS 2020-11-16 17:21:27 Doctor Unassigned, No [facility] Medical Branch ASSIGNMENT OF BENEFITS 2020-11-02 15:47:57 Doctor Unassigned, No [facility] Medical Branch ASSIGNMENT OF BENEFITS 2020-10-12 16:45:27 Doctor Unassigned, No [facility] Medical Branch [id number] 2020-03-16 00:00:00 MURED [facility] [place] [facility] Encounters Start End Encounter Admission Attending Care Care Encounter Source Date/Time Date/Time Type Type Clinicians Facility Department ID 2021-08-27 Outpatient Urban DUBOIS TNBRADY JATIN [id number] Univers 17:04:57 SARWAT [place] [facility] 2021-08-27 Outpatient Urban DUBOIS TNBRADY JATIN [id number] Univers 13:37:54 SARWAT richelle [facility] 2021-08-27 Outpatient ABRAM TNBRADY [facility] [id number] Univers 09:12:27 SARWAT west [facility] 2020-03-17 Inpatient TAMI Sung [facility] GENS [id number] [facility] 09:33:00 Edward [facility] are [facility] 2020-03-16 Inpatient Pineda [facility] DAYS [id number] [facility] 07:30:00 Edward [id number] [facility] are [facility] 2022-01-15 2022-01-15 Emergency X [facility] ERT [id number] Univers 15:35:00 18:58:00 MELI west [facility] 2022-01-15 2022-01-15 Emergency [facility] [id number] Univers 15:35:00 18:58:00 Meli OROURKE [id number] ity [facility] [id number] [facility] [id number] [address] 2021-11-28 2021-11-28 Outpatient KEISHA [facility] [id number] [place] 12:03:00 12:03:00 131 [facility] 2021-11-22 2021-11-[address] [facility] ERT [id number] Univers 15:47:00 18:04:00 SALVATORE richelle [facility] 2021-11-22 2021-11-[address] [facility] [id number] Univers 15:47:00 18:04:00 Salvatore OROURKE [id number] i ty [facility] [id number] [facility] [id number] [address] 2021-07-20 2021-07-20 Outpatient KEISHA [facility] [id number] [place] 03:38:00 03:38:00 922 [facility] 2021-07-20 2021-07-20 Outpatient Marleen Montemayor [facility] [id number] 00:00:00 00:00:00 Mairlyn [id number] 2021-01-24 2021-01-24 Outpatient KEISHA [facility] [id number] [place] 02:20:00 02:20:00 329 [facility] 2020-12-28 2020-12-28 Outpatient SIM_Bria [facility] [id number] [place] 01:01:00 01:01:00 302 [facility] 2020-11-23 2020-11-23 Outpatient SIM_Bria [facility] [id number] [place] 01:02:00 01:02:00 126 Commun i ty [facility] Clin[facility] 2020-11-22 2020-11-22 Outpatient SIM_Bria [facility] [id number] [place] 03:29:00 03:29:00 125 Commun i ty Hospita l [facility] 2020-11-17 2020-11-17 [facility] [id number] Univers 08:59:00 12:35:00 Encounter Sarwat Orourke [id number] ity [facility] [id number] [place] [facility] [id number] [address] 2020-11-03 2020-11-03 [facility] [id number] Univers 06:15:00 09:11:00 Encounter Sarwat Orourke [id number] ity [facility] [id number] [place] [id number] [address] 2020-11-02 2020-11-[address] [facility] [id number] Univers 10:30:00 10:30:00 [id number] ity of [facility] 2020-11-02 2020-11-02 Orders Doctor ROBBINS [id number] Univers 00:00:00 00:00:00 Only Unassigned, ELLY [id number] ity of [facility] [id number] Arjun as [id number] [address] 2020-10-26 2020-10-26 Outpatient CARLOFFER_Bria [facility] [id number] [place] 06:13:00 06:13:00 229 Commun i ty Hosp[facility] Clinics 2020-10-12 2020-10-12 Laboratory Only, Adc Test [facility] [id number] Univers 10:47:24 11:02:24 Only Sarwat Dubois [id number] ity of [place] [id number] [place] [id number] [address] 2020-10-12 2020-10-[address] 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 [id number] Univers 16:30:00 16:30:00 [id number] ity [facility] 2020-10-06 2020-10-[address] [facility] [id number] Univers 16:30:00 16:30:00 SARWAT itrichelle [facility] 2020-09-15 2020-09-15 Outpatient keisha CRAIG [facility] [id number] [place] 02:47:00 02:47:00 [facility] 2020-03-12 2020-03-12 Outpatient AIDEN Sung REF [id number] [facility] 15:18:00 15:18:00 Teodoro [id number] [facility] 2020-03-12 2020-03-12 Outpatient Jorge Cook [facility] 3DAY BP15 [id number] [facility] 09:00:00 09:00:00 [id number] Jeanette jimenez [facility] are [facility] 2018-09-24 2018-09-24 Outpatient sim_bria MMG MMG [id number] [place] 10:35:00 10:35:00 0331 [facility] Results Test Description Test Time Test Comments Results Result Comments Source TROPONIN I 2022-01-15 21:38:57 Test Item Value Reference Range Interpretation Comme nts TROPONIN I (test code = 0.002 ng/mL See_Comment [Au tomated message] The [id number]) system which ge nerated this result tra [...] biotin. Lab Interpretation Normal (test code = 05412-3) [facility] [id number] 21:35:55 Test Item Value Reference Range Interpretation Comments NT-proBNP (test code 128 pg/mL See_Comment [Autom ated = 2084929032) message] The system which generated this result transmitted reference range : <=450. The reference range was not used to interpret this result as normal/abnormal . JACK (test code = JACK) Biotin has been reported to cause a negative bias, interpret results relative to patient's use of biotin. Lab Interpretation Normal (test code = 47880-2) [facility]2022-03-20 21:28:33 Test Item Value Reference Range Interpretation Comments MAGNESIUM (test code = 4773535507) 1.8 mg/dL 1.7-2.4 Lab Interpretation (test code = Normal 73400-1) [facility]. METABOLIC PANEL (30983)2022-01-15 21:28:13 Test Item Value Reference Range Interpretation Comments NA (test code = 135 mmol/L 135-145 3364379879) K (test code = 4.6 mmol/L 3.5-5.0 7378575780) CL (test code = 101 mmol/L 98-108 5872208863) CO2 TOTAL (test code 28 mmol/L 23-31 = 4885779607) AGAP (test code = 2-16 0479648756) BUN (test code = 17 mg/dL 7-23 3267131556) GLUCOSE (test code = 105 mg/dL 70-110 5274116890) CREATININE (test code 0.90 mg/dL 0.60-1.25 = 4094546595) TOTAL BILI (test code 0.5 mg/dL 0.1-1.1 = 6576420527) CALCIUM (test code = 8.7 mg/dL 8.6-10.6 8073540077) T PROTEIN (test code 6.4 g/dL 6.3-8.2 = 6290062037) ALBUMIN (test code = 3.7 g/dL 3.5-5.0 0059065597) ALK PHOS (test code = 76 U/L 34-122 5849623358) ALTv (test code = 18 U/L 5-50 1742-6) AST(SGOT) (test code 32 U/L 13-40 = 4247543467) eGFR (test code = mL/min/1.73m2 5117419122) JACK (test code = JACK) Association of Glomerular Filtration Rate (GFR) and Staging of Kidney Disease* + + +- +| GFR (mL/min/1.73 m2) ?| With Kidney Damage ?| ?Without Kidney Damage+ ------+ ----+ ------+| ?>90 ?| ?Stage one ?| ? Normal ?+ -+ + -+| ?60-89 ?| ?Stage two ?| ? Decreased GFR ? + + +- +| ?30-59 ?| ?Stage three ?| ? Stage three ? + + +- +| ?15-29 ?| ?Stage four ? | ? Stage four ?+ -+ + -+| ?<15 (or dialysis) ? ?| ?Stage five ? | ? Stage five ?+ -+ + -+ *Each stage assumes the associated GFR level [...] or urine or abnormalities in imaging tests). [facility]icsCREATINE [id number] 21:28:13 Test Item Value Reference Range Interpretation Comments CK (test code = 8051322576) 47 U/L 33-194 Lab Interpretation (test code = Normal 99767-3) [facility] WITH [id number] 21:16:36 Test Item Value Reference Range Interpretation Comments WBC (test code = See_Comment [Automated 9490-2) message] The sy stem which generated this result transmitted reference range : 4.20 - 10.70 10*3/?L. The reference range was not used to interpret this result as normal/abnormal . RBC (test code = See_Comment L [Automated 689-8) message] The sy stem which generated this result transmitted reference range : 4.26 - 5.52 10*6/?L. The reference range was not used to interpret this result as normal/abnormal . HGB (test code = 13.2 g/dL 12.2-16.4 718-7) HCT (test code = 39.7 % 38.4-49.3 4544-3) MCV (test code = 97.5 fL 81.7-95.6 H 787-2) MCH (test code = 32.4 pg 26.1-32.7 785-6) MCHC (test code = 33.2 g/dL 31.2-35.0 786-4) RDW-SD (test code = 44.4 fL 38.5-51.6 65840-9) RDW-CV (test code = 12.3 % 12.1-15.4 788-0) PLT (test code = See_Comment [Automated 777-3) message] The sy stem which generated this result transmitted reference range : 150 - 328 10*3/ ?L. The reference r octaviano was not used to interpret this result as normal/abnormal . MPV (test code = 10.3 fL 9.8-13.0 37131-2) NRBC/100 WBC (test See_Comment [Automat ed code = 0735562859) message] The system which generated this result transmitted reference range : 0.0 - 10.0 /100 WBCs. The refer ence range was not u sed to interpret th is result as normal/abnormal . NRBC x10^3 (test code <0.01 See_Comment [Auto mated = 0745277252) message] The s ystem which generated this result transmitted reference range : 10*3/?L. The reference range was not used to interpret this result as normal/abnormal . GRAN MAT (NEUT) % 74.3 % (test code = 770-8) IMM GRAN % (test code 0.60 % = 2912365381) LYMPH % (test code = 14.1 % 736-9) MONO % (test code = 8.9 % 5905-5) EOS % (test code = 1.5 % 713-8) BASO % (test code = 0.6 % 706-2) GRAN MAT x10^3(ANC) 6.07 10*3/uL 1.99-6.95 (test code = 8010383797) IMM GRAN x10^3 (test 0.05 10*3/uL 0.00-0.06 code = 6010905296) LYMPH x10^3 (test code 1.15 10*3/uL 1.09-3.23 = 731-0) MONO x10^3 (test code 0.73 10*3/uL 0.36-1.02 = 742-7) EOS x10^3 (test code = 0.12 10*3/uL 0.06-0.53 711-2) BASO x10^3 (test code 0.05 10*3/uL 0.01-0.09 = 704-7) Lab Interpretation Abnormal (test code = 14769-1) [facility]icsLactic Acid Whole [id number] 21:09:05 Test Item Value Reference Range Interpretation Comments LACTIC ACID (test code = 1.40 mmol/L 0.50-2.20 1864290655) Lab Interpretation (test code = Normal 79735-9) [facility]icsTROPONIN [id number] 22:56:09 Test Item Value Reference Interpretation Comments Range TROPONIN I (test 0.001 ng/mL See_Comment [Automated code = 9214449867) message] The system which generated this result transmitted reference range : <=0.034. The reference range was not used to interpret this result as normal/abnormal . JACK (test code = Reference (Normal) JACK) Range (defined by the 99th percentile reference [...] biotin. Lab Interpretation Normal (test code = 55885-5) [facility] [id number] 22:52:51 Test Item Value Reference Range Interpretation Comments NT-proBNP (test code 56 pg/mL See_Comment [Autom ated = 4240188777) message] The system which generated this result transmitted reference range : <=450. The reference range was not used to interpret this result as normal/abnormal . JACK (test code = JACK) Biotin has been reported to cause a negative bias, interpret results relative to patient's use of biotin. Lab Interpretation Normal (test code = 05321-8) [facility]icsCOMP. METABOLIC PANEL (38807)2021-11-22 22:44:07 Test Item Value Reference Range Interpretation Comments NA (test code = 133 mmol/L 135-145 L 6257024901) K (test code = 5.0 mmol/L 3.5-5.0 8243244284) CL (test code = 100 mmol/L 98-108 4029396538) CO2 TOTAL (test code = 29 mmol/L 23-31 8767876854) AGAP (test code = 2-16 2838555379) BUN (test code = 21 mg/dL 7-23 1150588777) GLUCOSE (test code = 142 mg/dL 70-110 H 1063602676) CREATININE (test code = 0.93 mg/dL 0.60-1.25 2200472034) TOTAL BILI (test code = 0.3 mg/dL 0.1-1.4 5307706327) CALCIUM (test code = 8.5 mg/dL 8.6-10.6 L 7314733684) T PROTEIN (test code = 5.9 g/dL 6.3-8.2 L 9848200786) ALBUMIN (test code = 3.4 g/dL 3.5-5.0 L 7712218769) ALK PHOS (test code = 73 U/L 34-122 8112768211) ALTv (test code = 16 U/L 5-50 1742-6) AST(SGOT) (test code = 27 U/L 13-40 0254895051) eGFR (test code = mL/min/1.73m2 1741363541) JACK (test code = JACK) Association of [...] tests). Lab Interpretation Abnormal (test code = 72487-9) [facility] WITH [id number] 22:33:46 Test Item Value Reference Range Interpretation Comments WBC (test code = See_Comment [Automated 9290-2) message] The sy stem which generated this result transmitted reference range : 4.20 - 10.70 10*3/?L. The reference range was not used to interpret this result as normal/abnormal . RBC (test code = See_Comment L [Automated 469-8) message] The sy stem which generated this [...] RDW-SD (test code = 43.8 fL 38.5-51.6 94938-1) RDW-CV (test code = 12.1 % 12.1-15.4 788-0) PLT (test code = See_Comment [Automated 777-3) message] The sy stem which generated this result transmitted reference range : 150 - 328 10*3/ ?L. The reference r octaviano was not used to interpret this result as normal/abnormal . MPV (test code = 10.6 fL 9.8-13.0 22681-2) NRBC/100 WBC (test See_Comment [Automat ed code = 7777584170) message] The system which generated this result transmitted reference range : 0.0 - 10.0 /100 WBCs. The refer ence range was not u sed to interpret th is result as normal/abnormal . NRBC x10^3 (test code <0.01 See_Comment [Auto mated = 6014682991) message] The s ystem which generated this result transmitted reference range : 10*3/?L. The reference range was not used to interpret this result as normal/abnormal . GRAN MAT (NEUT) % 71.8 % (test code = 770-8) IMM GRAN % (test code 0.40 % = 0572397645) LYMPH % (test code = 16.4 % 736-9) MONO % (test code = 7.9 % 5905-5) EOS % (test code = 2.8 % 713-8) BASO % (test code = 0.7 % 706-2) GRAN MAT x10^3(ANC) 5.80 10*3/uL 1.99-6.95 (test code = 9027912406) IMM GRAN x10^3 (test 0.03 10*3/uL 0.00-0.06 code = 0723561416) LYMPH x10^3 (test code 1.33 10*3/uL 1.09-3.23 = 731-0) MONO x10^3 (test code 0.64 10*3/uL 0.36-1.02 = 742-7) EOS x10^3 (test code = 0.23 10*3/uL 0.06-0.53 711-2) BASO x10^3 (test code 0.06 10*3/uL 0.01-0.09 = 704-7) Lab Interpretation Abnormal (test code = 36218-1) [facility]icsSURGICAL [id number] 10:27:00 RUN DATE: 03/23/20 [facility] - LAB PAGE 1 RUN TIME: 1028 Specimen Inquiry RUN USER: INTERFACE PATIENT: NINO MOHAMUD LOC: [place] POD B U #: [id number] AGE/SX: 74/M ROOM: [facility] RE03/17/20REG DR: Teodoro Sung MD : 44 BED: 1 DIS: STATUS: ADM IN TLOC: SPEC #: [id number] RECD: 03/16/203843 STATUS: COLETTE REQ #: [id number] RODDY: 03/16/[address] [facility] [address]: Teodoro Sung MD ENTERED: 03/16/209541 SP TYPE: SURG OTHR DR: Marleen Montemayor MD, Alvin MDORDERED: PATHGM3, PATH SPEC, DECAL/2, [...] submitted in a single cassette after decalcification. TEACHER CCLC/th MICROSCOPIC DESCRIPTION Microscopic examination is performed. Signed SIGNATURE ON FILE LionelJeane 03/23/20 1027 END OF REPORT GLUBED 2020-03-22 11:33:00 Test Item Value Reference Range Interpretation Comments GLUBED (test code = GLUBED) 102 MG/DL 70-105 N BASIC METABOLIC [id number] 06:52:00 Test Item Value Reference Range Interpretation [...] code 8.3 mg/dL 8.8-10.2 L = CA) [id number] 06:52:00 Test Item Value Reference Range Interpretation Comments MAGNESIUM (test code = MAG) 2.0 mg/dL 1.4-2.6 N CBC W/AUTO [id number] 06:50:00 Test Item Value Reference Range Interpretation [...] = BA#) 0.01 x10 3/uL 0.0-0.20 N [id number] 16:27:00 Test Item Value Reference Range Interpretation Comments GLUBED (test code = GLUBED) 107 MG/DL 70-105 H [id number] 12:01:00 Test Item Value Reference Range Interpretation Comments GLUBED (test code = GLUBED) 108 MG/DL 70-105 H BASIC METABOLIC [id number] 07:20:00 Test Item Value Reference Range Interpretation [...] mg/dL 8.8-10.2 N = CA) CBC W/AUTO [id number] 06:38:00 Test Item Value Reference Range Interpretation [...] = BA#) 0.02 x10 3/uL 0.0-0.20 N [id number] 06:05:00 Test Item Value Reference Range Interpretation Comments GLUBED (test code = GLUBED) 119 MG/DL 70-105 H [id number] 20:51:00 Test Item Value Reference Range Interpretation Comments GLUBED (test code = GLUBED) 125 MG/DL 70-105 H [id number] 17:40:00 Test Item Value Reference Range Interpretation Comments GLUBED (test code = GLUBED) 87 MG/DL 70-105 N [id number] 17:16:00 Test Item Value Reference Range Interpretation Comments GLUBED (test code = GLUBED) 59 MG/DL 70-105 L [id number] 11:15:00 Test Item Value Reference Range Interpretation Comments GLUBED (test code = GLUBED) 76 MG/DL 70-105 N BASIC METABOLIC [id number] 05:20:00 Test Item Value Reference Range Interpretation [...] mg/dL 8.8-10.2 L = CA) CBC W/AUTO [id number] 05:10:00 Test Item Value Reference Range Interpretation [...] = BA#) 0.02 x10 3/uL 0.0-0.20 N [id number] 02:21:00 Test Item Value Reference Range Interpretation Comments GLUBED (test code = GLUBED) 91 MG/DL 70-105 N [id number] 20:34:00 Test Item Value Reference Range Interpretation Comments GLUBED (test code = GLUBED) 100 MG/DL 70-105 N [id number] 12:10:00 Test Item Value Reference Range Interpretation Comments GLUBED (test code = GLUBED) 104 MG/DL 70-105 N [id number] 06:01:00 Test Item Value Reference Range Interpretation Comments GLUBED (test code = GLUBED) 118 MG/DL 70-105 H BASIC METABOLIC [id number] 04:40:00 Test Item Value Reference Range Interpretation [...] mg/dL 8.8-10.2 L = CA) CBC W/AUTO [id number] 04:33:00 Test Item Value Reference Range Interpretation [...] = BA#) 0.01 x10 3/uL 0.0-0.20 N [id number] 01:36:00 Test Item Value Reference Range Interpretation Comments GLUBED (test code = GLUBED) 144 MG/DL 70-105 H [id number] 18:25:00 Test Item Value Reference Range Interpretation Comments GLUBED (test code = GLUBED) 136 MG/DL 70-105 H - XR SPINE 1 V SPEC [id number] 14:15:00Patient Name: NINO MOHAMUD Unit No: [id number] EXAMS: CPT CODE: [id number] XR SPINE 1 V SPEC LEVEL 42108 Cervical spine 2 views intraoperative 03/16/2020 2:14 [...] m2): Air Kerma (mGy): Trscr Dt/Tm: 03/16/2020 (1752) by:[email or web address] Printed Date/Time: 03/16/2020 (0095) Name: NINO MOHAMUD [facility] Phys: Tedooro Quinones MD [address] : 1945 Age: 74 Sex: [place] [address] Loc: P.0212 1 Exam Date: 03/16/2020 Status: ADM IN PH: FAX: PAGE 1 Signed Report Coronavirus 2019 nCoV [id number] 06:12:00 Test Item Value Reference Range Interpretation Comments Coronavirus 2019 nCoV Bedside (test Negative NEGATIVE code = ZEGHS70MTCOI) UA RFLX MICR CULT IF [id number] 15:57:00 Test Item Value Reference Range Interpretation [...] AVG 11.04~~~~~~~~~~ ~~~~~~~ ~~~~~~~~~~~~~~~ ~~~~~~~ ~~~~~~~~~~~~~~~ ~~~~~~N ational Cholest mary Education (NCEP ) Guidelines:~~~~ ~~~~~~~ ~~~~~~~~~~~~~~~ ~~~~~~~ ~~~~~~~~~~~~~~~ ~~~~~~~ ~~~~~ HDL Cholesterol<4 0mg/dL: HDL Cholesterol (Major risk factor for CHD)>60mg/dL: H DL Cholesterol (Ne gative risk factor for CHD)40-59mg/dL: Borderline Risk L DL Cholesterol<1 00mg/dL : Desirable LDL -C gqvssyemlfsms73 0-159mg /dL: Borderline High Risk LDL-C onthpuepsumic16 0-189mg /dL: High risk LDL-C concentration H DL-LDL Cholesterol is affected by a n umber of factors such as smoking, age an d sex.~~~~~~~~~~~ ~~~~~~~ ~~~~~~~~~~~~~~~ ~~~~~~~ ~~~~~~~~~~~~~~~ ~~~~~ PROTHROMBIN [id number] 14:46:00 Test Item Value Reference Range Interpretation [...] 2.5-3.5recurren t systemic emboli sm. THROMBOPLASTIN TIME [id number] 14:46:00 Test Item Value Reference Range Interpretation Comments THROMBOPLASTIN TIME 31.1 SECONDS 26.0-35.9 N INTERPRE TATIVE PARTIAL (test code = DATA:Th erapeutic PTT) range: Unfractionated heparin:47 - 71 seconds Argatroban:1.5 to 3 times the basel ine PTT UA RFLX MICR CULT IF [id number] 14:40:00 Test Item Value Reference Range Interpretation [...] = SQU) Indication for culture: Dysuria/FrequencyCBC W/AUTO [id number] 14:37:00 Test Item Value Reference Range Interpretation [...] BA#) 0.04 x10 3/uL 0.0-0.20 N BLOOD [id number] 23:00:00 Test Item Value Reference Range Interpretation Comments CULTURE (BEAKER) (test No growth in 5 days code = 1095) BLOOD [id number] 23:00:00 Test Item Value Reference Range Interpretation Comments CULTURE (BEAKER) (test No growth in 5 days code = 1095) BASIC METABOLIC [id number] 08:26:00 Test Item Value Reference Range Interpretation [...] PATIEN TS. CBC W/PLT COUNT & AUTO [id number] 06:33:00 Test Item Value Reference Range Interpretation [...] (test code = 2801) RAPID DRUG SCREEN, [id number] 14:01:00 Test Item Value Reference Range Interpretation [...] situations. Chain of custody not maintained. Some tuoi-kfd-vceennk medications, as well as adulterants, may cause inaccurate results. Clinical correlation should be applied. A more comprehensive drug screen or confirmation of a detected drug may be performed upon request.EEG AWAKE/ASLEEP AND [id number] 11:31:00Reason for exam:->encephalopathyEEG REPORT: Aylin Mohamud [facility] , DATE: EEG #: 18-06ICD Code: #: G93.40 Encephalopathy- unspecifiedCPT Code: #: 76332: 01. EEG awake and drowsy; 20-40 minPROCEDURE: [...] other etiology. Please correlate clinically.Clinical Fellow: Valeri RileydiNeurophysiologist: Nohemy Chang URINE [id number] 09:34:00 Test Item Value Reference Range Interpretation Comments CULTURE (BEAKER) (test code = 1095) No growth CBC W/PLT COUNT & AUTO [id number] 07:03:00 Test Item Value Reference Range Interpretation [...] (BEAKER) (test code = 2801) BASIC METABOLIC [id number] 07:00:00 Test Item Value Reference Range Interpretation [...] FOR DIALYSIS PATIEN TS. CT, BRAIN, WITHOUT [id number] 23:34:00FINAL REPORT EXAMINATION NONCONTRAST HEAD CT SCAN [...] [place] Verified Date/Time: 11/06/2017 23:34:56 Reading Location: [address] Transitional Reading Room [id number] 19:41:00 Test Item Value Reference Range Interpretation Comments AMMONIA (BEAKER) 35 mol/L 18-72 Specimen mo derately (test code = 348) hemolyzed HEMOGLOBIN [id number] 10:32:00 Test Item Value Reference Range Interpretation Comments HEMOGLOBIN A1C (BEAKER) (test code = 5.4 % 4.3-6.1 368) CBC W/PLT COUNT & AUTO [id number] 07:01:00 Test Item Value Reference Range Interpretation [...] (BEAKER) (test code = 2801) BASIC METABOLIC [id number] 06:47:00 Test Item Value Reference Range Interpretation [...] FOR DIALYSIS PATIEN TS. INFLUENZA A H1N1 [id number] 21:27:00 Test Item Value Reference Range Interpretation Comments INFLUENZA A RNA Not Detected Not Detected, (BEAKER) (test code = Inconclusive 1545) NOVEL H1N1 RNA (BEAKER) Not Detected Not Detected, (test code = 1546) Inconclusive These assays were performed by real-time RT-PCR (drop clipper-PCR) utilizing fluorogenic hydrolysis probe technology for the detection of human Influenza A viruses and the differential detection of novel H1N1 Influenza virus in respiratory specimens. The test is composed of (1) an RNA extraction from patient specimen, and (2) drop clipper-PCR amplification and detection with human Influenza A and novel K6S6-iesdgbqf primers and probes. A well-conserved region of [...] its performance characte ristics determined by the [facility] Pathology Department, Section of Molecular Pathology. It has not been cleared or approved by the U.S. Food and Drug Administration (FDA). SinceFDA approval is not required for clinical use of the test, validation was done as required by The Clinical Laboratory Amendments of 1988.These assays were performed by real-time RT-PCR (drop clipper-PCR) utilizing fluorogenic hydrolysis probe technology for the detection of human Influenza A viruses and the differential detection of novel H1N1 Influenza virus in respiratory specimens. The test is composed of (1) an RNA extraction from patient specimen, and (2) drop clipper-PCR amplification and detection with human In fluenza A and novel O9S3-iwxbxpni primers and probes. A well-conserved region of [...] and its performance characteristics determined by the [facility] Pathology Department, Section of Molecular Pathology. [...] = 772) CBC W/PLT COUNT & AUTO [id number] 06:46:00 Test Item Value Reference Range Interpretation [...] MORPHOLOGY (BEAKER) (test code Normal = 762) [id number] 03:48:00 Test Item Value Reference Range Interpretation Comments MAGNESIUM (BEAKER) (test code = 2.1 mg/dL 1.6-2.6 627) BASIC METABOLIC [id number] 03:48:00 Test Item Value Reference Range Interpretation [...] DIALYSIS PATIEN TS. LACTIC ACID, VENOUS, WHOLE [id number] 03:44:00 Test Item Value Reference Range Interpretation Comments LACTATE BLOOD VENOUS (2) (BEAKER) 2.2 mmol/L 0.5-2.2 (test code = 2872) Effective 03/01/2016: Units/Reference Range ChangeNew: 0.5-2.2 mmol/L Previous: 5-20 mg/dLLACTIC ACID, VENOUS, WHOLE [id number] 23:42:00 Test Item Value Reference Range Interpretation Comments LACTATE BLOOD VENOUS (2) (BEAKER) 1.9 mmol/L 0.5-2.2 (test code = 2872) Effective 03/01/2016: Units/Reference Range ChangeNew: 0.5-2.2 mmol/L Previous: 5-20 mg/dLRAPID INFLUENZA A&B [id number] 21:51:00 Test Item Value Reference Range Interpretation Comments RAPID INFLUENZA A AG (BEAKER) Negative Negative, Inconclusive (test code = 1622) RAPID INFLUENZA B AG (BEAKER) Negative Negative, Inconclusive (test code = 1623) PROTHROMBIN TIME/[id number] 21:02:00 Test Item Value Reference Range Interpretation Comments PROTIME (BEAKER) (test code = 15.3 seconds 11.7-14.7 H 759) INR (BEAKER) (test code = 370) 1.2 <=5.9 RECOMMENDED COUMADIN/WARFARIN INR THERAPY RANGESSTANDARD DOSE: 2.0 - 3.0 Includes: PROPHYLAXIS forvenous thrombosis, systemic embolization; TREATMENT for venous thrombosis and/or pulmonary embolus.HIGH RISK: Target INR is 2.5-3.5 for patients with mechanical heart valves.OXYGEN SATURATION, [id number] 21:00:00 Test Item Value Reference Range Interpretation [...] 515) SOURCE(BEAKER) (test code = Urine, [place] 6161) CT, CHEST WITH IV CONTRAST- PE TEST [id number] 19:53:00FINAL REPORT CLINICAL HISTORY: Chest pain. FINDINGS: [...] Ve rified Date/Time: 11/04/2017 19:53:50 Reading Location: [address] Reading Room [id number] 19:41:00 Test Item Value Reference Range Interpretation Comments MAGNESIUM (BEAKER) 1.4 mg/dL 1.6-2.6 L Specimen slightly (test code = 627) hemolyzed HEPATIC FUNCTION [id number] 19:41:00 Test Item Value Reference Range Interpretation [...] slightly (test code = 347) hemolyzed TROPONIN [id number] 19:27:00 Test Item Value Reference Range Interpretation [...] and persistent tachyarrhythmia.RAD, CHEST, 1 VIEW, NON [id number] 19:12:00Reason for exam:->sobShould this be performed at [...] MDReport Verified Date/Time: 11/04/2017 19:12:37 Reading Location: [address] Reading Room BLOOD GAS, [id number] 19:03:00 Test Item Value Reference Range Interpretation [...] code = 1819) 60.0 % COMPREHENSIVE METABOLIC [id number] 18:25:00 Test Item Value Reference Range Interpretation [...] ATED GFR. CREATINE KINASE (CK), TOTAL AND [id number] 18:25:00 Test Item Value Reference Range Interpretation Comments CREATINE KINASE TOTAL (BEAKER) 93 U/L 29-200 (test code = 380) CREATINE KINASE-MB (BEAKER) (test 1.0 ng/mL 0.0-6.6 code = 750) CREATINE KINASE-MB INDEX (BEAKER) 1.1 % (test code = 395) CK-MB Reference Range:<6.7 Normal6.7-10.0 Borderline>10.0 AbnormalPOCT-LACTIC ACID, [id number] 18:17:00 Test Item Value Reference Range Interpretation Comments POC-LACTIC ACID, 3.1 mmol/L 0.9-1.7 H TESTED AT [facility] [address] (BEAKER) (test APRIL KNUT[place] code = 2805) 18771 CBC W/PLT COUNT & AUTO [id number] 18:14:00 Test Item Value Reference Range Interpretation [...] 0-1 PERCENT (BEAKER) (test code = 2801) [id number] 18:05:00 Test Item Value Reference Range Interpretation [...] 2.5-3.5 for patients with mechanical heart valves.[facility] [id number] 17:57:00FINAL REPORT CLINICAL HISTORY: Stroke TECHNIQUE: Contiguous [...] Vick Verified Date/Time: 11/04/2017 17:57:59 Reading Location: [address] Neuro Reading Room CT, CAROTID, [id number] 17:57:00FINAL REPORT CLINICAL HISTORY: Stroke TECHNIQUE: Contiguous [...] Vick Verified Date/Time: 11/04/2017 17:57:59 Reading Location: [address] Neuro Reading Room CT, BRAIN/STROKE [id number] 17:09:00 Reason for exam:->altered mental statusWhat is [...] MDReport Verified Date/Time: 11/04/2017 17:09:06 Reading Location: [address] Neuro Reading Room
[2022-02-07] MEDS ORDERED: D10W 250 ML IV ONE (10:40)
[2022-02-07 10:48] LABS: Absolute Lymphocytes (CBC) 1.1 K/uL (0.7-4.9); Hematocrit 37.9 % (39.6-49.0); Lymphocytes % 16.4 % (15.3-44.8); MPV 8.9 fL (7.6-11.3); RBC Red Blood Cell Count 3.98 M/uL (4.33-5.43)
[2022-02-07 10:49] LABS: Protime INR 1.07
--- NOTE | 2022-02-07 10:50 | RAD REPORT ---
EXAM DESCRIPTION: CT - Ct Stroke Brain Wo Cont - 02/07/2022 10:34 am CLINICAL HISTORY: r/o stroke COMPARISON: Head Brain Wo Cont dated 12/31/2021; Head Brain Wo Cont dated 04/11/2020 TECHNIQUE: All CT scans are performed using dose optimization technique as appropriate and may inclu de automated exposure control or mA/KV adjustment according to patient size. FINDINGS: No intracranial hemorrhage, hydrocephalus or extra-axial fluid collection.No areas of brai n edema or evidence of midline shift. The paranasal sinuses and mastoids are clear. The calvarium is intact. IMPRESSION: No acute intracranial abnormality. Findings called to the ED (Adan) at 1030 on 02/07/22
[2022-02-07] MEDS ORDERED: THIAMINE 200 MG/2 ML INJ ONE (10:54)
[2022-02-07] MEDS ORDERED: NA CHLORIDE 0.9% 1,000 ML ONE ×2 (10:55→17:52)
[2022-02-07] MEDS ORDERED: FOLIC ACID 5 MG/ML VIAL ONE (10:55)
[2022-02-07 10:57] LABS: BUN Blood Urea Nitrogen 15 mg/dL (7-18); Bicarbonate 29 mmol/L (21-32); Glucose Level 77 mg/dL (74-106); Potassium 4.1 mmol/L (3.5-5.1); Sodium Level 141 mmol/L (136-145)
[2022-02-07 11:16] LABS: Albumin 2.7 g/dL (3.4-5.0); Bilirubin Direct 0.1 mg/dL (0-0.2); Bilirubin Total 0.3 mg/dL (0.2-1.0); Magnesium 1.9 mg/dL (1.8-2.4); Protein, Total 6.1 g/dL (6.4-8.2)
--- NOTE | 2022-02-07 11:27 | RAD REPORT ---
EXAM DESCRIPTION: RAD - Chest Single View - 02/07/2022 11:13 am CLINICAL HISTORY: stroke protocol COMPARISON: Chest Single View dated 12/31/2021; Chest Single View dated 04/11/2020; Chest Single View d ated 05/31/2018 FINDINGS: Lines: None. Lungs: No evidence of edema or pneumonia. Improved aeration of the right lung base. Pleural: No significant pleural effusions or pneumothorax. Cardiac: The heart size is within normal limits. Bones: No acute fractures. Other: IMPRESSION: No acute cardiopulmonary disease.
--- NOTE | 2022-02-07 12:32 | EDPHYS ---
Physician Documentation [facility] Name: Edgardo Marie Age: 76 yrs Sex: Male : 1945 Arrival Date: 02/07/2022 Time: 10:12 Bed 25 Private MD: ED Physician Holland Bernard HPI: 02/07 10:31 This 76 yrs old Male presents to ER via Unassigned with complaints of S/S of liam Possible Stroke. 10:31 The patient's problem is reported as altered mental status, confused, decreased liam responsiveness. Onset: The symptoms/episode began/occurred just prior to arrival, this morning. Duration: The episode is continuous. Context: the episode(s) was witnessed, by the [facility] staff. The symptoms are alleviated by nothing. The symptoms are aggravated by nothing. The patient presents with confusion, decreased responsiveness, trouble concentrating. Possible causes: unknown. Current symptoms: In the emergency department the patient's symptoms are unchanged from the initial presentation, despite home interventions, despite EMS interventions. Historical: - Allergies: 10:46 Nexium; ab2 10:46 PENICILLINS; ab2 - Home Meds: 14:09 fluoxetine 20 mg oral tab 2 tabs once daily [Active]; trazodone 50 mg oral tab 2 tabs ab2 once daily [Active]; gabapentin 100 mg oral tab twice a day [Active]; finasteride 5 mg oral tab 1 tab once daily [Active]; aripiprazole 5 mg oral tab 1 tab once daily [Active]; B-Complex oral tab three times per week. (Sunday, and Sunday) [Active]; donepezil 10 mg oral TbDi 1 tab once daily [Active]; Multiple Vitamins oral tab daily [Active]; - PMHx: 10:46 Anaphylactic shock; BPH; Dementia; tremors; ab2 - PSHx: 10:46 Ankle; eye; ab2 - Immunization history:: Adult Immunizations unknown, . - Social history:: Smoking status: unknown. - Family history:: not pertinent. ROS: 10:32 Constitutional: Negative for fever, chills, and weight loss, Eyes: Negative for injury, liam pain, redness, and discharge, ENT: Negative for injury, pain, and discharge, Neck: Negative for injury, pain, and swelling, Cardiovascular: Negative for chest pain, palpitations, and edema, Respiratory: Negative for shortness of breath, cough, wheezing, and pleuritic chest pain, Abdomen/GI: Negative for abdominal pain, nausea, vomiting, diarrhea, and constipation, Back: Negative for injury and pain, : Negative for injury, bleeding, discharge, and swelling, MS/Extremity: Negative for injury and deformity, Skin: Negative for injury, rash, and discoloration, Psych: Negative for depression, anxiety, suicide ideation, homicidal ideation, and hallucinations, Allergy/Immunology: Negative for hives, rash, and allergies, Endocrine: Negative for neck swelling, polydipsia, polyuria, polyphagia, and marked weight changes, Hematologic/Lymphatic: Negative for swollen nodes, abnormal bleeding, and unusual bruising. Exam: 10:34 Constitutional: This is a well developed, well nourished patient who is awake, alert, liam and in no acute distress. Head/Face: Normocephalic, atraumatic. Eyes: Pupils equal round and reactive to light, extra-ocular motions intact. Lids and lashes normal. Conjunctiva and sclera are non-icteric and not injected. Cornea within normal limits. Periorbital areas with no swelling, redness, or edema. ENT: Nares patent. No nasal discharge, no septal abnormalities noted. Tympanic membranes are normal and external auditory canals are clear. Oropharynx with no redness, swelling, or masses, exudates, or evidence of obstruction, uvula midline. Mucous membranes moist. Neck: Trachea midline, no thyromegaly or masses palpated, and no cervical lymphadenopathy. Supple, full range of motion without nuchal rigidity, or vertebral point tenderness. No Meningismus. Chest/axilla: Normal chest wall appearance and motion. Nontender with no deformity. No lesions are appreciated. Cardiovascular: Regular rate and rhythm with a normal S1 and S2. No gallops, murmurs, or rubs. Normal PMI, no JVD. No pulse deficits. Respiratory: Lungs have equal breath sounds bilaterally, clear to auscultation and percussion. No rales, rhonchi or wheezes noted. No increased work of breathing, no retractions or nasal flaring. Abdomen/GI: Soft, non-tender, with normal bowel sounds. No distension or tympany. No guarding or rebound. No evidence of tenderness throughout. Back: No spinal tenderness. No costovertebral tenderness. Full range of motion. Male : Normal genitalia with no discharge or lesions. Skin: Warm, dry with normal turgor. Normal color with no rashes, no lesions, and no evidence of cellulitis. MS/ Extremity: Pulses equal, no cyanosis. Neurovascular intact. Full, normal range of motion. Psych: Awake, alert, with orientation to person, place and time. Behavior, mood, and affect are within normal limits. 10:34 Neuro: Orientation: unable to test, Mentation: inappropriate for stated age, slow to respond, confused, Memory: unable to test, Cranial nerves: is grossly normal based on the patient's age, no acute changes, Cerebellar function: unable to test, Motor: moves all fours, unable to test, decreased level of conscience. Vital Signs: 10:42 BP 133 / 80; Pulse 77; Resp 19; Temp 97.9; Pulse Ox 99% on R/A; Weight 90.72 kg; Height ab2 5 ft. 9 in. (175.26 cm); 11:16 BP 121 / 75; Pulse 63; Resp 19; Pulse Ox 100% on R/A; ab2 11:56 BP 130 / 70; Pulse 60; Resp 18; Pulse Ox 100% on R/A; ab2 12:49 BP 144 / 77; Pulse 59; Resp 17; Pulse Ox 100% on R/A; ab2 13:35 BP 125 / 56; Pulse 63; Resp 17; Pulse Ox 100% on R/A; ab2 14:59 BP 113 / 73; Pulse 69; Resp 17; Pulse Ox 100% on R/A; ab2 16:30 BP 108 / 62; Pulse 64; Resp 17; Pulse Ox 100% on R/A; ab2 17:28 BP 99 / 84; Pulse 61; Resp 17; Pulse Ox 100% on R/A; ab2 02/08 00:00 BP 163 / 71; Pulse 59; Resp 12 S; Pulse Ox 98% on R/A; al4 02/07 10:42 Body Mass Index 29.53 (90.72 kg, 175.26 cm) ab2 NIH Stroke Scale Scores: 02/07 10:30 NIHSS Score: 27 ab2 11:51 NIHSS Score: 3 ab2 11:52 NIHSS Score: 3 ab2 Kirkland Coma Score: 10:30 Eye Response: to voice(3). Verbal Response: inappropriate words(3). Motor Response: ab2 localizes pain(5). Total: 11. 11:55 Eye Response: spontaneous(4). Verbal Response: oriented(5). Motor Response: obeys ab2 commands(6). Total: 15. MDM: 10:21 Patient medically screened. liam 10:36 Differential diagnosis: CVA, TIA, Dementia, metabolic disorder, drug effects. liam Differential Diagnosis: CVA, electrolyte abnormality, alcohol intoxication, hypoglycemia, intracranial bleed, pneumonia, seizure, TIA, UTI, volume depletion. Data reviewed: vital signs, nurses notes, lab test result(s), EKG, radiologic studies, CT scan, plain films. Data interpreted: equipment monitor phototypesetting: rate is 76 beats/min, rhythm is regular, Pulse oximetry: is not applicable for this patient encounter. on room air. Test interpretation: by ED physician or midlevel provider: ECG, plain radiologic studies. Counseling: I had a detailed discussion with the patient and/or guardian regarding: the historical points, exam findings, and any diagnostic results supporting the discharge/admit diagnosis, lab results, radiology results, the need for outpatient follow up. 02/07 10:18 Order name: Basic Metabolic Panel; Complete Time: 12:13 02/07 10:18 Order name: CBC with Diff; Complete Time: 12:13 02/07 10:18 Order name: Protime (+inr); Complete Time: 12:13 02/07 10:18 Order name: Ptt, Activated; Complete Time: 12:13 02/07 10:31 Order name: LFT's; Complete Time: 12:13 [facility] 02/07 10:31 Order name: Magnesium; Complete Time: 12:13 [facility] 02/07 10:31 Order name: NT PRO-BNP; Complete Time: 12:13 [facility] 02/07 10:31 Order name: Troponin HS; Complete Time: 12:13 [facility] 02/07 10:31 Order name: SARS-COV-2 RT PCR (Document "Date of Onset" if Symptomatic); Complete Time: [facility] 13:05 02/07 10:45 Order name: Glucose, Ancillary Testing; Complete Time: 12:13 EDMS 02/07 11:01 Order name: UDS [facility] 02/07 11:01 Order name: ETOH Level liam 02/07 12:36 Order name: Urine Dipstick-Ancillary; Complete Time: 13:05 EDMS 02/07 15:48 Order name: CBC with Automated Diff EDMS 02/07 10:18 Order name: Stroke CXR 1 View; Complete Time: 12:13 ss 02/07 10:29 Order name: Ct Stroke Brain Wo Cont; Complete Time: 12:13 EDMS 02/07 15:48 Order name: CBC with Automated Diff EDMS 02/07 15:48 Order name: Comprehensive Metabolic Panel EDMS 02/07 15:48 Order name: Comprehensive Metabolic Panel EDMS 02/07 15:48 Order name: Magnesium EDMS 02/07 15:48 Order name: Magnesium EDMS 02/07 15:48 Order name: T4 Free EDMS 02/07 15:48 Order name: T4 Free EDMS 02/07 15:48 Order name: Thyroid Stimulating Hormone EDMS 02/07 15:48 Order name: Thyroid Stimulating Hormone EDMS 02/07 15:48 Order name: Stroke Protocol EDMS 02/07 18:43 Order name: US EDMS 02/07 22:06 Order name: MRI EDMS 02/07 22:08 Order name: MRI EDMS 02/07 10:18 Order name: EKG; Complete Time: 10:19 ss 02/07 10:18 Order name: Accucheck; Complete Time: 10:40 ss 02/07 10:18 Order name: Cardiac monitoring; Complete Time: 10:40 ss 02/07 10:18 Order name: EKG - Nurse/Tech; Complete Time: 10:40 ss 02/07 10:18 Order name: IV Saline Lock; Complete Time: 10:40 ss 02/07 10:18 Order name: Labs collected and sent; Complete Time: 10:40 ss 02/07 10:18 Order name: NPO; Complete Time: 10:40 ss 02/07 10:18 Order name: O2 Per Protocol; Complete Time: 10:40 ss 02/07 10:18 Order name: O2 Sat Monitoring; Complete Time: 10:40 ss 02/07 10:31 Order name: Mccollum: in and out; Complete Time: 12:48 liam 02/07 13:13 Order name: Diet Heart Healthy; Complete Time: 13:14 ab2 02/07 15:46 Order name: CONS Physician Consult EDMS 02/07 22:09 Order name: MRI EDMS Administered Medications: 10:54 CANCELLED (Duplicate Order): D50W 25 ml IVP once; (0.5 amp) ab2 10:55 Drug: foLIC Acid 1 mg Route: IVPB; Site: right antecubital; ab2 12:48 Follow up: Response: No adverse reaction ab2 10:55 Drug: Thiamine 100 mg Route: IV; Rate: bolus; Site: right antecubital; ab2 12:48 Follow up: Response: No adverse reaction ab2 10:55 Drug: NS 0.9% 1000 ml Route: IV; Rate: 1 bolus; Site: right antecubital; ab2 12:48 Follow up: Response: No adverse reaction; IV Status: Completed infusion ab2 11:03 CANCELLED (Duplicate Order): d10 125 ml IVP once ss 11:16 Drug: d10 125 ml Route: IVP; Site: right antecubital; ab2 12:48 Follow up: Response: No adverse reaction ab2 13:39 Follow up: Response: No adverse reaction ab2 Point of Care Testing: Blood Glucose: 10:35 Blood Glucose: 70 mg/dL; ab2 Ranges: Critical Glucose Levels:Adult <50 mg/dl or >400 mg/dl <40 mg/dl or >180 mg/dl Disposition Summary: 02/07/22 12:31 Hospitalization Ordered Hospitalization Status: Observation liam Provider: Francisco Javier Vanegas cha Condition: Fair liam Problem: new liam Symptoms: have improved liam Bed/Room Type: Standard liam Location: [facility] ER HOLD(02/07/22 17:05) Room Assignment: ERHOLD-(02/07/22 17:05) Diagnosis - Altered mental status, unspecified - IMPROVED liam Forms: - Medication Reconciliation Form liam - SBAR form liam NIH Stroke Scale - NIH Stroke Score Date: 02/07/2022 Time: 10:30 Total Score = 27 1a. Level of Consciousness (LOC) - 3(Unresponsive) 1b. Level of Consciousness (LOC) (Month \\T\\ Age) - 2(Neither) 1c. LOC Commands (Open \\T\\ Closes Eyes/Marketing Project Coordinator) - 1(One) 2. Best Gaze (Lateral Gaze Paresis) - 0(Normal) 3. Visual Field Loss - 0(No visual loss) 4. Facial Palsy - 0(Normal) 5a. Left Arm: Motor (10-second hold) - 3(No effort against gravity) 5b. Right Arm: Motor (10-second hold) - 3(No effort against gravity) 6a. Left Leg: Motor (5-second hold - always test supine) - 3(No effort against gravity) 6b. Right Leg: Motor (5-second hold - always test supine) - 3(No effort against gravity) 7. Limb Ataxia (finger/nose \\T\\ heel/denise - test with eyes open) - 2(Present in two limbs) 8. Sensory Loss (pinprick arms/legs/face) - 1(Mild to moderate loss) 9. Best Language: Aphasia (description/naming/reading) - 3(Mute, global aphasia) 10. Dysarthria (speech clarity - read or repeat words) - 2(Severe) 11. Extinction and Inattention (visual/tactile/auditory/spatial/personal) - 1(Present) Initials: ab2 NIH Stroke Scale - NIH Stroke Score Date: 02/07/2022 Time: 11:51 Total Score = 3 1a. Level of Consciousness (LOC) - 0(Alert) 1b. Level of Consciousness (LOC) (Month \\T\\ Age) - 0(Both) 1c. LOC Commands (Open \\T\\ Closes Eyes/Marketing Project Coordinator) - 0(Both) 2. Best Gaze (Lateral Gaze Paresis) - 0(Normal) 3. Visual Field Loss - 0(No visual loss) 4. Facial Palsy - 0(Normal) 5a. Left Arm: Motor (10-second hold) - 0(No drift) 5b. Right Arm: Motor (10-second hold) - 0(No drift) 6a. Left Leg: Motor (5-second hold - always test supine) - 1(Drift) 6b. Right Leg: Motor (5-second hold - always test supine) - 1(Drift) 7. Limb Ataxia (finger/nose \\T\\ heel/denise - test with eyes open) - 0(Absent) 8. Sensory Loss (pinprick arms/legs/face) - 0(Normal) 9. Best Language: Aphasia (description/naming/reading) - 1(Mild to moderate aphasia) 10. Dysarthria (speech clarity - read or repeat words) - 0(Normal) 11. Extinction and Inattention (visual/tactile/auditory/spatial/personal) - 0(No abnormality) Initials: ab2 NIH Stroke Scale - NIH Stroke Score Date: 02/07/2022 Time: 11:52 Total Score = 3 1a. Level of Consciousness (LOC) - 0(Alert) 1b. Level of Consciousness (LOC) (Month \\T\\ Age) - 0(Both) 1c. LOC Commands (Open \\T\\ Closes Eyes/Marketing Project Coordinator) - 0(Both) 2. Best Gaze (Lateral Gaze Paresis) - 0(Normal) 3. Visual Field Loss - 0(No visual loss) 4. Facial Palsy - 0(Normal) 5a. Left Arm: Motor (10-second hold) - 0(No drift) 5b. Right Arm: Motor (10-second hold) - 0(No drift) 6a. Left Leg: Motor (5-second hold - always test supine) - 1(Drift) 6b. Right Leg: Motor (5-second hold - always test supine) - 1(Drift) 7. Limb Ataxia (finger/nose \\T\\ heel/denise - test with eyes open) - 0(Absent) 8. Sensory Loss (pinprick arms/legs/face) - 0(Normal) 9. Best Language: Aphasia (description/naming/reading) - 1(Mild to moderate aphasia) 10. Dysarthria (speech clarity - read or repeat words) - 0(Normal) 11. Extinction and Inattention (visual/tactile/auditory/spatial/personal) - 0(No abnormality) Initials: ab2 Signatures: Dispatcher [employer] Holland Hand MD MD cha Smirch, Shelby, RN RN Naveen Mckeon ab2 Corrections: (The following items were deleted from the chart) 10:40 10:18 Stroke Swallow Screen ordered. ab2 10:54 10:33 D50W 25 ml IVP once; (0.5 amp) ordered. [facility] ab2 11:03 11:03 d10 125 ml IVP once ordered. [facility] 17:05 12:31 Telemetry/MedSurg (observation) [facility] 17:05 12:31 [facility]
--- NOTE | 2022-02-07 12:32 | ER ---
Nurse's Notes [facility] Name: Edgardo Marie Age: 76 yrs Sex: Male : 1945 Arrival Date: 02/07/2022 Time: 10:12 Bed 25 Private MD: Diagnosis: Altered mental status, unspecified-IMPROVED Presentation: 02/07 10:42 Chief complaint: EMS states: EMS states they were called out to assisted living ab2 facility for patient with a low blood pressure. EMS states when they arrived on scene pt was slumped over in chair, unresponsive. On EMS arrival patient is moaning and responds to verbal commands but will not open eyes. Coronavirus screen: Vaccine status: Client denies travel out of the [place] in the last 14 days. At this time, the client does not indicate any symptoms associated with coronavirus-19. Ebola Screen: Patient negative for fever greater than or equal to 101.5 degrees Fahrenheit, and additional compatible Ebola Virus Disease symptoms Patient denies exposure to infectious person. Patient denies travel to an Ebola-affected area in the 21 days before illness onset. No symptoms or risks identified at this time. An acute neurological deficit is present. The patients blood glucose was checked before arriving to the hospital and was found to be normal. An acute neurological deficit is present. The charge nurse has been notified. Initial Sepsis Screen: Does the patient meet any 2 criteria? No. Patient's initial sepsis screen is negative. Does the patient have a suspected source of infection? No. Patient's initial sepsis screen is negative. Risk Assessment: Do you want to hurt yourself or someone else? Patient reports no desire to harm self or others. Onset of symptoms was February 07, 2022 at 09:00. 10:42 Method Of Arrival: EMS: [facility] ab2 10:42 Acuity: JEFF 2 ab2 Triage Assessment: 11:42 General: Appears in no apparent distress. comfortable. ab2 11:53 The onset of the patients symptoms was February 07, 2022 at 09:00. General: Appears ab2 Behavior is cooperative. Pain: Complains of pain in back. Neuro: Level of Consciousness is awake, alert, obeys commands, Reports weakness reports weakness and near syncope prior to arrival. Stroke Activation: Symptom onset < 3 hours Physician: Stroke Attending; Name: ; Notified At: ; Arrived At: Physician: Chief Stroke Resident; Name: ; Notified At: ; Arrived At: Physician: Stroke Resident; Name: ; Notified At: ; Arrived At: Physician: ED Attending; Name: ; Notified At: ; Arrived At: Physician: ED Resident; Name: ; Notified At: ; Arrived At: Historical: - Allergies: 10:46 Nexium; ab2 10:46 PENICILLINS; ab2 - Home Meds: 14:09 fluoxetine 20 mg oral tab 2 tabs once daily [Active]; trazodone 50 mg oral tab 2 tabs ab2 once daily [Active]; gabapentin 100 mg oral tab twice a day [Active]; finasteride 5 mg oral tab 1 tab once daily [Active]; aripiprazole 5 mg oral tab 1 tab once daily [Active]; B-Complex oral tab three times per week. (Sunday, and Sunday) [Active]; donepezil 10 mg oral TbDi 1 tab once daily [Active]; Multiple Vitamins oral tab daily [Active]; - PMHx: 10:46 Anaphylactic shock; BPH; Dementia; tremors; ab2 - PSHx: 10:46 Ankle; eye; ab2 - Immunization history:: Adult Immunizations unknown, . - Social history:: Smoking status: unknown. - Family history:: not pertinent. Screenin:41 Abuse screen: Denies threats or abuse. Denies injuries from another. Nutritional ab2 screening: No deficits noted. Tuberculosis screening: No symptoms or risk factors identified. Fall Risk No fall in past 12 months (0 pts). Secondary diagnosis (15 points) IV access (20 points). Ambulatory Aid- Crutches/Cane/Walker (15 pts). Gait- Weak (10 pts.). Mental Status- Overestimates/Forgets Limitations (15 pts.). Total Barrera Fall Scale indicates High Risk Score (45 or more points). Fall prevention measures have been instituted. Side Rails Up X 2 Placed Close to Nursing Station Frequent Obs/Assessments Occuring Family Present and informed to notify staff if the need to leave the bedside As available patient and family educated on Fall Prevention Program and Strategies. Assessment: 10:30 General: Appears in no apparent distress. Behavior is unresponsive. Neuro: Level of ab2 Consciousness is unresponsive, Oriented to Pt moans and groans to pain and movement. Pt is not speaking. Pt does not open eyes to verbal command. Cardiovascular: Heart tones S1 S2 present Rhythm is sinus rhythm. Respiratory: Airway is patent Respiratory effort is even, unlabored, Respiratory pattern is regular, symmetrical, Breath sounds are clear bilaterally. GI: No deficits noted. No signs and/or symptoms were reported involving the gastrointestinal system. : No deficits noted. No signs and/or symptoms were reported regarding the genitourinary system. Derm: Skin is fragile. 10:47 VAN Scoring: Arm Drift: Minor drift. Patient has been NPO before screening. The patient ab2 is not alert and/or unable to follow commands. The patient exhibits slurred or garbled speech. The patient is exhibiting difficulty speaking. The patient is exhibiting difficulty understanding words. The patient is able to swallow own secretions with no drooling or need for suction. Pt not able to safely take in any oral food or fluids at this time The patient failed the bedside swallow screening. The patient will be kept NPO until cleared by Speech Therapy or Physician. Provider notified of bedside swallow screening results: Holland Bernard MD. 11:42 General: Appears in no apparent distress. comfortable, Behavior is calm, cooperative. ab2 Pain: Complains of pain in back. Neuro: Level of Consciousness is awake, alert, obeys commands, Oriented to person. Cardiovascular: No deficits noted. Denies chest pain, shortness of breath, Patient's skin is warm and dry. Respiratory: Airway is patent Respiratory effort is even, unlabored, Respiratory pattern is regular, symmetrical. GI: No deficits noted. No signs and/or symptoms were reported involving the gastrointestinal system. Abdomen is round non-distended, Bowel sounds present X 4 quads. Abd is soft Abd is non tender. : No deficits noted. No signs and/or symptoms were reported regarding the genitourinary system. EENT: No deficits noted. No signs and/or symptoms were reported regarding the EENT system. Derm: Skin is fragile, Skin is dry, Skin is pink, warm \\T\\ dry. Musculoskeletal: Reports pain in back. 12:36 Reassessment: Patient appears in no apparent distress at this time. No changes from ab2 previously documented assessment. Pt resting with family at bedside. Pt changed, repositioned and Mccollum placed. pt tolerated well. Denies any needs at this time. Pt to be admitted. Waiting for room. 13:34 Reassessment: Patient appears in no apparent distress at this time. Family remains at ab2 bedside. Pt given coffee per his request. Pt denies any further needs at this time. 16:29 Reassessment: Patient appears in no apparent distress at this time. Pt put into ab2 hospital bed. Pt denies any needs. Family remains at bedside. 02/08 00:00 Reassessment: assumed care of patient at 2330. patient appears to be sleeping, chest al4 rise and fall noted, and VS as charted. family at bedside. Vital Signs: 02/07 10:42 BP 133 / 80; Pulse 77; Resp 19; Temp 97.9; Pulse Ox 99% on R/A; Weight 90.72 kg; Height ab2 5 ft. 9 in. (175.26 cm); 11:16 BP 121 / 75; Pulse 63; Resp 19; Pulse Ox 100% on R/A; ab2 11:56 BP 130 / 70; Pulse 60; Resp 18; Pulse Ox 100% on R/A; ab2 12:49 BP 144 / 77; Pulse 59; Resp 17; Pulse Ox 100% on R/A; ab2 13:35 BP 125 / 56; Pulse 63; Resp 17; Pulse Ox 100% on R/A; ab2 14:59 BP 113 / 73; Pulse 69; Resp 17; Pulse Ox 100% on R/A; ab2 16:30 BP 108 / 62; Pulse 64; Resp 17; Pulse Ox 100% on R/A; ab2 17:28 BP 99 / 84; Pulse 61; Resp 17; Pulse Ox 100% on R/A; ab2 02/08 00:00 BP 163 / 71; Pulse 59; Resp 12 S; Pulse Ox 98% on R/A; al4 02/07 10:42 Body Mass Index 29.53 (90.72 kg, 175.26 cm) ab2 Ga Coma Score: 02/07 10:30 Eye Response: to voice(3). Verbal Response: inappropriate words(3). Motor Response: ab2 localizes pain(5). Total: 11. 11:55 Eye Response: spontaneous(4). Verbal Response: oriented(5). Motor Response: obeys ab2 commands(6). Total: 15. NIH Stroke Scale Scores: 10:30 NIHSS Score: 27 ab2 11:51 NIHSS Score: 3 ab2 11:52 NIHSS Score: 3 ab2 ED Course: 10:12 Patient arrived in ED. ab2 10:21 Holland Bernard MD is Attending Physician. liam 10:25 Naveen Wong is Primary Nurse. ab2 10:30 Maintain EMS IV. Dressing intact. Good blood return noted. Site clean \\T\\ dry. Gauge \\T\\ ab 2 site: 18 R AC. 10:30 Patient has correct armband on for positive identification. Call light in reach. Side ab2 rails up X2. 10:35 Ct Stroke Brain Wo Cont In Process Unspecified. EDMS 10:40 Ptt, Activated Sent. ab2 10:40 Basic Metabolic Panel Sent. ab2 10:40 CBC with Diff Sent. ab2 10:40 Protime (+inr) Sent. ab2 10:42 SARS-COV-2 RT PCR (Document "Date of Onset" if Symptomatic) Sent. ab2 10:46 Triage completed. ab2 11:15 Stroke CXR 1 View In Process Unspecified. EDMS 11:47 Arm band placed on left wrist. ab2 11:48 No provider procedures requiring assistance completed. ab2 12:30 Francisco Javier Vanegas MD is Hospitalizing Provider. liam 12:36 Mccollum cath inserted, using sterile technique, 18 Fr., by ar, balloon inflated, to ab2 gravity drainage, urine specimen collected. 02/08 00:00 Patient admitted, IV remains in place. al4 Administered Medications: 02/07 10:54 CANCELLED (Duplicate Order): D50W 25 ml IVP once; (0.5 amp) ab2 10:55 Drug: foLIC Acid 1 mg Route: IVPB; Site: right antecubital; ab2 12:48 Follow up: Response: No adverse reaction ab2 10:55 Drug: Thiamine 100 mg Route: IV; Rate: bolus; Site: right antecubital; ab2 12:48 Follow up: Response: No adverse reaction ab2 10:55 Drug: NS 0.9% 1000 ml Route: IV; Rate: 1 bolus; Site: right antecubital; ab2 12:48 Follow up: Response: No adverse reaction; IV Status: Completed infusion ab2 11:03 CANCELLED (Duplicate Order): d10 125 ml IVP once ss 11:16 Drug: d10 125 ml Route: IVP; Site: right antecubital; ab2 12:48 Follow up: Response: No adverse reaction ab2 13:39 Follow up: Response: No adverse reaction ab2 Point of Care Testing: Blood Glucose: 10:35 Blood Glucose: 70 mg/dL; ab2 Ranges: Outcome: 12:31 Decision to Hospitalize by Provider. liam 02/08 00:00 Admitted to ER Hold. Please see [employer] for further documentation. al4 Condition: stable Instructed on the need for admit, Demonstrated understanding of instructions. 15:22 Patient left the ED. ab2 NIH Stroke Scale - NIH Stroke Score Date: 02/07/2022 Time: 10:30 Total Score = 27 1a. Level of Consciousness (LOC) - 3(Unresponsive) 1b. Level of Consciousness (LOC) (Month \\T\\ Age) - 2(Neither) 1c. LOC Commands (Open \\T\\ Closes Eyes/Sewage Disposal Engineer) - 1(One) 2. Best Gaze (Lateral Gaze Paresis) - 0(Normal) 3. Visual Field Loss - 0(No visual loss) 4. Facial Palsy - 0(Normal) 5a. Left Arm: Motor (10-second hold) - 3(No effort against gravity) 5b. Right Arm: Motor (10-second hold) - 3(No effort against gravity) 6a. Left Leg: Motor (5-second hold - always test supine) - 3(No effort against gravity) 6b. Right Leg: Motor (5-second hold - always test supine) - 3(No effort against gravity) 7. Limb Ataxia (finger/nose \\T\\ heel/denise - test with eyes open) - 2(Present in two limbs) 8. Sensory Loss (pinprick arms/legs/face) - 1(Mild to moderate loss) 9. Best Language: Aphasia (description/naming/reading) - 3(Mute, global aphasia) 10. Dysarthria (speech clarity - read or repeat words) - 2(Severe) 11. Extinction and Inattention (visual/tactile/auditory/spatial/personal) - 1(Present) Initials: ab2 NIH Stroke Scale - NIH Stroke Score Date: 02/07/2022 Time: 11:51 Total Score = 3 1a. Level of Consciousness (LOC) - 0(Alert) 1b. Level of Consciousness (LOC) (Month \\T\\ Age) - 0(Both) 1c. LOC Commands (Open \\T\\ Closes Eyes/Sewage Disposal Engineer) - 0(Both) 2. Best Gaze (Lateral Gaze Paresis) - 0(Normal) 3. Visual Field Loss - 0(No visual loss) 4. Facial Palsy - 0(Normal) 5a. Left Arm: Motor (10-second hold) - 0(No drift) 5b. Right Arm: Motor (10-second hold) - 0(No drift) 6a. Left Leg: Motor (5-second hold - always test supine) - 1(Drift) 6b. Right Leg: Motor (5-second hold - always test supine) - 1(Drift) 7. Limb Ataxia (finger/nose \\T\\ heel/denise - test with eyes open) - 0(Absent) 8. Sensory Loss (pinprick arms/legs/face) - 0(Normal) 9. Best Language: Aphasia (description/naming/reading) - 1(Mild to moderate aphasia) 10. Dysarthria (speech clarity - read or repeat words) - 0(Normal) 11. Extinction and Inattention (visual/tactile/auditory/spatial/personal) - 0(No abnormality) Initials: ab2 NIH Stroke Scale - NIH Stroke Score Date: 02/07/2022 Time: 11:52 Total Score = 3 1a. Level of Consciousness (LOC) - 0(Alert) 1b. Level of Consciousness (LOC) (Month \\T\\ Age) - 0(Both) 1c. LOC Commands (Open \\T\\ Closes Eyes/Sewage Disposal Engineer) - 0(Both) 2. Best Gaze (Lateral Gaze Paresis) - 0(Normal) 3. Visual Field Loss - 0(No visual loss) 4. Facial Palsy - 0(Normal) 5a. Left Arm: Motor (10-second hold) - 0(No drift) 5b. Right Arm: Motor (10-second hold) - 0(No drift) 6a. Left Leg: Motor (5-second hold - always test supine) - 1(Drift) 6b. Right Leg: Motor (5-second hold - always test supine) - 1(Drift) 7. Limb Ataxia (finger/nose \\T\\ heel/denise - test with eyes open) - 0(Absent) 8. Sensory Loss (pinprick arms/legs/face) - 0(Normal) 9. Best Language: Aphasia (description/naming/reading) - 1(Mild to moderate aphasia) 10. Dysarthria (speech clarity - read or repeat words) - 0(Normal) 11. Extinction and Inattention (visual/tactile/auditory/spatial/personal) - 0(No abnormality) Initials: ab2 Signatures: Dispatcher [employer] Holland Hand MD MD cha Ledbetter, Alexis al4 Naveen Wong ab2 Licha Fraser RN ss Corrections: (The following items were deleted from the chart) 02/07 11:53 11:48 NIHSS Score: 0 ab2 ab2 02/08 00:51 02/07 23:30 Reassessment: assumed care of patient at 2330. patient appears to al4 be sleeping, chest rise and fall noted, and VS as charted. family at bedside. al4
[2022-02-07 12:36] LABS: Urine Blood Trace-lysed (Negative); Urine Glucose Negative (Negative); Urine Protein Negative (Negative)
[2022-02-07 14:09] LABS: Barbiturates NEGATIVE (NEGATIVE); Benzodiazepines NEGATIVE (NEGATIVE); Cocaine NEGATIVE (NEGATIVE); METHAMPHETAM NEGATIVE (NEGATIVE); Methadone NEGATIVE (NEGATIVE); Opiates NEGATIVE (NEGATIVE); Phencyclidine NEGATIVE (NEGATIVE); THC Cannibis NEGATIVE (NEGATIVE)
[2022-02-07] MEDS ORDERED: ONDANSETRON 4 MG/2 ML VIAL IV PRN (15:44)
--- NOTE | 2022-02-07 15:48 | P.HP ---
Certification for Inpatient Patient admitted to: Observation With expected LOS: <2 Midnights Practitioner: I am a practitioner with admitting privileges, knowledge of patient current condition, hospital course, and medical plan of care. Services: Services provided to patient in accordance with Admission requirements found in Title 42 Section 412.3 of the Code of Federal Regulations Patient History Date of Service: 02/07/22 Reason for admission: intermittent unresponsiveness, hypotension History of Present Illness: 76yo M, PMH: moderate vascular dementia, presents to ED after episode of generalized weakness and minimal responsiveness at assisted living facility earlier today. and DIL at bedside, state patient has been in usual state of health up until recently. This morning he was alert / responsive, but weak and required more assistance to get up to go to bathroom / ambulate. After some assistance and eating some breakfast, patient suddenly became unresponsive /minimally responsive only to painful stimuli and mumbling incoherently. states she was told his blood pressure was low, but can't recall what readings. Patient slid/fell out of chair 2 nights ago when trying to reach for something on the floor, since then, has had some mild hip discomfort. Reports chronic intermittent bowel/bladder incontinence. Denies any recent fevers/chills, dysuria, diarrhea, nausea/vomiting, no recent fevers/chills. Patient's medications were changed ~2 weeks ago. states patient has had a shuffling gait for ~1 month, seems to "sundown earlier and easier", and more stiff. In the ED, CXR ,CT head were negative for acute process, bloodwork rather unremarkable. ER physician requests admission for further evaluation. Allergies esomeprazole [From Nexium] Allergy (Severe, Verified 04/11/20 22:32) Anaphylaxis Penicillins Allergy (Severe, Verified 04/11/20 22:32) Itching/Hives/Rash Home Medications: Donepezil HCl [Aricept] 10 mg PO DAILY 04/11/20 Finasteride [Proscar*] 5 mg PO BEDTIME 04/11/20 Aripiprazole [Abilify] 2 mg PO DAILY 12/31/21 Fluoxetine HCl 30 mg PO BEDTIME 12/31/21 Gabapentin 100 mg PO BID 12/31/21 Trazodone [Desyrel*] 75 mg PO BEDTIME 12/31/21 levoFLOXacin [Levaquin] 750 mg PO DAILY 7 Days #7 tab 01/01/22 - Past Medical/Surgical History Diabetic: No -: BPH -: Stenosis lower back -: Vascular dementia -: Dental implants -: Laminectomy Mar 16 2020 -: Left biceps repair Psychosocial/ Personal History: Lives at home with his - Family History Father -: Cancer Notes: lung Mother -: Other (see notes) Notes: Alzheimers - Social History Smoking Status: Never smoker Alcohol use: Yes CD- Drugs: No Caffeine use: Yes Place of Residence: Home (assisted living) Review of Systems 10-point ROS is otherwise unremarkable Physical Examination - Physical Exam General: Alert, In no apparent distress, Oriented x2, Demented HEENT: PERRLA, Mucous membr. moist/pink, EOMI, Sclerae nonicteric Neck: Supple, No LAD Respiratory: Clear to auscultation bilaterally Cardiovascular: No edema, Regular rate/rhythm Gastrointestinal: Soft and benign, Non-distended, No tenderness Musculoskeletal: No tenderness Integumentary: No significant lesion Neurological: Normal speech, Normal strength at 5/5 x4 extr (with generalized weakness), Cranial nerves 3-12 intact (slight right eye droop (chronic)), Normal affect, Other (rigidity with passive ROM) Urinary: Mccollum catheter (placed in ED) - Studies Laboratory Data (last 24 hrs) 02/07/22 10:37: Magnesium 1.9, Total Bilirubin 0.3, AST 23, ALT 19, Alkaline Phosphatase 71 02/07/22 10:26: PT 11.8, INR 1.07, APTT 31.8 02/07/22 10:26: WBC 6.9, Hgb 13.0 L, Hct 37.9 L, Plt Count 212 02/07/22 10:26: Sodium 141, Potassium 4.1, BUN 15, Creatinine 0.82, Glucose 77 Assessment and Plan - Advance Directives Does patient have a Living Will: Yes Does patient have a Durable POA for Healthcare: Yes Physician Review Additional Text: Problem List unresponsive hypotension shuffling gait, tremor h/o vascular dementia, moderate workup in ED rather unremarkable - labs, UA, CT head, CXR at time of my exam, patient much improved suspect possible advancement of vascular dementia, parkinsonian features now shuffling gait, masked facies, rigidity, tremor(chronic) possibly having autonomic dysfunction now, suspect BP dropped when getting up and lead to his sluggish responses will obtain MRI to r/o CVA neurology consulted PT consulted check orthostatics VTE: lovenox Code: DNR Dispo: back to [facility] facility ([facility] in 24-48hrs Time Spent Managing Pts Care (In Minutes): 70
[2022-02-07] MEDS ORDERED: NA CHLORIDE 0.9% 1,000 ML IV SCH (16:00)
[2022-02-07] MEDS ORDERED: ENOXAPARIN 40 MG/0.4 ML SQ SCH (16:00)
[2022-02-07 17:46] VITALS: BMI 32.8
[2022-02-07] MEDS ORDERED: ENOXAPARIN 40 MG/0.4 ML SQ ONE (17:52)
--- NOTE | 2022-02-07 18:41 | RAD REPORT ---
EXAM DESCRIPTION: - CP - 02/07/2022 6:28 pm CLINICAL HISTORY: syncope COMPARISON: No comparisons TECHNIQUE: Real-time sonographic evaluation of bilateral carotid and vertebral systems was performed . Siddiqui scale and Doppler interrogation were performed with waveform tracing bilaterally. FINDINGS: Normal high resistance waveforms are noted in both external carotid arteries. The common c arotid arteries and internal carotid arteries show normal low resistance waveforms. Calcified and noncalcified plaquing changes are present right greater than left. No significant degre e of luminal narrowing. Peak systolic and end diastolic velocity values and the ICA/CCA ratios are in the non-hemodynamically significant range. Right external carotid velocity value is elevated though and external carotid stenosis is not clinically significant. Antegrade flow seen in both vertebral arteries. Velocity values and ratios were recorded and are retained in the patient's imaging records. IMPRESSION: Calcified and noncalcified plaquing changes are present but do not cause significant lum inal narrowing. No evidence of a hemodynamically significant stenosis.
--- NOTE | 2022-02-07 22:05 | RAD REPORT ---
EXAM DESCRIPTION: MRI - MRA Neck W/Wo Cont - 02/07/2022 9:39 pm CLINICAL HISTORY: Unresponsive COMPARISON: Ultrasound same date TECHNIQUE: MR angiography of the cervical vasculature performed. Coronal imaging plane acquisition u tilized. A 20 MultiHance contrast volume was utilized. Coronal reformatted images were generated and reviewed. Vertical axis 3D rotational projections obtained using maximum intensity projection protoco l. FINDINGS: No aortic arch abnormality seen. Vertebral artery origins are unremarkable as well. The bi lateral common carotid and internal carotid arteries show no dissection, significant stenosis or vasc ulitis findings. Vertebral arteries and basilar artery show no significant finding. IMPRESSION: MRA neck examination showing no significant finding.
--- NOTE | 2022-02-07 22:07 | RAD REPORT ---
EXAM DESCRIPTION: MRI - MRA Head Wo Cont - 02/07/2022 9:39 pm CLINICAL HISTORY: Unresponsive, stroke-like symptoms COMPARISON: MRI brain same date TECHNIQUE: Axial and coronal 3D [id number] image acquisition was performed. 3D rotational images were generated with source and reconstruction images reviewed. Horizontal and vertical axis rotation al views generated using MIP protocol. FINDINGS: Tortuosity of the basilar artery present. Distal vertebral arteries and basilar artery keegan w no focal stenosis or dissection findings. Posterior cerebral arteries show no significant findings. Distal internal carotid arteries show no significant findings. There are mild atherosclerotic changes the proximal portions of each anterior cerebral artery. More distally the anterior cerebral arteries show no suspicious findings. Proximal middle cerebral arteries show no suspicious findings. More per ipheral MCA branches also without significant disease. No named branch occlusion, vasculitis or significant vascular finding identifiable. No aneurysm or vascular malformation. IMPRESSION: MRA head examination shows no named branch occlusion or significant degree of vascular d isease.
--- NOTE | 2022-02-07 22:08 | RAD REPORT ---
EXAM DESCRIPTION: MRI - Brain W/Wo Cont - 02/07/2022 9:39 pm CLINICAL HISTORY: unresponsive, new parkinson's like symptoms COMPARISON: MRA Head Wo Cont dated 02/07/2022 TECHNIQUE: Sagittal and axial T1-weighted images were obtained. Axial PD/heavily T2-weighted and T2- FLAIR images were obtained along with axial DWI/ADC mapping sequences. Coronal heavily T2 weighted s equence obtained. Axial and coronal post-contrast T1-weighted images were also obtained. A 20 ml Mul tihance contrast following utilized. FINDINGS: No intracranial hemorrhage, mass or acute infarction. There is no edema or shift of midli ne structures. No extra-axial fluid collections. Siddiqui-matter/white matter junction is preserved. Sig nal voids are seen as a normal finding in the major intracranial vessels. Atrophy changes are mild-to -moderate. Ventricles are in proportion to volume loss. Mild chronic ischemic changes scattered in th e cerebral white matter. Thalamus, basal ganglia and brainstem tissues spared any significant chronic ischemic disease. Post-contrast images show normal enhancement. No dural thickening. Mastoid air cells and paranasal sinuses are clear. IMPRESSION: No acute infarction. No acute intracranial finding. Atrophy and chronic ischemic changes are present.
[2022-02-08 04:03] LABS: Absolute Lymphocytes (CBC) 1.9 K/uL (0.7-4.9); Hematocrit 36.8 % (39.6-49.0); Lymphocytes % 27.6 % (15.3-44.8); MPV 9.2 fL (7.6-11.3); RBC Red Blood Cell Count 3.85 M/uL (4.33-5.43)
[2022-02-08 04:26] LABS: ALT/SGPT 17 U/L (12-78); AST/SGOT 18 U/L (15-37); Albumin 2.6 g/dL (3.4-5.0); Alkaline Phosphatase 68 U/L (45-117); BUN Blood Urea Nitrogen 15 mg/dL (7-18); Bicarbonate 27 mmol/L (21-32); Bilirubin Total 0.3 mg/dL (0.2-1.0); Glucose Level 82 mg/dL (74-106); Magnesium 1.9 mg/dL (1.8-2.4); Potassium 3.9 mmol/L (3.5-5.1); Sodium Level 140 mmol/L (136-145)
[2022-02-08 07:27] VITALS: TEMP 98.8
[2022-02-08 10:01] VITALS: O2SAT 95
--- NOTE | 2022-02-08 11:01 | EKG ---
Test Date: 2022-02-07 Test Time: 10:11:11 Partner Cco: MEASUREMENT RESULTS: Intervals: Rate: 68 FL: 140 QRSD: 82 QT: 388 QTc: 412 [place]: P: 39 FL: 140 QRS: 14 T: 40 INTERPRETIVE STATEMENTS: Normal sinus rhythm Low voltage QRS Nonspecific ST and T wave abnormality Abnormal ECG Compared to ECG 12/31/2021 17:13:28 ST (T wave) deviation now present T-wave abnormality no longer present Electronically Signed On 02-08-22 10:57:34 CDT by Kirill Talbot
[2022-02-08 12:08] VITALS: BP 121/64
[2022-02-08] MEDS ORDERED: MIDODRINE HCL 5 MG TABLET PO ONE (13:00)
--- NOTE | 2022-02-08 13:40 | P.DS ---
Admission Date: 02/07/22 Discharge Date: 02/08/22 Disposition: ROUTINE DISCHARGE Discharge Condition: FAIR Reason for Admission: intermittent unresponsiveness, hypotension Consultations: Neurology - Dr. Palomares Procedures: Problem List syncope / near-syncope episodes secondary to orthostatic hypotension shuffling gait, tremor h/o vascular dementia, moderate Brief History of Present Illness: 76yo M, PMH: moderate vascular dementia, presents to ED after episode of generalized weakness and minimal responsiveness at assisted living facility earlier today. and DIL at bedside, state patient has been in usual state of health up until recently. This morning he was alert / responsive, but weak and required more assistance to get up to go to bathroom / ambulate. After some assistance and eating some breakfast, patient suddenly became unresponsive /minimally responsive only to painful stimuli and mumbling incoherently. states she was told his blood pressure was low, but can't recall what readings. Patient slid/fell out of chair 2 nights ago when trying to reach for something on the floor, since then, has had some mild hip discomfort. Reports chronic intermittent bowel/bladder incontinence. Denies any recent fevers/chills, dysuria, diarrhea, nausea/vomiting, no recent fevers/chills. Patient's medications were changed ~2 weeks ago. states patient has had a shuffling gait for ~1 month, seems to "sundown earlier and easier", and more stiff. In the ED, CXR ,CT head were negative for acute process, bloodwork rather unremarkable. ER physician requests admission for further evaluation. Hospital Course: Patient had improvement and resolution of symptoms upon arrival to ED. He was treated with IV fluids. CT head, MRI head, and carotid dopplers were negative for acute process / no stroke. He was evaluated by PT and required assistance with ambulation, partly secondary to anxiety related to ambulating. He was noted to have mild orthostatic hypotension. Improved with gentle IV fluid hydration and started on low dose midodrine - 2.5mg to take at breakfast and lunch. Follow up with PCP to titrate as needed. Counselled on slowly ambulating with assistance, take time when changing positions before moving forward to minimize risk of passing out / injury. Recommend el hose / mild compression stockings up to thigh. Patient would benefit from ensure / protein drink in the evening. Suspect his syncopal / minimally responsive episodes are related to orthostatic hypotension. All seem to be related to patient moving / ambulating. Neurology recommended outpatient GRZEGORZ scan to rule out parkinson's in the near future. Follow up with your neurologist to further discuss. Recommended against empirically treating due to risk of worsening psychosis / agitation. Vital Signs/Physical Exam: Temp Pulse Resp BP Pulse Ox 98.8 F 67 16 121/64 99 02/08/22 12:00 02/08/22 12:00 02/08/22 12:00 02/08/22 12:00 02/08/22 12:00 General: Alert, In no apparent distress, Oriented x2, Demented HEENT: PERRLA, EOMI, Sclerae nonicteric Neck: No LAD Respiratory: Clear to auscultation bilaterally, Normal air movement Cardiovascular: No edema, Regular rate/rhythm Gastrointestinal: Soft and benign, Non-distended, No tenderness Integumentary: No significant lesion Neurological: Normal speech, Normal strength at 5/5 x4 extr (generalized weakness, with mild rigidity in upper extremities with passive ROM), Normal affect Laboratory Data at Discharge: WBC 7.0 K/uL (4.3-10.9) 02/08/22 03:38 Hgb 12.4 g/dL (13.6-17.9) L 02/08/22 03:38 Hct 36.8 % (39.6-49.0) L 02/08/22 03:38 Plt Count 215 K/uL (152-406) 02/08/22 03:38 PT 11.8 SECONDS (9.5-12.5) 02/07/22 10:26 INR 1.07 02/07/22 10:26 APTT 31.8 SECONDS (24.3-36.9) 02/07/22 10:26 Sodium 140 mmol/L (136-145) 02/08/22 03:38 Potassium 3.9 mmol/L (3.5-5.1) 02/08/22 03:38 BUN 15 mg/dL (7-18) 02/08/22 03:38 Creatinine 0.82 mg/dL (0.55-1.3) 02/08/22 03:38 Glucose 82 mg/dL (74-106) 02/08/22 03:38 Magnesium 1.9 mg/dL (1.8-2.4) 02/08/22 03:38 Total Bilirubin 0.3 mg/dL (0.2-1.0) 02/08/22 03:38 AST 18 U/L (15-37) 02/08/22 03:38 ALT 17 U/L (12-78) 02/08/22 03:38 Alkaline Phosphatase 68 U/L (45-117) 02/08/22 03:38 Home Medications: Donepezil HCl [Aricept] 10 mg PO DAILY 04/11/20 Finasteride [Proscar*] 5 mg PO BEDTIME 04/11/20 Aripiprazole [Abilify] 5 mg PO DAILY 12/31/21 Fluoxetine HCl 40 mg PO DAILY 12/31/21 Gabapentin 100 mg PO BID 12/31/21 Trazodone [Desyrel*] 100 mg PO BEDTIME 12/31/21 B,C/Folic/Zinc/Copper Ox/Vit E [Stress B-Complex Tablet] 1 cap PO DAILY 02/07/22 Midodrine HCl 2.5 mg PO BID 30 Days #60 tab 02/08/22 New Medications: Midodrine HCl 2.5 mg PO BID 30 Days #60 tab Diet: Regular Activity: Ad cesar Followup: Vj Romero FNP [Primary Care Provider] - Time spent managing pt's care (in minutes): 40
--- NOTE | 2022-02-08 23:00 | CON ---
Reason For Consultation: Consultation called because of intermittent worsening responsiveness and hy potension. History Of Present Illness: Mr. Marie is a 76-year-old patient with end-stage vascular dementia, who is followed by Dr. Norris, a neurologist in [place], and the patient resides in assisted living next to the hospital. His and [id number] stated he has had some more episodes of worsening conf usion, poor responsiveness, and apparently hypotension. He was unable to ambulate as he usually does to get to the bathroom and to get to his breakfast. He actually had an episode of sudden worsening responsiveness while at breakfast. As I stimulated, he mumbles incoherently and his evaluation revea led very low blood pressure. Patient had previously been apparently having near syncopal episodes wh ere he would slide out of a chair while sitting and has not been hydrating well. His head CT scan an d brain MRI revealed no acute ischemic or hemorrhagic strokes. Small vessel ischemic disease of mode rate degree was noted. MRA of his head showed no significant abnormalities. MRA of his neck identif ied no significant findings. His electrocardiogram showed normal sinus rhythm, low-voltage QRS compl ex. Carotid artery ultrasound showed no evidence of hemodynamically significant stenosis. Chest x-r ay revealed no acute cardiopulmonary processes. Blood work revealed essentially unremarkable complet e blood count with differential. Coagulation panel unremarkable. His basic metabolic panel was unre markable. Calcium was mildly low at 8.4. Liver function studies unremarkable. Thyroid studies norm al. Urinalysis showed trace blood, otherwise unremarkable. Urine toxicology screen was negative. C OVID-19 test was negative. The patient has been hydrated at [facility] in the emergency room, has actually returned to the basel ine level of functioning per the patient's and [id number]. Past Medical History: As noted in addition to psychotic episodes along with his vascular dementia. He is followed by Psychiatry. Also has benign prostate hypertrophy and lumbar spinal stenosis. Surgical History: Dental implants, laminectomy in 1999, and left biceps repair. Allergies: NEXIUM AND PENICILLIN. Medications: At home: Donepezil 10 mg daily, Proscar 5 mg at bedtime, Abilify 2 mg daily, fluoxetin e 30 mg at bedtime, gabapentin 100 mg twice daily, Desyrel 75 mg at bedtime. He is on also Levaquin for 7 days, 750 mg daily. Family History: Lung cancer in father and Alzheimer's in mother. Social History: No tobacco use. He apparently drinks alcohol once in a while and caffeinated bevera ges. He lives in local assisted living. Review of Systems: Aside from mentioned above, the patient has had the episodes of syncope, some more confusion, difficu lty ambulating, diffuse weakness. No rash. No gastrointestinal issues. He has had episodes of psyc hosis, seeing people and objects not present. Physical Examination: Vital Signs: Blood pressure 121/64, pulse 67, respirations 16, temperature 98.8, oxygen saturation 9 9%. General: Mr. Marie is resting in bed in the emergency room. He is in no acute distress. He is normo cephalic and atraumatic. Sclerae anicteric. Oropharynx is moist and pink. Neck: Supple. Chest: Clear. Heart: Regular. Extremities: Show no edema, cyanosis, or clubbing. NEUROLOGIC: He is alert and oriented to person, place, situation, and time. He does follow simple c ommands with not much difficulty. Difficulty following complex commands. Cranial nerves 2 through 1 2 showed no focal deficits. Motor in the upper and lower extremities, he has no focal weakness, just diffuse weakness. Sensory exam difficult to fully assess. His tone is normal. Reflexes symmetric. Coordination is smooth and uninterrupted. The patient was not cooperating enough to have his gait assessed and difficulty following simple cues in order to assess gait. Assessment: Mr. Marie is a 76-year-old patient with advanced vascular dementia with psychosis, who mayes s comorbid prostate hypertrophy, lumbar radiculopathy, and syncopal episode with dehydration. Plan: 1.Patient should drink at least 64 ounces of water daily. There should be someone who assists him a nd hydration daily. 2.Continue his current regimen of medications. 3.He may be discharged back to his assisted living facility with primary care unit emphasis. He may follow up with Dr. Palomares's clinic if need be or so desires and/or follow up with Dr. Norris if so desired. AMRLEN/YASH Voice ID: [id number] Report ID: [id number]
== END 2022-02-08 15:01 | disposition home or self-care (01) ==
LOC: ER 10:08 → ERHOLD 15:43
PROVIDERS: ADMIT Hospitalist; ATTEND Hospitalist
DX: I95.1 Orthostatic hypotension (principal); F01.50 Vascular dementia, unspecified severity, without behavioral disturbance, psychotic disturbance, mood disturbance, and anxiety; F29 Unspecified psychosis not due to a substance or known physiological condition; R25.1 Tremor, unspecified; E86.0 Dehydration; R26.89 Other abnormalities of gait and mobility; N40.0 Benign prostatic hyperplasia without lower urinary tract symptoms; M48.061 Spinal stenosis, lumbar region without neurogenic claudication; M54.16 Radiculopathy, lumbar region; F41.9 Anxiety disorder, unspecified; R32 Unspecified urinary incontinence; R15.9 Full incontinence of feces; Z66 Do not resuscitate; Z20.822 Contact with and (suspected) exposure to COVID-19; Z88.0 Allergy status to penicillin; Z88.8 Allergy status to other drugs, medicaments and biological substances; Z79.899 Other long term (current) drug therapy; Z80.1 Family history of malignant neoplasm of trachea, bronchus and lung; Z82.0 Family history of epilepsy and other diseases of the nervous system
CPT/HCPCS: 93005; 85025 ×2; 80048; 36415; 80320; 83735 ×2; 85610; 82947; 80076; 85730; 84443; 81003; 84484; 84439; 80053; 83880; 80307; 70450; 71045; 93880; 70553; 70544; 70549; 97161; 97530 ×2; 94760 ×3; 51702; 99285; U0003; A9577; J3411; J1650; J7030 ×2; G0378 ×3

== ENCOUNTER 2022-02-12 22:08 | Emergency (ER) | payer OTHER, MEDICARE ==
--- OUTSIDE RECORDS SUMMARY | 2022-02-12 22:15 | XMS REPORT | Continuity of Care Document ---
:1945 Author Organization [facility] t Address [address]. [address] [place] [address] Care Team Providers Name Role Phone Nena MONTEMAYOR Primary Care Physician Unavailable Bria DUBOIS Attending Clinician Unavailable Jeaneth Sung Attending Clinician Unavailable Raman LOWE Attending Clinician Unavailable Raman Lowe DO Attending Clinician KEISHA Attending Clinician Unavailable Urban WILSON Attending Clinician Unavailable Urban Thompson Attending Clinician Marilyn Montemayor Attending Clinician [phone] Bria Dubois MD Attending Clinician Doctor Unassigned, [...] Date S qian MEDICARE PART A \\T\\ [id number] 2009 B 00:00:00 [facility] [id number] 2017 MEDICARE SUPPLEMENT 00:00:00 [place]ICARE B-[place]: [id number] 2009 [place] SOLUTIONS 00:00:00 [facility] [id number] 2017 OPTIONS (MEDICARE 00:00:00 SUPPLEMENT) Problems Condition Condition Condition Status Onset Resolution Last Treating Co mments Source Name Details Category Date Date Treatment Clinician Date No known No known Disease Unive rs active active ity of problems problems [place] [facility] Allergies, Adverse Reactions, Alerts Allergy Allergy Status Severity Reaction(s) Onset Inactive Treating Comm ents Source Name Type Date Date Clinician esomepra DA Active U 2020-0 [facility] [place] [facility] esomepra DA Active U UNKNOWN 2019-0 [facility] z[facility] 19 [place] 00:00: [facility] 00 are [facility] [place] DA Active U 2020-0 [facility] ins 515 [place] 00:00: Health 00 are [facility] [place] DA Active U RASH, HIVES 2019-0 [facility] ins 15 [place] 00:00: Health 00 are [facility] ESOMEPRA DRUG Active High Anaphylaxis 2017- Uni [...] St INS 1-07 [facility] Medical [address] [place] [address] Social History Social Habit Start Date Stop Date Quantity Comments Source Exposure to Not sure University of SARS-CoV-2 [place] [facility] (event) Branch History SDOH University o f Alcohol Frequency [place] [facility] History SDCT University o f Alcohol Std [place] [facility] Drinks Branch History SDCT University o f Alcohol Binge [place] [facility] Alcohol intake 2022-01-15 2022-01-15 Current drinker Unive rsity of 00:00:00 00:00:00 of alcohol [place] [facility] (finding) [facility] Tobacco Comment 2020-11-01 2020-11-01 quit on ity of 00:00:00 00:00:00 birthday [facility] Tobacco use and 2018-02-04 2018-02-04 Never used Universit y of exposure 00:00:00 00:00:00 [facility] Alcohol Comment 2018-02-04 2018-02-04 Occasional Universit y of 00:00:00 00:00:00 Drinker [facility] Sex Assigned [birth year] Universit y of 00:00:00 00:00:00 [facility] Smoking Status Start Date Stop Date Source Never smoker [facility] Branch Medications Ordered Filled Start [...] 1-20 by mouth ity of 18:39: daily. [address] FLUoxetine Yes 20mg Take 20 mg U nivers (PROZAC) 20 1-20 by mouth ity of mg capsule 18:39: daily. [address] donepeziL 5 Yes 10mg Take 10 mg Univers mg tablet 1-20 by mouth ity of 18:39: at [place] [address] bedtime. Medical Branch gabapentin Yes 300mg Take 300 Un suzanne 300 mg 1-20 mg by ity of capsule 18:39: mouth as [place] [address] needed for Medical Pain Branch (scale 4-6). ARIPiprazol Yes 2mg Take 2 mg U nivers e 2 mg 1-20 by mouth ity of tablet 18:39: daily. [address] trazodone Yes 75mg Take 75 mg Un suzanne HCl 1-20 by mouth. ity of (TRAZODONE 18:39: [place] ORAL) 55 [facility] water for Yes PRN, Univers irrigation 1-20 Starting ity o f irrigation 17:15: Sun [place] solution 00 11/17/20 at [facility] al [address] [place] [address] Until Discontinu ed, Routine, Intra-op sodium Yes PRN, Univers chloride -20 Starting ity of (NS) 17:15: Sun [place] injection 11/17/[address] Until Discontinu ed, Routine, Intra-op neomycin-po Yes PRN, Univer s lymyxin-dex -20 Starting ity of amethasone 17:15: Sun [place] (MAXITROL) 11/17/20 at Med ical 3.5 [facility], [place] mg/g-10,000 Until unit/g-0.1 Discontinu % ed, ophthalmic Routine, ointment Intra-op Hyaluronida Yes PRN, Univer s se, Human 1-20 Starting ity of Recomb. 17:15: Sun [place] (HYLENEX) 11/17/[address] [facility] injection [address] [place] [address] Until Discontinu ed, Routine, Intra-op gentamicin 0 Yes PRN, Univers injection 1-20 Starting ity of 17:15: Sun [place] 00 11/17/[address] Until Discontinu ed, CIARA, Intra-op DUOVISC 0 Yes PRN, Univers (DUOVISC -20 Starting ity of VISCO 17:14: Wed [place] ELASTIC) 3 00 11/17/20 at Med ical %-4 %(0.5 1114, [place] mL) 1 % Until (0.55 mL) Discontinu intraocular ed, injection Routine, Intra-op dexamethaso Yes PRN, Univer s ne -20 Starting ity of (DECADRON 17:14: Wed [place] PHOSPHATE) 11/17/20 at [facility] ical injection 1114, [place] Until Discontinu ed, Routine, Intra-op carbachoL Yes PRN, Univers (MIOSTAT) -20 Starting ity of 0.01 % 17:14: Wed [place] intraocular 11/17/20 at Nm dical injection 1114, [place] Until Discontinu ed, Routine, Intra-op balanced Yes PRN, Univers salt irrig 20 Starting ity o f soln comb1 17:14: Sun [place] (BSS PLUS) 00 11/17/20 at [facility] ica ophthalmic 1114, [place] solution Until 500 mL bag Discontinu ed, Routine, Intra-op eye block Yes PRN, Univers syringe 11 20 Starting ity o f mL 17:14: Sun [place] 11/17/20 at [place] [address], [place] Until Discontinu ed, Intra-op EPINEPHrine Yes PRN, Univer s 1:1,000 (1 - Starting ity o f mg/mL) 17:14: Sun [place] (ADRENALIN) 11/17/20 at Nm dical injection 111, [place] Until Discontinu ed, Routine, Intra-op mydriatic 2020- No .5mL 0.5 mL, Univ ers #5 11-17 Right Eye, ity of ophthalmic 15:15: 16:42 ONCE, 1 Arjun as solution 00 :00 dose, Sun Medica l 0.5 mL 11/17/20 at [place] syringe 0915, Routine, DSU Pre-op lactated 2020- No 1000mL at 42 Unive rs ringers IV -20 01-20 mL/hr, ity of infusion 15:15: 15:12 1,000 mL, Arjun as 1,000 mL 00 :00 IV Medical Infusion, [place] ONCE, 1 dose, 11/17/20 at 0915, Routine, DSU Pre-op finasteride Yes 5mg Take 5 mg U nivers 5 mg tablet -20 by mouth ity of 12:39: daily. [address] FLUoxetine Yes 20mg Take 20 mg U nivers (PROZAC) 20 1-20 by mouth ity of mg capsule 12:39: daily. [place] [address] Medical Branch donepeziL 5 Yes 10mg Take 10 mg Univers mg tablet 1-20 by mouth ity of 12:39: at [place] [address] bedtime. Medical Branch gabapentin 0 Yes 300mg Take 300 Un suzanne 300 mg 1-20 mg by ity of capsule 12:39: mouth as [place] [address] needed for Medical Pain Branch (scale 4-6). ARIPiprazol 0 Yes 2mg Take 2 mg U nivers e 2 mg 1-20 by mouth ity of tablet 12:39: daily. [place] [address] Medical Branch trazodone 0 Yes 75mg Take 75 mg Un suzanne HCl 1-20 by mouth. ity of (TRAZODONE 12:39: [place] [facility] finasteride 0 Yes 5mg Take 5 mg U nivers 5 mg tablet 1-20 by mouth ity of 12:39: daily. [place] [address] Medical Branch FLUoxetine 0 Yes 20mg Take 20 mg U nivers (PROZAC) 20 1-20 by mouth ity of mg capsule 12:39: daily. [place] [address] Medical Branch donepeziL 5 Yes 10mg Take 10 mg Univers mg tablet 1-20 by mouth ity of 12:39: at [place] [address] bedtime. Medical Branch gabapentin Yes 300mg Take 300 Un suzanne 300 mg 1-20 mg by ity of capsule 12:39: mouth as [place] [address] needed for Medical Pain Branch (scale 4-6). ARIPiprazol Yes 2mg Take 2 mg U nivers e 2 mg 1-20 by mouth ity of tablet 12:39: daily. [place] [address] Medical Branch trazodone 0 Yes 75mg Take 75 mg Un suzanne HCl 1-20 by mouth. ity of (TRAZODONE 12:39: [place] ORAL) Medical Branch finasteride 0 Yes 5mg Take 5 mg U nivers 5 mg tablet 1-06 by mouth ity of 15:11: daily. [place] [address] Medical Branch FLUoxetine 0 Yes 20mg Take 20 mg U nivers (PROZAC) 20 1-06 by mouth ity of mg capsule 15:11: daily. [place] [address] Medical Branch donepeziL 5 Yes 10mg Take 10 mg Univers mg tablet 1-06 by mouth ity of 15:11: at [place] [address] bedtime. Medical Branch gabapentin Yes 300mg Take 300 Un suzanne 300 mg 1-06 mg by ity of capsule 15:11: mouth as [place] [address] needed for Medical Pain Branch (scale 4-6). ARIPiprazol Yes 2mg Take 2 mg U nivers e 2 mg 1-06 by mouth ity of tablet 15:11: daily. [address] Branch trazodone Yes 75mg Take 75 mg Un suzanne HCl 1-06 by mouth. ity of (TRAZODONE 15:11: [place] ORAL) Medical [place] mydriatic 2020- No .5mL 0.5 mL, Univ ers #5 11-03 01 Left Eye, ity of ophthalmic 15:00: 12:26 ONCE, 1 Arjun as solution 00 :00 dose, Wed Medica l 0.5 mL 11/03/20 at [place] syringe 0900, Routine, DSU Pre-op water for Yes PRN, Univers irrigation 06 Starting ity o f irrigation 13:24: Sun11/03/20 [place] solution 00 at 0724, Medical Until [place] Discontinu ed, Routine, Intra-op sodium Yes PRN, Univers chloride 11-03 Starting ity of (NS) 13:23: 11/03/20 [place] injection 00 at 0723, Medica l Until [place] Discontinu ed, Routine, Intra-op neomycin-po Yes PRN, Univer s lymyxin-dex 11-03 Starting ity of amethasone 13:23: 11/03/20 [place] (MAXITROL) 00 at 0723, Medic al 3.5 Until [place] mg/g-10,000 Discontinu unit/g-0.1 ed, % Routine, ophthalmic [...] 1-04 by mouth ity of 19:45: at [place] 31 bedtime. Medical Branch ARIPiprazol Yes 2mg Take 2 mg U nivers e 2 mg 1-04 by mouth ity of tablet 19:45: daily. [place] [address] Medical Branch trazodone Yes 75mg Take 75 [...] mouth ity of mg capsule 18:48: daily. [address] FLUoxetine 2019-10 Yes 20mg Take 20 mg U nivers (PROZAC) 20 2-14 by mouth ity of mg capsule 18:48: daily. [address] FLUoxetine 2019-10 Yes 20mg Take 20 mg U nivers (PROZAC) 20 2-14 by mouth ity of mg capsule 18:48: daily. [address] Branch finasteride Yes 5mg Take 5 mg U nivers 5 mg tablet 4-11 by mouth ity of 16:38: daily. [address] finasteride 2017-0 Yes 5mg Take 5 mg U nivers 5 mg tablet 4-11 by mouth ity of 16:38: daily. [address] finasteride 2017-0 Yes 5mg Take 5 mg U nivers 5 mg tablet 4-11 by mouth ity of 16:38: daily. [place] [address] Medical Branch finasteride 2018-0 Yes 5mg Take 5 mg U nivers 5 mg tablet 4-11 by mouth ity of 16:38: daily. [place] [address] Medical Branch diphenhydrA 2018-0 Yes 25mg Take [...] 00:00: directed Arjun as mg[facility] diphenhydrA 0 Yes 25mg Take [...] 00:00: directed Arjun as mg/mL [facility] [place] Vital Signs Vital Name Observation Time Observation Value Comments Source Systolic blood 2022-01-15 23:40:00 130 mm[Hg] [facility] sity [facility] Diastolic blood 2022-01-15 23:40:00 88 mm[Hg] [facility] [place] Heart rate 2022-01-15 23:40:00 70 /min [facility] Body temperature 2022-01-15 23:40:00 36.39 Carole [facility] Respiratory rate 2022-01-15 23:40:00 16 /min [facility] Oxygen saturation in 2022-01-15 23:40:00 96 /min [facility] Arterial blood by [facility] Pulse oximetry Branch Body height 2022-01-15 20:34:00 170.2 cm [facility] [place] [facility] Body weight 2022-01-15 20:34:00 97.523 kg [facility] [place] [facility] BMI 2022-01-15 20:34:00 33.67 kg/m2 [facility] [place] [facility] Systolic blood 2021-11-22 23:33:00 113 mm[Hg] Univer sity of pressure [place] [facility] Diastolic blood 2021-11-22 23:33:00 92 mm[Hg] Unive rsity of pressure [place] [facility] Heart rate 2021-11-22 23:33:00 65 /min [facility]i ty [facility] [place] [facility] Respiratory rate 2021-11-22 23:33:00 16 /min Univ ersity of [place] [facility] Oxygen saturation in 2021-11-22 23:33:00 99 /min University of Arterial blood by [place] mymission2 joanie Pulse oximetry Branch Body temperature 2021-11-22 21:58:00 36 Carole Univ ersity of [place] [facility] Body height 2021-11-22 21:58:00 170.2 cm [facility]i [facility] [place] [facility] Body weight 2021-11-22 21:58:00 83.915 kg [facility] [place] [facility] BMI 2021-11-22 21:58:00 28.98 kg/m2 [facility] [place] [facility] Systolic blood 2020-11-17 17:48:00 136 mm[Hg] Univer sity of pressure [place] [facility] Diastolic blood 2020-11-17 17:48:00 75 mm[Hg] Unive rsity of pressure [place] [facility] Respiratory rate 2020-11-17 17:48:00 18 /min Univ ersity of [place] [facility] Body temperature 2020-11-17 17:34:00 36.56 Carole Univ ersity of [place] [facility] Oxygen saturation in 2020-11-17 17:34:00 100 /min University of Arterial blood by [place] mymission2 joanie Pulse oximetry Branch Heart rate 2020-11-17 15:07:00 67 /min [facility] [place] [facility] Body height 2020-11-16 18:03:00 170.2 cm [facility] [place] [facility] Body weight 2020-11-16 18:03:00 87.998 kg [facility] [place] [facility] BMI 2020-11-16 18:03:00 30.38 kg/m2 [facility] Systolic blood 2020-11-03 14:55:00 132 mm[Hg] Univer sity of pressure [facility] Diastolic blood 2020-11-03 14:55:00 61 mm[Hg] [facility] Heart rate 2020-11-03 14:55:00 65 /min [facility] Body temperature 2020-11-03 14:55:00 36.94 Carole [facility] Respiratory rate 2020-11-03 14:55:00 15 /min [facility] Oxygen saturation in 2020-11-03 14:55:00 99 /min [facility] Arterial blood by [facility] Pulse oximetry [place] Body height 2020-11-01 19:45:00 170.2 cm [facility] Body weight 2020-11-01 19:45:00 86.637 kg [facility] BMI 2020-11-01 19:45:00 29.91 kg/m2 [facility] Procedures Procedure Date / Time Performed Performing Clinician Sour e URINALYSIS 2022-01-15 22:39:00 Meli Lowe [facility] CT HEAD WO CONTRAST 2022-01-15 21:55:02 Meli Lowe [facility] CREATINE KINASE 2022-01-15 21:01:00 Meli Lowe [facility] MAGNESIUM 2022-01-15 21:01:00 Meli Lowe [facility] TROPONIN I 2022-01-15 21:01:00 Meli Lowe [facility] COMP. METABOLIC PANEL 2022-01-15 21:01:00 Meli Lowe [facility] ([id number]) [facility] CBC WITH DIFF 2022-01-15 21:01:00 Meli Lowe [facility] N-TERMINAL PRO-BNP 2022-01-15 21:01:00 Meli Lowe [facility] LACTIC ACID WHOLE 2022-01-15 21:00:00 Meli Lowe [facility] URINALYSIS 2021-11-22 22:37:00 Salvatore Wilson [facility] XR CHEST 1 VW 2021-11-22 22:26:33 Salvatore Wilson [facility] TROPONIN I 2021-11-22 22:16:00 Salvatore Wilson [facility] COMP. METABOLIC PANEL 2021-11-22 22:16:[address] [facility] ([id number]) Medical Branch N-TERMINAL PRO-BNP 2021-11-22 22:16:00 [facility] CBC WITH DIFF 2021-11-22 22:15:00 Salvatore Wilson [facility] COVID-19 (ID NOW RAPID 2021-11-22 22:15:00 Salvatore Wilson [facility] TESTING) Medical Branch NOTICE OF PRIVACY 2021-11-22 21:52:55 Doctor Unassigned, No [facility] Name Medical Branch CONSENT/REFUSAL FOR 2021-11-22 21:52:30 Doctor Unassigned, No [facility] DIAGNOSIS AND [facility] Medical Branch TREATMENT CONSENT/REFUSAL FOR 2020-11-16 17:22:15 Doctor Unassigned, No Un [facility] DIAGNOSIS AND [facility] Medical Branch TREATMENT ASSIGNMENT OF BENEFITS 2020-11-16 17:21:27 Doctor Unassigned, No [facility] Medical Branch ASSIGNMENT OF BENEFITS 2020-11-02 15:47:57 Doctor Unassigned, No [facility] Medical Branch ASSIGNMENT OF BENEFITS 2020-10-12 16:45:27 Doctor Unassigned, No [facility] Medical Branch [id number] 2020-03-16 00:00:00 MURED [facility] Encounters Start End Encounter Admission Attending Care Care Encounter Source Date/Time Date/Time Type Type Clinicians Facility Department ID 2021-08-27 Outpatient Urban DUBOIS RIBRADY JATIN [id number] Univers 17:04:57 SARWAT [facility] 2021-08-27 Outpatient Urban DUBOIS RIBRADY JATIN [id number] Univers 13:37:54 SARWAT [facility] 2021-08-27 Outpatient ABRAM RIBRADY [facility] [id number] Univers 09:12:27 SARWAT [facility] 2020-03-17 Inpatient TAMI Sung [facility] [id number] 09:33:00 Edward [facility] are [facility] 2020-03-16 Inpatient Pineda [facility] DAYS [id number] [facility] 07:30:00 Edward [id number] [facility] are [facility] 2022-01-15 2022-01-15 Emergency X [facility] ERT [id number] Univers 15:35:00 18:58:00 MELI [facility] 2022-01-15 2022-01-15 Emergency [facility] [id number] Univers 15:35:00 18:58:00 Meli OROURKE [id number] ity [facility] [id number] [facility] [id number] [address] 2021-11-28 2021-11-28 Outpatient KEISHA [facility] [id number] [place] 12:03:00 12:03:00 131 [facility] 2021-11-22 2021-11-22 Emergency X [facility] ERT [id number] Univers 15:47:00 18:04:00 SALVATORE [facility] 2021-11-22 2021-11-22 Emergency [facility] [id number] Univers 15:47:00 18:04:00 Salvatore OROURKE [id number] i ty [facility] 4.2.7.2.686 [facility] [id number] [address] 2021-07-20 2021-07-20 Outpatient KEISHA [facility] [id number] [place] 03:38:00 03:38:00 922 [facility] 2021-07-20 2021-07-20 Outpatient Marleen Montemayor [facility] [id number] 00:00:00 00:00:00 Marilyn [id number] 2021-01-24 2021-01-24 Outpatient KEISHA [facility] [id number] [place] 02:20:00 02:20:00 329 [facility] 2020-12-28 2020-12-28 Outpatient SIM_Bria [facility] [id number] [place] 01:01:00 01:01:00 302 [facility] 2020-11-23 2020-11-23 Outpatient SIM_Bria [facility] [id number] [place] 01:02:00 01:02:00 126 [facility] 2020-11-22 2020-11-22 Outpatient SIM_Bria [facility] [id number] [place] 03:29:00 03:29:00 125 Commun i ty Hosp[facility] 2020-11-17 2020-11-17 [facility] [id number] Univers 08:59:00 12:35:00 Encounter Sarwat Orourke [id number] ity [facility] 4[place]2.7.2.686 [place] [id number] [address] 2020-11-03 2020-11-03 [facility] [id number] Univers 06:15:00 09:11:00 Encounter Sarwat Orourke [id number] ity [facility] 4.2.7.2.686 [place] [id number] [address] 2020-11-02 2020-11-02 Outpatient R [facility] [id number] Univers 10:30:00 10:30:00 [id number] ity of [facility] 2020-11-02 2020-11-02 Orders Doctor ROBBINS [id number] Univers 00:00:00 00:00:00 Only Unassigned, ELLY [id number] ity of [facility] 4.2.7.2.686 Arjun as [id number] [address] 2020-10-26 2020-10-26 Outpatient CARLOFFER_Bria [facility] [id number] [place] 06:13:00 06:13:00 229 [facility] 2020-10-12 2020-10-12 Laboratory Only, Adc Test [facility] 1.2.840. [id number] Univers 10:47:24 11:02:24 Only Sarwat Dubois 350.1.13.1 0 ity of [place] 4[place]2.7.2.686 [place] [id number] [address] 2020-10-12 2020-10-12 Outpatient R [facility] [id number] Univers 10:30:00 10:30:00 [id number] ity of [facility] 2020-10-12 2020-10-12 [facility] [id number] Univers 10:30:00 10:30:00 SARWAT ity [facility] 2020-10-12 2020-10-12 Orders Doctor ROSENDO [id number] Univers 00:00:00 00:00:00 Only Unassigned, ELLY [id number] ity of Many [facility] 4.2.7.2.686 Arjun as [id number] [address] 2020-10-06 2020-10-06 Approver Lokesh, Adc Lab Main [facility] [id number] Univers 17:11:43 17:26:43 Visit Sarwat Dubois 350.1.13.1 0 ity of [place] 4.2.7.2.686 [facility] [id number] Nm dical [address] 2020-10-06 2020-10-06 Outpatient [facility] [id number] Univers 16:30:00 16:30:00 [id number] ity [facility] 2020-10-06 2020-10-06 Outpatient R ABRAM [facility] [id number] Univers 16:30:00 16:30:00 SARWAT [facility] 2020-09-15 2020-09-15 Outpatient keisha CRAIG [facility] [id number] [place] 02:47:00 02:47:00 [id number] [facility] 2020-03-12 2020-03-12 Outpatient AIDEN Sung REF [id number] [facility] 15:18:00 15:18:00 Teodoro [id number] [facility] 2020-03-12 2020-03-12 Outpatient Jorge Cook [facility] [id number] [facility] 09:00:00 09:00:00 [id number] Jeanette jimenez [facility] are [facility] 2018-09-24 2018-09-24 Outpatient sim_bria MMG MMG [id number] [place] 10:35:00 10:35:00 [id number] [facility] Results Test Description Test Time Test Comments Results Result Comments Source TROPONIN I 2022-01-15 21:38:57 Test Item Value Reference Range Interpretation Comme nts TROPONIN I (test code = 0.002 ng/mL See_Comment [Au tomated message] The [id number]) system which ge nerated this result tra [...] biotin. Lab Interpretation Normal (test code = 65028-3) [id number] 21:35:55 Test Item Value Reference Range Interpretation Comments NT-proBNP (test code 128 pg/mL See_Comment [Autom ated = [id number]) message] The system which generated this result transmitted reference range : <=450. The reference range was not used to interpret this result as normal/abnormal . JACK (test code = JACK) Biotin has been reported to cause a negative bias, interpret results relative to patient's use of biotin. Lab Interpretation Normal (test code = 48153-4) [facility] 21:28:33 Test Item Value Reference Range Interpretation Comments MAGNESIUM (test code = 3114339085) 1.8 mg/dL 1.7-2.4 Lab Interpretation (test code = Normal 40205-9) [facility]OL[facility] PAN[facility] ([id number])2022-01-15 21:28:13 Test Item Value Reference Range Interpretation Comments NA (test code = 135 mmol/L 135-145 6955736052) K (test code = 4.6 mmol/L 3.5-5.0 8749912694) CL (test code = 101 mmol/L 98-108 4043633439) CO2 TOTAL (test code 28 mmol/L 23-31 = 3145254376) AGAP (test code = 2-16 9982400128) BUN (test code = 17 mg/dL 7-23 0874245191) GLUCOSE (test code = 105 mg/dL 70-110 4896927482) CREATININE (test code 0.90 mg/dL 0.60-1.25 = 5589223109) TOTAL BILI (test code 0.5 mg/dL 0.1-1.1 = 6376211947) CALCIUM (test code = 8.7 mg/dL 8.6-10.6 2840535512) T PROTEIN (test code 6.4 g/dL 6.3-8.2 = 6689832703) ALBUMIN (test code = 3.7 g/dL 3.5-5.0 0590238444) ALK PHOS (test code = 76 U/L 34-122 6579782621) ALTv (test code = 18 U/L 5-50 1742-6) AST(SGOT) (test code 32 U/L 13-40 = 6933050929) eGFR (test code = mL/min/1.73m2 2365958124) JACK (test code = JACK) Association of [...] or urine or abnormalities in imaging tests). [facility] [id number] 21:28:13 Test Item Value Reference Range Interpretation Comments CK (test code = 0424617696) 47 U/L 33-194 Lab Interpretation (test code = Normal 34475-2) [facility] WITH [id number] 21:16:36 Test Item Value Reference Range Interpretation Comments WBC (test code = See_Comment [Automated 7390-2) message] The sy stem which generated this result transmitted reference range : 4.20 - 10.70 10*3/?L. The reference range was not used to interpret this result as normal/abnormal . RBC (test code = See_Comment L [Automated 299-8) message] The sy stem which generated this [...] RDW-SD (test code = 44.4 fL 38.5-51.6 31345-9) RDW-CV (test code = 12.3 % 12.1-15.4 788-0) PLT (test code = See_Comment [Automated 777-3) message] The sy stem which generated this result transmitted reference range : 150 - 328 10*3/ ?L. The reference r octaviano was not used to interpret this result as normal/abnormal . MPV (test code = 10.3 fL 9.8-13.0 35716-6) NRBC/100 WBC (test See_Comment [Automat ed code = 6215478282) message] The system which generated this result transmitted reference range : 0.0 - 10.0 /100 WBCs. The refer ence range was not u sed to interpret th is result as normal/abnormal . NRBC x10^3 (test code <0.01 See_Comment [Auto mated = 3085242247) message] The s ystem which generated this result transmitted reference range : 10*3/?L. The reference range was not used to interpret this result as normal/abnormal . GRAN MAT (NEUT) % 74.3 % (test code = 770-8) IMM GRAN % (test code 0.60 % = 1966984188) LYMPH % (test code = 14.1 % 736-9) MONO % (test code = 8.9 % 5905-5) EOS % (test code = 1.5 % 713-8) BASO % (test code = 0.6 % 706-2) GRAN MAT x10^3(ANC) 6.07 10*3/uL 1.99-6.95 (test code = 0647430393) IMM GRAN x10^3 (test 0.05 10*3/uL 0.00-0.06 code = 5939029115) LYMPH x10^3 (test code 1.15 10*3/uL 1.09-3.23 = 731-0) MONO x10^3 (test code 0.73 10*3/uL 0.36-1.02 = 742-7) EOS x10^3 (test code = 0.12 10*3/uL 0.06-0.53 711-2) BASO x10^3 (test code 0.05 10*3/uL 0.01-0.09 = 704-7) Lab Interpretation Abnormal (test code = 35600-7) [facility] [id number] 21:09:05 Test Item Value Reference Range Interpretation Comments LACTIC ACID (test code = 1.40 mmol/L 0.50-2.20 8358081863) Lab Interpretation (test code = Normal 62850-7) [facility] [id number] 22:56:09 Test Item Value Reference Interpretation Comments Range TROPONIN I (test 0.001 ng/mL See_Comment [Automated code = 1579221018) message] The system which generated this result [...] biotin. Lab Interpretation Normal (test code = 41960-5) [facility] [id number] 22:52:51 Test Item Value Reference Range Interpretation Comments NT-proBNP (test code 56 pg/mL See_Comment [Autom ated = 2390692887) message] The system which generated this result transmitted reference range : <=450. The reference range was not used to interpret this result as normal/abnormal . JACK (test code = JACK) Biotin has been reported to cause a negative bias, interpret results relative to patient's use of biotin. Lab Interpretation Normal (test code = 03540-6) [facility]OL[facility] PAN[facility] (81796)2021-11-22 22:44:07 Test Item Value Reference Range Interpretation Comments NA (test code = 133 mmol/L 135-145 L 8721871311) K (test code = 5.0 mmol/L 3.5-5.0 4551744252) CL (test code = 100 mmol/L 98-108 5205016617) CO2 TOTAL (test code = 29 mmol/L 23-31 0768305409) AGAP (test code = 2-16 0164083078) BUN (test code = 21 mg/dL 7-23 3080407070) GLUCOSE (test code = 142 mg/dL 70-110 H 9947041177) CREATININE (test code = 0.93 mg/dL 0.60-1.25 4659283185) TOTAL BILI (test code = 0.3 mg/dL 0.1-1.8 2931503029) CALCIUM (test code = 8.5 mg/dL 8.6-10.6 L 7073037909) T PROTEIN (test code = 5.9 g/dL 6.3-8.2 L 9124528971) ALBUMIN (test code = 3.4 g/dL 3.5-5.0 L 0789600886) ALK PHOS (test code = 73 U/L 34-122 9877255864) ALTv (test code = 16 U/L 5-50 1742-6) AST(SGOT) (test code = 27 U/L 13-40 6922426185) eGFR (test code = mL/min/1.73m2 4868314280) JACK (test code = JACK) Association of [...] tests). Lab Interpretation Abnormal (test code = 91807-3) [facility] WITH [id number] 22:33:46 Test Item Value Reference Range Interpretation Comments WBC (test code = See_Comment [Automated 5590-2) message] The sy stem which generated this result transmitted reference range : 4.20 - 10.70 10*3/?L. The reference range was not used to interpret this result as normal/abnormal . RBC (test code = See_Comment L [Automated 889-8) message] The sy stem which generated this [...] RDW-SD (test code = 43.8 fL 38.5-51.6 18578-8) RDW-CV (test code = 12.1 % 12.1-15.4 788-0) PLT (test code = See_Comment [Automated 777-3) message] The sy stem which generated this result transmitted reference range : 150 - 328 10*3/ ?L. The reference r octaviano was not used to interpret this result as normal/abnormal . MPV (test code = 10.6 fL 9.8-13.0 94567-8) NRBC/100 WBC (test See_Comment [Automat ed code = 8390777592) message] The system which generated this result transmitted reference range : 0.0 - 10.0 /100 WBCs. The refer ence range was not u sed to interpret th is result as normal/abnormal . NRBC x10^3 (test code <0.01 See_Comment [Auto mated = 8205426308) message] The s ystem which generated this result transmitted reference range : 10*3/?L. The reference range was not used to interpret this result as normal/abnormal . GRAN MAT (NEUT) % 71.8 % (test code = 770-8) IMM GRAN % (test code 0.40 % = 4398829529) LYMPH % (test code = 16.4 % 736-9) MONO % (test code = 7.9 % 5905-5) EOS % (test code = 2.8 % 713-8) BASO % (test code = 0.7 % 706-2) GRAN MAT x10^3(ANC) 5.80 10*3/uL 1.99-6.95 (test code = 9555926337) IMM GRAN x10^3 (test 0.03 10*3/uL 0.00-0.06 code = 5152262327) LYMPH x10^3 (test code 1.33 10*3/uL 1.09-3.23 = 731-0) MONO x10^3 (test code 0.64 10*3/uL 0.36-1.02 = 742-7) EOS x10^3 (test code = 0.23 10*3/uL 0.06-0.53 711-2) BASO x10^3 (test code 0.06 10*3/uL 0.01-0.09 = 704-7) Lab Interpretation Abnormal (test code = 23513-3) [facility] [id number] 10:27:00 RUN DATE: 03/23/20 [facility] - LAB PAGE 1 RUN TIME: 1028 Specimen Inquiry RUN USER: INTERFACE PATIENT: NINO MOHAMUD LOC: [place] POD B U #: [id number] AGE/SX: 74/M ROOM: [facility] RE03/17/20REG DR: Teodoro Sung MD : 44 BED: 1 DIS: STATUS: ADM IN TLOC: SPEC #: [id number] RECD: 03/16/202714 STATUS: COLETTE REQ #: [id number] RODDY: 03/16/20 [facility] DR: Teodoor Sung MD ENTERED: 03/16/207270 SP TYPE: SURG OTHR DR: Marleen Montemayor MD, Alvin MDORDERED: PATHGM3, PATH SPEC, DECAL/2, H E STAIN/2 HISTOLOGY: TISSUE ID BLK PCS AD LEV / PROCEDURE DISPOSITION ____ ___ ___ [...] submitted in a single cassette after decalcification. SIDE STAPLER/th MICROSCOPIC DESCRIPTION Microscopic examination is performed. Signed SIGNATURE ON FILE LionelJeane 03/23/20 1027 END OF REPORT GLUBED 2020-03-22 11:33:00 Test Item Value Reference Range Interpretation Comments GLUBED (test code = GLUBED) 102 MG/DL 70-105 N BASIC METABOLIC [id number] 06:52:00 Test Item Value Reference Range Interpretation [...] code 8.3 mg/dL 8.8-10.2 L = CA) [id number] 06:52:00 Test Item Value Reference Range Interpretation Comments MAGNESIUM (test code = MAG) 2.0 mg/dL 1.4-2.6 N CBC W/AUTO [id number] 06:50:00 Test Item Value Reference Range Interpretation [...] = BA#) 0.01 x10 3/uL 0.0-0.20 N [id number] 16:27:00 Test Item Value Reference Range Interpretation Comments GLUBED (test code = GLUBED) 107 MG/DL 70-105 H [id number] 12:01:00 Test Item Value Reference Range Interpretation Comments GLUBED (test code = GLUBED) 108 MG/DL 70-105 H BASIC METABOLIC [id number] 07:20:00 Test Item Value Reference Range Interpretation [...] mg/dL 8.8-10.2 N = CA) CBC W/AUTO [id number] 06:38:00 Test Item Value Reference Range Interpretation [...] = BA#) 0.02 x10 3/uL 0.0-0.20 N [id number] 06:05:00 Test Item Value Reference Range Interpretation Comments GLUBED (test code = GLUBED) 119 MG/DL 70-105 H [id number] 20:51:00 Test Item Value Reference Range Interpretation Comments GLUBED (test code = GLUBED) 125 MG/DL 70-105 H [id number] 17:40:00 Test Item Value Reference Range Interpretation Comments GLUBED (test code = GLUBED) 87 MG/DL 70-105 N [id number] 17:16:00 Test Item Value Reference Range Interpretation Comments GLUBED (test code = GLUBED) 59 MG/DL 70-105 L [id number] 11:15:00 Test Item Value Reference Range Interpretation Comments GLUBED (test code = GLUBED) 76 MG/DL 70-105 N BASIC METABOLIC [id number] 05:20:00 Test Item Value Reference Range Interpretation [...] mg/dL 8.8-10.2 L = CA) CBC W/AUTO [id number] 05:10:00 Test Item Value Reference Range Interpretation [...] = BA#) 0.02 x10 3/uL 0.0-0.20 N [id number] 02:21:00 Test Item Value Reference Range Interpretation Comments GLUBED (test code = GLUBED) 91 MG/DL 70-105 N [id number] 20:34:00 Test Item Value Reference Range Interpretation Comments GLUBED (test code = GLUBED) 100 MG/DL 70-105 N [id number] 12:10:00 Test Item Value Reference Range Interpretation Comments GLUBED (test code = GLUBED) 104 MG/DL 70-105 N [id number] 06:01:00 Test Item Value Reference Range Interpretation Comments GLUBED (test code = GLUBED) 118 MG/DL 70-105 H BASIC METABOLIC [id number] 04:40:00 Test Item Value Reference Range Interpretation [...] mg/dL 8.8-10.2 L = CA) CBC W/AUTO [id number] 04:33:00 Test Item Value Reference Range Interpretation [...] = BA#) 0.01 x10 3/uL 0.0-0.20 N [id number] 01:36:00 Test Item Value Reference Range Interpretation Comments GLUBED (test code = GLUBED) 144 MG/DL 70-105 H [id number] 18:25:00 Test Item Value Reference Range Interpretation Comments GLUBED (test code = GLUBED) 136 MG/DL 70-105 H - XR SPINE 1 V SPEC [id number] 14:15:00Patient Name: NINO MOHAMUD Unit No: [id number] EXAMS: CPT CODE: [id number] XR SPINE 1 V SPEC LEVEL 08376 Cervical spine 2 views intraoperative 03/16/2020 2:14 [...] m2): Air Kerma (mGy): Trscr Dt/Tm: 03/16/2020 (9761) by:[email or web address] Printed Date/Time: 03/16/2020 (7512) Name: NINO MOHAMUD [facility] Phys: Teodoro Quinones MD [address] : 1945 Age: 74 Sex: [place] [address] Loc: P.0212 1 Exam Date: 03/16/2020 Status: ADM IN PH: FAX: PAGE 1 Signed Report Coronavirus 2019 nCoV [id number] 06:12:00 Test Item Value Reference Range Interpretation Comments Coronavirus 2019 nCoV Bedside (test Negative NEGATIVE code = [id number]) UA RFLX MICR CULT IF [id number] 15:57:00 Test Item Value Reference Range Interpretation [...] DL Cholesterol<1 00mg/dL : Desirable LDL -C ewxomxupocjdr97 0-159mg /dL: Borderline High Risk LDL-C oijgcjqjylsja75 0-189mg /dL: High risk LDL-C concentration H DL-LDL Cholesterol is affected by a n umber of factors such as smoking, age an d sex.~~~~~~~~~~~ ~~~~~~~ ~~~~~~~~~~~~~~~ ~~~~~~~ ~~~~~~~~~~~~~~~ ~~~~~ PROTHROMBIN [id number] 14:46:00 Test Item Value Reference Range Interpretation [...] 2.5-3.5recurren t systemic emboli sm. THROMBOPLASTIN TIME [id number] 14:46:00 Test Item Value Reference Range Interpretation Comments THROMBOPLASTIN TIME 31.1 SECONDS 26.0-35.9 N INTERPRE TATIVE PARTIAL (test code = DATA:Th erapeutic PTT) range: Unfractionated heparin:47 - 71 seconds Argatroban:1.5 to 3 times the basel ine PTT UA RFLX MICR CULT IF [id number] 14:40:00 Test Item Value Reference Range Interpretation [...] = SQU) Indication for culture: Dysuria/FrequencyCBC W/AUTO [id number] 14:37:00 Test Item Value Reference Range Interpretation [...] BA#) 0.04 x10 3/uL 0.0-0.20 N BLOOD [id number] 23:00:00 Test Item Value Reference Range Interpretation Comments CULTURE (BEAKER) (test No growth in 5 days code = 1095) BLOOD [id number] 23:00:00 Test Item Value Reference Range Interpretation Comments CULTURE (BEAKER) (test No growth in 5 days code = 1095) BASIC METABOLIC [id number] 08:26:00 Test Item Value Reference Range Interpretation [...] PATIEN TS. CBC W/PLT COUNT & AUTO [id number] 06:33:00 Test Item Value Reference Range Interpretation [...] (test code = 2801) RAPID DRUG SCREEN, [id number] 14:01:00 Test Item Value Reference Range Interpretation [...] situations. Chain of custody not maintained. Some knvr-svy-guxwoyp medications, as well as adulterants, may cause inaccurate results. Clinical correlation should be applied. A more comprehensive drug screen or confirmation of a detected drug may be performed upon request.EEG AWAKE/ASLEEP AND [id number] 11:31:00Reason for exam:->encephalopathyEEG REPORT: Aylin Mohamud [facility] , DATE: EEG #: 18-06ICD Code: #: G93.40 Encephalopathy- unspecifiedCPT Code: #: 10068: 01. EEG awake and drowsy; 20-40 minPROCEDURE: [...] clinically.Clinical Fellow: Valeri RileydiNeurophysiologist: Nohemy Chang URINE [id number] 09:34:00 Test Item Value Reference Range Interpretation Comments CULTURE (BEAKER) (test code = 1095) No growth CBC W/PLT COUNT & AUTO [id number] 07:03:00 Test Item Value Reference Range Interpretation [...] (BEAKER) (test code = 2801) BASIC METABOLIC [id number] 07:00:00 Test Item Value Reference Range Interpretation [...] FOR DIALYSIS PATIEN TS. CT, BRAIN, WITHOUT [id number] 23:34:00FINAL REPORT EXAMINATION NONCONTRAST HEAD CT SCAN [...] [place] Verified Date/Time: 11/06/2017 23:34:56 Reading Location: [address] Transitional Reading Room [id number] 19:41:00 Test Item Value Reference Range Interpretation Comments AMMONIA (BEAKER) 35 mol/L 18-72 Specimen mo derately (test code = 348) hemolyzed HEMOGLOBIN [id number] 10:32:00 Test Item Value Reference Range Interpretation Comments HEMOGLOBIN A1C (BEAKER) (test code = 5.4 % 4.3-6.1 368) CBC W/PLT COUNT & AUTO [id number] 07:01:00 Test Item Value Reference Range Interpretation [...] (BEAKER) (test code = 2801) BASIC METABOLIC [id number] 06:47:00 Test Item Value Reference Range Interpretation [...] FOR DIALYSIS PATIEN TS. INFLUENZA A H1N1 [id number] 21:27:00 Test Item Value Reference Range Interpretation Comments INFLUENZA A RNA Not Detected Not Detected, (BEAKER) (test code = Inconclusive 1545) NOVEL H1N1 RNA (BEAKER) Not Detected Not Detected, (test code = 1546) Inconclusive These assays were performed by real-time RT-PCR (chemical applicator-PCR) utilizing fluorogenic hydrolysis probe technology for the detection of human Influenza A viruses and the differential detection of novel H1N1 Influenza virus in respiratory specimens. The test is composed of (1) an RNA extraction from patient specimen, and (2) chemical applicator-PCR amplification and detection with human Influenza A and novel W4S2-llindlaz primers and probes. A well-conserved region of [...] its performance characte ristics determined by the [facility] Pathology Department, Section of Molecular Pathology. It has not been cleared or approved by the U.S. Food and Drug Administration (FDA). SinceFDA approval is not required for clinical use of the test, validation was done as required by The Clinical Laboratory Amendments of 1988.These assays were performed by real-time RT-PCR (chemical applicator-PCR) utilizing fluorogenic hydrolysis probe technology for the detection of human Influenza A viruses and the differential detection of novel H1N1 Influenza virus in respiratory specimens. The test is composed of (1) an RNA extraction from patient specimen, and (2) chemical applicator-PCR amplification and detection with human In fluenza A and novel Y6I9-godtvxmk primers and probes. A well-conserved region of [...] and its performance characteristics determined by the [facility] Pathology Department, Section of Molecular Pathology. It [...] = 772) CBC W/PLT COUNT & AUTO [id number] 06:46:00 Test Item Value Reference Range Interpretation [...] MORPHOLOGY (BEAKER) (test code Normal = 762) [id number] 03:48:00 Test Item Value Reference Range Interpretation Comments MAGNESIUM (BEAKER) (test code = 2.1 mg/dL 1.6-2.6 627) BASIC METABOLIC [id number] 03:48:00 Test Item Value Reference Range Interpretation [...] DIALYSIS PATIEN TS. LACTIC ACID, VENOUS, WHOLE [id number] 03:44:00 Test Item Value Reference Range Interpretation Comments LACTATE BLOOD VENOUS (2) (BEAKER) 2.2 mmol/L 0.5-2.2 (test code = 2872) Effective 03/01/2016: Units/Reference Range ChangeNew: 0.5-2.2 mmol/L Previous: 5-20 mg/dLLACTIC ACID, VENOUS, WHOLE [id number] 23:42:00 Test Item Value Reference Range Interpretation Comments LACTATE BLOOD VENOUS (2) (BEAKER) 1.9 mmol/L 0.5-2.2 (test code = 2872) Effective 03/01/2016: Units/Reference Range ChangeNew: 0.5-2.2 mmol/L Previous: 5-20 mg/dLRAPID INFLUENZA A&B [id number] 21:51:00 Test Item Value Reference Range Interpretation Comments RAPID INFLUENZA A AG (BEAKER) Negative Negative, Inconclusive (test code = 1622) RAPID INFLUENZA B AG (BEAKER) Negative Negative, Inconclusive (test code = 1623) PROTHROMBIN [id number] 21:02:00 Test Item Value Reference Range Interpretation Comments PROTIME (BEAKER) (test code = 15.3 seconds 11.7-14.7 H 759) INR (BEAKER) (test code = 370) 1.2 <=5.9 RECOMMENDED COUMADIN/WARFARIN INR THERAPY RANGESSTANDARD DOSE: 2.0 - 3.0 Includes: PROPHYLAXIS forvenous thrombosis, systemic embolization; TREATMENT for venous thrombosis and/or pulmonary embolus.HIGH RISK: Target INR is 2.5-3.5 for patients with mechanical heart valves.OXYGEN SATURATION, [id number] 21:00:00 Test Item Value Reference Range Interpretation [...] 515) SOURCE(BEAKER) (test code = Urine, [place] 5483) CT, CHEST WITH IV CONTRAST- PE TEST [id number] 19:53:00FINAL REPORT CLINICAL HISTORY: Chest pain. FINDINGS: [...] Ve rified Date/Time: 11/04/2017 19:53:50 Reading Location: [address] Reading Room [id number] 19:41:00 Test Item Value Reference Range Interpretation Comments MAGNESIUM (BEAKER) 1.4 mg/dL 1.6-2.6 L Specimen slightly (test code = 627) hemolyzed HEPATIC FUNCTION [id number] 19:41:00 Test Item Value Reference Range Interpretation [...] slightly (test code = 347) hemolyzed TROPONIN [id number] 19:27:00 Test Item Value Reference Range Interpretation [...] and persistent tachyarrhythmia.RAD, CHEST, 1 VIEW, NON [id number] 19:12:00Reason for exam:->sobShould this be performed at [...] MDReport Verified Date/Time: 11/04/2017 19:12:37 Reading Location: [address] Reading Room BLOOD GAS, [id number] 19:03:00 Test Item Value Reference Range Interpretation [...] code = 1819) 60.0 % COMPREHENSIVE METABOLIC [id number] 18:25:00 Test Item Value Reference Range Interpretation [...] ATED GFR. CREATINE KINASE (CK), TOTAL AND [id number] 18:25:00 Test Item Value Reference Range Interpretation Comments CREATINE KINASE TOTAL (BEAKER) 93 U/L 29-200 (test code = 380) CREATINE KINASE-MB (BEAKER) (test 1.0 ng/mL 0.0-6.6 code = 750) CREATINE KINASE-MB INDEX (BEAKER) 1.1 % (test code = 395) CK-MB Reference Range:<6.7 Normal6.7-10.0 Borderline>10.0 AbnormalPOCT-LACTIC ACID, [id number] 18:17:00 Test Item Value Reference Range Interpretation Comments POC-LACTIC ACID, 3.1 mmol/L 0.9-1.7 H TESTED AT [facility] [address] (BEAKER) (test APRIL [place] code = 2805) [address] CBC W/PLT COUNT & AUTO [id number] 18:14:00 Test Item Value Reference Range Interpretation [...] 0-1 PERCENT (BEAKER) (test code = 2801) PT/[id number] 18:05:00 Test Item Value Reference Range Interpretation [...] 2.5-3.5 for patients with mechanical heart valves.[facility] [id number] 17:57:00FINAL REPORT CLINICAL HISTORY: Stroke TECHNIQUE: Contiguous [...] Vick Verified Date/Time: 11/04/2017 17:57:59 Reading Location: [address] Neuro Reading Room CT, CAROTID, [id number] 17:57:00FINAL REPORT CLINICAL HISTORY: Stroke TECHNIQUE: Contiguous [...] Vick Verified Date/Time: 11/04/2017 17:57:59 Reading Location: [address] Neuro Reading Room CT, BRAIN/STROKE [id number] 17:09:00 Reason for exam:->altered mental statusWhat is [...] MDReport Verified Date/Time: 11/04/2017 17:09:06 Reading Location: [address] Neuro Reading Room
--- NOTE | 2022-02-13 00:28 | EDPHYS ---
Physician Documentation [facility] Name: Edgardo Marie Age: 76 yrs Sex: Male : 1945 Arrival Date: 02/12/2022 Time: 22:24 Bed 11 Private MD: ED Physician Delroy Vanegas HPI: 02/12 22:35 This 76 yrs old Male presents to ER via Unassigned with complaints of Fall Injury. rn 22:35 Details of fall: The patient fell from a supine position, out of bed. Onset: The rn symptoms/episode began/occurred just prior to arrival. Associated injuries: The patient sustained injury to the head, contusion, pain. Severity of symptoms: At their worst the symptoms were mild, in the emergency department the symptoms are unchanged. It is unknown whether or not the patient has had similar symptoms in the past. The patient has not recently seen a physician. Bed alarm went off at assisted living facility, had fallen out of bed, patient states got up after fall but EMS states found on ground. Small amount of blood from nose. Pt states was almost asleep but half hanging off of bed. Has felt well otherwise. No recent fever/vomiting/diarrhea. Only complains of head/facial pain. No extremity/chest/abdomen pain or discomfort. . - Immunization history: Last tetanus immunization: unknown. - Family history:: not pertinent. - Hospitalizations: : Patient was recently seen at. ROS: 22:35 Constitutional: Negative for fever, chills, and weight loss, Eyes: Negative for injury, rn pain, redness, and discharge, ENT: + mild facial pain and pain of nose Neck: Negative for injury, pain, and swelling, Cardiovascular: Negative for chest pain, palpitations, and edema, Respiratory: Negative for shortness of breath, cough, wheezing, and pleuritic chest pain, Abdomen/GI: Negative for abdominal pain, nausea, vomiting, diarrhea, and constipation, Back: Negative for injury and pain, : Negative for injury, bleeding, discharge, and swelling, MS/Extremity: Negative for injury and deformity, Skin: Negative for injury, rash, and discoloration, Neuro: Negative for headache, weakness, numbness, tingling, and seizure. Exam: 22:35 Constitutional: This is a well developed, well nourished patient who is awake, alert, rn and in no acute distress. Head/Face: + mild nasal swelling with dried blood in nares. No septal hematoma. Eyes: Periorbital areas with no swelling, redness, or edema. ENT: No oral trauma. Neck: In ccollar, no midline tenderness. Chest/axilla: Normal chest wall appearance and motion. Nontender with no deformity. No lesions are appreciated. Cardiovascular: Regular rate and rhythm. No pulse deficits. Respiratory: No increased work of breathing, no retractions or nasal flaring. Abdomen/GI: Soft, non-tender Back: No spinal tenderness. MS/ Extremity: Pulses equal, no cyanosis. Neurovascular intact. Full, normal range of motion. Equal circumference. Neuro: Awake and alert, GCS 15, oriented to person, place. Cranial nerves II-XII grossly intact. Motor strength 5/5 in all extremities. Sensory grossly intact. Vital Signs: 22:39 BP 123 / 66; Pulse 70; Resp 18; Temp 97.8; Pulse Ox 98% on R/A; Weight 90 kg; Height 6 tw5 ft. 0 in. (182.88 cm) (R); Pain 0/10; 22:39 Body Mass Index 26.91 (90.00 kg, 182.88 cm) tw5 22:39 glucose 125 tw5 Trauma Score (Adult): 22:39 Eye Response: spontaneous(1); Verbal Response: confused(1); Motor Response: obeys tw5 commands(2); Systolic BP: > 89 mm Hg(4); Respiratory Rate: 10 to 29 per min(4); Ga Score: 14; Trauma Score: 12 MDM: 22:29 Patient medically screened. rn 02/13 00:25 Differential diagnosis: closed head injury, contusion, fracture. Data reviewed: vital rn signs, nurses notes, radiologic studies, CT scan, plain films, and as a result, I will discharge patient. Counseling: I had a detailed discussion with the patient and/or guardian regarding: the historical points, exam findings, and any diagnostic results supporting the discharge/admit diagnosis, radiology results, the need for outpatient follow up, to return to the emergency department if symptoms worsen or persist or if there are any questions or concerns that arise at home. Response to treatment: the patient's symptoms have markedly improved after treatment, and as a result, I will discharge patient. Special discussion: I discussed with the patient/guardian in detail that at this point there is no indication for admission to the hospital. It is understood, however, that if the symptoms persist or worsen the patient needs to return immediately for re-evaluation. ED course: CT head/cspine/face neg for acute traumatic findings. Xray chest and pelvis neg for acute traumatic findings as well. Pt only complains of pain to nose. CT face neg for nasal fracture. Will dc home home.. 02/12 22:35 Order name: CT Head C Spine rn 02/12 22:35 Order name: CT Facial Bones W/O Con rn 02/12 22:35 Order name: XRAY Chest (1 view) rn 02/12 22:35 Order name: XRAY Pelvis rn Administered Medications: No medications were administered Disposition Summary: 02/13/22 00:27 Discharge Ordered Location: Home rn Problem: new rn Symptoms: have improved rn Condition: Stable rn Diagnosis - Contusion of unspecified part of head, initial encounter rn Followup: rn - With: Private Physician - When: As needed - Reason: Recheck today's complaints, Re-evaluation by your physician Discharge Instructions: - Discharge Summary Sheet rn - Facial or Scalp Contusion rn Forms: - Medication Reconciliation Form rn - Thank You Letter rn - Antibiotic legal intern - Prescription Opioid Use rn Signatures: Dispatcher [employer] EDDelroy Sarmiento MD MD rn Joann Farley tw5
--- NOTE | 2022-02-13 00:28 | ER ---
Nurse's Notes [facility] Name: Edgardo Marie Age: 76 yrs Sex: Male : 1945 Arrival Date: 02/12/2022 Time: 22:24 Bed 11 Private MD: Diagnosis: Contusion of unspecified part of head, initial encounter Presentation: 02/12 22:24 Chief complaint: EMS states: "Patient came from [facility], unknown time of fall. tw5 There was a lot of blood on the floor from his nose. He has dementia so he doesn't recall.". 22:39 Chief complaint:. tw5 22:39 Chief complaint: EMS states: "He was [place], unwitness fall, unknown LOC. Staff tw5 stated that he rolled out of bed and hit is nose. There was 10 ml of floor and bleeding was controlled by the time we got him. initial BP was 80/40. His BP now is 120/85". Care prior to arrival: Bleeding of injury controlled. Cervical collar in place. Mechanism of Injury: Fall out of bed. Trauma event details: Injury occurred in the [facility], Injury occurred: assisted living Injury occurred at: 22:41. 22:39 Acuity: JEFF 3 tw5 22:39 Method Of Arrival: EMS: [facility] tw5 - Immunization history: Last tetanus immunization: unknown. - Family history:: not pertinent. - Hospitalizations: : Patient was recently seen at. Screenin:57 Abuse screen: Denies threats or abuse. Nutritional screening: No deficits noted. jb4 Tuberculosis screening: No symptoms or risk factors identified. Fall Risk Fall in past 12 months (25 points). IV access (20 points). Total Barrera Fall Scale indicates High Risk Score (45 or more points). Fall prevention measures have been instituted. Side Rails Up X 2 Placed Close to Nursing Station Frequent Obs/Assessments Occuring Family Present and informed to notify staff if the need to leave the bedside As available patient and family educated on Fall Prevention Program and Strategies. Primary Survey: 22:39 NO uncontrolled hemorrhage observed. A: The patient is alert. Airway: patent. tw5 Breathing/Chest: Respiratory pattern: regular. Circulation: Skin color: pink. Disability Alert. Exposure/Environment: There is no evidence of uncontrolled external bleeding. Reassessment Airway Airway Patent Breathing/Chest Respiratory pattern Regular Circulation Pulses Palpable Disability Alert. Secondary Survey: 22:39 HEENT: Face Other dried blood around nose, swelling. tw5 Assessment: 22:39 General: Appears uncomfortable, Behavior is calm, cooperative, appropriate for age. tw5 Pain: Unable to use pain scale. Does not appear to understand pain scale. Neuro: Level of Consciousness is obeys commands, Oriented to person. 23:57 Reassessment: Patient appears in no apparent distress at this time. Patient and/or jb4 family updated on plan of care and expected duration. Pain level reassessed. Patient is alert, oriented x 3, equal unlabored respirations, skin warm/dry/pink. Pt resting in bed with family at the bedside. 02/13 00:30 Reassessment: Patient appears in no apparent distress at this time. Patient and/or jb4 family updated on plan of care and expected duration. Pain level reassessed. Patient is alert, oriented x 3, equal unlabored respirations, skin warm/dry/pink. Vital Signs: 02/12 22:39 BP 123 / 66; Pulse 70; Resp 18; Temp 97.8; Pulse Ox 98% on R/A; Weight 90 kg; Height 6 tw5 ft. 0 in. (182.88 cm) (R); Pain 0/10; 22:39 Body Mass Index 26.91 (90.00 kg, 182.88 cm) tw5 22:39 glucose 125 tw5 Trauma Score (Adult): 22:39 Eye Response: spontaneous(1); Verbal Response: confused(1); Motor Response: obeys tw5 commands(2); Systolic BP: > 89 mm Hg(4); Respiratory Rate: 10 to 29 per min(4); [place] Score: 14; Trauma Score: 12 ED Course: 22:24 Patient arrived in ED. tw5 22:29 Delroy Vanegas MD is Attending Physician. rn 22:42 Triage completed. tw5 23:14 CT Head C Spine In Process Unspecified. EDMS 23:14 CT Facial Bones W/O Con In Process Unspecified. EDMS 23:35 Edgardo Yu, RN is Primary Nurse. jb4 23:38 XRAY Chest (1 view) In Process Unspecified. EDMS 23:38 XRAY Pelvis In Process Unspecified. EDMS 23:57 Patient has correct armband on for positive identification. Placed in gown. Bed in low jb4 position. Call light in reach. Side rails up X 1. Pulse ox on. NIBP on. 23:57 Maintain EMS IV. Dressing intact. Good blood return noted. Site clean \\T\\ dry. Gauge \\T\\ rogelio 4 site: 20g RAC. Administered Medications: No medications were administered Intake: 22:39 PO: 0ml; Total: 0ml. tw5 Output: 22:39 Urine: 0ml; Total: 0ml. tw5 Outcome: 02/13 00:27 Discharge ordered by . rn 01:30 Patient left the ED. tw5 Signatures: Dispatcher [employer] EDMS Delroy Vanegas MD MD rn Bryson, James, RN RN jb4 Wood, Tiffany tw5
[2022-02-13 03:03] VITALS: BP 123/66; TEMP 97.8; O2SAT 98
--- NOTE | 2022-02-13 16:03 | RAD REPORT ---
EXAM DESCRIPTION: CT - Facial Bones W/ Mpr - 02/13/2022 6:41 am CLINICAL HISTORY: 76 years Male Head, face and neck trauma, blunt TECHNIQUE: Noncontrast CT head, face and cervical spine with coronal and sagittal reformats. All CT scans at this facility use dose modulation, iterative reconstruction, and/or weight based dosing when appropriate to reduce radiation dose to as low as reasonably achievable. COMPARISON: 02/07/2022 and 09/27/2021. FINDINGS: HEAD: Brain: Parenchymal volume loss. Chronic small vessel disease. No intracranial hemorrhage, midline radha ft, mass or mass effect. No obvious large acute territorial infarction. Ventricles: No hydrocephalus. Mastoid: clear. Osseous: No acute fracture. Soft tissues: Unremarkable. FACE: Orbit: Status post bilateral cataract surgeries. Sinus: Mild ethmoid and left maxillary sinus mucosal thickening. Osseous: No acute fracture. Other: Multiple dental restorations. Soft tissues: Unremarkable. CERVICAL SPINE: Vertebra: No acute fracture. Alignment: Straightening of the normal cervical lordosis without spondylolisthesis, unchanged. Degenerative change: Multilevel degenerative changes again noted. Status post C3-C6 laminectomies. No high grade spinal canal stenosis. Soft tissues: Unremarkable. Lungs: Visualized lung apices are clear. IMPRESSION: Head: 1. No acute intracranial findings. Face: 1. No acute fracture. Cervical spine: 1. No acute cervical spine pathology. 2. Chronic findings as described above. Electronically signed by: Jamie Dhillon MD 02/13/2022 12:08 AM CDT Due to temporary technical issues with the PACS/Fluency reporting system, reports are being signed by the in house radiologists without review as a courtesy to insure prompt reporting. The interpreting radiologist is fully responsible for the content of the report.
--- NOTE | 2022-02-13 16:04 | RAD REPORT ---
EXAM DESCRIPTION: CT - Head C Spine Mpr Wo Con - 02/13/2022 6:41 am CLINICAL HISTORY: 76 years Male Head, face and neck trauma, blunt TECHNIQUE: Noncontrast CT head, face and cervical spine with coronal and sagittal reformats. All CT scans at this facility use dose modulation, iterative reconstruction, and/or weight based dosing when appropriate to reduce radiation dose to as low as reasonably achievable. COMPARISON: 02/07/2022 and 09/27/2021. FINDINGS: HEAD: Brain: Parenchymal volume loss. Chronic small vessel disease. No intracranial hemorrhage, midline radha ft, mass or mass effect. No obvious large acute territorial infarction. Ventricles: No hydrocephalus. Mastoid: clear. Osseous: No acute fracture. Soft tissues: Unremarkable. FACE: Orbit: Status post bilateral cataract surgeries. Sinus: Mild ethmoid and left maxillary sinus mucosal thickening. Osseous: No acute fracture. Other: Multiple dental restorations. Soft tissues: Unremarkable. CERVICAL SPINE: Vertebra: No acute fracture. Alignment: Straightening of the normal cervical lordosis without spondylolisthesis, unchanged. Degenerative change: Multilevel degenerative changes again noted. Status post C3-C6 laminectomies. No high grade spinal canal stenosis. Soft tissues: Unremarkable. Lungs: Visualized lung apices are clear. IMPRESSION: Head: 1. No acute intracranial findings. Face: 1. No acute fracture. Cervical spine: 1. No acute cervical spine pathology. 2. Chronic findings as described above. Electronically signed by: Jamie Dhillon MD 02/13/2022 12:08 AM CDT Due to temporary technical issues with the PACS/Fluency reporting system, reports are being signed by the in house radiologists without review as a courtesy to insure prompt reporting. The interpreting radiologist is fully responsible for the content of the report.
--- NOTE | 2022-02-13 16:10 | RAD REPORT ---
EXAM DESCRIPTION: RAD - Pelvis - 02/12/2022 11:37 pm CLINICAL HISTORY: 76 years, Male, BLUNT TRAUMA COMPARISON: None. FINDINGS: 1 single frontal view of the pelvis was obtained. The pelvic brim is intact. No areas of a cute bony injuries were demonstrated. No gross soft tissue abnormality is identified. There are n o gross intraosseous lesions. No periosteal reaction were seen. Heterotopic bony medications with in the greater trochanters. Degenerative changes lower lumbar spine. Benign consultation right hemipe lvis. Calcifications within the left inferior hip joint area could correspond to lose body. No definitive displaced fracture are identified, if symptoms persist, clinical correlation and/or fur ther evaluation with CT scan and/or MRI could be of assistance. IMPRESSION: No acute bony injuries were demonstrated. Calcifications within the left inferior hip servando int area could correspond to lose body. Electronically signed by: Teddy Sparrow MD 02/13/2022 12:01 AM CDT Due to temporary technical issues with the PACS/Fluency reporting system, reports are being signed by the in house radiologists without review as a courtesy to insure prompt reporting. The interpreting radiologist is fully responsible for the content of the report.
--- NOTE | 2022-02-13 16:13 | RAD REPORT ---
EXAM DESCRIPTION: RAD - Chest Single View - 02/12/2022 11:37 pm CLINICAL HISTORY: 76 years, Male, BLUNT CHEST TRAUMA COMPARISON: None. FINDINGS: Single view of the chest was obtained portable. No prior films are available for compariso n. The cardiomediastinal silhouette demonstrate to be unremarkable. Day heart is not enlarged. The thoracic aorta is mildly tortuous. The pulmonary vasculature is normal distribution. Costophrenic ang les are sharp. No areas of consolidation or masses are seen. The rest of the soft tissue and bony structures demonstrate to be unremarkable. IMPRESSION: NO ACUTE CARDIOPULMONARY DISEASE SEEN. Electronically signed by: Teddy Sparrow MD 02/12/2022 11:58 PM CDT Due to temporary technical issues with the PACS/Fluency reporting system, reports are being signed by the in house radiologists without review as a courtesy to insure prompt reporting. The interpreting radiologist is fully responsible for the content of the report.
== END 2022-02-13 01:30 | disposition home or self-care (01) ==
LOC: ER 22:08
DX: S00.83XA Contusion of other part of head, initial encounter (principal); W06.XXXA Fall from bed, initial encounter
CPT/HCPCS: 70450; 70486; 71045; 72125; 72170; 76377; 99283

== ENCOUNTER 2022-02-18 08:52 | Emergency (ER) | payer OTHER, MEDICARE ==
--- OUTSIDE RECORDS SUMMARY | 2022-02-18 08:57 | XMS REPORT | Continuity of Care Document ---
:1945 Author Organization [facility] t Address [address]. [address] [place] [address] Care Team Providers Name Role Phone Nena MONTEMAYOR Primary Care Physician Unavailable Bria DUBOIS Attending Clinician Unavailable Jeaneth Sung Attending Clinician Unavailable Raman LOWE Attending Clinician Unavailable Raman Lowe DO Attending Clinician KEISHA Attending Clinician Unavailable Urban WILSON Attending Clinician Unavailable Urban Thompson Attending Clinician Marilyn Montemayor Attending Clinician [phone] Bria Dubois MD Attending Clinician Doctor Unassigned, [...] Date S qian MEDICARE PART A \\T\\ [id number] 2009 [facility] [id number] 2017 MEDICARE SUPPLEMENT 00:00:00 MEDICARE B-[place]: [id number] 2009 [place] SOL[facility] 00:00:00 [facility] [id number] 2017 OPTIONS (MEDICARE 00:00:00 SUPPLEMENT) Problems Condition Condition Condition Status Onset Resolution Last Treating Co mments Source Name Details Category Date Date Treatment Clinician Date No known No known Disease Unive rs active active ity of problems problems [place] [facility] Allergies, Adverse Reactions, Alerts Allergy Allergy Status Severity Reaction(s) Onset Inactive Treating Comm ents Source Name Type Date Date Clinician esomepra DA Active U 2020-0 [facility] [place] [facility]: [facility] esomepra DA Active U UNKNOWN 2019-0 [facility] zole 19 [place] 00:00: [facility] 00 are [facility] [place] DA Active U 2020-0 [facility] ins 515 [place] 00:00: Health 00 are [facility] [place] DA Active U RASH, HIVES 2019-0 [facility] ins 15 [place] 00:00: Health 00 are [facility] ESOMEPRA DRUG Active High Anaphylaxis 2017- [...] St [facility] 1-07 [facility] Medical [address] [place] [address] Social History Social Habit Start Date Stop Date Quantity Comments Source Exposure to Not sure University of SARS-CoV-2 [place] [facility] (event) Branch History SDOH University o f Alcohol Frequency [place] [facility] History SDAL University o f Alcohol Std [place] [facility] Drinks Branch History SDAL University o f Alcohol Binge [place] [facility] Alcohol intake 2022-01-15 2022-01-15 Current drinker Unive rsity of 00:00:00 00:00:00 of alcohol [place] [facility] (finding) Branch Tobacco Comment 2020-11-01 2020-11-01 quit on ity of 00:00:00 00:00:00 birthday [facility] Tobacco use and 2018-02-04 2018-02-04 Never used Universit y of exposure 00:00:00 00:00:00 [facility] Alcohol Comment 2018-02-04 2018-02-04 Occasional Universit y of 00:00:00 00:00:00 Drinker [facility] Sex Assigned At [birth year] Universit y of 00:00:00 00:00:00 [facility] Smoking Status Start Date Stop Date Source Never smoker [facility] Branch Medications Ordered Filled Start Stop Current [...] 1-20 by mouth ity of 18:39: daily. [address] FLUoxetine Yes 20mg Take 20 mg U nivers (PROZAC) 20 1-20 by mouth ity of mg capsule 18:39: daily. [address] donepeziL 5 Yes 10mg Take 10 mg Univers mg tablet 1-20 by mouth ity of 18:39: at [place] [address] bedtime. Medical Branch gabapentin Yes 300mg Take 300 Un suzanne 300 mg 1-20 mg by ity of capsule 18:39: mouth as [place] [address] needed for Medical Pain Branch (scale 4-6). ARIPiprazol Yes 2mg Take 2 mg U nivers e 2 mg 1-20 by mouth ity of tablet 18:39: daily. [address] trazodone Yes 75mg Take 75 mg Un suzanne HCl 1-20 by mouth. ity of (TRAZODONE 18:39: [place] ORAL) 55 [facility] water for Yes PRN, Univers irrigation 1-20 Starting ity o f irrigation 17:15: Sun [place] solution 00 11/17/20 at [facility] al [address] [place] [address] Until Discontinu ed, Routine, Intra-op sodium Yes PRN, Univers chloride -20 Starting ity of (NS) 17:15: Sun [place] injection 11/17/[address] Until Discontinu ed, Routine, Intra-op neomycin-po Yes PRN, Univer s lymyxin-dex -20 Starting ity of amethasone 17:15: Sun [place] (MAXITROL) 11/17/20 at Med ical 3.5 [facility], [place] mg/g-10,000 Until unit/g-0.1 Discontinu % ed, ophthalmic Routine, ointment Intra-op Hyaluronida Yes PRN, Univer s se, Human 1-20 Starting ity of Recomb. 17:15: Sun [place] (HYLENEX) 11/17/20 at [facility] injection [address] [place] [address] Until Discontinu ed, Routine, Intra-op gentamicin 0 Yes PRN, Univers injection 1-20 Starting ity of 17:15: Sun [place] 00 11/17/[address] Until Discontinu ed, CIARA, Intra-op DUOVISC 0 Yes PRN, Univers (DUOVISC -20 Starting ity of VISCO 17:14: Wed [place] ELASTIC) 3 00 11/17/20 at Med ical %-4 %(0.5 1114, [place] mL) 1 % Until (0.55 mL) Discontinu intraocular ed, injection Routine, Intra-op dexamethaso Yes PRN, Univer s ne -20 Starting ity of (DECADRON 17:14: Wed [place] PHOSPHATE) 11/17/20 at [facility] ical injection 1114, [place] Until Discontinu ed, Routine, Intra-op carbachoL Yes PRN, Univers (MIOSTAT) -20 Starting ity of 0.01 % 17:14: Wed [place] intraocular 11/17/20 at Hi dical injection 1114, [place] Until Discontinu ed, Routine, Intra-op balanced Yes PRN, Univers salt irrig 20 Starting ity o f soln comb1 17:14: Sun [place] (BSS PLUS) 00 11/17/20 at [facility] ica ophthalmic 1114, [place] solution Until 500 mL bag Discontinu ed, Routine, Intra-op eye block Yes PRN, Univers syringe 11 20 Starting ity o f mL 17:14: Sun [place] 11/17/20 at [place] [address], [place] Until Discontinu ed, Intra-op EPINEPHrine Yes PRN, Univer s 1:1,000 (1 - Starting ity o f mg/mL) 17:14: Sun [place] (ADRENALIN) 11/17/20 at Hi dical injection 111, [place] Until Discontinu ed, Routine, Intra-op mydriatic 2020- No .5mL 0.5 mL, Univ ers #5 11-17 Right Eye, ity of ophthalmic 15:15: 16:42 ONCE, 1 Arjun as solution 00 :00 dose, Sun Medica l 0.5 mL 11/17/20 at [place] syringe 0915, Routine, DSU Pre-op lactated 2020- No 1000mL at 42 Unive rs ringers IV -20 01-20 mL/hr, ity of infusion 15:15: 15:12 1,000 mL, Arjun as 1,000 mL 00 :00 IV Medical Infusion, [place] ONCE, 1 dose, 11/17/20 at 0915, Routine, DSU Pre-op finasteride Yes 5mg Take 5 mg U nivers 5 mg tablet -20 by mouth ity of 12:39: daily. [address] FLUoxetine Yes 20mg Take 20 mg U nivers (PROZAC) 20 1-20 by mouth ity of mg capsule 12:39: daily. [place] [address] Medical Branch donepeziL 5 Yes 10mg Take 10 mg Univers mg tablet 1-20 by mouth ity of 12:39: at [place] [address] bedtime. Medical Branch gabapentin 0 Yes 300mg Take 300 Un suzanne 300 mg 1-20 mg by ity of capsule 12:39: mouth as [place] [address] needed for Medical Pain Branch (scale 4-6). ARIPiprazol 0 Yes 2mg Take 2 mg U nivers e 2 mg 1-20 by mouth ity of tablet 12:39: daily. [place] [address] Medical Branch trazodone 0 Yes 75mg Take 75 mg Un suzanne HCl 1-20 by mouth. ity of (TRAZODONE 12:39: [place] [facility] finasteride 0 Yes 5mg Take 5 mg U nivers 5 mg tablet 1-20 by mouth ity of 12:39: daily. [place] [address] Medical Branch FLUoxetine 0 Yes 20mg Take 20 mg U nivers (PROZAC) 20 1-20 by mouth ity of mg capsule 12:39: daily. [place] [address] Medical Branch donepeziL 5 Yes 10mg Take 10 mg Univers mg tablet 1-20 by mouth ity of 12:39: at [place] [address] bedtime. Medical Branch gabapentin Yes 300mg Take 300 Un suzanne 300 mg 1-20 mg by ity of capsule 12:39: mouth as [place] [address] needed for Medical Pain Branch (scale 4-6). ARIPiprazol Yes 2mg Take 2 mg U nivers e 2 mg 1-20 by mouth ity of tablet 12:39: daily. [place] [address] Medical Branch trazodone 0 Yes 75mg Take 75 mg Un suzanne HCl 1-20 by mouth. ity of (TRAZODONE 12:39: [place] ORAL) Medical Branch finasteride 0 Yes 5mg Take 5 mg U nivers 5 mg tablet 1-06 by mouth ity of 15:11: daily. [place] [address] Medical Branch FLUoxetine 0 Yes 20mg Take 20 mg U nivers (PROZAC) 20 1-06 by mouth ity of mg capsule 15:11: daily. [place] [address] Medical Branch donepeziL 5 Yes 10mg Take 10 mg Univers mg tablet 1-06 by mouth ity of 15:11: at [place] [address] bedtime. Medical Branch gabapentin Yes 300mg Take 300 Un suzanne 300 mg 1-06 mg by ity of capsule 15:11: mouth as [place] [address] needed for Medical Pain Branch (scale 4-6). ARIPiprazol Yes 2mg Take 2 mg U nivers e 2 mg 1-06 by mouth ity of tablet 15:11: daily. [address] Branch trazodone Yes 75mg Take 75 mg Un suzanne HCl 1-06 by mouth. ity of (TRAZODONE 15:11: [place] ORAL) Medical [place] mydriatic 2020- No .5mL 0.5 mL, Univ ers #5 11-03 01 Left Eye, ity of ophthalmic 15:00: 12:26 ONCE, 1 Arjun as solution 00 :00 dose, Wed Medica l 0.5 mL 11/03/20 at [place] syringe 0900, Routine, DSU Pre-op water for Yes PRN, Univers irrigation 06 Starting ity o f irrigation 13:24: Sun11/03/20 [place] solution 00 at 0724, Medical Until [place] Discontinu ed, Routine, Intra-op sodium Yes PRN, Univers chloride 11-03 Starting ity of (NS) 13:23: 11/03/20 [place] injection 00 at 0723, Medica l Until [place] Discontinu ed, Routine, Intra-op neomycin-po Yes PRN, Univer s lymyxin-dex 11-03 Starting ity of amethasone 13:23: 11/03/20 [place] (MAXITROL) 00 at 0723, Medic al 3.5 Until [place] mg/g-10,000 Discontinu unit/g-0.1 ed, % Routine, ophthalmic [...] 1-04 by mouth ity of 19:45: at [place] 31 bedtime. Medical Branch ARIPiprazol Yes 2mg Take 2 mg U nivers e 2 mg 1-04 by mouth ity of tablet 19:45: daily. [place] [address] Medical Branch trazodone Yes 75mg Take 75 [...] mouth ity of mg capsule 18:48: daily. [address] FLUoxetine 2019-10 Yes 20mg Take 20 mg U nivers (PROZAC) 20 2-14 by mouth ity of mg capsule 18:48: daily. [address] FLUoxetine 2019-10 Yes 20mg Take 20 mg U nivers (PROZAC) 20 2-14 by mouth ity of mg capsule 18:48: daily. [address] Branch finasteride Yes 5mg Take 5 mg U nivers 5 mg tablet 4-11 by mouth ity of 16:38: daily. [address] finasteride 2017-0 Yes 5mg Take 5 mg U nivers 5 mg tablet 4-11 by mouth ity of 16:38: daily. [address] finasteride 2017-0 Yes 5mg Take 5 mg U nivers 5 mg tablet 4-11 by mouth ity of 16:38: daily. [place] [address] Medical Branch finasteride 2018-0 Yes 5mg Take 5 mg U nivers 5 mg tablet 4-11 by mouth ity of 16:38: daily. [place] [address] Medical Branch diphenhydrA 2018-0 Yes 25mg Take [...] 00:00: directed Arjun as mg/mL [facility] diphenhydrA 0 Yes 25mg Take [...] 00:00: directed [facility]jun as [facility] [place] Vital Signs Vital Name Observation Time Observation Value Comments Source Systolic blood 2022-01-15 23:40:00 130 mm[Hg] [place] [facility] sity [facility] Diastolic blood 2022-01-15 23:40:00 88 mm[Hg] [facility] Heart rate 2022-01-15 23:40:00 70 /min [facility] Body temperature 2022-01-15 23:40:00 36.39 Carole [facility] Respiratory rate 2022-01-15 23:40:00 16 /min [facility] Oxygen saturation in 2022-01-15 23:40:00 96 /min [facility] Arterial blood by [facility] Pulse oximetry Branch Body height 2022-01-15 20:34:00 170.2 cm [facility] ty [facility] [place] [facility] Body weight 2022-01-15 20:34:00 97.523 kg [facility] ty [facility] [place] [facility] BMI 2022-01-15 20:34:00 33.67 kg/m2 [facility] ty [facility] [place] [facility] Systolic blood 2021-11-22 23:33:00 113 mm[Hg] Univer sity of pressure [place] [facility] Diastolic blood 2021-11-22 23:33:00 92 mm[Hg] Unive rsity of pressure [place] [facility] Heart rate 2021-11-22 23:33:00 65 /min [facility]i ty [facility] [place] [facility] Respiratory rate 2021-11-22 23:33:00 16 /min Univ ersity of [place] [facility] Oxygen saturation in 2021-11-22 23:33:00 99 /min University of Arterial blood by [place] [employer] joanie Pulse oximetry Branch Body temperature 2021-11-22 21:58:00 36 Carole Univ ersity of [place] [facility] Body height 2021-11-22 21:58:00 170.2 cm [facility] [place] [facility] Body weight 2021-11-22 21:58:00 83.915 kg [facility] [place] [facility] BMI 2021-11-22 21:58:00 28.98 kg/m2 [facility] [place] [facility] Systolic blood 2020-11-17 17:48:00 136 mm[Hg] Univer sity of pressure [place] [facility] Diastolic blood 2020-11-17 17:48:00 75 mm[Hg] Unive rsity of pressure [place] [facility] Respiratory rate 2020-11-17 17:48:00 18 /min Univ ersity of [place] [facility] Body temperature 2020-11-17 17:34:00 36.56 Carole Univ ersity of [place] [facility] Oxygen saturation in 2020-11-17 17:34:00 100 /min University of Arterial blood by [place] [employer] joanie Pulse oximetry Branch Heart rate 2020-11-17 15:07:00 67 /min [facility] [place] [facility] Body height 2020-11-16 18:03:00 170.2 cm [facility] [place] [facility] Body weight 2020-11-16 18:03:00 87.998 kg [facility] [place] [facility] BMI 2020-11-16 18:03:00 30.38 kg/m2 [facility] Systolic blood 2020-11-03 14:55:00 132 mm[Hg] Univer sity of pressure [facility] Diastolic blood 2020-11-03 14:55:00 61 mm[Hg] [facility] Heart rate 2020-11-03 14:55:00 65 /min [facility] Body temperature 2020-11-03 14:55:00 36.94 Carole [facility] 2020-11-03 14:55:00 15 /min [facility] Oxygen saturation in 2020-11-03 14:55:00 99 /min [facility] Arterial blood by [facility] Pulse oximetry [place] Body height 2020-11-01 19:45:00 170.2 cm [facility] Body weight 2020-11-01 19:45:00 86.637 kg [facility] BMI 2020-11-01 19:45:00 29.91 kg/m2 [facility] Procedures Procedure Date / Time Performed Performing Clinician Sour e URINALYSIS 2022-01-15 22:39:00 Meli Lowe [facility] CT HEAD WO CONTRAST 2022-01-15 21:55:02 Meli Lowe [facility] CREATINE KINASE 2022-01-15 21:01:00 Meli Lowe [facility] MAGNESIUM 2022-01-15 21:01:00 Meli Lowe [facility] TROPONIN I 2022-01-15 21:01:00 Meli Lowe [facility] COMP. METABOLIC PANEL 2022-01-15 21:01:00 Meli Lowe [facility] ([id number]) [facility] CBC WITH DIFF 2022-01-15 21:01:00 Meli Lowe [facility] N-TERMINAL PRO-BNP 2022-01-15 21:01:00 Meli Lowe [facility] LACTIC ACID WHOLE 2022-01-15 21:00:00 Meli Lowe [facility] URINALYSIS 2021-11-22 22:37:00 Salvatore Wilson [facility] XR CHEST 1 VW 2021-11-22 22:26:33 Salvatore Wilson [facility] TROPONIN I 2021-11-22 22:16:00 Salvatore Wilson [facility] COMP. METABOLIC PANEL 2021-11-22 22:16:00 Salvatore Wilson [facility] ([id number]) Medical Branch N-TERMINAL PRO-BNP 2021-11-22 22:16:00 [facility] CBC WITH DIFF 2021-11-22 22:15:00 Salvatore Wilson [facility] COVID-19 (ID NOW RAPID 2021-11-22 22:15:00 Salvatore Wilson [facility] TESTING) Medical Branch NOTICE OF PRIVACY 2021-11-22 21:52:55 Doctor Unassigned, No [facility] Name Medical Branch CONSENT/REFUSAL FOR 2021-11-22 21:52:30 Doctor Unassigned, No [facility] DIAGNOSIS AND [facility] Medical Branch TREATMENT CONSENT/REFUSAL FOR 2020-11-16 17:22:15 Doctor Unassigned, No Un [facility] DIAGNOSIS AND [facility] Medical Branch TREATMENT ASSIGNMENT OF BENEFITS 2020-11-16 17:21:27 Doctor Unassigned, No [facility] Medical Branch ASSIGNMENT OF BENEFITS 2020-11-02 15:47:57 Doctor Unassigned, No [facility] Medical Branch ASSIGNMENT OF BENEFITS 2020-10-12 16:45:27 Doctor Unassigned, No [facility] Medical Branch [id number] 2020-03-16 00:00:00 MURED [facility] Encounters Start End Encounter Admission Attending Care Care Encounter Source Date/Time Date/Time Type Type Clinicians Facility Department ID 2021-08-27 Outpatient Urban DUBOIS ALBRADY JATIN [id number] Univers 17:04:57 SARWAT west [facility] 2021-08-27 Outpatient Urban DUBOIS ALBRADY JATIN [id number] Univers 13:37:54 SARWAT richelle [facility] 2021-08-27 Outpatient ABRAM ALBRADY [facility] [id number] Univers 09:12:27 SARWAT west [facility] 2020-03-17 Inpatient TAMI Sung [facility] GENS [id number] [facility] 09:33:00 Edward [facility] are [facility] 2020-03-16 Inpatient Pineda [facility] DAYS [id number] [facility] 07:30:00 Edward [id number] [facility] are [facility] 2022-01-15 2022-01-15 Emergency X [facility] ERT [id number] Univers 15:35:00 18:58:00 MELI west [facility] 2022-01-15 2022-01-15 Emergency [facility] [id number] Univers 15:35:00 18:58:00 Meli OROURKE [id number] ity [facility] [id number] [facility] [id number] [address] 2021-11-28 2021-11-28 Outpatient KEISHA [facility] [id number] [place] 12:03:00 12:03:00 [facility] 2021-11-22 2021-11-22 Emergency X [facility] ERT [id number] Univers 15:47:00 18:04:00 SALVATORE richelle [facility] 2021-11-22 2021-11-22 Emergency [facility] [id number] Univers 15:47:00 18:04:00 Salvatore OROURKE [id number] i ty [facility] [id number] [facility] [id number] [address] 2021-07-20 2021-07-20 Outpatient KEISHA [facility] [id number] 0210 [place] 03:38:00 03:38:00 922 [facility] 2021-07-20 2021-07-20 Outpatient Marleen Montemayor [facility] [id number] 00:00:00 00:00:00 Marilyn [id number] 2021-01-24 2021-01-24 Outpatient KEISHA [facility] [id number] 0210 [place] 02:20:00 02:20:00 329 [facility] 2020-12-28 2020-12-28 Outpatient SIM_Bria [facility] [id number] 0210 [place] 01:01:00 01:01:00 302 [facility] 2020-11-23 2020-11-23 Outpatient SIM_Bria [facility] [id number] 0210 [place] 01:02:00 01:02:00 126 [facility] 2020-11-22 2020-11-22 Outpatient SIM_Bria [facility] [id number] 0210 [place] 03:29:00 03:29:00 125 [facility] ty [facility] 2020-11-17 2020-11-17 [facility] [id number] Univers 08:59:00 12:35:00 Encounter Sarwat Orourke [id number] ity [facility] 4[place]2.7.2.686 [place] [id number] [address] 2020-11-03 2020-11-03 [facility] [id number] Univers 06:15:00 09:11:00 Encounter Sarwat Orourke [id number] ity [facility] [id number] [place] [id number] [address] 2020-11-02 2020-11-02 Outpatient R [facility] [id number] Univers 10:30:00 10:30:00 [id number] ity of [facility] 2020-11-02 2020-11-02 Orders Doctor ROBBINS [id number] Univers 00:00:00 00:00:00 Only Unassigned, ELLY [id number] ity of [facility] [id number] Arjun as [id number] [address] 2020-10-26 2020-10-26 Outpatient CARLOFFER_Bria [facility] [id number] 0201 [place] 06:13:00 06:13:00 229 [facility] 2020-10-12 2020-10-12 Laboratory Only, Adc Test [facility] 1.2.840. [id number] Univers 10:47:24 11:02:24 Only Sarwat Dubois [id number] 0 it[place] 4[place].2.686 [place] [id number] [address] 2020-10-12 2020-10-12 Outpatient R [facility] [id number] Univers 10:30:00 10:30:00 [id number] ity of [facility] 2020-10-12 2020-10-12 [facility] [id number] Univers 10:30:00 10:30:00 SARWAT ity [facility] 2020-10-12 2020-10-12 Orders Doctor ROSENDO [id number] Univers 00:00:00 00:00:00 Only Unassigned, ELLY [id number] ity of [place] [facility] 4.2.7.2.686 Arjun as [id number] [address] 2020-10-06 2020-10-06 Linker Up Lokesh, Adc Lab Main [facility] [id number] Univers 17:11:43 17:26:43 Visit Sarwat Dubois [id number] 0 ity of [place] 4.2.7.2.686 [facility] [id number] Hi dical [address] 2020-10-06 2020-10-06 Outpatient [facility] [id number] Univers 16:30:00 16:30:00 [id number] ity [facility] 2020-10-06 2020-10-06 Outpatient R ABRAM [facility] [id number] Univers 16:30:00 16:30:00 SARWAT itrichelle [facility] 2020-09-15 2020-09-15 Outpatient keisha CRAIG MMG [id number] [place] 02:47:00 02:47:00 [id number] [facility] 2020-03-12 2020-03-12 Outpatient AIDEN Sung REF [id number] [facility] 15:18:00 15:18:00 Teodoro [id number] [facility] 2020-03-12 2020-03-12 Outpatient Jorge Cook [facility] 3DAY [id number] [facility] 09:00:00 09:00:00 [id number] Jeanette jimenez [facility] are [facility] 2018-09-24 2018-09-24 Outpatient sim_bria MMG MMG [id number] [place] 10:35:00 10:35:00 [id number] [facility] Results Test Description Test Time Test Comments Results Result Comments Source TROPONIN I 2022-01-15 21:38:57 Test Item Value Reference Range Interpretation Comme nts TROPONIN I (test code = 0.002 ng/mL See_Comment [Au tomated message] The [id number]) system which ge nerated this result tra [...] biotin. Lab Interpretation Normal (test code = 51546-9) [id number] 21:35:55 Test Item Value Reference Range Interpretation Comments NT-proBNP (test code 128 pg/mL See_Comment [Autom ated = [id number]) message] The system which generated this result transmitted reference range : <=450. The reference range was not used to interpret this result as normal/abnormal . JACK (test code = JACK) Biotin has been reported to cause a negative bias, interpret results relative to patient's use of biotin. Lab Interpretation Normal (test code = 00272-3) [facility] 21:28:33 Test Item Value Reference Range Interpretation Comments MAGNESIUM (test code = 6237740282) 1.8 mg/dL 1.7-2.4 Lab Interpretation (test code = Normal 33323-7) [facility] MET[facility]OLIC PAN[facility] (15222)2022-01-15 21:28:13 Test Item Value Reference Range Interpretation Comments NA (test code = 135 mmol/L 135-145 9678705890) K (test code = 4.6 mmol/L 3.5-5.0 8221757515) CL (test code = 101 mmol/L 98-108 5867483399) CO2 TOTAL (test code 28 mmol/L 23-31 = 8652532045) AGAP (test code = 2-16 8814062480) BUN (test code = 17 mg/dL 7-23 0539648280) GLUCOSE (test code = 105 mg/dL 70-110 5565094703) CREATININE (test code 0.90 mg/dL 0.60-1.25 = 5382767403) TOTAL BILI (test code 0.5 mg/dL 0.1-1.1 = 5701378439) CALCIUM (test code = 8.7 mg/dL 8.6-10.6 5313400219) T PROTEIN (test code 6.4 g/dL 6.3-8.2 = 6756664893) ALBUMIN (test code = 3.7 g/dL 3.5-5.0 5957221965) ALK PHOS (test code = 76 U/L 34-122 9395202050) ALTv (test code = 18 U/L 5-50 1742-6) AST(SGOT) (test code 32 U/L 13-40 = 0584941537) eGFR (test code = mL/min/1.73m2 6386024698) JACK (test code = JACK) Association of [...] or urine or abnormalities in imaging tests). [facility]andCREAT[facility] [id number] 21:28:13 Test Item Value Reference Range Interpretation Comments CK (test code = 9612304167) 47 U/L 33-194 Lab Interpretation (test code = Normal 57820-3) [facility] WITH [id number] 21:16:36 Test Item Value Reference Range Interpretation Comments WBC (test code = See_Comment [Automated 8590-2) message] The sy stem which generated this result transmitted reference range : 4.20 - 10.70 10*3/?L. The reference range was not used to interpret this result as normal/abnormal . RBC (test code = See_Comment L [Automated 109-8) message] The sy stem which generated this [...] RDW-SD (test code = 44.4 fL 38.5-51.6 73819-2) RDW-CV (test code = 12.3 % 12.1-15.4 788-0) PLT (test code = See_Comment [Automated 777-3) message] The sy stem which generated this result transmitted reference range : 150 - 328 10*3/ ?L. The reference r octaviano was not used to interpret this result as normal/abnormal . MPV (test code = 10.3 fL 9.8-13.0 44999-6) NRBC/100 WBC (test See_Comment [Automat ed code = 0408184858) message] The system which generated this result transmitted reference range : 0.0 - 10.0 /100 WBCs. The refer ence range was not u sed to interpret th is result as normal/abnormal . NRBC x10^3 (test code <0.01 See_Comment [Auto mated = 4232161755) message] The s ystem which generated this result transmitted reference range : 10*3/?L. The reference range was not used to interpret this result as normal/abnormal . GRAN MAT (NEUT) % 74.3 % (test code = 770-8) IMM GRAN % (test code 0.60 % = 3943866946) LYMPH % (test code = 14.1 % 736-9) MONO % (test code = 8.9 % 5905-5) EOS % (test code = 1.5 % 713-8) BASO % (test code = 0.6 % 706-2) GRAN MAT x10^3(ANC) 6.07 10*3/uL 1.99-6.95 (test code = 3243201914) IMM GRAN x10^3 (test 0.05 10*3/uL 0.00-0.06 code = 2801570291) LYMPH x10^3 (test code 1.15 10*3/uL 1.09-3.23 = 731-0) MONO x10^3 (test code 0.73 10*3/uL 0.36-1.02 = 742-7) EOS x10^3 (test code = 0.12 10*3/uL 0.06-0.53 711-2) BASO x10^3 (test code 0.05 10*3/uL 0.01-0.09 = 704-7) Lab Interpretation Abnormal (test code = 29579-4) [facility] Whole [id number] 21:09:05 Test Item Value Reference Range Interpretation Comments LACTIC ACID (test code = 1.40 mmol/L 0.50-2.20 5527972493) Lab Interpretation (test code = Normal 88008-3) [facility]andTROPONIN [id number] 22:56:09 Test Item Value Reference Interpretation Comments Range TROPONIN I (test 0.001 ng/mL See_Comment [Automated code = 1156646602) message] The system which generated this result [...] biotin. Lab Interpretation Normal (test code = 52063-4) [facility]and[facility]-TERMINAL [id number] 22:52:51 Test Item Value Reference Range Interpretation Comments NT-proBNP (test code 56 pg/mL See_Comment [Autom ated = 9985243236) message] The system which generated this result transmitted reference range : <=450. The reference range was not used to interpret this result as normal/abnormal . JACK (test code = JACK) Biotin has been reported to cause a negative bias, interpret results relative to patient's use of biotin. Lab Interpretation Normal (test code = 44101-1) [facility]and[facility]. METABOLIC PANEL (55634)2021-11-22 22:44:07 Test Item Value Reference Range Interpretation Comments NA (test code = 133 mmol/L 135-145 L 7735443035) K (test code = 5.0 mmol/L 3.5-5.0 8744290264) CL (test code = 100 mmol/L 98-108 6812969676) CO2 TOTAL (test code = 29 mmol/L 23-31 7667786553) AGAP (test code = 2-16 0993765276) BUN (test code = 21 mg/dL 7-23 7981535789) GLUCOSE (test code = 142 mg/dL 70-110 H 1877716791) CREATININE (test code = 0.93 mg/dL 0.60-1.25 4650064198) TOTAL BILI (test code = 0.3 mg/dL 0.1-1.0 7890608090) CALCIUM (test code = 8.5 mg/dL 8.6-10.6 L 8340287816) T PROTEIN (test code = 5.9 g/dL 6.3-8.2 L 3945430202) ALBUMIN (test code = 3.4 g/dL 3.5-5.0 L 7429226077) ALK PHOS (test code = 73 U/L 34-122 1771689485) ALTv (test code = 16 U/L 5-50 1742-6) AST(SGOT) (test code = 27 U/L 13-40 6442366351) eGFR (test code = mL/min/1.73m2 0082282776) JACK (test code = JACK) Association of [...] tests). Lab Interpretation Abnormal (test code = 93086-9) [facility] WITH [id number] 22:33:46 Test Item Value Reference Range Interpretation Comments WBC (test code = See_Comment [Automated 0590-2) message] The sy stem which generated this result transmitted reference range : 4.20 - 10.70 10*3/?L. The reference range was not used to interpret this result as normal/abnormal . RBC (test code = See_Comment L [Automated 569-8) message] The sy stem which generated this [...] RDW-SD (test code = 43.8 fL 38.5-51.6 37975-7) RDW-CV (test code = 12.1 % 12.1-15.4 788-0) PLT (test code = See_Comment [Automated 777-3) message] The sy stem which generated this result transmitted reference range : 150 - 328 10*3/ ?L. The reference r octaviano was not used to interpret this result as normal/abnormal . MPV (test code = 10.6 fL 9.8-13.0 08403-1) NRBC/100 WBC (test See_Comment [Automat ed code = 9431261184) message] The system which generated this result transmitted reference range : 0.0 - 10.0 /100 WBCs. The refer ence range was not u sed to interpret th is result as normal/abnormal . NRBC x10^3 (test code <0.01 See_Comment [Auto mated = 1619040670) message] The s ystem which generated this result transmitted reference range : 10*3/?L. The reference range was not used to interpret this result as normal/abnormal . GRAN MAT (NEUT) % 71.8 % (test code = 770-8) IMM GRAN % (test code 0.40 % = 5877535017) LYMPH % (test code = 16.4 % 736-9) MONO % (test code = 7.9 % 5905-5) EOS % (test code = 2.8 % 713-8) BASO % (test code = 0.7 % 706-2) GRAN MAT x10^3(ANC) 5.80 10*3/uL 1.99-6.95 (test code = 9416023939) IMM GRAN x10^3 (test 0.03 10*3/uL 0.00-0.06 code = 2595939929) LYMPH x10^3 (test code 1.33 10*3/uL 1.09-3.23 = 731-0) MONO x10^3 (test code 0.64 10*3/uL 0.36-1.02 = 742-7) EOS x10^3 (test code = 0.23 10*3/uL 0.06-0.53 711-2) BASO x10^3 (test code 0.06 10*3/uL 0.01-0.09 = 704-7) Lab Interpretation Abnormal (test code = 96691-8) [facility]and[facility] [id number] 10:27:00 RUN DATE: 03/23/20 [facility] - LAB PAGE 1 RUN TIME: 1028 Specimen Inquiry RUN USER: INTERFACE PATIENT: NINO MOHAMUD LOC: [place] POD B U #: [id number] AGE/SX: 74/M ROOM: [facility] RE03/17/20REG DR: Teodoro Sung MD : 44 BED: 1 DIS: STATUS: ADM IN TLOC: SPEC #: [id number] RECD: 03/16/201578 STATUS: COLETTE REQ #: [id number] RODDY: 03/16/20 [facility] DR: Teodoro Sung MD ENTERED: 03/16/202157 SP TYPE: SURG OTHR DR: Marleen Montemayor [...] submitted in a single cassette after decalcification. FORECLOSURE PARALEGAL/th MICROSCOPIC DESCRIPTION Microscopic examination is performed. Signed SIGNATURE ON FILE LionelJeane 03/23/20 1027 END OF REPORT GLUBED 2020-03-22 11:33:00 Test Item Value Reference Range Interpretation Comments GLUBED (test code = GLUBED) 102 MG/DL 70-105 N BASIC METABOLIC [id number] 06:52:00 Test Item Value Reference Range Interpretation [...] code 8.3 mg/dL 8.8-10.2 L = CA) [id number] 06:52:00 Test Item Value Reference Range Interpretation Comments MAGNESIUM (test code = MAG) 2.0 mg/dL 1.4-2.6 N CBC W/AUTO [id number] 06:50:00 Test Item Value Reference Range Interpretation [...] = BA#) 0.01 x10 3/uL 0.0-0.20 N [id number] 16:27:00 Test Item Value Reference Range Interpretation Comments GLUBED (test code = GLUBED) 107 MG/DL 70-105 H [id number] 12:01:00 Test Item Value Reference Range Interpretation Comments GLUBED (test code = GLUBED) 108 MG/DL 70-105 H BASIC METABOLIC [id number] 07:20:00 Test Item Value Reference Range Interpretation [...] mg/dL 8.8-10.2 N = CA) CBC W/AUTO [id number] 06:38:00 Test Item Value Reference Range Interpretation [...] = BA#) 0.02 x10 3/uL 0.0-0.20 N [id number] 06:05:00 Test Item Value Reference Range Interpretation Comments GLUBED (test code = GLUBED) 119 MG/DL 70-105 H [id number] 20:51:00 Test Item Value Reference Range Interpretation Comments GLUBED (test code = GLUBED) 125 MG/DL 70-105 H [id number] 17:40:00 Test Item Value Reference Range Interpretation Comments GLUBED (test code = GLUBED) 87 MG/DL 70-105 N [id number] 17:16:00 Test Item Value Reference Range Interpretation Comments GLUBED (test code = GLUBED) 59 MG/DL 70-105 L [id number] 11:15:00 Test Item Value Reference Range Interpretation Comments GLUBED (test code = GLUBED) 76 MG/DL 70-105 N BASIC METABOLIC [id number] 05:20:00 Test Item Value Reference Range Interpretation [...] mg/dL 8.8-10.2 L = CA) CBC W/AUTO [id number] 05:10:00 Test Item Value Reference Range Interpretation [...] = BA#) 0.02 x10 3/uL 0.0-0.20 N [id number] 02:21:00 Test Item Value Reference Range Interpretation Comments GLUBED (test code = GLUBED) 91 MG/DL 70-105 N [id number] 20:34:00 Test Item Value Reference Range Interpretation Comments GLUBED (test code = GLUBED) 100 MG/DL 70-105 N [id number] 12:10:00 Test Item Value Reference Range Interpretation Comments GLUBED (test code = GLUBED) 104 MG/DL 70-105 N [id number] 06:01:00 Test Item Value Reference Range Interpretation Comments GLUBED (test code = GLUBED) 118 MG/DL 70-105 H BASIC METABOLIC [id number] 04:40:00 Test Item Value Reference Range Interpretation [...] mg/dL 8.8-10.2 L = CA) CBC W/AUTO [id number] 04:33:00 Test Item Value Reference Range Interpretation [...] = BA#) 0.01 x10 3/uL 0.0-0.20 N [id number] 01:36:00 Test Item Value Reference Range Interpretation Comments GLUBED (test code = GLUBED) 144 MG/DL 70-105 H [id number] 18:25:00 Test Item Value Reference Range Interpretation Comments GLUBED (test code = GLUBED) 136 MG/DL 70-105 H - XR SPINE 1 V SPEC [id number] 14:15:00Patient Name: NINO MOHAMUD Unit No: [id number] EXAMS: CPT CODE: [id number] XR SPINE 1 V SPEC LEVEL 75111 Cervical spine 2 views intraoperative 03/16/2020 2:14 [...] m2): Air Kerma (mGy): Trscr Dt/Tm: 03/16/2020 (4831) by:[email or web address] Printed Date/Time: 03/16/2020 (4020) Name: NINO MOHAMUD [facility] Phys: Teodoro Quinones MD [address] : 1945 Age: 74 Sex: [place] [address] Loc: P.0212 1 Exam Date: 03/16/2020 Status: ADM IN PH: FAX: PAGE 1 Signed Report Coronavirus 2019 nCoV [id number] 06:12:00 Test Item Value Reference Range Interpretation Comments Coronavirus 2019 nCoV Bedside (test Negative NEGATIVE code = [id number]) UA RFLX MICR CULT IF [id number] 15:57:00 Test Item Value Reference Range Interpretation [...] DL Cholesterol<1 00mg/dL : Desirable LDL -C 0-159mg /dL: Borderline High Risk LDL-C wpixsjpcvnnug84 0-189mg /dL: High risk LDL-C concentration H DL-LDL Cholesterol is affected by a n umber of factors such as smoking, age an d sex.~~~~~~~~~~~ ~~~~~~~ ~~~~~~~~~~~~~~~ ~~~~~~~ ~~~~~~~~~~~~~~~ ~~~~~ PROTHROMBIN [id number] 14:46:00 Test Item Value Reference Range Interpretation [...] 2.5-3.5recurren t systemic emboli sm. THROMBOPLASTIN TIME [id number] 14:46:00 Test Item Value Reference Range Interpretation Comments THROMBOPLASTIN TIME 31.1 SECONDS 26.0-35.9 N INTERPRE TATIVE PARTIAL (test code = DATA:Th erapeutic PTT) range: Unfractionated heparin:47 - 71 seconds Argatroban:1.5 to 3 times the basel ine PTT UA RFLX MICR CULT IF [id number] 14:40:00 Test Item Value Reference Range Interpretation [...] = SQU) Indication for culture: Dysuria/FrequencyCBC W/AUTO [id number] 14:37:00 Test Item Value Reference Range Interpretation [...] BA#) 0.04 x10 3/uL 0.0-0.20 N BLOOD [id number] 23:00:00 Test Item Value Reference Range Interpretation Comments CULTURE (BEAKER) (test No growth in 5 days code = 1095) BLOOD [id number] 23:00:00 Test Item Value Reference Range Interpretation Comments CULTURE (BEAKER) (test No growth in 5 days code = 1095) BASIC METABOLIC [id number] 08:26:00 Test Item Value Reference Range Interpretation [...] PATIEN TS. CBC W/PLT COUNT & AUTO [id number] 06:33:00 Test Item Value Reference Range Interpretation [...] (test code = 2801) RAPID DRUG SCREEN, [id number] 14:01:00 Test Item Value Reference Range Interpretation [...] situations. Chain of custody not maintained. Some thpw-yuj-tdhowpl medications, as well as adulterants, may cause inaccurate results. Clinical correlation should be applied. A more comprehensive drug screen or confirmation of a detected drug may be performed upon request.EEG AWAKE/ASLEEP AND [id number] 11:31:00Reason for exam:->encephalopathyEEG REPORT: Aylin Mohamud [facility] , DATE: EEG #: 18-06ICD Code: #: G93.40 Encephalopathy- unspecifiedCPT Code: #: 52378: 01. EEG awake and drowsy; 20-40 minPROCEDURE: [...] clinically.Clinical Fellow: Valeri RileydiNeurophysiologist: Nohemy Chang URINE [id number] 09:34:00 Test Item Value Reference Range Interpretation Comments CULTURE (BEAKER) (test code = 1095) No growth CBC W/PLT COUNT & AUTO [id number] 07:03:00 Test Item Value Reference Range Interpretation [...] (BEAKER) (test code = 2801) BASIC METABOLIC [id number] 07:00:00 Test Item Value Reference Range Interpretation [...] FOR DIALYSIS PATIEN TS. CT, BRAIN, WITHOUT [id number] 23:34:00FINAL REPORT EXAMINATION NONCONTRAST HEAD CT SCAN [...] [place] Verified Date/Time: 11/06/2017 23:34:56 Reading Location: [address] Transitional Reading Room [id number] 19:41:00 Test Item Value Reference Range Interpretation Comments AMMONIA (BEAKER) 35 mol/L 18-72 Specimen mo derately (test code = 348) hemolyzed HEMOGLOBIN [id number] 10:32:00 Test Item Value Reference Range Interpretation Comments HEMOGLOBIN A1C (BEAKER) (test code = 5.4 % 4.3-6.1 368) CBC W/PLT COUNT & AUTO [id number] 07:01:00 Test Item Value Reference Range Interpretation [...] (BEAKER) (test code = 2801) BASIC METABOLIC [id number] 06:47:00 Test Item Value Reference Range Interpretation [...] FOR DIALYSIS PATIEN TS. INFLUENZA A H1N1 [id number] 21:27:00 Test Item Value Reference Range Interpretation Comments INFLUENZA A RNA Not Detected Not Detected, (BEAKER) (test code = Inconclusive 1545) NOVEL H1N1 RNA (BEAKER) Not Detected Not Detected, (test code = 1546) Inconclusive These assays were performed by real-time RT-PCR (reservation manager-PCR) utilizing fluorogenic hydrolysis probe technology for the detection of human Influenza A viruses and the differential detection of novel H1N1 Influenza virus in respiratory specimens. The test is composed of (1) an RNA extraction from patient specimen, and (2) reservation manager-PCR amplification and detection with human Influenza A and novel N4E9-hggyjbwo primers and probes. A well-conserved region of [...] its performance characte ristics determined by the [facility] Pathology Department, Section of Molecular Pathology. It has not been cleared or approved by the U.S. Food and Drug Administration (FDA). SinceFDA approval is not required for clinical use of the test, validation was done as required by The Clinical Laboratory Amendments of 1988.These assays were performed by real-time RT-PCR (reservation manager-PCR) utilizing fluorogenic hydrolysis probe technology for the detection of human Influenza A viruses and the differential detection of novel H1N1 Influenza virus in respiratory specimens. The test is composed of (1) an RNA extraction from patient specimen, and (2) reservation manager-PCR amplification and detection with human In fluenza A and novel C1Q3-enpbfewd primers and probes. A well-conserved region of [...] and its performance characteristics determined by the [facility] Pathology Department, Section of Molecular Pathology. [...] = 772) CBC W/PLT COUNT & AUTO [id number] 06:46:00 Test Item Value Reference Range Interpretation [...] MORPHOLOGY (BEAKER) (test code Normal = 762) [id number] 03:48:00 Test Item Value Reference Range Interpretation Comments MAGNESIUM (BEAKER) (test code = 2.1 mg/dL 1.6-2.6 627) BASIC METABOLIC [id number] 03:48:00 Test Item Value Reference Range Interpretation [...] DIALYSIS PATIEN TS. LACTIC ACID, VENOUS, WHOLE [id number] 03:44:00 Test Item Value Reference Range Interpretation Comments LACTATE BLOOD VENOUS (2) (BEAKER) 2.2 mmol/L 0.5-2.2 (test code = 2872) Effective 03/01/2016: Units/Reference Range ChangeNew: 0.5-2.2 mmol/L Previous: 5-20 mg/dLLACTIC ACID, VENOUS, WHOLE [id number] 23:42:00 Test Item Value Reference Range Interpretation Comments LACTATE BLOOD VENOUS (2) (BEAKER) 1.9 mmol/L 0.5-2.2 (test code = 2872) Effective 03/01/2016: Units/Reference Range ChangeNew: 0.5-2.2 mmol/L Previous: 5-20 mg/dLRAPID INFLUENZA A&B [id number] 21:51:00 Test Item Value Reference Range Interpretation Comments RAPID INFLUENZA A AG (BEAKER) Negative Negative, Inconclusive (test code = 1622) RAPID INFLUENZA B AG (BEAKER) Negative Negative, Inconclusive (test code = 1623) PROTHROMBIN [id number] 21:02:00 Test Item Value Reference Range Interpretation Comments PROTIME (BEAKER) (test code = 15.3 seconds 11.7-14.7 H 759) INR (BEAKER) (test code = 370) 1.2 <=5.9 RECOMMENDED COUMADIN/WARFARIN INR THERAPY RANGESSTANDARD DOSE: 2.0 - 3.0 Includes: PROPHYLAXIS forvenous thrombosis, systemic embolization; TREATMENT for venous thrombosis and/or pulmonary embolus.HIGH RISK: Target INR is 2.5-3.5 for patients with mechanical heart valves.OXYGEN SATURATION, [id number] 21:00:00 Test Item Value Reference Range Interpretation [...] 515) SOURCE(BEAKER) (test code = Urine, M[place]oll[place] 7979) CT, CHEST WITH IV CONTRAST- PE TEST [id number] 19:53:00FINAL REPORT CLINICAL HISTORY: Chest pain. FINDINGS: [...] Ve rified Date/Time: 11/04/2017 19:53:50 Reading Location: [address] Reading Room [id number] 19:41:00 Test Item Value Reference Range Interpretation Comments MAGNESIUM (BEAKER) 1.4 mg/dL 1.6-2.6 L Specimen slightly (test code = 627) hemolyzed HEPATIC FUNCTION [id number] 19:41:00 Test Item Value Reference Range Interpretation [...] slightly (test code = 347) hemolyzed TROPONIN [id number] 19:27:00 Test Item Value Reference Range Interpretation [...] and persistent tachyarrhythmia.RAD, CHEST, 1 VIEW, NON [id number] 19:12:00Reason for exam:->sobShould this be performed at [...] MDReport Verified Date/Time: 11/04/2017 19:12:37 Reading Location: [address] Reading Room BLOOD GAS, [id number] 19:03:00 Test Item Value Reference Range Interpretation [...] code = 1819) 60.0 % COMPREHENSIVE METABOLIC [id number] 18:25:00 Test Item Value Reference Range Interpretation [...] ATED GFR. CREATINE KINASE (CK), TOTAL AND [id number] 18:25:00 Test Item Value Reference Range Interpretation Comments CREATINE KINASE TOTAL (BEAKER) 93 U/L 29-200 (test code = 380) CREATINE KINASE-MB (BEAKER) (test 1.0 ng/mL 0.0-6.6 code = 750) CREATINE KINASE-MB INDEX (BEAKER) 1.1 % (test code = 395) CK-MB Reference Range:<6.7 Normal6.7-10.0 Borderline>10.0 AbnormalPOCT-LACTIC ACID, [id number] 18:17:00 Test Item Value Reference Range Interpretation Comments POC-LACTIC ACID, 3.1 mmol/L 0.9-1.7 H TESTED AT [facility] [address] (BEAKER) (test APRIL [place] code = 2805) [address] CBC W/PLT COUNT & AUTO [id number] 18:14:00 Test Item Value Reference Range Interpretation [...] 0-1 PERCENT (BEAKER) (test code = 2801) [id number] 18:05:00 Test Item Value Reference Range Interpretation [...] 2.5-3.5 for patients with mechanical heart valves.[facility] [id number] 17:57:00FINAL REPORT CLINICAL HISTORY: Stroke TECHNIQUE: Contiguous [...] Vick Verified Date/Time: 11/04/2017 17:57:59 Reading Location: [address] Neuro Reading Room CT, CAROTID, [id number] 17:57:00FINAL REPORT CLINICAL HISTORY: Stroke TECHNIQUE: Contiguous [...] or vertebral arteries by NASCET criteria. Signed: Jhon Vick Verified Date/Time: 11/04/2017 17:57:59 Reading Location: [address] Neuro Reading Room CT, BRAIN/STROKE [id number] 17:09:00 Reason for exam:->altered mental statusWhat is [...] MDReport Verified Date/Time: 11/04/2017 17:09:06 Reading Location: [address] Neuro Reading Room
[2022-02-18 09:15] LABS: Absolute Lymphocytes (CBC) 1.4 K/uL (0.7-4.9); Hematocrit 38.2 % (39.6-49.0); Lymphocytes % 18.3 % (15.3-44.8); MPV 8.4 fL (7.6-11.3); RBC Red Blood Cell Count 4.01 M/uL (4.33-5.43)
[2022-02-18 09:22] LABS: Protime INR 1.08
[2022-02-18] MEDS ORDERED: LORazepam 2 MG/ML VIAL ONE (09:24)
[2022-02-18] MEDS ORDERED: NA CHLORIDE 0.9% 500 ML ONE (09:24)
[2022-02-18 09:26] LABS: Potassium 4.1 mmol/L (3.5-5.1)
--- NOTE | 2022-02-18 10:11 | RAD REPORT ---
EXAM DESCRIPTION: RAD - Chest Single View - 02/18/2022 9:39 am CLINICAL HISTORY: stroke protocol Chest pain. COMPARISON: Chest Single View dated 02/12/2022; Chest Single View dated 02/07/2022; Chest Single View dated 12/31/2021; Chest Single View dated 04/11/2020 FINDINGS: Portable technique limits examination quality. The lungs are grossly clear. The heart is normal in size. No displaced fractures. IMPRESSION: No acute intrathoracic process suspected.
--- NOTE | 2022-02-18 10:13 | RAD REPORT ---
EXAM DESCRIPTION: CT - Ct Stroke Brain Wo Cont - 02/18/2022 9:16 am CLINICAL HISTORY: AMS Headache, drowsiness, CVA symptomology COMPARISON: Facial Bones W/ Mpr dated 02/12/2022; Ct Stroke Brain Wo Cont dated 02/07/2022 TECHNIQUE: All CT scans are performed using dose optimization technique as appropriate and may inclu de automated exposure control or mA/KV adjustment according to patient size. FINDINGS: No intracranial hemorrhage, hydrocephalus or extra-axial fluid collection.Mild brain atrop hy.No areas of brain edema or evidence of midline shift. The paranasal sinuses and mastoids are clear. The calvarium is intact. IMPRESSION: No acute intracranial abnormality. The findings were discussed with Linden Alvarado in the ER on 02/18/2022 at 8:59 a.m. by telephone.
--- NOTE | 2022-02-18 10:31 | ER ---
Nurse's Notes [facility] Name: Edgardo Marie Age: 76 yrs Sex: Male : 1945 Arrival Date: 02/18/2022 Time: 08:54 Bed 3 Private MD: Diagnosis: Bizarre personal appearance Presentation: 02/18 08:57 Coronavirus screen: Client denies travel out of the [place] in the last 14 days. Ebola ss Screen: Patient denies exposure to infectious person. Patient denies travel to an Ebola-affected area in the 21 days before illness onset. Initial Sepsis Screen: Does the patient meet any 2 criteria? No. Patient's initial sepsis screen is negative. Does the patient have a suspected source of infection? No. Patient's initial sepsis screen is negative. Risk Assessment: Do you want to hurt yourself or someone else? Patient reports no desire to harm self or others. 08:57 Method Of Arrival: EMS: [facility] ss 08:57 Acuity: JEFF 2 ss 08:57 Chief complaint: EMS states: Shortly after eating breakfast today at 0820, patient ss stated that he wasn't feeling very well and suddenly became unresponsive to all stimuli. VS reportedly WNL en route to ED. PT has a history of similar episodes that he has been seen and evaluated before in the past. Onset of symptoms was February 18, 2022 at 08:20. Care prior to arrival: IV initiated. 18 GA, in the right antecubital area. Transition of care: Lev Martin. 09:10 An acute neurological deficit is present. The patients blood glucose was checked before ss arriving to the hospital and was found to be normal. Triage Assessment: 08:45 General: Appears in no apparent distress. Behavior is unresponsive. jg9 08:45 Pain: Unable to use pain scale. Patient is unresponsive. jg9 08:45 The onset of the patients symptoms was February 18, 2022 at 08:00. jg9 Stroke Activation: Symptom onset < 3 hours Physician: Stroke Attending; Name: ; Notified At: ; Arrived At: Physician: Chief Stroke Resident; Name: ; Notified At: ; Arrived At: Physician: Stroke Resident; Name: ; Notified At: ; Arrived At: Physician: ED Attending; Name: ; Notified At: ; Arrived At: Physician: ED Resident; Name: ; Notified At: ; Arrived At: Historical: - Allergies: 09:09 Nexium; ss 09:09 PENICILLINS; ss 09:07 Nexium; jg9 09:07 PENICILLINS; jg9 - Home Meds: 09:07 aripiprazole 5 mg Oral tab 1 tab once daily [Active]; B-Complex Oral tab three times jg9 per week. 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 - Social history:: Patient/guardian denies using alcohol, street drugs, The patient lives with family, Smoking status: Patient denies any tobacco usage or history of. - Family history:: not pertinent, pertinent for. Screenin:12 Abuse screen: Denies threats or abuse. Denies injuries from another. Nutritional jg9 screening: No deficits noted. Tuberculosis screening: No symptoms or risk factors identified. Fall Risk Fall in past 12 months (25 points). 09:15 VAN Screening: Arm Drift: Patient shows no arm weakness. Patient is VAN negative. jg9 Patient has been NPO before screening. The patient is alert, able to follow commands. The patient does not exhibit slurred or garbled speech The patient is not exhibiting difficulty speaking. The patient does not exhibit difficulty understanding words. The patient is able to swallow own secretions with no drooling or need for suction. Patient tolerated one teaspoon of water. No drooling, immediate coughing, gurgling, or clearing of the throat was noted. The patient tolerated 90mL of water. No drooling, immediate coughing, gurgling, or clearing of the throat was noted. The patient passed the bedside swallow screening. Oral medications may be given as ordered. Contact Physician for further diet orders. Assessment: 09:00 VAN Scoring: Arm Drift: Patients demonstrates NO arm weakness. Patient is VAN Negative. jg9 Patient has been NPO before screening. The patient is alert, and able to follow commands. The patient does not exhibit slurred or garbled speech. The patient is not exhibiting difficulty speaking. The patient does not exhibit difficulty understanding words. The patient is able to swallow own secretions with no drooling or need for suction. Patient tolerated one teaspoon of water. No drooling, immediate coughing, gurgling, or clearing of the throat was noted. The patient tolerated 90mL of water. No drooling, immediate coughing, gurgling, or clearing of the throat was noted. The patient passed the bedside swallow screening. Oral medications may be given as ordered. Contact Physician for further diet orders. T-PA (Activase) Screening: Indications: Contraindications: Other: n/a. 09:12 Neuro: Level of Consciousness is awake, alert, obeys commands, Oriented to person, jg9 place, Senior It Project Manager are equal bilaterally Moves all extremities. Gait is Speech is normal, Facial symmetry appears normal, Pupils are Pupil Size: 1mm pinpoint, Reports Denies Seizure activity. 09:13 Neuro: No deficits noted. Cardiovascular: No deficits noted. Respiratory: No deficits jg9 noted. GI: No deficits noted. : No deficits noted. EENT: Eyes pinpoint pupils. Derm: No deficits noted. Musculoskeletal: No deficits noted. 09:15 Reassessment: Patient is alert and talking to at bedside, patient is worked up and jg9 reporting some conspiracy events taking place at the nursing facility. 09:16 General: Appears in no apparent distress. Behavior is anxious. Pain: Denies pain. jg9 09:35 Provider notified of bedside swallow screening results: Sloane Ackerman MD. jg9 10:40 Reassessment: Report given to Jo at [facility]. Family updated with transfer back ww to facility. Vital Signs: 09:00 BP 120 / 84; Pulse 72; Resp 18 S; Temp 97.5(A); Pulse Ox 100% on R/A; Weight 95.25 kg jg9 (R); Height 5 ft. 7 in. (170.18 cm) (R); 09:45 BP 133 / 90; Pulse 13; Resp 70; Pulse Ox 100% on R/A; jg9 09:00 Body Mass Index 32.89 (95.25 kg, 170.18 cm) jg9 [place] Coma Score: 09:29 Eye Response: spontaneous(4). Verbal Response: confused(4). Motor Response: obeys jg9 commands(6). Total: 14. NIH Stroke Scale Scores: 09:00 NIHSS Score: 1 jg9 09:15 NIHSS Score: 1 jg9 ED Course: 08:54 Patient arrived in ED. eb 08:54 Sloane Ackerman MD is Attending Physician. ma2 09:00 Arm band placed on right wrist. ss 09:06 Maintain EMS IV. Dressing intact. Good blood return noted. Site clean \T\ dry. Gauge \T\ jg 9 site: 18 right ac. 09:09 Triage completed. ss 09:14 Patient has correct armband on for positive identification. Bed in low position. Call jg9 light in reach. Side rails up X 1. 09:17 Appears upset. talking to at bedside. jg9 09:18 CT Stroke Brain w/o Contrast In Process Unspecified. EDMS 09:30 Skyla Klein, RN is Primary Nurse. jg9 09:41 Stroke CXR 1 View In Process Unspecified. EDMS 11:23 No provider procedures requiring assistance completed. IV discontinued, bleeding ww controlled, No redness/swelling at site. Pressure dressing applied. Administered Medications: 09:30 Drug: Ativan (LORazepam) 1 mg {Note: RASS-0.} Route: IVP; Site: right antecubital; jg9 09:53 Follow up: Response: No adverse reaction; Anxiety decreased; RASS: Alert and Calm (0) jg9 09:31 Drug: NS 0.9% 500 ml Route: IV; Rate: calculated rate; Site: right antecubital; jg9 09:53 Follow up: IV Status: Completed infusion; IV Intake: 500ml jg9 Point of Care Testing: Blood Glucose: 09:16 Blood Glucose: 90 mg/dL; jg9 Ranges: Intake: 09:53 IV: 500ml; Total: 500ml. jg9 Outcome: 10:30 Discharge ordered by MD. arreaga 11:23 Discharged to [facility]. Report called to Jo Transfer form completed. 11:23 Condition: stable 11:23 Discharge instructions given to family, significant other, Instructed on discharge instructions, follow up and referral plans. medication usage, safety practices, Demonstrated understanding of instructions, follow-up care. 11:24 Patient left the ED. NIH Stroke Scale - NIH Stroke Score Date: 02/18/2022 Time: 09:00 Total Score = 1 1a. Level of Consciousness (LOC) - 0(Alert) 1b. Level of Consciousness (LOC) (Month \T\ Age) - 1(One) 1c. LOC Commands (Open \T\ Closes Eyes/Nurses' Association Counselor) - 0(Both) 2. Best Gaze (Lateral Gaze Paresis) - 0(Normal) 3. Visual Field Loss - 0(No visual loss) 4. Facial Palsy - 0(Normal) 5a. Left Arm: Motor (10-second hold) - 0(No drift) 5b. Right Arm: Motor (10-second hold) - 0(No drift) 6a. Left Leg: Motor (5-second hold - always test supine) - 0(No drift) 6b. Right Leg: Motor (5-second hold - always test supine) - 0(No drift) 7. Limb Ataxia (finger/nose \T\ heel/denise - test with eyes open) - 0(Absent) 8. Sensory Loss (pinprick arms/legs/face) - 0(Normal) 9. Best Language: Aphasia (description/naming/reading) - 0(No aphasia) 10. Dysarthria (speech clarity - read or repeat words) - 0(Normal) 11. Extinction and Inattention (visual/tactile/auditory/spatial/personal) - 0(No abnormality) Initials: jg9 NIH Stroke Scale - NIH Stroke Score Date: 02/18/2022 Time: 09:15 Total Score = 1 1a. Level of Consciousness (LOC) - 0(Alert) 1b. Level of Consciousness (LOC) (Month \T\ Age) - 1(One) 1c. LOC Commands (Open \T\ Closes Eyes/Nurses' Association Counselor) - 0(Both) 2. Best Gaze (Lateral Gaze Paresis) - 0(Normal) 3. Visual Field Loss - 0(No visual loss) 4. Facial Palsy - 0(Normal) 5a. Left Arm: Motor (10-second hold) - 0(No drift) 5b. Right Arm: Motor (10-second hold) - 0(No drift) 6a. Left Leg: Motor (5-second hold - always test supine) - 0(No drift) 6b. Right Leg: Motor (5-second hold - always test supine) - 0(No drift) 7. Limb Ataxia (finger/nose \T\ heel/denise - test with eyes open) - 0(Absent) 8. Sensory Loss (pinprick arms/legs/face) - 0(Normal) 9. Best Language: Aphasia (description/naming/reading) - 0(No aphasia) 10. Dysarthria (speech clarity - read or repeat words) - 0(Normal) 11. Extinction and Inattention (visual/tactile/auditory/spatial/personal) - 0(No abnormality) Initials: jg9 Signatures: Dispatcher [employer] Licha Teran, RN RN Sloane Ackerman MD MD ma2 Tita Santamaria Jennifer, RN RN jg9 Nancy Farley RN RN ww Corrections: (The following items were deleted from the chart) 09:14 09:12 Neuro: Level of Consciousness is awake, alert, obeys commands, Oriented jg9 to person, place, Senior It Project Manager are equal bilaterally Moves all extremities. Gait is Speech is normal, Facial symmetry appears normal, Pupils are Pupil Size: 1mm [place], jg9
--- NOTE | 2022-02-18 10:31 | EDPHYS ---
Physician Documentation [facility] Name: Edgardo Marie Age: 76 yrs Sex: Male : 1945 Arrival Date: 02/18/2022 Time: 08:54 Bed 3 Private MD: ED Physician Sloane Ackerman HPI: 02/18 09:03 This 76 yrs old Male presents to ER via Unassigned with complaints of ams. ma2 09:03 Associated signs and symptoms: Pertinent negatives: ataxia, combativeness, diaphoresis, ma2 dizziness, headache. The patient has experienced similar episodes in the past. 76-year-old male with vascular dementia and multiple episodes of unresponsiveness, where he was seen by psych and neurologist and had MRI recently, he was recently admitted for similar symptoms. Last week. Patient [facility] because he became unresponsive with normal vital signs normal blood sugar. Patient was nonverbal as well. At this time patient is making eye, no seizures nonverbal. at bedside and she states he had similar symptoms in the past I think is a psychiatric in origin as he has been having erratic behavior recently. Historical: - Allergies: 09:09 Nexium; ss 09:09 PENICILLINS; ss 09:07 Nexium; jg9 09:07 PENICILLINS; jg9 - Home Meds: 09:07 aripiprazole 5 mg Oral tab 1 tab once daily [Active]; B-Complex Oral tab three times jg9 per week. 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 - Social history:: Patient/guardian denies using alcohol, street drugs, The patient lives with family, Smoking status: Patient denies any tobacco usage or history of. - Family history:: not pertinent, pertinent for. ROS: 09:03 Constitutional: Negative for fever, chills, and weight loss, Eyes: Negative for injury, ma2 pain, redness, and discharge, ENT: Negative for injury, pain, and discharge, Neck: Negative for injury, pain, and swelling, Cardiovascular: Negative for chest pain, palpitations, and edema, Respiratory: Negative for shortness of breath, cough, wheezing, and pleuritic chest pain, Abdomen/GI: Negative for abdominal pain, nausea, diarrhea, and constipation, Back: Negative for injury and pain, : Negative for injury, bleeding, discharge, and swelling, MS/Extremity: Negative for injury and deformity, Neuro: Negative for headache, weakness, numbness, tingling, and seizure, Psych: Negative for depression, anxiety, suicide ideation, homicidal ideation, and hallucinations, Allergy/Immunology: Negative for hives, rash, and allergies, Endocrine: Negative for neck swelling, polydipsia, polyuria, polyphagia, and marked weight changes, Hematologic/Lymphatic: Negative for swollen nodes, abnormal bleeding, and unusual bruising. Exam: 09:03 Head/Face: Normocephalic, atraumatic. Eyes: Pupils equal round and reactive to light, ma2 extra-ocular motions intact. Lids and lashes normal. Conjunctiva and sclera are non-icteric and not injected. Cornea within normal limits. Periorbital areas with no swelling, redness, or edema. ENT: Nares patent. No nasal discharge, no septal abnormalities noted. Tympanic membranes are normal and external auditory canals are clear. Oropharynx with no redness, swelling, or masses, exudates, or evidence of obstruction, uvula midline. Mucous membranes moist. Neck: Trachea midline, no thyromegaly or masses palpated, and no cervical lymphadenopathy. Supple, full range of motion without nuchal rigidity, or vertebral point tenderness. No Meningismus. Chest/axilla: Normal chest wall appearance and motion. Nontender with no deformity. No lesions are appreciated. Cardiovascular: Regular rate and rhythm with a normal S1 and S2. No gallops, murmurs, or rubs. Normal PMI, no JVD. No pulse deficits. Respiratory: Lungs have equal breath sounds bilaterally, clear to auscultation and percussion. No rales, rhonchi or wheezes noted. No increased work of breathing, no retractions or nasal flaring. Abdomen/GI: Soft, non-tender, with normal bowel sounds. No distension or tympany. No guarding or rebound. No evidence of tenderness throughout. Back: No spinal tenderness. No costovertebral tenderness. Full range of motion. Skin: Warm, dry with normal turgor. Normal color with no rashes, no lesions, and no evidence of cellulitis. MS/ Extremity: Pulses equal, no cyanosis. Neurovascular intact. Full, normal range of motion. Psych: Garcia, nonverbal. Vital Signs: 09:00 BP 120 / 84; Pulse 72; Resp 18 S; Temp 97.5(A); Pulse Ox 100% on R/A; Weight 95.25 kg jg9 (R); Height 5 ft. 7 in. (170.18 cm) (R); 09:45 BP 133 / 90; Pulse 13; Resp 70; Pulse Ox 100% on R/A; jg9 09:00 Body Mass Index 32.89 (95.25 kg, 170.18 cm) jg9 NIH Stroke Scale Scores: 09:00 NIHSS Score: 1 jg9 09:15 NIHSS Score: 1 jg9 [place] Coma Score: 09:29 Eye Response: spontaneous(4). Verbal Response: confused(4). Motor Response: obeys jg9 commands(6). Total: 14. MDM: 08:54 Patient medically screened. ma2 09:03 Differential Diagnosis: CVA, hypoglycemia, pneumonia, volume depletion. Data reviewed: ma2 vital signs, nurses notes. Counseling: I had a detailed discussion with the patient and/or guardian regarding: the historical points, exam findings, and any diagnostic results supporting the discharge/admit diagnosis, the presence of at least one elevated blood pressure reading (>120/80) during this emergency department visit, the need for outpatient follow up. Response to treatment: the patient's symptoms have resolved after treatment. ED course: Patient now is back to baseline he is AOx4 gcs 15. 02/18 09:02 Order name: Basic Metabolic Panel; Complete Time: 10:10 02/18 09:02 Order name: CBC with Diff; Complete Time: 10:02/18 09:02 Order name: Protime (+inr); Complete Time: 10:02/18 09:02 Order name: Ptt, Activated; Complete Time: 10:02/18 09:02 Order name: CT Stroke Brain w/o Contrast; Complete Time: 10:02/18 09:02 Order name: Stroke CXR 1 View; Complete Time: 10:02/18 09:02 Order name: EKG; Complete Time: 09:02/18 09:02 Order name: Accucheck; Complete Time: 09:02/18 09:02 Order name: Cardiac monitoring; Complete Time: 09:02/18 09:02 Order name: EKG - Nurse/Tech; Complete Time: 09:06 02/18 09:02 Order name: IV Saline Lock; Complete Time: 09:02/18 09:02 Order name: Labs collected and sent; Complete Time: 09:02/18 09:02 Order name: NPO; Complete Time: 09:02/18 09:02 Order name: O2 Per Protocol; Complete Time: 09:02/18 09:02 Order name: O2 Sat Monitoring; Complete Time: 09:02/18 09:02 Order name: Stroke Swallow Screen; Complete Time: 09:31 ww Administered Medications: 09:30 Drug: Ativan (LORazepam) 1 mg {Note: RASS-0.} Route: IVP; Site: right antecubital; jg9 09:53 Follow up: Response: No adverse reaction; Anxiety decreased; RASS: Alert and Calm (0) jg9 09:31 Drug: NS 0.9% 500 ml Route: IV; Rate: calculated rate; Site: right antecubital; jg9 09:53 Follow up: IV Status: Completed infusion; IV Intake: 500ml jg9 Point of Care Testing: Blood Glucose: 09:16 Blood Glucose: 90 mg/dL; jg9 Ranges: Critical Glucose Levels:Adult <50 mg/dl or >400 mg/dl <40 mg/dl or >180 mg/dl Disposition Summary: 02/18/22 10:30 Discharge Ordered Location: Home ma2 Condition: Stable ma2 Diagnosis - Bizarre personal appearance ma2 Followup: ma2 - With: Private Physician - When: Tomorrow - Reason: If symptoms return, Continuance of care Discharge Instructions: - Discharge Summary Sheet ma2 - Generalized Anxiety Disorder, Adult ma2 Forms: - Medication Reconciliation Form ma2 - Thank You Letter ma2 - Antibiotic Education ma2 - Prescription Opioid Use ma2 NIH Stroke Scale - NIH Stroke Score Date: 02/18/2022 Time: 09:00 Total Score = 1 1a. Level of Consciousness (LOC) - 0(Alert) 1b. Level of Consciousness (LOC) (Month \T\ Age) - 1(One) 1c. LOC Commands (Open \T\ Closes Eyes/Agricultural Economics Teacher) - 0(Both) 2. Best Gaze (Lateral Gaze Paresis) - 0(Normal) 3. Visual Field Loss - 0(No visual loss) 4. Facial Palsy - 0(Normal) 5a. Left Arm: Motor (10-second hold) - 0(No drift) 5b. Right Arm: Motor (10-second hold) - 0(No drift) 6a. Left Leg: Motor (5-second hold - always test supine) - 0(No drift) 6b. Right Leg: Motor (5-second hold - always test supine) - 0(No drift) 7. Limb Ataxia (finger/nose \T\ heel/denise - test with eyes open) - 0(Absent) 8. Sensory Loss (pinprick arms/legs/face) - 0(Normal) 9. Best Language: Aphasia (description/naming/reading) - 0(No aphasia) 10. Dysarthria (speech clarity - read or repeat words) - 0(Normal) 11. Extinction and Inattention (visual/tactile/auditory/spatial/personal) - 0(No abnormality) Initials: jg9 NIH Stroke Scale - NIH Stroke Score Date: 02/18/2022 Time: 09:15 Total Score = 1 1a. Level of Consciousness (LOC) - 0(Alert) 1b. Level of Consciousness (LOC) (Month \T\ Age) - 1(One) 1c. LOC Commands (Open \T\ Closes Eyes/Agricultural Economics Teacher) - 0(Both) 2. Best Gaze (Lateral Gaze Paresis) - 0(Normal) 3. Visual Field Loss - 0(No visual loss) 4. Facial Palsy - 0(Normal) 5a. Left Arm: Motor (10-second hold) - 0(No drift) 5b. Right Arm: Motor (10-second hold) - 0(No drift) 6a. Left Leg: Motor (5-second hold - always test supine) - 0(No drift) 6b. Right Leg: Motor (5-second hold - always test supine) - 0(No drift) 7. Limb Ataxia (finger/nose \T\ heel/denise - test with eyes open) - 0(Absent) 8. Sensory Loss (pinprick arms/legs/face) - 0(Normal) 9. Best Language: Aphasia (description/naming/reading) - 0(No aphasia) 10. Dysarthria (speech clarity - read or repeat words) - 0(Normal) 11. Extinction and Inattention (visual/tactile/auditory/spatial/personal) - 0(No abnormality) Initials: jg9 Signatures: Dispatcher [employer] Licha Teran, RN LALA Sloane Ackerman MD MD ma2 Skyla Klein RN RN jg9 Nancy Farley RN RN ww
[2022-02-18 11:29] VITALS: TEMP 97.5; O2SAT 100
[2022-02-18 11:31] VITALS: BP 133/90
== END 2022-02-18 11:24 | disposition home or self-care (01) ==
LOC: ER 08:52
DX: R46.1 Bizarre personal appearance (principal); N40.0 Benign prostatic hyperplasia without lower urinary tract symptoms; Z88.0 Allergy status to penicillin; Z88.8 Allergy status to other drugs, medicaments and biological substances
CPT/HCPCS: 93005; 85025; 80048; 36415; 85610; 85730; 70450; 71045; 96374; 99284; J7040